=== PATIENT | female | born 1935 | race Caucasian/White ===

== ENCOUNTER → 2016-12-15 | Outpatient (CLI) | payer BC ==
[~2016-12-15] MED LIST: ACET-1256 PO; ASPI81TA28 PO; ATOR-24 PO; CHOL100010 PO; CIPR-255 PO; CLR10 PO; JUICE PLUS PO; LORA-741 PO; MELA1TAB5 PO; METO25TA56 PO; METR-163 PO; MISCCAP80 PO; NXM/40 PO; OMEG10007 PO; OXYC-57 PO; PRMVC PV; RANI150T3 PO; TRAM-10 PO; WARF2TAB PO
== END | disposition home or self-care (01) ==
LOC: C.RDSM 16:07
PROVIDERS: ATTEND Physical Medicine & Rehabilitation Sports Medicine
DX: M25.561 Pain in right knee (principal)

== ENCOUNTER 2017-02-04 05:18 | Inpatient (IN) | payer BC, OTHER ==
--- NOTE | 2017-01-09 15:09 | PAT Medication Instructions ---
Service Date Jan 09, 2017. Current Home Medication List Acetaminophen (Tylenol), 1,000 MG PO Aspirin (Aspirin Ec), 81 MG PO HS Atorvastatin (Lipitor), 20 MG PO HS Cholecalciferol (Vitamin D), 1,000 INTER.UNIT PO QAM Esomeprazole Magnesium (Nexium), 20 MG PO Q2D Estrogens, Conjugated (Premarin), 0.5 GM UNKNOWN WK Melatonin (Kp Melatonin), 1 TAB PO HS Metoprolol Tartrate (Lopressor) (Lopressor), 25 MG PO BID Probiotic Product (Probiotic), 1 CAP PO Q2D Ranitidine Hcl (Zantac), 150 MG PO Q2D [Juice Plus], 3 CAP PO QAM Medication Instructions For Your Scheduled Surgery - Hold the following medications 2 weeks prior to surgery: [Juice Plus], 3 CAP PO QAM Fish Oil (if taking) - Continue as directed: Estrogens, Conjugated (Premarin), 0.5 GM UNKNOWN WK - Hold the following medications the morning of surgery: Cholecalciferol (Vitamin D), 1,000 INTER.UNIT PO QAM Probiotic Product (Probiotic), 1 CAP PO Q2D - Take the following medications the morning of surgery with a sip of water OTHERWISE NOTHING TO EAT OR DRINK AFTER MIDNIGHT: Esomeprazole Magnesium (Nexium), 20 MG PO Q2D or Ranitidine Hcl (Zantac), 150 MG PO Q2D Metoprolol Tartrate (Lopressor) (Lopressor), 25 MG PO BID Acetaminophen (Tylenol), 1,000 MG PO (if needed up to 4 hours prior to surgery) - Take the following medications as scheduled the night before surgery: Aspirin (Aspirin Ec), 81 MG PO HS Atorvastatin (Lipitor), 20 MG PO HS Melatonin (Kp Melatonin), 1 TAB PO HS Metoprolol Tartrate (Lopressor) (Lopressor), 25 MG PO BID Acetaminophen (Tylenol), 1,000 MG PO If you have any questions please call us at [phone] or [phone] or [phone]
[2017-01-09 15:18] VITALS: BMI 31.0
[2017-01-09 15:55] LABS: BASO % 0.5 %; BASO ABS # 0.04 K/uL (0-0.2); COMPLETE YES; EOS % 2.2 %; HEMATOCRIT 37.7 % (37-47); IG% 0.4 %; LYMPH ABS # 2.17 K/uL (1.2-3.4); MEAN CELL VOLUME 85.9 fL (80-100); MEAN CORPUSCULAR HEMOGLOBIN 28.9 pg (25-34); MEAN CORPUSCULAR HGB CONC 33.7 g/dl (32-36); MONO % 8.9 %; PLATELET COUNT 319 K/uL (130-400); RED BLOOD COUNT 4.39 M/uL (4.2-5.4); WHITE BLOOD COUNT 8.05 K/uL (4.8-10.8)
[2017-01-09 15:58] LABS: URINE APPEARANCE CLEAR (CLEAR); URINE BILIRUBIN NEG (NEG); URINE COLOR YELLOW; URINE NITRITE NEG (NEG); URINE PH 7.5 (4.5-7.5); URINE SPECIFIC GRAVITY 1.007 (1.000-1.030); UROBILINOGEN NEG (NEG); ZZUR CULT IF INDIC CLEAN CATCH NO
[2017-01-09 16:05] LABS: PROTHROMBIN TIME (PATIENT) 10.6 SECONDS (9.0-12.0)
[2017-01-09 16:07] LABS: CALCIUM 9.3 mg/dl (8.5-10.1); CREATININE 0.7 mg/dl (0.60-1.20); POTASSIUM 4.5 mmol/L (3.5-5.1)
[2017-01-09 16:09] LABS: MANUAL MICROSCOPIC REQUIRED? NO; REVIEW REQ? NO
--- NOTE | 2017-01-14 10:42 | HISTORY & PHYSICAL EXAMINATION ---
DATE OF ADMISSION: 02/04/2017 CHIEF COMPLAINT: Right hip pain. HISTORY OF PRESENT ILLNESS: This 81-year-old white female presents with complaints of right hip pain that she has had for approximately 8 months. Symptoms began in April or May. Pain has progressed. She ambulates with a cane. Pain is limiting her activity level. It is worse with standing and weightbearing. It is affecting her ADLs. She notes loss of motion of the hip. She is now putting more pressure on the left side because of her right hip pain. She also notes radiating pain to her knee as well. No specific trauma or injury. X-rays have been obtained. She elects to proceed with right total hip arthroplasty in hopes of alleviating her pain. PAST MEDICAL HISTORY: Significant for COPD, elevated cholesterol, hypertension, osteoarthritis, rheumatoid arthritis, GERD, obesity, and hiatal hernia. PREVIOUS SURGERIES: Appendectomy, hysterectomy, and heart catheterization. ALLERGIES: KNOWN ALLERGY ANTIHISTAMINES WHICH CAUSE HYPERACTIVITY, EVISTA AND PENICILLIN CAUSED A RASH OVER 50 YEARS AGO. CURRENT MEDICATIONS: Aspirin 81 mg p.o. daily, atorvastatin 40 mg p.o. daily, Lopressor 25 mg p.o. b.i.d., melatonin 3 mg p.o. at bedtime, Nexium 40 mg p.o. every other day, probiotic 1 capsule daily, Zantac 150 mg p.o. every other day. SOCIAL HISTORY: The patient is . Still employed. She works for [employer]. No tobacco use, no ETOH use. FAMILY HISTORY: Significant for daughter with MS and her grandchildren having von Willebrand disease. REVIEW OF SYSTEMS: Significant for above stated conditions, otherwise unremarkable. PHYSICAL EXAMINATION: GENERAL: Well-developed, well-nourished elderly white female in no acute distress. Sitting on a chair. Alert and oriented. SKIN: Warm and dry with fair turgor. No rashes or lesions. No ecchymosis or erythema. No intraarticular effusion. HEAD, EYES, EARS, NOSE, AND THROAT: Normocephalic, atraumatic. Eyes PERRLA, EOMI. Nares patent bilaterally without turbinate enlargement. Oropharynx without erythema or exudate. No lesions noted. Uvula midline. Oral mucosa moist. Fair dentition. Dental caps are noted. HEART: RRR. No MGR. LUNGS: Clear to auscultation bilaterally. No crackles, rhonchi or wheezing. Good air movement. ABDOMEN: Bowel sounds present x4, soft, nontender. No organomegaly. No masses. MUSCULOSKELETAL: Right hip evaluation reveals no obvious asymmetry or deformity. She has focal discomfort with palpation over the anterior flexion crease. Hip flexion is only to around 90 degrees. External rotation of only about 5 degrees before onset of pain. Internal rotation also of only around 5 degrees before onset of pain. No discomfort with palpation over the greater trochanter or the IT band. She is ambulatory with a significantly antalgic gait. She does use a cane. NEUROLOGIC: Cranial nerves II through XII are intact. Gross sensation is intact across the right leg via soft touch. Peripheral pulses are 2+. DATA: Radiographic imaging previously obtained shows bilateral hip DJD, right greater than left. Periarticular osteophytes, subchondral sclerosis, and joint space narrowing are all present. IMPRESSION: Right hip end-stage degenerative joint disease. PLAN: Informed written consent was obtained to proceed with right total hip arthroplasty. Anticipate discharge to home with 2 weeks of home health services and then outpatient PT. Postoperative prescriptions for Percocet and Coumadin will be provided at discharge from the hospital. Preoperative lab work, EKG, and chest x-ray have been ordered. Medical clearance has been requested from Dr. Maloney as well as from Antwan Avila PA-C.
[~2017-02-04] VITALS: Ht 154.9 cm; Wt 75.7 kg
[2017-02-04] VITALS (8 sets, daily range): BP systolic 100–157; BP diastolic 64–82; PULSE 68–83; TEMP 36.3–37; O2SAT 92–98; Ht 154.9 cm; Wt 75.7 kg
[~2017-02-04 05:18] MED LIST changes: -CHOL100010 PO; -CIPR-255 PO; -CLR10 PO; -LORA-741 PO; -METR-163 PO; -OXYC-57 PO; -TRAM-10 PO; -WARF2TAB PO
[2017-02-04] MEDS ORDERED: CEFAZOLIN 2000 MG/60 ML D5W IV SCH (06:00)
[2017-02-04] MEDS ORDERED: LACTATED RINGER'S 1000ML 1,000 ML IV SCH ×2 (06:00→10:00)
[2017-02-04] MEDS ORDERED: ROPIVACAINE 5MG/ML 30 ML 150 MG, BUPIVACAINE/EPINEPHR 0.5% MPF 30 ML, KETOROLAC TROMETH... INFIL SCH ×7 (06:00)
[2017-02-04] MEDS ORDERED: TRANEXAMIC ACID INJ 1,000 MG in SODIUM CHLORIDE 0.9% 100ML 100 ML IV ONE (06:00)
--- NOTE | 2017-02-04 06:24 | History & Physical Bridge Note ---
H&P Re-Evaluation Bridge Note: I have examined the patient, reviewed the History & Physical and in the interval since the performance of the History & Physical I have noted the following changes of clinical significance: No changes noted
[2017-02-04] MEDS ORDERED: MIDAZOLAM HCL 1 MG/ML 2ML VIAL ONE ×2 (06:31→07:10)
[2017-02-04] MEDS ORDERED: FENTANYL CITRATE INJ 50 MCG/1 ML 2 ML VIAL ONE (06:31)
[2017-02-04] MEDS ORDERED: POVIDONE-IODINE OP SOLN 30 ML BTL ONE (06:31)
[2017-02-04] MEDS ORDERED: BUPIVACAINE 0.5 % 5 MG/1 ML PF 10ML VIAL ONE (06:41)
[2017-02-04] MEDS ORDERED: PROPOFOL IV EMULSION 10 MG/ML 20 ML VIAL IV ONE (07:18)
[2017-02-04] MEDS ORDERED: LIDOCAINE HCL 2% 2 ML VIAL (20MG/ML) ONE (07:18)
[2017-02-04] MEDS ORDERED: EpHEDrine SULFATE 50MG/5ML SYR ONE (07:51)
[2017-02-04] MEDS ORDERED: ONDANSETRON INJ 2 MG/ML 2 ML VIAL IV PRN ×2 (08:00→08:45)
[2017-02-04] MEDS ORDERED: FENTANYL CITRATE INJ 50 MCG/1 ML 2 ML VIAL IV PRN (08:00)
[2017-02-04] MEDS ORDERED: EpHEDrine SULFATE INJ 50 MG/ML AMP IV PRN (08:00)
[2017-02-04] MEDS ORDERED: ATROPINE SULFATE 0.1 MG/ML 5ML SYR IV PRN (08:00)
--- NOTE | 2017-02-04 08:26 | [facility] Post Operative Brief Note ---
Immediate Operative Summary Operative Date February 04, 2017. Pre-Operative Diagnosis Right Hip End-Stage Degenerative Joint Disease Post-Operative Diagnosis Right Hip End-Stage Degenerative Joint Disease Procedure(s) Performed Right Total Hip Arthroplasty--Uncemented Surgeon Dr. Camejo Cook Larder Surgeon(s) Dr. Joseph Lancaster (Fellow)/GERRY Baer Estimated Blood Loss 75 ml Findings severe djd/contractures Fluids (cc crystalloids) 1300cc Specimens A. Right Femoral Head Drains none Anesthesia spinal Complication(s) None Disposition Recovery Room / PACU
[2017-02-04] MEDS ORDERED: METOCLOPRAMIDE HCL INJ 5 MG/ML 2 ML VIAL IV PRN (08:45)
[2017-02-04] MEDS ORDERED: DiphenhydrAMINE HCL 50 MG/ML VIAL IV PRN (08:45)
[2017-02-04] MEDS ORDERED: ACETAMINOPHEN IV 1,000 MG in EMPTY BAG 0 ML IV SCH (08:45)
[2017-02-04] MEDS ORDERED: BISACODYL 10 MG SUPP PR PRN (08:45)
[2017-02-04] MEDS ORDERED: ALUMINUM/MAGNESIUM/SIMETH (MAALOX MAX) 30 ML UDC PO PRN (08:45)
[2017-02-04] MEDS ORDERED: ACETAMINOPHEN 325 MG TAB PO PRN (08:45)
[2017-02-04] MEDS ORDERED: MoRPHine SULFATE 2 MG/ML CARP IV PRN (08:45)
[2017-02-04] MEDS ORDERED: MAGNESIUM HYDROXIDE SUSP 30 ML UDC PO PRN (08:45)
--- NOTE | 2017-02-04 08:45 | OPERATIVE REPORT ---
DATE OF OPERATION: 02/04/2017 PREOPERATIVE DIAGNOSIS: Severe osteoarthritis, right hip. POSTOPERATIVE DIAGNOSIS: Same. OPERATION PERFORMED: Noncemented right total hip replacement. SURGEON: Dr. Camejo. SUPERINTENDENT COLLIERY: Dr. Joseph Lancaster. SECOND SUPERINTENDENT COLLIERY: Kishor Casillas PA-C. PERIOPERATIVE SITUATION: Medically cleared female with intractable hip pain with physical exam and x-ray reveals significant end-stage disease, has marked flexion contracture and external rotation contracture. She has minimal rotation of her hip. X-rays reveal end-stage disease with centralization of the head and marked osteophyte formation periarticularly and joint space narrowing, marked sclerosis. OPERATION AND FINDINGS: PROCEDURE: The patient was properly identified, site verified, consent verified, 2 grams of Ancef confirmed as being given. The right lower extremity was prepped and draped in usual routine fashion with the patient in left lateral decubitus position. The patient exposure was then posterior, sharp dissection carried down to the subcutaneous tissue with electrothermal dissection down to the fascia. This was then incised under direct vision. Retractors placed. Care taken to protect the sciatic nerve. The short external rotators were identified and the short external rotators released. The hip capsule was then teed. The hip was then dislocated, the femoral neck resected. There was marked disease to the femoral head. The labrum was then excised after retractors placed around the acetabulum. Care taken to protect the sciatic nerve. Serial reaming carried up to a 48 and a 48 cup impacted into position. Excellent fixation was obtained with a rim fit and an additional screw was placed 6.5 x 20 with excellent purchase. Trial liner was then seated. The wound was then irrigated, trial liner seated. The anterior capsule was markedly tight. It was released multiple times during the procedure in order to improve the extension of the hip. It was very, very tight. The psoas was left alone. The proximal femur was then prepared. It was a very narrow canal. Serial broaching was carried up to a size 0 and then multiple reductions carried out with the high offset and standard stem. The high offset improved stability without increasing leg lengths. Leg lengths were either slightly long or just about even when checked intraoperatively. The hip was then dislocated. All remaining trial implants were then removed. The wound was irrigated with Betadine. The hole eliminator seated, permanent liner seated. The head and necks seated and then the hip reduced. It was stable and beyond 95-100 degrees of flexion with internal rotation of 25 degrees. In extension the hip was still a bit tight, slight pop was felt likely representing soft tissue release. Going in extension, the hip was then reevaluated, reinspected after it was dislocated. Did not see anything wrong with the implants or with the bone of the femur. There was no split of the calcar or anything like that. The wound was then irrigated. The hip was then reduced and then closed with #2 Vicryl, 2-0 Vicryl and stainless steel clips. The wound was injected with Orthomix in the superficial layers. Estimated blood loss was 75 mL. Crystalloid was 1300 mL. SUMMARY OF IMPLANTS: Size 48 acetabular shell sector cup, 38 x 48 neutral liner, 0 high offset femoral stem, 32 head, +1 neck length. I attest to the content of the Intraoperative Record and any orders documented therein. Any exceptio ns are noted below.
--- NOTE | 2017-02-04 09:03 | DIAGNOSTIC IMAGING REPORT ---
SINGLE VIEW PELVIS CLINICAL HISTORY: Postoperative examination. FINDINGS: An AP, portable, supine view of the hips and lower pelvis is compared to study dated 05/20/2016. The skeletal structures are osteopenic. A bipolar right hip arthroplasty is in near anatomic alignment. No acute fracture is seen. There are expected postoperative findings overlying the right hip including skin clips, subcutaneous gas, and soft tissue swelling. Moderate arthritic change is seen in the left hip. There is sclerotic change noted in the sacroiliac joints and pubic symphysis. IMPRESSION: Expected postoperative findings status post right hip arthroplasty. No acute fracture is seen. Electronically signed by: Arian Bright M.D. 02/04/2017 9:02 AM Dictated Date/Time: 02/04/2017 9:01 AM
--- NOTE | 2017-02-04 09:45 | Anesthesiology Progress Note ---
Anesthesia Post Op Note Date & Time February 04, 2017 at 09:45 Vital Signs Pain Intensity: 0 Vital Signs Past 12 Hours Date Time Temp Pulse Resp B/P Pulse Ox O2 Delivery O2 Flow Rate FiO2 02/04/17 09:30 36.9 69 18 120/59 99 Nasal Cannula 3 02/04/17 09:15 64 18 116/59 99 Nasal Cannula 3 02/04/17 09:00 68 16 116/61 99 Nasal Cannula 3 02/04/17 08:50 65 16 115/64 99 Nasal Cannula 3 02/04/17 08:40 64 16 109/54 99 Nasal Cannula 3 02/04/17 08:30 36.4 67 16 96/44 96 Nasal Cannula 3 02/04/17 05:46 37 73 18 157/82 94 Room Air Notes Mental Status: alert / awake / arousable, participated in evaluation Pt Amnestic to Procedure: Yes Nausea / Vomiting: adequately controlled Pain: adequately controlled Airway Patency, RR, SpO2: stable & adequate BP & HR: stable & adequate Hydration State: stable & adequate Neuraxial Anesthesia: was administered, sensory block is resolving Anesthetic Complications: no major complications apparent
[2017-02-04] MEDS ORDERED: D5W AND 1/2NSS + 20MEQ KCL 1,000 ML IV SCH (10:45)
[2017-02-04] MEDS: ACETAMINOPHEN IV 1,000 MG in EMPTY BAG 0 ML IV SCH ×2 (11:04→18:47)
[2017-02-04] MEDS ORDERED: KETOROLAC TROMETHAMINE 15 MG/ML VIAL IV. SCH (12:00)
[2017-02-04] MEDS: FERROUS GLUCONATE 324 MG TAB PO SCH ×2 (12:05→17:27)
--- NOTE | 2017-02-04 13:03 | PROGRESS NOTE ---
DATE: 02/04/2017 Postop check, status post right total hip replacement. At this time, the patient is sitting up, eating lunch and has no chest pain, shortness of breath, fever, chills, nausea, vomiting, or headache. Vital signs are stable. She is afebrile. Neurovascular check of femoral sciatic nerve is excellent. Postop x-rays look excellent. ASSESSMENT: Doing well. Continue with care pathway. Hep-Lock IV if she tolerates lunch at 2:00 p.m. We will mobilize and weightbearing to tolerance, right lower extremity.
[2017-02-04] MEDS: OXYCODONE HCL IR 5 MG TAB (IMMEDIATE RELEASE) PO PRN ×2 (13:56→15:19)
--- NOTE | 2017-02-04 13:57 | OPERATIVE REPORT ---
DATE OF OPERATION: 02/04/2017 PREOPERATIVE DIAGNOSIS: Right hip endstage degenerative joint disease. POSTOPERATIVE DIAGNOSIS: Right hip same. PROCEDURE: Right hip total hip arthroplasty using DePuy implants. SURGEON: Dr. Camejo. CARBOY FILLER: Dr. Jordan. SECOND CARBOY FILLER: Kishor Casillas PA-C. HISTORY OF PRESENT ILLNESS: This 81-year-old white female presented to the office with complaints of right hip pain that has been ongoing for several months. Pain became worse with time. It was affecting her ADLs. She had tried conservative care measures without success. She elected to proceed with total hip arthroplasty in hopes of alleviating her pain. Preoperative x-rays were obtained. OPERATION: The patient was administered a spinal anesthetic and then taken to the operating room where she was given sedation. She was prepped and draped in the usual sterile fashion. Please see Dr. Camejo's operative report for specifics of the procedure. I was present for the entire case from initial patient positioning through final wound closure. Assistance was provided in patient positioning, tissue retraction, hemostasis, trial implant placement, final implant placement, and final wound closure. The patient was taken to the recovery room in satisfactory condition. I attest to the content of the Intraoperative Record and any orders documented therein. Any exceptio ns are noted below.
--- NOTE | 2017-02-04 14:01 | Medical Consult ---
Consultation Date of Consultation: February 04, 2017. Attending Physician: Hernando Camejo M.D. Reason for Consultation: postop medical management History of Present Illness Patient seen and examined after undergoing R LATONYA this morning by Dr. Camejo. Patient feels well. Sensory block is still wearing off. Not having any pain yet. Has chronic mild cough with rare yellow sputum, sneezing, postnasal drip attributed to allergies, unchanged from baseline. Denies fever, chills, rhinorrhea, sinus congestion, sore throat, dizziness, chest pain, SOB, nausea, vomiting. Has not eaten yet. Last BM was normal this morning before surgery. Has not voided yet after surgery. Past Medical/Surgical History Medical Problems: (1) CAD (coronary artery disease) Permanent Comment: mild to moderate on July 2009 cath. Sep 2016 stress test neg. Status: Chronic (2) Diverticulosis Status: Chronic (3) GERD (gastroesophageal reflux disease) Status: Chronic (4) Hiatal hernia Status: Chronic (5) History of Clostridium difficile colitis Status: Chronic (6) HTN (hypertension) Status: Chronic (7) Hx of basal cell carcinoma Status: Chronic (8) Hyperlipidemia Status: Chronic (9) Migraine with aura Status: Chronic (10) HIPOLITO on CPAP Status: Chronic (11) Preglaucoma Status: Chronic (12) Schatzki's ring Status: Chronic Surgical Problems: (1) H/O breast biopsy Permanent Comment: benign Status: Chronic (2) S/P appendectomy Status: Chronic (3) S/P SANTO-BSO Status: Chronic Family History FH: cancer FH: heart disease Hypertension Social History Smoking Status: Never Smoker Alcohol Use: none Housing Status: lives alone Occupation Status: employed Allergies Coded Allergies: Penicillins (Verified Allergy, Mild, RASH, 02/04/17) Doxepin (Verified Allergy, Unknown, unknown, 02/04/17) Meloxicam (Verified Allergy, Unknown, DIZZINESS, 02/04/17) Raloxifene (Verified Allergy, Unknown, RASH, 02/04/17) Lisinopril (Verified Adverse Reaction, Unknown, COUGH, 02/04/17) Home Medications Active Reported [place]-3 (Fish Oil) 1 Ea Cap 1 Cap PO DAILY Zantac (Ranitidine HCl) 150 Mg Tab 150 Mg PO Q2D altnerate with Nexium Tylenol (Acetaminophen) 500 Mg Tab 500 Mg PO Q6 PRN Premarin (Estrogens, Conjugated) 14 Appln/30 Gm Cr 0.5 Gm PV WK Probiotic (Probiotic Product) 1 Cap Cap 1 Cap PO Q2D [Juice Plus] 3 Cap PO QAM Kp Melatonin (Melatonin) 3 Mg Tab 1 Tab PO HS Nexium (Esomeprazole Magnesium) 40 Mg Capcr 40 Mg PO Q2D alternate with ranitidine Lipitor (Atorvastatin Calcium) 40 Mg Tab 20 Mg PO QAM Aspirin Ec (Aspirin) 81 Mg Tab 81 Mg PO HS Lopressor (Metoprolol Tartrate) 25 Mg Tab 25 Mg PO BID Current Inpatient Medications Current Inpatient Medications Medications (Trade) Dose Ordered Sig/Adrian Route Start Time Stop Time Status Last Admin Dose Admin Cefazolin Sodium (Ancef 2000mg/60 ml D5W) 60 ml @ 100 mls/hr PREOP IV 02/04/17 06:00 02/04/17 18:00 02/04/17 06:57 100 MLS/HR Fentanyl Citrate (Fentanyl Inj) 25 mcg Q5M PRN IV 02/04/17 08:00 02/04/17 13:00 Ondansetron HCl (Zofran Inj) 4 mg ONE PRN IV 02/04/17 08:00 02/04/17 13:00 Ephedrine Sulfate (EpHEDrine SULFATE INJ) 5 mg Q5M PRN IV 02/04/17 08:00 02/04/17 13:00 Atropine Sulfate 0.5 mg 0.5 mg Q1M PRN IV 02/04/17 08:00 02/04/17 13:00 Potassium Chloride/Dextrose/ Sod Cl (D5W And 1/2nss + 20meq KCl) 1,000 ml @ 100 mls/hr Q10H IV 02/04/17 10:45 02/05/17 10:44 Ketorolac Tromethamine (Toradol Inj) 15 mg Q6H IV. 02/04/17 08:45 02/05/17 08:44 UNV Oxycodone HCl (Roxicodone Immediate Rel Tab) 1 TABLET FOR PAIN RATING... Q4H PRN PO 02/04/17 08:45 02/18/17 08:44 Morphine Sulfate (MoRPHine SULFATE INJ) 2 mg Q1H PRN IV 02/04/17 08:45 02/18/17 08:44 Acetaminophen (Tylenol Tab) 650 mg Q6H PRN PO 02/04/17 08:45 03/06/17 08:44 Future hold Magnesium Hydroxide (Milk Of Magnesia Susp) 30 ml Q6H PRN PO 02/04/17 08:45 03/06/17 08:44 Bisacodyl (Dulcolax Supp) 10 mg DAILY PRN GA 02/04/17 08:45 03/06/17 08:44 Docusate Sodium (coLACE CAP) 100 mg BID PO 02/04/17 21:00 03/06/17 20:59 Diphenhydramine HCl (Benadryl Inj) 25 mg Q8H PRN IV 02/04/17 08:45 03/06/17 08:44 Al Hydrox/Mg Hydrox/Simethicone (Maalox Max Susp) 15 ml Q4H PRN PO 02/04/17 08:45 03/06/17 08:44 Multivitamins (Multivitamin Tab) 1 tab QAM PO 02/05/17 09:00 03/07/17 08:59 Ondansetron HCl (Zofran Inj) 4 mg Q6H PRN IV 02/04/17 08:45 03/06/17 08:44 Metoclopramide HCl (Reglan Inj) 10 mg Q6H PRN IV 02/04/17 08:45 03/06/17 08:44 Ferrous Gluconate (Ferrous Gluconate Tab) 324 mg TIDM PO 02/04/17 12:00 03/06/17 11:59 Pantoprazole Sodium 40 mg 40 mg QAM PO 02/05/17 09:00 03/07/17 08:59 Cefazolin Sodium 2000 mg/Dextrose 60 ml @ 100 mls/hr Q8H IV 02/04/17 16:00 02/05/17 00:35 Tranexamic Acid 1000 mg/Sodium Chloride 110 ml @ 660 mls/hr 1430 IV 02/04/17 14:30 02/04/17 14:39 Dexamethasone Sodium Phosphate/ Syringe (Decadron Inj/ Syringe) 2.5 ml @ 1 mls/min 0730 IV 02/05/17 07:30 02/05/17 07:33 Aspirin (Ecotrin Tab) 81 mg HS PO 02/04/17 21:00 03/06/17 20:59 Atorvastatin Calcium (Lipitor Tab) 20 mg HS PO 02/04/17 21:00 03/06/17 20:59 Estrogens Conjugated (Premarin Vag Crm) 0.2324 appln UD PV 02/04/17 08:45 03/06/17 08:44 UNV Metoprolol Tartrate (Lopressor Tab) 25 mg BID PO 02/04/17 21:00 03/06/17 20:59 Ranitidine HCl 150 mg 150 mg Q2D PO 02/04/17 08:45 03/06/17 08:44 UNV Acetaminophen/ Empty Bag (Ofirmev Iv/ Empty Iv Bag 100ml) 100 ml @ 400 mls/hr Q8H IV 02/04/17 11:00 02/05/17 03:14 Review of Systems Ten systems reviewed and negative except as noted in HPI. Physical Exam Date Time Temp Pulse Resp B/P Pulse Ox O2 Delivery O2 Flow Rate FiO2 02/04/17 10:35 36.4 68 18 104/64 97 Nasal Cannula 2.0 02/04/17 10:29 36.3 70 16 128/74 97 2.0 02/04/17 10:00 97 Nasal Cannula 2.0 02/04/17 10:00 97 Nasal Cannula 2.0 02/04/17 09:45 36.9 66 18 109/62 99 Nasal Cannula 3 02/04/17 09:30 36.9 69 18 120/59 99 Nasal Cannula 3 02/04/17 09:15 64 18 116/59 99 Nasal Cannula 3 02/04/17 09:00 68 16 116/61 99 Nasal Cannula 3 02/04/17 08:50 65 16 115/64 99 Nasal Cannula 3 02/04/17 08:40 64 16 109/54 99 Nasal Cannula 3 02/04/17 08:30 36.4 67 16 96/44 96 Nasal Cannula 3 02/04/17 05:46 37 73 18 157/82 94 Room Air General Appearance: WD/WN, no apparent distress, + pertinent finding (pleasant alert 81 year old female, appears comfortable, daughter at bedside) Head: normocephalic, atraumatic Eyes: normal inspection, sclerae normal ENT: hearing grossly normal, pharynx normal Neck: supple, trachea midline Respiratory/Chest: lungs clear, normal breath sounds, no respiratory distress, no accessory muscle use Cardiovascular: regular rate, rhythm, no murmur Abdomen/GI: normal bowel sounds, non tender, soft Extremities/Musculoskelatal: no calf tenderness, no pedal edema, + pertinent finding (s/p R LATONYA, dressing in place, SCD's in place bilat LE) Neurologic/Psych: alert, normal mood/affect, oriented x 3, + pertinent finding (sensation and strength diminished BLLE due to resolving anesthetic block) Skin: normal color, warm/dry Assessment & Plan S/P RIGHT LATONYA POD #[address] Camejo Doing well postoperatively Pain control per ortho- however I will d/c Toradol- advise avoiding NSAIDs due to hx CAD Monitor daily H/H for sign of acute blood loss anemia Incentive spirometry PT/ OT CAD Stable; no angina Mild to moderate CAD on July 2009 cath; Sep 2016 stress test neg Had preop clearance with Antwan Avila PA-C Continue metoprolol, aspirin, statin HYPERTENSION BP running 100s-120s Currently on IVF's at 100 mL/hour Continue metoprolol with holding parameter for SBP <100 HIPOLITO Continue CPAP GERD Continue PPI and H2 ryanne DVT PROPHYLAXIS Per ortho DISPOSITION Per ortho Patient seen in collaboration with Dr. Queen. Please see his addendum. Attending Addendum Pt was seen and examined. Agree with Kristie assessment and plan. S/P day [address] Camejo. denies any chest pain, palpitation and SOB. General- No acute distress Head- atraumatic Eyes- PERRL, EOMI ENT- oropharynx clear Neck- supple, no JVD Lungs- No wheezing no rales Heart- regular rhythm Extremities- no calf tenderness A/P S/P RIGHT LATONYA POD #[address] Camejo No post-op complication Continue pain control Incentive spirometry monitor h/h PT/ OT HYPERTENSION Stable DVT px as per ortho Thank you for the consultation We will follow the patient with you during the hospital stay Mirella Queen MD
[2017-02-04] MEDS ORDERED: TRANEXAMIC ACID INJ 1,000 MG in SODIUM CHLORIDE 0.9% 100ML 100 ML IV SCH (14:30)
[2017-02-04] MEDS: RANITIDINE HCL 150 MG TAB PO SCH (15:20)
[2017-02-04] MEDS ORDERED: WARFARIN SOD 5 MG TAB PO SCH (16:00)
[2017-02-04] MEDS: CEFAZOLIN IV 2,000 MG in DEXTROSE 5% 50ML 50 ML IV SCH (16:20)
[2017-02-04] MEDS ORDERED: NURSING VERBAL MED ORDER ONE (18:45)
[2017-02-04] MEDS: DOCUSATE SODIUM 100 MG CAP PO SCH (20:54)
[2017-02-04] MEDS: METOPROLOL TARTRATE 25 MG TAB PO SCH (20:54)
[2017-02-04] MEDS ORDERED: ATORVASTATIN 20 MG TAB PO SCH (21:00)
[2017-02-04] MEDS: ASPIRIN 81 MG ECTAB PO SCH (21:36)
[2017-02-05] VITALS (7 sets, daily range): BP systolic 96–113; BP diastolic 61–69; PULSE 58–76; TEMP 36.5–37; O2SAT 93–97
[2017-02-05] MEDS: CEFAZOLIN IV 2,000 MG in DEXTROSE 5% 50ML 50 ML IV SCH (00:07)
[2017-02-05] MEDS: OXYCODONE HCL IR 5 MG TAB (IMMEDIATE RELEASE) PO PRN ×2 (00:08→08:29)
[2017-02-05] MEDS: ACETAMINOPHEN IV 1,000 MG in EMPTY BAG 0 ML IV SCH (03:16)
--- NOTE | 2017-02-05 07:03 | PROGRESS NOTE ---
DATE: 02/05/2017 Postop day 1 status post right total hip replacement. The patient has been out of bed to go to the bathroom only; she has not walked in the [place] at all. She denies chest pain, shortness of breath, fever, chills, nausea, vomiting or headache. Vital signs are stable. She is afebrile. The a.m. labs are pending. Wound dressing clean, dry and intact. Femoral sciatic nerve is excellent. Hip range of motion is as expected, improved, has some minor pain. ASSESSMENT: Overall, doing well. Continue with care pathway. We will have clinical social work aide see today. PT and OT today. Likely discharge tomorrow. She feels a little bit unsure about going home today. I will how see she does with services provided. Follow up in the afternoon.
[2017-02-05 07:22] LABS: MEAN CELL VOLUME 85.1 fL (80-100); MEAN CORPUSCULAR HEMOGLOBIN 28.2 pg (25-34); MEAN CORPUSCULAR HGB CONC 33.1 g/dl (32-36); MEAN PLATELET VOLUME 9.9 fL (7.4-10.4); PLATELET COUNT 263 K/uL (130-400); RED BLOOD COUNT 3.76 M/uL (4.2-5.4); WHITE BLOOD COUNT 13.29 K/uL (4.8-10.8)
[2017-02-05] MEDS ORDERED: DEXAMETHASONE INJ 10 MG in SYRINGE 0 ML IV SCH (07:30)
[2017-02-05 07:57] LABS: CALCIUM 8.1 mg/dl (8.5-10.1); CREATININE 0.69 mg/dl (0.60-1.20); POTASSIUM 4.5 mmol/L (3.5-5.1)
--- NOTE | 2017-02-05 07:59 | DISCHARGE SUMMARY ---
DATE OF DISCHARGE: Tentative 02/05/2017 versus 02/06/2017; pending PT/OT and social service assessment. CHIEF COMPLAINT: Right hip pain. HISTORY OF PRESENT ILLNESS: An 81-year-old female, admitted for elective right total hip replacement. Hip was extremely stiff. Leg lengths are unequal baseline secondary to pelvic obliquity and arthritic change in the opposite extremity. She underwent elective right total hip replacement. At this point in time, her pain is well-managed with oral meds. She has been up to the bathroom, but is not on any significant PT or OT yet. PAST MEDICAL HISTORY: Remarkable for; COPD, elevated cholesterol, hypertension, osteoarthritis, rheumatoid arthritis, GERD, obesity and hiatal hernia. PREVIOUS SURGERIES: Include; appendectomy, hysterectomy and heart catheterization. ALLERGIES: TO ANTIHISTAMINES WHICH CAUSE HYPERACTIVITY. EVISTA AND PENICILLIN CAUSED RASH, OVER 50 YEARS AGO. PREADMISSION MEDICATIONS: Include; aspirin 81 mg daily, atorvastatin, Lopressor, melatonin, Nexium, probiotic and Zantac. At this point in time, she should discontinue the melatonin as this may interfere with her Coumadin unless she keeps it constant and the INR if followed carefully that would be fine. SOCIAL HISTORY: she is . Still employed, she works at [employer] No tobacco or alcohol use. FAMILY HISTORY: Remarkable for daughter with MS and grandchildren having Von Willebrand disease. REVIEW OF SYSTEMS: Reveals no chest pain, shortness of breath, fever, chills, nausea, vomiting or headache. HOSPITAL COURSE: Has been uneventful. At this point in time she is stable for PT/OT and social service evaluation. Potential discharge either later today or tomorrow on Thursday. We will discharge on 4 mg of Coumadin for INR less than 1.4. Check INR on Thursday; anything greater than 1.4 discharge on 2 mg a day. Check INR on Thursday as well. NILS
[2017-02-05] MEDS: ATORVASTATIN 20 MG TAB PO SCH (08:29)
[2017-02-05] MEDS: FERROUS GLUCONATE 324 MG TAB PO SCH ×3 (08:29→17:27)
[2017-02-05] MEDS: METOPROLOL TARTRATE 25 MG TAB PO SCH ×2 (08:29→22:00)
[2017-02-05] MEDS: DOCUSATE SODIUM 100 MG CAP PO SCH ×2 (08:29→22:00)
[2017-02-05] MEDS: MULTIVITAMIN TAB PO SCH (08:29)
[2017-02-05] MEDS: PANTOprazole SOD 40 MG TAB PO SCH (08:30)
--- NOTE | 2017-02-05 09:31 | Orthopedic Progress Note ---
Orthopedic Progress Note Date of Service February 05, 2017. Subjective Post OP Day: 1 Reports: complaints (having some pain, feels lightheaded when upright), light headedness, Denies: SOB, calf pain, chest pain, nausea / vomiting Objective calves soft nontender, N/V intact, hip located, capillary refill less than 2 sec., dressing C/D/I, incision C/D/I, A&O x3, toes mobile, CMS intact minimal drainage on dressings, no active bleeding Date Time Temp Pulse Resp B/P Pulse Ox O2 Delivery O2 Flow Rate FiO2 02/05/17 09:25 69 16 113/68 93 Room Air 02/05/17 07:15 Room Air 02/05/17 06:52 37.0 65 17 100/62 94 Room Air 02/05/17 03:22 36.5 73 18 102/65 97 Room Air 02/05/17 02:07 Room Air 02/04/17 23:25 36.9 75 16 116/74 94 Room Air 02/04/17 20:00 36.6 83 16 102/66 92 Room Air 02/04/17 15:15 Room Air 02/04/17 15:10 36.6 81 16 100/66 93 Room Air 02/04/17 10:56 71 16 127/71 98 2.0 02/04/17 10:35 36.4 68 18 104/64 97 Nasal Cannula 2.0 02/04/17 10:29 36.3 70 16 128/74 97 2.0 02/04/17 10:00 97 Nasal Cannula 2.0 02/04/17 10:00 97 Nasal Cannula 2.0 02/04/17 09:45 36.9 66 18 109/62 99 Nasal Cannula 3 02/04/17 09:30 36.9 69 18 120/59 99 Nasal Cannula 3 Laboratory Results 24 Hours: Test 02/05/17 05:59 Hematocrit 32.0 % Hemoglobin 10.6 g/dL Assessment & Plan Assessment: Right hip total hip arthroplasty, post op day 1 Plan: PT/OT today continue total hip precautions dressing changed by me-wound looks very good D/C likely tomorrow coumadin per nomogram-INR pending Discharge Planning Discharge Planning: uncertain Pain Management: Percocet DVT Prophylaxis: TEDs, SCDs, Coumadin Therapy: Physical Therapy
[2017-02-05 10:18] LABS: INR 1.1 (0.9-1.1)
[2017-02-05] MEDS ORDERED: WARFARIN SOD 5 MG TAB PO ONE (16:00)
--- NOTE | 2017-02-05 18:49 | Progress Note ---
Medicine Progress Note Date & Time of Visit: February 05, 2017 at 18:41. Subjective Pt was seen and examined Lying in bed with no distress pain is control denies any chest pain, palpitation and sob Objective Last 8 Hrs Date Time Temp Pulse Resp B/P Pulse Ox O2 Delivery O2 Flow Rate FiO2 02/05/17 15:03 36.7 64 18 106/68 93 Room Air 02/05/17 11:05 36.7 58 16 96/61 93 Room Air Physical Exam: General- No acute distress Head- atraumatic Eyes- PERRL, EOMI ENT- oropharynx clear Neck- supple, no JVD Lungs- No wheezing Heart- regular rhythm Abdomen- normal bowel sounds, soft Extremities- no calf tenderness Neuro- alert, oriented x 3; PERRL, EOMI Laboratory Results: Last 24 Hours Test 02/05/17 05:59 02/05/17 09:50 White Blood Count 13.29 K/uL Red Blood Count 3.76 M/uL Hemoglobin 10.6 g/dL Hematocrit 32.0 % Mean Corpuscular Volume 85.1 fL Mean Corpuscular Hemoglobin 28.2 pg Mean Corpuscular Hemoglobin Concent 33.1 g/dl RDW Standard Deviation 41.1 fL RDW Coefficient of Variation 13.2 % Platelet Count 263 K/uL Mean Platelet Volume 9.9 fL Sodium Level 133 mmol/L Potassium Level 4.5 mmol/L Chloride Level 101 mmol/L Carbon Dioxide Level 25 mmol/L Anion Gap 7.0 mmol/L Blood Urea Nitrogen 15 mg/dl Creatinine 0.69 mg/dl Est Creatinine Clear Calc Drug Dose 59.5 ml/min Estimated GFR () 94.6 Estimated GFR (Non- 81.6 BUN/Creatinine Ratio 22.0 Random Glucose 116 mg/dl Calcium Level 8.1 mg/dl Prothrombin Time 12.0 SECONDS Prothromb Time International Ratio 1.1 Assessment & Plan S/P RIGHT LATONYA POD #[address] Camejo No post-op complication Continue pain control Incentive spirometry hgb 10.6 continue monitor h/h PT/ OT HYPERTENSION Stable CAD Asymptomatic continue beta ryanne, aspirin and statin DVT px as per ortho CODE STATUS FULL CODE DISPOSITION Per ortho Current Inpatient Medications: Current Inpatient Medications Medications (Trade) Dose Ordered Sig/Adrian Route Start Time Stop Time Status Last Admin Dose Admin Oxycodone HCl (Roxicodone Immediate Rel Tab) 1 TABLET FOR PAIN RATING... Q4H PRN PO 02/04/17 08:45 02/18/17 08:44 02/05/17 08:29 10 MG Morphine Sulfate (MoRPHine SULFATE INJ) 2 mg Q1H PRN IV 02/04/17 08:45 02/18/17 08:44 Acetaminophen (Tylenol Tab) 650 mg Q6H PRN PO 02/04/17 08:45 03/06/17 08:44 Future hold Magnesium Hydroxide (Milk Of Magnesia Susp) 30 ml Q6H PRN PO 02/04/17 08:45 03/06/17 08:44 Bisacodyl (Dulcolax Supp) 10 mg DAILY PRN TX 02/04/17 08:45 03/06/17 08:44 Docusate Sodium (coLACE CAP) 100 mg BID PO 02/04/17 21:00 03/06/17 20:59 02/05/17 08:29 100 MG Diphenhydramine HCl (Benadryl Inj) 25 mg Q8H PRN IV 02/04/17 08:45 03/06/17 08:44 Al Hydrox/Mg Hydrox/Simethicone (Maalox Max Susp) 15 ml Q4H PRN PO 02/04/17 08:45 03/06/17 08:44 02/04/17 16:20 15 ML Multivitamins (Multivitamin Tab) 1 tab QAM PO 02/05/17 09:00 03/07/17 08:59 02/05/17 08:29 1 TAB Ondansetron HCl (Zofran Inj) 4 mg Q6H PRN IV 02/04/17 08:45 03/06/17 08:44 02/05/17 10:06 4 MG Metoclopramide HCl (Reglan Inj) 10 mg Q6H PRN IV 02/04/17 08:45 03/06/17 08:44 Ferrous Gluconate (Ferrous Gluconate Tab) 324 mg TIDM PO 02/04/17 12:00 03/06/17 11:59 02/05/17 17:27 324 MG Pantoprazole Sodium (Protonix Tab) 40 mg QAM PO 02/05/17 09:00 03/07/17 08:59 02/05/17 08:30 40 MG Aspirin (Ecotrin Tab) 81 mg HS PO 02/04/17 21:00 03/06/17 20:59 02/04/17 21:36 81 MG Estrogens Conjugated (Premarin Vag Crm) 0.234 appln Fr@2100 PV 02/06/17 21:00 03/08/17 20:59 Metoprolol Tartrate (Lopressor Tab) 25 mg BID PO 02/04/17 21:00 03/06/17 20:59 02/05/17 08:29 25 MG Ranitidine HCl (zANTac TAB) 150 mg Q2D@1600 PO 02/04/17 16:00 03/06/17 15:59 02/04/17 15:20 150 MG Atorvastatin Calcium (Lipitor Tab) 20 mg QAM PO 02/05/17 09:00 03/07/17 08:59 02/05/17 08:29 20 MG
[2017-02-05] MEDS: ASPIRIN 81 MG ECTAB PO SCH (22:00)
[2017-02-06 06:34] VITALS: BP 109/69; PULSE 62; TEMP 36.8; O2SAT 94
[2017-02-06] MEDS: ATORVASTATIN 20 MG TAB PO SCH (07:21)
[2017-02-06] MEDS: METOPROLOL TARTRATE 25 MG TAB PO SCH (07:21)
[2017-02-06] MEDS: FERROUS GLUCONATE 324 MG TAB PO SCH ×2 (07:21→12:26)
[2017-02-06] MEDS: MULTIVITAMIN TAB PO SCH (07:21)
[2017-02-06] MEDS: PANTOprazole SOD 40 MG TAB PO SCH (07:21)
[2017-02-06] MEDS: DOCUSATE SODIUM 100 MG CAP PO SCH (07:21)
--- NOTE | 2017-02-06 07:33 | PROGRESS NOTE ---
DATE: 02/06/2017 DATE: 02/06/2017. SUBJECTIVE: Postop day #2 status post right total hip replacement. At this point in time the patient is well managed in her pain. She is using minimal pain medication. She denies any chest pain, shortness of breath, fever, nausea, vomiting or chills. Vital signs are stable. She is afebrile. Wound dressing clean, dry and intact. The femoral sciatic nerve functions excellent DVT. No sign in both calves. Sitting up waiting for breakfast. LABORATORY WORK: This morning is pending. ASSESSMENT: Doing well status post right total hip replacement. Have psych social worker finalize home health agency. PLAN: Discharge around noon today. Discharge on 4 mg Coumadin if INR is less than 1.4, if greater than 1.4 discharge on 2 mg. Check INR on Thursday.
[2017-02-06 07:35] LABS: INR 1.4 (0.9-1.1); PROTHROMBIN TIME (PATIENT) 15.5 SECONDS (9.0-12.0)
--- NOTE | 2017-02-06 07:35 | DISCHARGE SUMMARY ---
At this point in time the patient has well managed pain with oral medications minimally. She is mobile. Will discharge to home. Questions concerning sleeping in a recliner. I have advised her not to do that. She needs this for her back pain. She has chronic back pain based on degenerative disease and pelvic obliquity. Discharge on 4 mg Coumadin if INR is less than 1.4 and 2 mg of greater than 1.4. Check INR on Thursday.
[2017-02-06 07:49] VITALS: PULSE 62; TEMP 36.8; O2SAT 94
[2017-02-06] MEDS ORDERED: OXYC-57 PO (08:10)
[2017-02-06] MEDS ORDERED: WARF2TAB PO (08:10)
--- NOTE | 2017-02-06 08:17 | Discharge Instructions ---
Discharge Instructions Date of Service February 06, 2017. Admission Reason for Admission: Right Hip Osteoarthritis Discharge Discharge Diagnosis / Problem: Right Total Hip Arthroplasty Discharge Goals Goal(s): Decrease discomfort, Improve function, Increase independence Activity Recommendations Activity Limitations: as noted below Lifting Limitations: gradually increase as tolerated Exercise/Sports Limitations: until after follow-up appointment May Resume Sexual Activity: after follow-up appointment Shower/Bathe: tomorrow, keep incision dry Driving or Machine Use: Will discuss after 2 wk follow up Weightbearing Status: Right weightbearing (as tolerated with use of walker) . Instructions / Follow-Up Instructions / Follow-Up New Medicine: * You will likely be taking one or more of these medicines: 1. Percocet - Take, as directed, when you need it, every four to six hours to control your pain. 2. Iron Sulfate - Take three times each day for the month after surgery to help you replace the blood lost during surgery. 3. Coumadin - Thins your blood to lessen the chance of forming a blood clot. The dose of this is different for each person and is based on your blood tests that are done twice a week. * The most common side effects of pain medicine and iron are nausea and constipation. If nausea or constipation is too much of a problem or if you have any questions about your new medicines or doses, call [facility] at . We will try to help you manage these issues. VERY IMPORTANT TO READ AND REVIEW" Blood Clots and Blood Thinning Medicine: * You are given Coumadin during the immediate post-operative period to lessen the risk of blood clots forming in your legs and/or lungs. Coumadin is usually given for six weeks after surgery. * The prescription is for 2 mg tablets. At discharge, you should understand your dose and take it all at the same time every day, preferably after dinner. * You need to get your blood checked 1 - 2 times per week for six weeks, or as directed. * If your dose needs to change, we will call you. Do not take your medication on the day of the blood test until we call you. * If you don't hear from us after your blood draws, keep taking the same dose. Pain: * The immediate post-operative period after hip replacement surgery is often quite painful. * You are given a prescription for pain medicine. You should take it, as directed, when you need it, especially before physical therapy and before going to bed. Pain that interferes with sleep is very common and can last several months. * You will likely need pain medicine for the first two to four weeks. It will not stop all of the pain. The pain will lessen and as you feel better, you may change to milder pain medicine such as Tylenol. * The most common side effects of pain medicine are nausea and constipation, so don't take more than you need. Physical Therapy: * Follow the "Hip Precautions Instructions." * In some cases, the social media director at the hospital will arrange to have a therapist come to your house for the first couple of weeks to help you learn these skills. * You need to practice on your own or with the help of a family member as needed. * When you learn these skills, most of the therapy can be done on your own. Home Exercise: * You were shown a series of exercises in the hospital. Do these exercises three to four times each day including the exercises you were shown in physical therapy. Walking: * Get up and walk several times each day. For the first four weeks, try not to stand or walk for more than one hour at a time. If you do stand or walk for more than one hour, you will not hurt anything, but your leg will likely swell. * As you feel comfortable, you may change from the walker or crutches to a cane and then to independent walking. SELF CARE INSTRUCTIONS AFTER TOTAL HIP REPLACEMENT Until the incision and soft tissues around your hip have healed, there is a possibility that the hip prosthesis could dislocate. A. Observe the following precautions to prevent dislocation: 1. Don't bend your hip greater than 90 degrees. 2. Avoid crossing your legs or ankles while standing or lying. 3. Sit with your feet placed 6 inches apart. 4. When sitting, keep your knees below your hips. Sit on a firm surface, avoid deep, soft chairs and couches. Use an elevated toilet seat in the bathroom. 5. Don't bend over at the waist. Use a long handled shoehorn and a sock aid to help you put on your shoes and socks. A compliance field technician can help you milk pickup truck driver objects that are too high or too low to reach. 6. Keep car riding to a minimum for at least one month after surgery. B. Your balance may be shaky for a while. Use crutches or a walker until directed by your doctor. C. Use hand rails when walking on stairs. D. Wear low heeled shoes with non-slip soles. E. Be sure that your floors are free of things that could trip you - throw rugs , electrical cords, small objects. Avoid wet and waxed floors, especially with crutches and canes. F. Try to walk several times a day with rest periods between. G. Continue with all the exercises taught to you in the hospital. Again, make walking a part of your daily routine. VERY IMPORTANT TO READ AND REVIEW A. Take Coumadin, or Lovenox (blood thinning medications) as directed by your doctor. If you are on Coumadin, have a pro-time (blood test) drawn according to your doctor's instructions. This will tell the doctor how well the Coumadin is thinning your blood. B. There are a few signs you need to watch for after you are home. If you notice any of the followin. Increased severe hip pain. Some pain is expected especially when you exercise. 2. Increased swelling in your leg or knee; pain or swelling of the calf muscle in either lower leg. 3. Any fluid drainage from the incision. 4. Shortness of breath or chest pain. TEDs/Elastic Stockings: * The white elastic stockings help limit swelling and prevent blood clots from forming in your legs. The more you wear them, the more they work. * Wear them for six weeks. Prevention of Infection: * Take antibiotics one hour before any dental cleaning, dental work, urological procedure, gastrointestinal procedure or any invasive surgery in order to prevent your new joint from getting infected. * You may get the antibiotics from the doctor performing the procedure or we will call in a prescription to the pharmacy of your choice. Call the office for a prescription at least 2 days prior to your appointment. Things to Watch For: * Drainage from the incision site that occurs more than one week after your surgery. * Severely increased leg pain or swelling. * Increased redness at the incision site. * Fever above 101 degrees Fahrenheit. * Unusual chest pain or shortness of breath. * Unusual pain or burning with urination. Current Hospital Diet Patient's current hospital diet: AHA Diet (Heart Healthy) Discharge Diet Recommended Diet: AHA Diet (Heart Healthy) Procedures Procedures Performed: Right Total Hip Arthroplasty--Uncemented Pending Studies Studies pending at discharge: no Medical Emergencies . Who to Call and When: Medical Emergencies: If at any time you feel your situation is an emergency, please call 911 immediately. . Non-Emergent Contact Non-Emergency issues call your: Primary Care Provider Call Non-Emergent contact if: temperature is above 101.5, your pain is not controlled, wound has increased drainage, you have any medication questions . "Provider Documentation" section prepared by Delano Nam. . VTE Core Measure Inpt VTE Proph given/why not?: Warfarin (Coumadin), Khris Ortega, SCD's [place] Drug Monitoring Program Search Results: no issues identified
--- NOTE | 2017-02-06 08:20 | Discharge Instructions ---
Discharge Instructions Date of Service February 06, 2017. Admission Reason for Admission: Right Hip Osteoarthritis Discharge Discharge Diagnosis / Problem: Right total hip arthroplasty Discharge Goals Goal(s): Decrease discomfort, Improve function, Increase independence Activity Recommendations Activity Limitations: as noted below Lifting Limitations: gradually increase as tolerated Exercise/Sports Limitations: until after follow-up appointment May Resume Sexual Activity: after follow-up appointment Shower/Bathe: tomorrow, keep incision dry Driving or Machine Use: Will discuss at 2 wk f/u appointment Weightbearing Status: Right weightbearing (as tolerated with aid of walker) . Instructions / Follow-Up Instructions / Follow-Up New Medicine: * You will likely be taking one or more of these medicines: 1. Percocet - Take, as directed, when you need it, every four to six hours to control your pain. 2. Iron Sulfate - Take three times each day for the month after surgery to help you replace the blood lost during surgery. 3. Coumadin - Thins your blood to lessen the chance of forming a blood clot. The dose of this is different for each person and is based on your blood tests that are done twice a week. * The most common side effects of pain medicine and iron are nausea and constipation. If nausea or constipation is too much of a problem or if you have any questions about your new medicines or doses, call [facility] at . We will try to help you manage these issues. VERY IMPORTANT TO READ AND REVIEW" Blood Clots and Blood Thinning Medicine: * You are given Coumadin during the immediate post-operative period to lessen the risk of blood clots forming in your legs and/or lungs. Coumadin is usually given for six weeks after surgery. * The prescription is for 2 mg tablets. At discharge, you should understand your dose and take it all at the same time every day, preferably after dinner. * You need to get your blood checked 1 - 2 times per week for six weeks, or as directed. * If your dose needs to change, we will call you. Do not take your medication on the day of the blood test until we call you. * If you don't hear from us after your blood draws, keep taking the same dose. Pain: * The immediate post-operative period after hip replacement surgery is often quite painful. * You are given a prescription for pain medicine. You should take it, as directed, when you need it, especially before physical therapy and before going to bed. Pain that interferes with sleep is very common and can last several months. * You will likely need pain medicine for the first two to four weeks. It will not stop all of the pain. The pain will lessen and as you feel better, you may change to milder pain medicine such as Tylenol. * The most common side effects of pain medicine are nausea and constipation, so don't take more than you need. Physical Therapy: * Follow the "Hip Precautions Instructions." * In some cases, the family welfare social work professor at the hospital will arrange to have a therapist come to your house for the first couple of weeks to help you learn these skills. * You need to practice on your own or with the help of a family member as needed. * When you learn these skills, most of the therapy can be done on your own. Home Exercise: * You were shown a series of exercises in the hospital. Do these exercises three to four times each day including the exercises you were shown in physical therapy. Walking: * Get up and walk several times each day. For the first four weeks, try not to stand or walk for more than one hour at a time. If you do stand or walk for more than one hour, you will not hurt anything, but your leg will likely swell. * As you feel comfortable, you may change from the walker or crutches to a cane and then to independent walking. SELF CARE INSTRUCTIONS AFTER TOTAL HIP REPLACEMENT Until the incision and soft tissues around your hip have healed, there is a possibility that the hip prosthesis could dislocate. A. Observe the following precautions to prevent dislocation: 1. Don't bend your hip greater than 90 degrees. 2. Avoid crossing your legs or ankles while standing or lying. 3. Sit with your feet placed 6 inches apart. 4. When sitting, keep your knees below your hips. Sit on a firm surface, avoid deep, soft chairs and couches. Use an elevated toilet seat in the bathroom. 5. Don't bend over at the waist. Use a long handled shoehorn and a sock aid to help you put on your shoes and socks. A security project manager can help you pickle pumper objects that are too high or too low to reach. 6. Keep car riding to a minimum for at least one month after surgery. B. Your balance may be shaky for a while. Use crutches or a walker until directed by your doctor. C. Use hand rails when walking on stairs. D. Wear low heeled shoes with non-slip soles. E. Be sure that your floors are free of things that could trip you - throw rugs , electrical cords, small objects. Avoid wet and waxed floors, especially with crutches and canes. F. Try to walk several times a day with rest periods between. G. Continue with all the exercises taught to you in the hospital. Again, make walking a part of your daily routine. VERY IMPORTANT TO READ AND REVIEW A. Take Coumadin, or Lovenox (blood thinning medications) as directed by your doctor. If you are on Coumadin, have a pro-time (blood test) drawn according to your doctor's instructions. This will tell the doctor how well the Coumadin is thinning your blood. B. There are a few signs you need to watch for after you are home. If you notice any of the followin. Increased severe hip pain. Some pain is expected especially when you exercise. 2. Increased swelling in your leg or knee; pain or swelling of the calf muscle in either lower leg. 3. Any fluid drainage from the incision. 4. Shortness of breath or chest pain. TEDs/Elastic Stockings: * The white elastic stockings help limit swelling and prevent blood clots from forming in your legs. The more you wear them, the more they work. * Wear them for six weeks. Prevention of Infection: * Take antibiotics one hour before any dental cleaning, dental work, urological procedure, gastrointestinal procedure or any invasive surgery in order to prevent your new joint from getting infected. * You may get the antibiotics from the doctor performing the procedure or we will call in a prescription to the pharmacy of your choice. Call the office for a prescription at least 2 days prior to your appointment. Things to Watch For: * Drainage from the incision site that occurs more than one week after your surgery. * Severely increased leg pain or swelling. * Increased redness at the incision site. * Fever above 101 degrees Fahrenheit. * Unusual chest pain or shortness of breath. * Unusual pain or burning with urination. Current Hospital Diet Patient's current hospital diet: AHA Diet (Heart Healthy) Discharge Diet Recommended Diet: AHA Diet (Heart Healthy) Procedures Procedures Performed: Right Total Hip Arthroplasty--Uncemented Pending Studies Studies pending at discharge: no Medical Emergencies . Who to Call and When: Medical Emergencies: If at any time you feel your situation is an emergency, please call 911 immediately. . Non-Emergent Contact Non-Emergency issues call your: Primary Care Provider Call Non-Emergent contact if: temperature is above 101.5, your pain is not controlled, wound has increased drainage, you have any medication questions . "Provider Documentation" section prepared by Delano Nam. . VTE Core Measure Inpt VTE Proph given/why not?: Warfarin (Coumadin), Khris Ortega [place] Drug Monitoring Program Search Results: no issues identified
--- NOTE | 2017-02-06 08:53 | Orthopedic Progress Note ---
Orthopedic Progress Note Date of Service February 06, 2017. Subjective Post OP Day: 2 Reports: feeling well, light headedness, nausea / vomiting, pain controlled w PO medications, Denies: SOB, calf pain, chest pain, complaints, using [place] MACHINE OPERATOR Objective calves soft nontender, N/V intact, hip located, capillary refill less than 2 sec., dressing C/D/I, incision C/D/I, A&O x3, toes mobile, CMS intact Patient became very anxious and diaphoretic with uncontrolled twitching of her upper extremities shortly after changing her dressing. Nursing staff made aware and they verbalized that a similar occurrence was appreciated yesterday. Will contact medicine services to have patient evaluated before discharge. Date Time Temp Pulse Resp B/P Pulse Ox O2 Delivery O2 Flow Rate FiO2 02/06/17 07:49 36.8 62 16 94 Room Air 02/06/17 06:34 36.8 62 16 109/69 94 Room Air 02/05/17 23:43 Room Air 02/05/17 23:05 36.8 75 16 111/69 93 Room Air 02/05/17 22:00 Room Air 02/05/17 21:58 76 103/64 02/05/17 19:20 Room Air 02/05/17 15:03 36.7 64 18 106/68 93 Room Air 02/05/17 11:05 36.7 58 16 96/61 93 Room Air 02/05/17 09:25 69 16 113/68 93 Room Air Laboratory Results 24 Hours: Test 02/05/17 09:50 02/06/17 06:49 Prothromb Time International Ratio 1.1 1.4 Prothrombin Time 12.0 SECONDS 15.5 SECONDS Assessment & Plan Assessment: Right hip total hip arthroplasty, post op day 2 Plan: PT/OT today continue total hip precautions dressing changed by me-wound looks very good D/C likely this afternoon coumadin per nomogram-INR pending Patient will be going home with home health services. Prescriptions written and placed in charge. Discharge Planning Discharge Planning: home with home health, uncertain Pain Management: Percocet DVT Prophylaxis: TEDs, SCDs, Coumadin Therapy: Physical Therapy, Occupational Therapy
[2017-02-06] MEDS ORDERED: ACETAMINOPHEN 325 MG TAB PO STA (11:49)
[2017-02-06] MEDS ORDERED: LORAZEPAM 0.5 MG TAB PO STA (11:49)
[2017-02-06] MEDS ORDERED: LORAZEPAM 0.5 MG TAB PO PRN (12:00)
[2017-02-06] MEDS ORDERED: TRAMADOL HCL 50 MG TAB PO PRN (12:00)
[2017-02-06] MEDS ORDERED: ACETAMINOPHEN 325 MG TAB PO PRN (12:00)
--- NOTE | 2017-02-06 13:24 | Progress Note ---
Internal Med Progress Note Date of Service: February 06, 2017. Provider Documentation: SUBJECTIVE: The patient was seen and examined Has had some seizure like activity during dressing change Remembers going through the episode No warning and no residual symptoms Feels fine during my exam OBJECTIVE: Vital Signs-as noted below Exam: General-no distress Eyes-normal ENT-normal Neck-Supple Lungs-Clear to ausucltate bilaterally Heart-Regular,no murmur appreciated Abdomen-Benign,no masses,bowel sound present Extremities-No edema Neuro-AAOx3 Lab data as noted below. ASSESSMENT & PLAN: Shaking episode during dressing change Shakes involving the legs and to some extent upper extremities No warning and no residual Doubt any seizure Prolactin normal Check orthostasis Observe overnight S/P RIGHT LATONYA POD #[address] Camejo No post-op complication Continue pain control Incentive spirometry hgb 10.6 continue monitor h/h PT/ OT HYPERTENSION Stable CAD Asymptomatic continue beta ryanne, aspirin and statin DVT px as per ortho CODE STATUS FULL CODE DISPOSITION Per ortho Likely discharge tomorrow Vital Signs: Date Time Temp Pulse Resp B/P Pulse Ox O2 Delivery O2 Flow Rate FiO2 02/06/17 07:49 36.8 62 16 94 Room Air 02/06/17 07:30 Room Air 02/06/17 06:34 36.8 62 16 109/69 94 Room Air 02/05/17 23:43 Room Air 02/05/17 23:05 36.8 75 16 111/69 93 Room Air 02/05/17 22:00 Room Air 02/05/17 21:58 76 103/64 02/05/17 19:20 Room Air 02/05/17 15:03 36.7 64 18 106/68 93 Room Air Lab Results: Results Past 24 Hours Test 02/06/17 06:49 02/06/17 11:43 Range/Units Prothrombin Time 15.5 9.0-12.0 SECONDS Prothromb Time International Ratio 1.4 0.9-1.1 Prolactin 6.22 ng/mL
[2017-02-06 14:13] VITALS: BP_SYST 100; BP_SYST 91; BP_SYST 94; BP_DIAS 55; BP_DIAS 59; BP_DIAS 67
[2017-02-06] MEDS: RANITIDINE HCL 150 MG TAB PO SCH (15:29)
[2017-02-06] MEDS ORDERED: LORA-741 PO (15:38)
[2017-02-06] MEDS ORDERED: TRAM-10 PO (15:44)
[2017-02-06] MEDS ORDERED: WARFARIN SOD 4 MG TAB PO SCH (16:00)
--- NOTE | 2017-02-06 16:30 | DISCHARGE SUMMARY ---
ADDENDUM At this point in time, the patient will be discharged on 4 mg of Coumadin p.o. daily, check INR on Thursday. We will add Ativan 0.5 mg p.o. q. 6 hours p.r.n. anxiety. Will decrease metoprolol from 25 mg b.i.d. to 12.5 mg b.i.d., will discontinue any narcotic, will add tramadol 50 mg p.o. q. 6 hours p.r.n. and Tylenol 500 mg p.o. q. 6 hours p.r.n. for pain management. This was discussed in detail with Dr. Rinaldi. Prolactin level was normal. This patient had no seizure activity. This was likely anxiety and vasovagal activity.
--- NOTE | 2017-02-06 16:58 | PROGRESS NOTE ---
DATE: 02/06/2017 SUBJECTIVE: The patient has done much better this afternoon, put her on a small dose of Ativan that helped her anxiety. She still gets a little bit orthostatic with standing without an increase in pulse, but a decrease in blood pressure. This is likely based on her beta-ryanne. Will decrease her dose from 25 mg b.i.d. to 12.5 mg b.i.d. I discussed this with Dr. Rinaldi, he is in agreement. Prolactin level was normal indicating no seizure activity. Likely this was just anxiety and some vasovagal type behavior. Plan at this point in time since she has walked the entire length of the floor and has no issues, is to continue with discharge this afternoon. Changes in medications as noted. Will go on metoprolol 12.5 mg b.i.d. instead of 25 mg b.i.d., will discontinue any narcotics, will use tramadol 50 mg p.o. q. 6 hours p.r.n., Tylenol 500 mg p.o. q. 6 hours p.r.n. and Ativan 0.5 mg p.o. q. 6 hours p.r.n. She will be discharged on 4 mg of Coumadin.
[2017-02-06] MEDS ORDERED: PREMARIN VAG CRM 14 APPLN/30 GM TUBE PV SCH (21:00)
[2017-02-06] MEDS ORDERED: METOPROLOL TARTRATE 25 MG TAB PO SCH (21:00)
== END 2017-02-06 16:58 | disposition home health service (06) | DRG 470 ==
LOC: ENRESERVTM → ENRESERVDT → C.ACU 05:18 → C.MSW 06:20 → UNDODISIN 12:49
PROVIDERS: ADMIT Physical Medicine & Rehabilitation Sports Medicine; ATTEND Physical Medicine & Rehabilitation Sports Medicine
PROC: 0SR90JA Replacement of Right Hip Joint with Synthetic Substitute, Uncemented, Open Approach (ICD-10-PCS; principal; 2017-02-04 07:00)
DX: M16.11 Unilateral primary osteoarthritis, right hip (principal); R55 Syncope and collapse; M24.551 Contracture, right hip; F41.9 Anxiety disorder, unspecified; R42 Dizziness and giddiness; R11.2 Nausea with vomiting, unspecified; I25.10 Atherosclerotic heart disease of native coronary artery without angina pectoris; J44.9 Chronic obstructive pulmonary disease, unspecified; I10 Essential (primary) hypertension; E78.00 Pure hypercholesterolemia, unspecified; K21.9 Gastro-esophageal reflux disease without esophagitis; G43.909 Migraine, unspecified, not intractable, without status migrainosus; M06.9 Rheumatoid arthritis, unspecified; G89.29 Other chronic pain; M54.9 Dorsalgia, unspecified; J30.9 Allergic rhinitis, unspecified; G47.33 Obstructive sleep apnea (adult) (pediatric); E66.9 Obesity, unspecified; Z68.31 Body mass index [BMI] 31.0-31.9, adult; Z99.89 Dependence on other enabling machines and devices; Z79.82 Long term (current) use of aspirin; Z79.890 Hormone replacement therapy; Z79.899 Other long term (current) drug therapy

== ENCOUNTER → 2017-03-10 | Outpatient (CLI) | payer BC ==
[~2017-03-10] MED LIST changes: -RANI150T3 PO; +TRAM-10 PO; +WARF2TAB PO
[2017-03-10 17:47] LABS: INR 1.6 (0.9-1.1); PROTHROMBIN TIME (PATIENT) 17.5 SECONDS (9.0-12.0)
== END | disposition home or self-care (01) ==
LOC: C.LAB1850 16:34
PROVIDERS: ATTEND Physician Assistant
DX: Z51.81 Encounter for therapeutic drug level monitoring (principal); Z79.01 Long term (current) use of anticoagulants

== ENCOUNTER → 2017-03-24 | Outpatient (CLI) | payer BC ==
--- NOTE | 2017-03-25 07:38 | MAMMOGRAPHY REPORT ---
BILATERAL DIGITAL SCREENING MAMMOGRAM WITH CAD: 03/24/2017 CLINICAL HISTORY: Routine screening. Patient has no complaints. TECHNIQUE: Bilateral CC and MLO views were obtained. Current study was also evaluated with a Compute r Aided Detection (CAD) system. COMPARISON: Comparison is made to exams dated: 03/18/2016 mammogram, 03/15/2015 mammogram, 03/13/2014 gin mogram, 03/10/2013 mammogram, 03/09/2012 mammogram, and 02/27/2011 mammogram - [facility]. BREAST COMPOSITION: The tissue of both breasts is almost entirely fatty. FINDINGS: The left MLO view is minimally degraded by grid artifact. There is a newly visualized smal l cluster of microcalcifications and associated nodularity in the 12:00 posterior right breast, for w hich additional spot magnification views and possible ultrasound is read made. There are a few scattered benign round and coarse calcifications in the breasts. No other suspicious mass, architectural distortion or cluster of microcalcifications is seen. IMPRESSION: ACR BI-RADS CATEGORY 0: INCOMPLETE EVALUATION: NEED ADDITIONAL IMAGING EVALUATION 1. The small cluster of microcalcifications and associated nodularity in the 12:00 posterior right b reast needs additional imaging evaluation. 2. At the time of diagnostic workup in the right breast, a repeat left MLO view should be performed for the grid artifact. The patient will be called to schedule an appointment. Approximately 10% of breast cancers are not detected with mammography. A negative mammographic report should not delay biopsy if a clinically suggestive mass is present. Sun Santana M.D. ay/:03/24/2017 15:41:47 Software Reverse Engineer: Pam SARABIA(R)(M), [facility] letter sent: Addl Imaging 0 BI-RADS Code: ACR BI-RADS Category 0: Incomplete Evaluation: Need Additional Imaging Evaluation
== END | disposition home or self-care (01) ==
LOC: C.MAMM 13:21
PROVIDERS: ATTEND Family Medicine
DX: Z12.31 Encounter for screening mammogram for malignant neoplasm of breast (principal); R92.0 Mammographic microcalcification found on diagnostic imaging of breast

== ENCOUNTER → 2017-03-31 | Outpatient (CLI) | payer BC | END | disposition home or self-care (01) | LOC: C.RDSM 11:42 | PROVIDERS: ATTEND Physical Medicine & Rehabilitation Sports Medicine | DX: M16.0 Bilateral primary osteoarthritis of hip (principal) ==

== ENCOUNTER → 2017-04-09 | Outpatient (CLI) | payer BC ==
--- NOTE | 2017-04-09 16:01 | MAMMOGRAPHY REPORT ---
BILATERAL DIGITAL DIAGNOSTIC MAMMOGRAM TOMOSYNTHESIS: 04/09/2017 CLINICAL HISTORY: Callback from screening mammogram for right breast asymmetry and calcifications. A lso with grid artifact on the left MLO view. TECHNIQUE: Breast tomosynthesis in addition to standard 2D mammography was performed. Repeat left M LO 2-D and tomosynthesis images and spot magnification right cc and ML views were obtained. COMPARISON: Comparison is made to exams dated: 03/24/2017 mammogram, 03/18/2016 mammogram, 03/15/2015 gin mogram, 03/13/2014 mammogram, 03/10/2013 mammogram, and 03/09/2012 mammogram - [facility]. BREAST COMPOSITION: The tissue of both breasts is almost entirely fatty. FINDINGS: A repeat left MLO view was performed due to grid artifact, which shows no suspicious liliana s, calcifications, or areas of architectural distortion. Spot magnification views of the right breas t demonstrate a new small cluster of coarse heterogeneous calcifications in association with a nodula r asymmetry in the right superior and slightly medial right breast, with total extent of the finding measuring 6 mm. Given that the calcifications are new, they are indeterminate and stereotactic biops y is recommended for further evaluation. IMPRESSION: ACR BI-RADS CATEGORY 4: SUSPICIOUS New 6 mm cluster of calcifications in association with a nodular asymmetry in the right upper inner q uadrant. Findings are indeterminate and stereotactic biopsy is recommended for further evaluation. A phone call was made to the physician's office to confirm faxed results were received. The patient has been verbally notified of the results. She tentatively scheduled the biopsy before leaving the [facility]. Approximately 10% of breast cancers are not detected with mammography. A negative mammographic report should not delay biopsy if a clinically suggestive mass is present. Tonie Leone M.D. ah/:04/09/2017 14:39:03 Missile Mechanic: Helen SARABIA(R)(Ingrid), [facility] letter sent: Abnormal 4/5 BI-RADS Code: ACR BI-RADS Category 4: Suspicious
== END | disposition home or self-care (01) ==
LOC: C.MAMM 13:53
PROVIDERS: ATTEND Family Medicine
DX: R92.2 Inconclusive mammogram (principal); R92.0 Mammographic microcalcification found on diagnostic imaging of breast

== ENCOUNTER → 2017-04-15 | Outpatient (CLI) | payer BC ==
--- NOTE | 2017-04-15 13:24 | Discharge Instructions ---
Discharge Instructions Procedure Procedure Date: Apr 15, 2017. Reason for visit: Right Calcifications. Discharge Discharge Date: Apr 15, 2017. Discharge Diagnosis: status post breast biopsy Instructions Activity Recommendations: Additional Limitations (see below) Return to School/Work: no limitations Recommended Home Diet: No Limitations Provider Instructions: ACTIVITY RECOMMENDATIONS: * No lifting, pushing, pulling or exercising the affected side for three days. RETURN TO SCHOOL/WORK: * You may return to work/school after the procedure, but do not perform any strenuous activities for 24 to 48 hours. MEDICATIONS: * Tylenol (two 325 mg) every four to six hours if needed for mild pain (if not allergic to Tylenol). DIET: * Resume previous diet. SPECIAL CARE INSTRUCTIONS: * Keep biopsy site dry for 24 hours. May shower after 24 hours, but do not soak (bathe) incision. * May remove Tegaderm (plastic patch) tomorrow AFTER showering. * Leave the steri-strips on for one week. Allow the steri-strips to fall off by themselves. If not off after one week, you may remove them. You may place a Bandaid crosswise over the strips, if desired. * Apply ice 10 minutes on and 10 minutes off as needed. * Wear a bra at bedtime to sleep more comfortably for 2-3 days. * Your referring physician should have the results after approximately 5 to 7 business days. * Call for unusual bleeding, fever, drainage, etc or if you have any questions call during normal business hours or after hours call Dr Leone, . FOLLOW UP VISIT: Follow-up with Referring Physician as scheduled. Allergies Coded Allergies: Penicillins (Verified Allergy, Mild, RASH, 02/04/17) Doxepin (Verified Allergy, Unknown, unknown, 02/04/17) Meloxicam (Verified Allergy, Unknown, DIZZINESS, 02/04/17) Raloxifene (Verified Allergy, Unknown, RASH, 02/04/17) Lisinopril (Verified Adverse Reaction, Unknown, COUGH, 02/04/17) Kevin Nguyen Recommendations: Call your doctor if: * Temperature above 101 degrees * Pain not relieved by pain medicine ordered * There is increased drainage or redness from any incision * You have any unanswered questions or concerns. Your Doctors Instructions noted above were prepared by provider Tonie Leone. Patient Signature Section: Patient Instructions Signature Page Yara Santana Patient (or Guardian) Signature/Date: I have read and understand the instructions given to me by my caregivers. Caregiver/RN/Doctor Signature/Date: The above-named patient and/or guardian has received patient instructions on this date. + Original Patient Signature Page (only) stays with chart. Please make copy for patient.
--- NOTE | 2017-04-15 13:41 | MAMMOGRAPHY REPORT ---
STEREOTACTIC GUIDED BIOPSY RIGHT BREAST: 04/15/2017 CLINICAL HISTORY: Indeterminate calcifications in the right upper inner quadrant. PATIENT CONSENT: The procedure, risks, benefits, and alternatives of stereotactic biopsy with clip pl acement were discussed with the patient, and verbal and written consent was obtained. A timeout was performed immediately prior to the procedure. PROCEDURE DESCRIPTION: With stereotactic guidance, aseptic technique, and lidocaine as a local anesth etic (1% lidocaine to anesthetize the skin and 1% lidocaine with epinephrine to anesthetize the deepe r tissues), the area of concern in the right upper inner quadrant was sampled multiple times with a 9 -gauge vacuum-assisted biopsy needle (Naow). The path of approach was medial. The specimen r adiograph demonstrates calcifications to be present in the samples. The samples containing calcifica tions (labeled "A") were from the samples without calcifications (labeled "B"). A metallic marker clip was placed at the biopsy site. This was confirmed on postprocedure mammograms. Direct pressure was applied at the biopsy site and hemostasis was readily achieved. The patient tolerated t he procedure without complication. She was given wound care instructions. COMPARISON: Comparison is made to exams dated: 04/09/2017 mammogram, 03/24/2017 mammogram, 03/18/2016 ma mmogram, 03/15/2015 mammogram, 03/13/2014 mammogram, and 03/10/2013 mammogram - [facility]. IMPRESSION: STEREOTACTIC GUIDED BIOPSY Stereotactic biopsy of indeterminate calcifications and associated asymmetry in the right upper inner quadrant, with clip placement. The patient will receive pathology results from her referring provid er. Tonie Leone M.D. ah/:04/15/2017 13:25:30 Enterprise Project Manager: Helen Hagen, [facility]
--- NOTE | 2017-04-16 12:48 | MAMMOGRAPHY REPORT ---
UNILATERAL RIGHT DIGITAL DIAGNOSTIC MAMMOGRAM: 04/15/2017 CLINICAL HISTORY: Status post right breast stereotactic biopsy. TECHNIQUE: Postprocedural right CC and ML views were obtained. COMPARISON: Comparison is made to exams dated: 04/09/2017 mammogram, 03/24/2017 mammogram, 03/18/2016 ma mmogram, 03/15/2015 mammogram, 03/13/2014 mammogram, and 03/10/2013 mammogram - [facility] ter. BREAST COMPOSITION: The tissue of the right breast is almost entirely fatty. FINDINGS: A new biopsy marker clip is seen at the site of the biopsied calcifications and asymmetry in the right superior breast at approximately 12:00. No significant postbiopsy hematoma is seen. IMPRESSION: POST PROCEDURE IMAGING FOR MARKER PLACEMENT New biopsy marker clip status post right breast stereotactic biopsy. Pathology results are pending. Approximately 10% of breast cancers are not detected with mammography. A negative mammographic report should not delay biopsy if a clinically suggestive mass is present. Tonie Leone M.D. ah/:04/15/2017 13:36:14 Risk Control Director: Helen Hagen [facility] BI-RADS Code: Post Procedure Imaging For Marker Placement
== END | disposition home or self-care (01) ==
LOC: C.MAMM 12:38
PROVIDERS: ATTEND Family Medicine
DX: D24.1 Benign neoplasm of right breast (principal); R92.0 Mammographic microcalcification found on diagnostic imaging of breast

== ENCOUNTER → 2018-04-26 | Outpatient (CLI) | payer BC ==
[~2018-04-26] MED LIST changes: -TRAM-10 PO; -WARF2TAB PO
--- NOTE | 2018-04-26 10:19 | DIAGNOSTIC IMAGING REPORT ---
R KNEE 3 VIEWS CLINICAL HISTORY: BILATERAL PRIMARY OSTEOARTHRITIS OF KNEE pain COMPARISON: None. DISCUSSION: Generalized degenerative change of all major joint compartments of the knees bilaterally. Chondrocalcinosis bilaterally. Mild reactive osteophytic changes throughout. Significant degenerative changes of patellofemoral joints bilaterally. There is no evidence for soft tissue swelling. IMPRESSION: Severe degenerative change all major joint compartments. Chondrocalcinosis. The above report was generated using voice recognition software. It may contain grammatical, syntax or spelling errors. Electronically signed by: Antwan Roman M.D. 04/26/2018 10:18 AM Dictated Date/Time: 04/26/2018 10:18 AM
== END | disposition home or self-care (01) ==
LOC: C.RDSM 09:24
PROVIDERS: ATTEND Physician Assistant
DX: M25.561 Pain in right knee (principal); M25.562 Pain in left knee

== ENCOUNTER 2021-04-27 06:30 | Inpatient (IN) ==
[2021-04-27] MEDS ORDERED: SODIUM CHLORIDE 0.9% 1000ML 1,000 ML IV SCH ×2 (06:45→16:04)
[2021-04-27 07:35] LABS: Basophils # (auto) 0.04 K/uL (0-0.2); Basophils % (auto) 0.3 %; Eosinophils # (auto) 0.13 K/uL (0-0.5); Eosinophils % (auto) 0.9 %; Hematocrit (blood only) 37.9 % (37-47); Hemoglobin 12.7 g/dL (12.0-16.0); Immature Granulocytes # (auto) 0.03 K/uL (0.00-0.02); Immature Granulocytes % (auto) 0.2 %; Lymphocytes # (auto) 0.87 K/uL (1.2-3.4); Lymphocytes % (auto) 6.3 %; Mean Corpuscular Hemoglobin 27.7 pg (25-34); Mean Corpuscular Hgb Conc 33.5 g/dL (32-36); Mean Corpuscular Volume 82.6 fL (80-100); Mean Platelet Volume 9.7 fL (7.4-10.4); Monocytes # (auto) 1.09 K/uL (0.11-0.59); Monocytes % (auto) 7.9 %; Neutrophils # (auto) 11.67 K/uL (1.4-6.5); Neutrophils % (auto) 84.4 %; Platelet Count 271 K/uL (130-400); RDW Coefficient of Variation 13.9 % (11.5-14.5); RDW Standard Deviation 41.8 fL (36.4-46.3); Red Blood Count 4.59 M/uL (4.2-5.4); White Blood Count 13.83 K/uL (4.8-10.8)
[2021-04-27 07:39] LABS: Appearance Urine Turbid (Clear); Bacteria Urine Automated Negative (Negative); Bilirubin Urine Negative (Negative); Blood Urine 3+ (Negative); Color Urine Orange; Glucose Urine UA Negative (Negative); Ketones Urine Negative (Negative); Leukocyte Esterase Urine 3+ (Negative); Nitrite Urine Negative (Negative); Protein Urine 1+ (Negative); Specific Gravity Urine 1.013 (1.000-1.030); Urobilinogen Urine Negative (Negative); WBC Urine Automated >30 /hpf (0-5)
[2021-04-27 07:58] LABS: Albumin Level 3.8 gm/dl (3.4-5.0); BUN Creatinine Ratio 15.7 (10-20); Calcium 8.9 mg/dl (8.5-10.1); Creatinine Clr Calc Pharmacy 56.5 ml/min; Est GFR (African American) 91.8 ml/min; Est GFR (Non-African American) 79.2 ml/min; Potassium 4.1 mmol/L (3.5-5.1)
[2021-04-27 08:09] LABS: Albumin Globulin Ratio 1.1 (0.9-2); Bilirubin,Total 1.3 mg/dl (0.2-1); Globulin 3.5 gm/dl (2.5-4.0); Thyroid Stimulating Hormone 1.27 uIu/ml (0.300-4.500); Total Protein 7.3 gm/dl (6.4-8.2)
[2021-04-27 08:29] LABS: Cast Urine Automated 0 /lpf (0-5); RBC Urine Automated >30 /hpf (0-4)
[2021-04-27] MEDS ORDERED: cefTRIAXone SODIUM 1,000 MG/50 ML BAG IV STA (08:37)
--- NOTE | 2021-04-27 09:29 | CT Scan Report ---
ABDOMEN AND PELVIS CT WITHOUT CONTRAST CT DOSE: 517.64 mGy.cm HISTORY: bloody urine, dysuria TECHNIQUE: Multiaxial CT images of the abdomen and pelvis were performed without contrast. A dose lo wering technique was utilized adhering to the principles of ALARA. COMPARISON STUDY: Abdomen and pelvis CT 03/28/2016. FINDINGS: The lung bases are clear. No pneumoperitoneum. No pneumatosis. There is a right total arthr oplasty. Moderate osteoarthritis within the left hip. No acute fractures within the visualized osseou s structures. There is a large hiatus hernia, unchanged. The unenhanced liver, gallbladder, spleen, a drenal glands, and pancreas unremarkable. There is a 6 cm hypodense lesion within the right kidney. T his likely represents a cyst. No renal stones. No hydronephrosis. Mild fullness within the right young l pelvis, unchanged. Punctate calcifications within the deep pelvis appear to represent phleboliths. No definite ureteral calculi. The bladder is not well visualized due to the metallic artifact from th e right hip prosthesis but appears grossly unremarkable. The uterus is surgically absent. No pelvic f ree fluid. Suboptimal evaluation for bowel pathology due to the lack of intravenous and oral contrast . However, there is no definite bowel wall thickening or obstruction. Colonic diverticulosis. There i s minimal perisigmoid stranding, unchanged. The appendix is surgically absent. Normal caliber abdomin al aorta. No retroperitoneal lymphadenopathy. IMPRESSION: 1. No renal or ureteral stones. No hydronephrosis. 2. Colonic diverticulosis. There is minimal perisigmoid stranding which is similar to the prior study . Therefore, this is likely chronic. A developing acute diverticulitis is considered less likely but not entirely excluded.. 3. No evidence for bowel obstruction. 4. Hiatus hernia. 5. Hysterectomy and appendectomy. ACT 112: Negative or not required by law. Electronically signed by: Arun Chang M.D. 04/27/2021 9:28 AM
[2021-04-27] MEDS ORDERED: PHENAZOPYRIDINE HCL 200 MG TAB PO STA (10:17)
--- NOTE | 2021-04-27 12:00 | Electrocardiogram Report ---
Test Reason : Blood Pressure : / mmHG Vent. Rate : 085 BPM Atrial Rate : 085 BPM P-R Int : 188 ms QRS Dur : 066 ms QT Int : 366 ms P-R-T Axes : 048 010 021 degrees QTc Int : 435 ms Poor data quality, interpretation may be adversely affected Normal sinus rhythm Normal ECG When compared with ECG of 09-JAN-2017 14:52, No significant change was found Confirmed by Benji Quinones ([id number]) on 04/27/2021 12:00:13 PM Referred By: NO PCP Confirmed By:Benji Quinones
--- NOTE | 2021-04-27 12:37 | History & Physical Report ---
Date of Service April 27, 2021 Assessment & Plan (1) Abdominal pain: (2) Diarrhea: (3) Pelvic pain in female: (4) Dysuria: (5) Hematuria: (6) Leukocytosis: (7) CAD (coronary artery disease): (8) HTN (hypertension): (9) Hyperlipidemia: (10) Pre-diabetes: Plan: This is an 86-year-old female who has significant past medical history of nonobstructive CAD, HTN, HLD, HIPOLITO intolerant to CPAP, GERD, Schatzki's ring, history of migraines, history of C. difficile who presents to ED secondary to dysuria and pelvic pressure x1 month. Diarrhea LLQ Abdominal pain Leukocytosis Admit to med telemetry Symptoms consistent with acute diverticulitis with left lower quadrant abdominal pain, new onset diarrhea -CT scan limiting secondary to no oral contrast check Stool culture, C. difficile IV Rocephin and IV Flagyl clear liquid diet IVF x 1 L hold miralax and metamucil follow labs Pelvic pain in female Dysuria Hematuria Pt w/ ongoing symptoms x1 month of pelvic pressure, urinary urgency, dysuria and off-and-on hematuria Dysuria did improve with Pyridium x1 in ED UA obtained, leukocytes and WBCs, but no bacteria Await urine culture, blood cultures ordered Continue IV Rocephin Consult urology for LUTS, may also need gynecology if sx possible 2/2 to prolapsed bladder pt does c/o incontinence with valsalva CAD Follows [facility] cardiology Continue ASA, metoprolol, losartan and atorvastatin No chest pain or shortness of breath HTN Blood pressure elevated in ED, likely secondary to situation and discomfort Continue metoprolol and losartan Will monitor HLD Continue statin HIPOLITO intolerant to CPAP Pre Diabetes A1c on 04/25 6.4 Monitor Accu-Chek twice daily Monitor need to add coverage DVT prophylaxis: SQ lovenox Dispo: med tele PCP: Rama Ward FULL CODE Pt was seen and examined in collaboration with Dr. Serrano, please see addendum History of Present Illness Chief Complaint: Dysuria and pelvic pressure x 1 month. Primary Care Provider: Samm Ward, DO This is an 86-year-old female who has significant past medical history of nonobstructive CAD, HTN, HLD, HIPOLITO intolerant to CPAP, GERD, Schatzki's ring, history of migraines, history of C. difficile who presents to ED secondary to dysuria and pelvic pressure x1 month. Of significance patient has been seen and evaluated by PCP on separate occasions on 04/04 and 04/17 secondary to similar symptoms. It was felt she may have a urinary tract infection. On 04/04 initial UA did reveal leukocytes and RBCs but culture was negative. On 04/17 UA was negative. She was treated with antibiotics on both occasions. She was seen and evaluated by PCP again on 04/25 and again urinalysis clear. She was treated with 2 separate antibiotics, 1 being Cipro and she cannot recall the name of the other antibiotic. She was in her normal state of health until approximately 10:30 PM last night when she woke up with diarrhea. Since last evening she has had multiple episodes of diarrhea, but denies melena or hematochezia. She also complains of left lower quadrant abdominal pain and suprapubic pressure. She had increased urinary urgency would only urinate a little bit, but would have significant dysuria. She also noted blood whenever she wiped and opted to come to ED for evaluation. She denies any fevers but is always chilled. She denies any sweats, lightheadedness, dizziness, syncope, URI symptoms, chest pain, shortness of breath, cough, nausea, vomiting. She states she does get off and on diarrhea which will typically last a day and then resolve on its own. She has not had it for quite some time. She does take Metamucil and MiraLAX on a daily basis. Up until today her appetite has been normal. She denies any sick contacts. She is fully vaccinated for COVID-19. Allergies Allergy/AdvReac Type Severity Reaction Status Date / Time Penicillins Allergy Mild RASH Verified 04/27/21 08:54 doxepin Allergy Unknown unknown Verified 04/27/21 08:54 meloxicam Allergy Unknown DIZZINESS Verified 04/27/21 08:54 raloxifene Allergy Unknown RASH Verified 04/27/21 08:54 lisinopril AdvReac Unknown COUGH Verified 04/27/21 08:54 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 ([employer]) aspirin 81 mg tablet,delayed 81 mg PO DAILY 04/27/21 04/27/21 History release atorvastatin 20 mg tablet 20 mg PO DAILY 04/27/21 04/27/21 History cranberry 500 mg capsule 500 mg PO Q2D 04/27/21 04/27/21 History furosemide 20 mg tablet 20 mg PO .2-3DWK PRN 04/27/21 04/27/21 History loratadine 10 mg tablet 10 mg PO DAILY PRN 04/27/21 04/27/21 History losartan 25 mg tablet 12.5 mg PO DAILY 04/27/21 04/27/21 History metoprolol tartrate 25 mg tablet 25 mg PO BID 04/27/21 04/27/21 History multivitamin 1 tab PO Q2D 04/27/21 04/27/21 History omeprazole 40 mg capsule,delayed 40 mg PO DAILY 04/27/21 04/27/21 History release polyethylene glycol 3350 17 17 g PO DAILY 04/27/21 04/27/21 History gram/dose oral powder (Miralax) potassium chloride 10 mEq 10 meq PO DAILY PRN 04/27/21 04/27/21 History tablet,extended release psyllium husk 3.4 gram/5.4 gram 1 tsp PO DAILY 04/27/21 04/27/21 History oral powder (Metamucil) Past Med/Surg History Medical History CAD (coronary artery disease) "mild to moderate on July 2009 cath. Sep 2016 stress test neg. " Diverticulosis DJD (degenerative joint disease) of hip GERD (gastroesophageal reflux disease) Hiatal hernia History of Clostridium difficile colitis HTN (hypertension) Hx of basal cell carcinoma Hyperlipidemia Migraine with aura HIPOLITO on CPAP intolerant to cpap Pre-diabetes Preglaucoma Schatzki's ring s/p dilation Surgical History H/O breast biopsy "benign" History of right hip replacement 2017 S/P appendectomy S/P SANTO-BSO Family History Mother , 95 Dementia Coronary heart disease Father , 70 Coronary heart disease Social History Smoking Status: Never smoker Hx Alcohol Use: No Hx Substance Use: No Preferred Language: Faroese Communication Ability: Effective Mixer And Scaler Required: No Beliefs That Will Affect Care: None marital status: Current Living Situation: Alone Other Information That Helps Us Care for You: No Feels Safe at Home: Yes Safety Concerns: Feels Safe At This Time Assistive Devices: Cane, Glasses, Hearing Aid - Bilateral and Walker Review of Systems Review of Systems: All systems reviewed & are unremarkable except as noted in HPI & below Physical Exam Physical Exam: Constitutional: WD/WN, vitals as above, NAD, sitting up in bed, pleasant, conversing easily Head: Normocephalic, Atraumatic Eyes: PERRL, conjunctivae normal, anicteric sclerae ENMT: external ear and nose normal, oropharynx normal Neck: trachea midline, no thyromegaly normal visual inspection Respiratory: normal respiratory effort, lungs clear to auscultation, no wheeze, rales, rhonchi. Normal insp/exp effort, no accessory muscle use Cardiovascular: RRR, no murmur, no edema Vessels: no JVD or carotid bruit Chest: normal inspection of chest Abdomen: normal bowel sounds, soft, nontender, no hepatosplenomegaly Musculoskeletal: no cyanosis or clubbing, extremities motor strength 5/5 Skin: no rashes, warm and dry normal turgor Neurologic: PERRL, EOMI, accommodation nl, no face palsy, no dysarthria CN's II-XI intact bilaterally and moves all extremities Psychiatric: A+Ox3, euthymic affect Lymphatic: no cervical or axillary lymphadenopathy : deferred Results & Data Results & Data ([facility]) Vital Signs (Past 12 Hours) Vital Signs Temp Pulse Pulse Resp BP BP Pulse Ox 04/27/21 12:00 92 H 18 150/95 H 98 04/27/21 10:00 88 22 164/76 H 99 04/27/21 08:29 84 18 136/70 98 04/27/21 07:27 84 24 155/77 H 96 04/27/21 06:37 36.7 C 90 90 18 166/102 H 166/102 H 98 Diagnostic Findings Abdomen/Pelvis CT 04/27/21 08:[address] WITHOUT CONTRAST CT DOSE: 517.64 mGy.cm HISTORY: bloody urine, dysuria TECHNIQUE: Multiaxial CT images of the abdomen and pelvis were performed without contrast. A dose lowering technique was utilized adhering to the principles of ALARA. COMPARISON STUDY: Abdomen and pelvis CT 03/28/2016. FINDINGS: The lung bases are clear. No pneumoperitoneum. No pneumatosis. There is a right total arthroplasty. Moderate osteoarthritis within the left hip. No acute fractures within the visualized osseous structures. There is a large hiatus hernia, unchanged. The unenhanced liver, gallbladder, spleen, adrenal glands, and pancreas unremarkable. There is a 6 cm hypodense lesion within the right kidney. This likely represents a cyst. No renal stones. No hydronephrosis. Mild fullness within the right renal pelvis, unchanged. Punctate calcifications within the deep pelvis appear to represent phleboliths. No definite ureteral calculi. The bladder is not well visualized due to the metallic artifact from the right hip prosthesis but appears grossly unremarkable. The uterus is surgically absent. No pelvic free fluid. Suboptimal evaluation for bowel pathology due to the lack of intravenous and oral contrast. However, there is no definite bowel wall thickening or obstruction. Colonic diverticulosis. There is minimal perisigmoid stranding, unchanged. The appendix is surgically absent. Normal caliber abdominal aorta. No retroperitoneal lymphadenopathy. IMPRESSION: 1. No renal or ureteral stones. No hydronephrosis. 2. Colonic diverticulosis. There is minimal perisigmoid stranding which is similar to the prior study. Therefore, this is likely chronic. A developing acute diverticulitis is considered less likely but not entirely excluded.. 3. No evidence for bowel obstruction. 4. Hiatus hernia. 5. Hysterectomy and appendectomy. ACT 112: Negative or not required by law. Electronically signed by: Arun Chang M.D. 04/27/2021 9:28 AM Medications Administered Medication List Sodium Chloride (Nss 1000ml) 1,000 mls @ 125 mls/hr IV .Q8H CITLALI Stop: 04/27/21 14:44 Last Admin: 04/27/21 07:31 Dose: 125 mls/hr Documented by: [id number] Discontinued Medications Ceftriaxone Sodium (Rocephin) 1,000 mg in 50 mls @ 100 mls/hr IV NOW STA Stop: 04/27/21 09:06 Last Infusion: 04/27/21 09:51 Dose: 0 mls/hr Documented by: [id number] Admin: 04/27/21 09:25 Dose: 100 mls/hr Documented by: [id number] Phenazopyridine HCl (Phenazopyridine Hcl 200 Mg Tab) 200 mg PO NOW STA Stop: 04/27/21 10:18 Last Admin: 04/27/21 10:23 Dose: 200 mg Documented by: [id number] ECG Rate (beats per minute): 85 Rhythm: normal sinus Change: no significant change (January 09, 2017) COVID-19 Results Results COVID-19 Adm Lab Results: RBC 4.59 M/uL (4.2-5.4) 04/27/21 WBC 13.83 K/uL (4.8-10.8) H 04/27/21 Hgb 12.7 g/dL (12.0-16.0) 04/27/21 Hct 37.9 % (37-47) 04/27/21 Plt Count 271 K/uL (130-400) 04/27/21 Neutrophils (%) (Auto) 84.4 % 04/27/21 Lymphocytes (%) (Auto) 6.3 % 04/27/21 Monocytes # (Auto) 1.09 K/uL (0.11-0.59) H 04/27/21 Eosinophils # (Auto) 0.13 K/uL (0-0.5) 04/27/21 Immature Granulocyte % (Auto) 0.2 % 04/27/21 Neutrophils # (Auto) 11.67 K/uL (1.4-6.5) H 04/27/21 Lymphocytes # (Auto) 0.87 K/uL (1.2-3.4) L 04/27/21 Monocytes # (Auto) 1.09 K/uL (0.11-0.59) H 04/27/21 Eosinophils # (Auto) 0.13 K/uL (0-0.5) 04/27/21 Basophils # (Auto) 0.04 K/uL (0-0.2) 04/27/21 Immature Granulocyte # (Auto) 0.03 K/uL (0.00-0.02) H 04/27/21 Na 133 mmol/L (136-145) L 04/27/21 K 4.1 mmol/L (3.5-5.1) 04/27/21 Cl 103 mmol/L (98-107) 04/27/21 CO2 24 mmol/L (21-32) 04/27/21 Anion Gap 6.0 (3-11) 04/27/21 BUN 11 mg/dl (7-18) 04/27/21 Creatinine 0.68 mg/dl (0.6-1.2) 04/27/21 BUN/Creatinine Ratio 15.7 (10-20) 04/27/21 Glucose Level 140 mg/dl (70-99) H 04/27/21 Ca 8.9 mg/dl (8.5-10.1) 04/27/21 Total Bilirubin 1.3 mg/dl (0.2-1) H 04/27/21 AST/SGOT 14 U/L (15-37) L 04/27/21 ALT/SGPT 23 U/L (12-78) 04/27/21 Alkaline Phosphatase 133 U/L (45-117) H 04/27/21 Total Protein 7.3 gm/dl (6.4-8.2) 04/27/21 Albumin 3.8 gm/dl (3.4-5.0) 04/27/21 Globulin 3.5 gm/dl (2.5-4.0) 04/27/21 Albumin/Globulin Ratio 1.1 (0.9-2) 04/27/21 COVID-19 PCR NEGATIVE (Negative) 04/27/21 Code Status & VTE Plan Code Status Full Code VTE Prophylaxis Plan VTE Prophylaxis will be ordered: Yes Supervising Physician Co-Signing Physician Notes Patient is an 86-year-old female with history of CAD, hypertension and other medical problems presents with history of dysuria, bladder pressure sensation, diarrhea and abdominal discomfort. States having UTI-like symptoms for about 1 month duration had 2 courses of oral antibiotics for possible urinary tract infection as outpatient. Patient started to have diarrhea which is worse since yesterday. She denies any nausea, vomiting but admits to having frontal headache. Denies any blood in stool. Reports having dysuria, noticing some plan after micturition while wiping. Please review HPI for complete details of presentation. Noted to be hypertensive while in ED. She missed her home medication this morning. CT abdomen showed findings suggestive of developing acute diverticulitis. On exam patient is elderly, obese, no apparent distress, normocephalic atraumatic, EOMI, normal breath sounds, clear to auscultation, S1- S2, 1+ bilateral lower extremity edema, abdomen soft, tenderness noted right and left lower quadrants, hypogastric region, no guarding or rigidity, bowel sounds heard, alert, awake, oriented, grossly no focal deficits. Patient is admitted for management of acute diverticulitis, possible UTI associated with hematuria. Also to rule out C. difficile. Agree with Ashley Mack. Follow-up cultures. Check stool for C. difficile. Consulted urology. Monitor CBC. Resume home medications for hypertension. SCDs for DVT prophylaxis Re: Hematuria. I personally reviewed the record. Patient is interviewed and examined at bedside. Patient's care is coordinated with Anuradha Rocha PA-C. Please refer to the documentation above for details of patient's presentation and for discussion of other issues.
--- NOTE | 2021-04-27 15:30 | Emergency Department Note ---
History of Present Illness General Chief complaint: Urinary Symptoms Stated complaint: PAINFUL BLOODY URINATION Source: patient and RN notes reviewed Mode of arrival: EMS Limitations: no limitations History of Present Illness Provider complaint: Painful urination, hematuria, diarrhea, weakness This patient is an 86-year-old female who presents emergency department with complaints of painful and bloody urination. Patient states she woke up suddenly with dysuria in the middle the night and had diarrhea as well. Patient states she is not currently taking antibiotics but recently finished a course of Cipro. She did have a urine culture performed through [facility] approximately 10 days ago. She has been on multiple courses of antibiotics lately for urinary symptoms. She denies any fevers, chills, chest pain or shortness of breath. She denies any vomiting. She states diarrhea is often an issue for her and occurs about every 10 days. She denies any blood in the stools but does admit to some lower abdominal cramping. 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 ([employer] aspirin 81 mg tablet,delayed 81 mg PO DAILY 04/27/21 04/27/21 History release atorvastatin 20 mg tablet 20 mg PO DAILY 04/27/21 04/27/21 History cranberry 500 mg capsule 500 mg PO Q2D 04/27/21 04/27/21 History furosemide 20 mg tablet 20 mg PO .2-3DWK PRN 04/27/21 04/27/21 History loratadine 10 mg tablet 10 mg PO DAILY PRN 04/27/21 04/27/21 History losartan 25 mg tablet 12.5 mg PO DAILY 04/27/21 04/27/21 History metoprolol tartrate 25 mg tablet 25 mg PO BID 04/27/21 04/27/21 History multivitamin 1 tab PO Q2D 04/27/21 04/27/21 History omeprazole 40 mg capsule,delayed 40 mg PO DAILY 04/27/21 04/27/21 History release polyethylene glycol 3350 17 17 g PO DAILY 04/27/21 04/27/21 History gram/dose oral powder (Miralax) potassium chloride 10 mEq 10 meq PO DAILY PRN 04/27/21 04/27/21 History tablet,extended release psyllium husk 3.4 gram/5.4 gram 1 tsp PO DAILY 04/27/21 04/27/21 History oral powder (Metamucil) Allergies Allergy/AdvReac Type Severity Reaction Status Date / Time Penicillins Allergy Mild RASH Verified 04/27/21 08:54 doxepin Allergy Unknown unknown Verified 04/27/21 08:54 meloxicam Allergy Unknown DIZZINESS Verified 04/27/21 08:54 raloxifene Allergy Unknown RASH Verified 04/27/21 08:54 lisinopril AdvReac Unknown COUGH Verified 04/27/21 08:54 Past Med/Surg History Medical History CAD (coronary artery disease) "mild to moderate on July 2009 cath. Sep 2016 stress test neg. " Diverticulosis DJD (degenerative joint disease) of hip GERD (gastroesophageal reflux disease) Hiatal hernia History of Clostridium difficile colitis HTN (hypertension) Hx of basal cell carcinoma Hyperlipidemia Migraine with aura HIPOLITO on CPAP intolerant to cpap Pre-diabetes Preglaucoma Schatzki's ring s/p dilation Surgical History H/O breast biopsy "benign" History of right hip replacement 2016 S/P appendectomy S/P SANTO-BSO Family History Mother , 95 Dementia Coronary heart disease Father , 70 Coronary heart disease Social History Smoking Status: Never smoker Hx Alcohol Use: No Hx Substance Use: No Preferred Language: Djiboutian Communication Ability: Effective Blueprint Processor Required: No Beliefs That Will Affect Care: None marital status: Current Living Situation: Alone Other Information That Helps Us Care for You: No Feels Safe at Home: Yes Safety Concerns: Feels Safe At This Time Assistive Devices: Cane, Hearing Aid - Bilateral and Walker Physical Exam Vital Signs Vital Signs - 24 hr 04/27/21 07:27 04/27/21 08:29 04/27/21 10:00 Pulse Rate [Right Brachial] 84 84 88 Pulse Rhythm [Right Brachial] Respiratory Rate 24 18 22 Respiratory Effort / Characteristics Respiratory Depth Respiratory Pattern Blood Pressure [Right Arm] 155/77 H 136/70 164/76 H Blood Pressure Mean [Right Arm] 103 92 105 Pulse Oximetry 96 98 99 Oxygen Delivery Method Room Air Room Air Room Air 04/27/21 12:00 Pulse Rate [Right Brachial] 92 H Pulse Rhythm [Right Brachial] Regular Respiratory Rate 18 Respiratory Effort / Characteristics Non-Labored Spontaneous Respiratory Depth Normal Respiratory Pattern Regular Blood Pressure [Right Arm] 150/95 H Blood Pressure Mean [Right Arm] 113 Pulse Oximetry 98 Oxygen Delivery Method Room Air Vital signs reviewed. General: Well-appearing 86-year-old female, in no significant distress. HEENT: No scleral icterus, PERRLA, neck supple. Atraumatic. Cardiovascular: Regular rate and rhythm, no extra sounds. Pulmonary: Clear to auscultation bilaterally, normal work of breathing. Abdomen: Soft, obese, nontender, nondistended, positive bowel sounds. Musculoskeletal: Atraumatic, no peripheral edema. Neurologic: Patient awake alert and oriented x 3 Skin: Warm, dry, no rash Course Administered Medications Acetaminophen (Acetaminophen 325 Mg Tab) 650 mg PO Q4H PRN PRN Reason: Pain or Fever Stop: 05/27/21 16:03 Last Admin: 04/27/21 23:55 Dose: 650 mg Documented by: [id number] Admin: 04/27/21 17:01 Dose: 650 mg Documented by: [id number] Metronidazole (Flagyl) 500 mg in 100 mls @ 100 mls/hr IV Q8H [facility] Stop: 05/07/21 16:03 Last Infusion: 04/28/21 02:23 Dose: 0 mls/hr Documented by: [id number] Admin: 04/27/21 23:55 Dose: 100 mls/hr Documented by: [id number] Infusion: 04/27/21 19:32 Dose: 0 mls/hr Documented by: [id number] Admin: 04/27/21 18:15 Dose: 100 mls/hr Documented by: [id number] Metoprolol Tartrate (Metoprolol Tartrate 25 Mg Tab) 25 mg PO BID [facility] Stop: 05/27/21 20:59 Last Admin: 04/27/21 21:34 Dose: 25 mg Documented by: [id number] Multivitamins (Multivitamin Tab) 1 tab PO Q2D [facility] Stop: 05/27/21 16:03 Last Admin: 04/27/21 18:16 Dose: 1 tab Documented by: [id number] Discontinued Medications Sodium Chloride (Nss 1000ml) 1,000 mls @ 125 mls/hr IV .Q8H [facility] Stop: 04/27/21 14:44 Last Infusion: 04/27/21 15:32 Dose: 0 mls/hr Documented by: [id number] Admin: 04/27/21 07:31 Dose: 125 mls/hr Documented by: [id number] Ceftriaxone Sodium (Rocephin) 1,000 mg in 50 mls @ 100 mls/hr IV NOW STA Stop: 04/27/21 09:06 Last Infusion: 04/27/21 09:51 Dose: 0 mls/hr Documented by: [id number] Admin: 04/27/21 09:25 Dose: 100 mls/hr Documented by: [id number] Sodium Chloride (Nss 1000ml) 1,000 mls @ 80 mls/hr IV .[id number] [facility] Stop: 04/28/21 04:33 Last Infusion: 04/28/21 06:20 Dose: 0 mls/hr Documented by: [id number] Admin: 04/27/21 17:01 Dose: 80 mls/hr Documented by: [id number] Phenazopyridine HCl (Phenazopyridine Hcl 200 Mg Tab) 200 mg PO NOW STA Stop: 04/27/21 10:18 Last Admin: 04/27/21 10:23 Dose: 200 mg Documented by: [id number] Medical Decision Making Differential Diagnosis Infection, dehydration, metabolic abnormality, hypo/hyperglycemia, electrolyte disturbance, anemia, hypoxia, cardiac sources, intracerebral event, toxicologic, neurologic, as well as other pathologies. Medical Records Attestation: I reviewed the patient's medical records. Home Medications Current Medication List: was personally reviewed by me Laboratory Data Attestation: I reviewed the patient's lab results. Result diagrams: 04/27/21 07:25 04/27/21 07:25 Lab Results 04/27/21 04/27/21 04/27/21 Range/Units 07:15 07:25 07:25 WBC 13.83 H (4.8-10.8) K/uL RBC 4.59 (4.2-5.4) M/uL Hgb 12.7 (12.0-16.0) g/dL Hct 37.9 (37-47) % MCV 82.6 (80-100) fL MCH 27.7 (25-34) pg MCHC 33.5 (32-36) g/dL RDW Std Deviation 41.8 (36.4-46.3) fL RDW Coeff of Marycarmen 13.9 (11.5-14.5) % Plt Count 271 (130-400) K/uL MPV 9.7 (7.4-10.4) fL Immature Gran % (Auto) 0.2 % Neut % (Auto) 84.4 % Lymph % (Auto) 6.3 % Winn % (Auto) 7.9 % Eos % (Auto) 0.9 % Baso % (Auto) 0.3 % Neut # (Auto) 11.67 H (1.4-6.5) K/uL Lymph # (Auto) 0.87 L (1.2-3.4) K/uL Winn # (Auto) 1.09 H (0.11-0.59) K/uL Eos # (Auto) 0.13 (0-0.5) K/uL Baso # (Auto) 0.04 (0-0.2) K/uL Immature Gran # (Auto) 0.03 H (0.00-0.02) K/uL Sodium 133 L (136-145) mmol/L Potassium 4.1 (3.5-5.1) mmol/L Chloride 103 (98-107) mmol/L Carbon Dioxide 24 (21-32) mmol/L Anion Gap 6.0 (3-11) BUN 11 (7-18) mg/dl Creatinine 0.68 (0.6-1.2) mg/dl Est Cr Clr Drug Dosing 56.5 ml/min Est GFR ( Amer) 91.8 ml/min Est GFR (Non-Af Amer) 79.2 ml/min BUN/Creatinine Ratio 15.7 (10-20) Glucose 140 H (70-99) mg/dl Calcium 8.9 (8.5-10.1) mg/dl Total Bilirubin 1.3 H (0.2-1) mg/dl AST 14 L (15-37) U/L ALT 23 (12-78) U/L Alkaline Phosphatase 133 H (45-117) U/L Total Protein 7.3 (6.4-8.2) gm/dl Albumin 3.8 (3.4-5.0) gm/dl Globulin 3.5 (2.5-4.0) gm/dl Albumin/Globulin Ratio 1.1 (0.9-2) TSH 1.270 (0.300-4.500) uIu/ml Urine Color Sutton Urine Appearance Turbid A (Clear) Urine pH 7.0 (4.5-7.5) Ur Specific [place]ushing 1.013 (1.000-1.030) Urine Protein 1+ H (Negative) Urine Glucose (UA) Negative (Negative) Urine Ketones Negative (Negative) Urine Blood 3+ H (Negative) Urine Nitrite Negative (Negative) Urine Bilirubin Negative (Negative) Urine Urobilinogen Negative (Negative) Ur Leukocyte Esterase 3+ H (Negative) Urine WBC (Auto) >30 H (0-5) /hpf Urine RBC (Auto) >30 H (0-4) /hpf U Hyaline Cast (Auto) 0 (0-5) /lpf U Epithel Cells (Auto) 10-20 H (0-5) /lpf Urine Bacteria (Auto) Negative (Negative) Urine Yeast Not Reportable COVID-19 Eval Order SARS-CoV-2 (PCR) (Negative) 04/27/21 04/27/21 Range/Units 12:06 12:06 WBC (4.8-10.8) K/uL RBC (4.2-5.4) M/uL Hgb (12.0-16.0) g/dL Hct (37-47) % MCV (80-100) fL MCH (25-34) pg MCHC (32-36) g/dL RDW Std Deviation (36.4-46.3) fL RDW Coeff of Marycarmen (11.5-14.5) % Plt Count (130-400) K/uL MPV (7.4-10.4) fL Immature Gran % (Auto) % Neut % (Auto) % Lymph % (Auto) % Winn % (Auto) % Eos % (Auto) % Baso % (Auto) % Neut # (Auto) (1.4-6.5) K/uL Lymph # (Auto) (1.2-3.4) K/uL Winn # (Auto) (0.11-0.59) K/uL Eos # (Auto) (0-0.5) K/uL Baso # (Auto) (0-0.2) K/uL Immature Gran # (Auto) (0.00-0.02) K/uL Sodium (136-145) mmol/L Potassium (3.5-5.1) mmol/L Chloride (98-107) mmol/L Carbon Dioxide (21-32) mmol/L Anion Gap (3-11) BUN (7-18) mg/dl Creatinine (0.6-1.2) mg/dl Est Cr Clr Drug Dosing ml/min Est GFR ( Amer) ml/min Est GFR (Non-Af Amer) ml/min BUN/Creatinine Ratio (10-20) Glucose (70-99) mg/dl Calcium (8.5-10.1) mg/dl Total Bilirubin (0.2-1) mg/dl AST (15-37) U/L ALT (12-78) U/L Alkaline Phosphatase (45-117) U/L Total Protein (6.4-8.2) gm/dl Albumin (3.4-5.0) gm/dl Globulin (2.5-4.0) gm/dl Albumin/Globulin Ratio (0.9-2) TSH (0.300-4.500) uIu/ml Urine Color Urine Appearance (Clear) Urine pH (4.5-7.5) Ur Specific Flushing (1.000-1.030) Urine Protein (Negative) Urine Glucose (UA) (Negative) Urine Ketones (Negative) Urine Blood (Negative) Urine Nitrite (Negative) Urine Bilirubin (Negative) Urine Urobilinogen (Negative) Ur Leukocyte Esterase (Negative) Urine WBC (Auto) (0-5) /hpf Urine RBC (Auto) (0-4) /hpf U Hyaline Cast (Auto) (0-5) /lpf U Epithel Cells (Auto) (0-5) /lpf Urine Bacteria (Auto) (Negative) Urine Yeast COVID-19 Eval Order Covid19 at [facility] SARS-CoV-2 (PCR) NEGATIVE (Negative) Imaging Data Radiologist's Impression: Abdomen/Pelvis CT 04/27/21 08:[address] WITHOUT CONTRAST CT DOSE: 517.64 mGy.cm HISTORY: bloody urine, dysuria TECHNIQUE: Multiaxial CT images of the abdomen and pelvis were performed without contrast. A dose lowering technique was utilized adhering to the principles of ALARA. COMPARISON STUDY: Abdomen and pelvis CT 03/28/2016. FINDINGS: The lung bases are clear. No pneumoperitoneum. No pneumatosis. There is a right total arthroplasty. Moderate osteoarthritis within the left hip. No acute fractures within the visualized osseous structures. There is a large hiatus hernia, unchanged. The unenhanced liver, gallbladder, spleen, adrenal glands, and pancreas unremarkable. There is a 6 cm hypodense lesion within the right kidney. This likely represents a cyst. No renal stones. No hydronephrosis. Mild fullness within the right renal pelvis, unchanged. Punctate calcifications within the deep pelvis appear to represent phleboliths. No definite ureteral calculi. The bladder is not well visualized due to the metallic artifact from the right hip prosthesis but appears grossly unremarkable. The uterus is surgically absent. No pelvic free fluid. Suboptimal evaluation for bowel pathology due to the lack of intravenous and oral contrast. However, there is no definite bowel wall thickening or obstruction. Colonic diverticulosis. There is minimal perisigmoid stranding, unchanged. The appendix is surgically absent. Normal caliber abdominal aorta. No retroperitoneal lymphadenopathy. IMPRESSION: 1. No renal or ureteral stones. No hydronephrosis. 2. Colonic diverticulosis. There is minimal perisigmoid stranding which is zachariah lar to the prior study. Therefore, this is likely chronic. A developing acute diverticulitis is considered less likely but not entirely excluded.. 3. No evidence for bowel obstruction. 4. Hiatus hernia. 5. Hysterectomy and appendectomy. ACT 112: Negative or not required by law. Electronically signed by: Arun Chang M.D. 04/27/2021 9:28 AM ECG Data Attestation: I personally reviewed and interpreted this ECG as follows: Indication: + weakness Rate (beats per minute): 85 Rhythm: + normal sinus ECG Intervals/blocks: + Normal QRS and + Normal QT-c ECG [place]: + Normal ECG ST segments: + Normal ST segments ECG Findings: no PACs or no PVCs Blood Pressure Blood Pressure Findings: Elevated blood pressure Blood Pressure Disposition: further management by hospitalist CEDRIC Robles This patient was evaluated and appeared to be in no significant distress. IV access was obtained and laboratory work was drawn. An order for cardiac monitoring was placed and the patient is noted to be in a normal sinus rhythm at 90 bpm. Patient was hydrated with normal saline solution. She was medicated with IV ceftriaxone. Patient's laboratory work reveals a WBC of 13.8. UA reveals is of of the and RBC. Records from [facility] were obtained and urine culture prior to beginning the Cipro was negative. CT scan of the abdomen pelvis was performed and reveals no evidence of obstructive uropathy. Evaluation of the perineum externally reveals no gross abnormalities. Patient states she does live at home alone and her daughter suffers from MS and has a demented . Given the lack of support, the patient's weakness and recurrent UTI symptoms, it is felt in the patient's best interest to be evaluated by the hospitalist service. Patient agrees with this plan. The [facility] hospitalists have been consulted for further management. Impression & Plan HTN (hypertension), Dysuria, Urinary tract infection Discharge Plan Visit Data Chief Complaint: Urinary Symptoms Stated Complaint: PAINFUL BLOODY URINATION ED Provider: Shreya Baker Discharge Problem: HTN (hypertension), Dysuria, Urinary tract infection Patient Disposition: Admitted As Inpatient Discharge Instructions Interventions: ED Discharge Assessment Last Done: 04/27/21 15:42 Discharge Problem: HTN (hypertension) Qualifiers: Hypertension type: primary hypertension Qualified Code(s): I10 - Essential (primary) hypertension Urinary tract infection Qualifiers: Urinary tract infection type: acute cystitis Hematuria presence: with hematuria Qualified Code(s): N30.01 - Acute cystitis with hematuria
[2021-04-27] MEDS ORDERED: PSYLLIUM HUSK PO SCH (16:04)
[2021-04-27] MEDS ORDERED: POLYETHYLENE (MIRALAX) 17 GM PACK PO PRN (16:04)
[2021-04-27] MEDS ORDERED: MAGNESIUM HYDROXIDE SUSP 30 ML UDC PO PRN (16:04)
[2021-04-27] MEDS ORDERED: PHENAZOPYRIDINE HCL 200 MG TAB PO PRN (16:04)
[2021-04-27] MEDS ORDERED: MULTIVITAMIN TAB PO SCH (16:04)
[2021-04-27] MEDS ORDERED: ONDANSETRON INJ 2 MG/ML 2 ML VIAL IV PRN (16:04)
[2021-04-27] MEDS ORDERED: ALUMINUM/MAGNESIUM SUSP 30 ML UDC PO PRN (16:04)
[2021-04-27] MEDS ORDERED: NON-FORMULARY MEDICATION (Cranberry 500 mg Capsule) PO SCH (16:04)
[2021-04-27] MEDS: ACETAMINOPHEN 325 MG TAB PO PRN ×2 (17:01→23:55)
[2021-04-27] MEDS: metroNIDAZOLE 500 MG/100 ML BAG IV SCH ×2 (18:15→23:55)
[2021-04-27] MEDS: METOPROLOL TARTRATE 25 MG TAB PO SCH (21:34)
[2021-04-27] MEDS ORDERED: ENOXAPARIN INJ 40 MG/0.4 ML SYR SQ SCH (22:00)
[2021-04-28 08:03] LABS: Basophils # (auto) 0.06 K/uL (0-0.2); Basophils % (auto) 0.9 %; Eosinophils # (auto) 0.24 K/uL (0-0.5); Eosinophils % (auto) 3.5 %; Hematocrit (blood only) 35.2 % (37-47); Hemoglobin 11.8 g/dL (12.0-16.0); Immature Granulocytes # (auto) 0.01 K/uL (0.00-0.02); Immature Granulocytes % (auto) 0.1 %; Lymphocytes # (auto) 1.43 K/uL (1.2-3.4); Lymphocytes % (auto) 20.9 %; Mean Corpuscular Hemoglobin 28.1 pg (25-34); Mean Corpuscular Hgb Conc 33.5 g/dL (32-36); Mean Corpuscular Volume 83.8 fL (80-100); Mean Platelet Volume 9.9 fL (7.4-10.4); Monocytes # (auto) 0.85 K/uL (0.11-0.59); Monocytes % (auto) 12.4 %; Neutrophils # (auto) 4.25 K/uL (1.4-6.5); Neutrophils % (auto) 62.2 %; Platelet Count 255 K/uL (130-400); RDW Coefficient of Variation 14.2 % (11.5-14.5); RDW Standard Deviation 43.8 fL (36.4-46.3); White Blood Count 6.84 K/uL (4.8-10.8)
[2021-04-28] MEDS: metroNIDAZOLE 500 MG/100 ML BAG IV SCH ×2 (08:38→16:05)
[2021-04-28] MEDS: METOPROLOL TARTRATE 25 MG TAB PO SCH ×2 (08:38→20:52)
[2021-04-28] MEDS: LOSARTAN POTASSIUM 25 MG TAB PO SCH (08:38)
[2021-04-28] MEDS: ATORVASTATIN 20 MG TAB PO SCH ×2 (08:38→09:57)
[2021-04-28] MEDS: PANTOprazole 40 MG TAB PO SCH ×2 (08:39→09:57)
[2021-04-28] MEDS: ASPIRIN 81 MG ECTAB PO SCH ×2 (08:39→09:57)
[2021-04-28] MEDS: PSYLLIUM 58.6% POWDER PACKET PO SCH (08:39)
[2021-04-28 08:41] LABS: Albumin Globulin Ratio 0.9 (0.9-2); Albumin Level 3.3 gm/dl (3.4-5.0); BUN Creatinine Ratio 10.4 (10-20); Bilirubin,Total 1.5 mg/dl (0.2-1); Calcium 8.8 mg/dl (8.5-10.1); Creatinine Clr Calc Pharmacy 72.2 ml/min; Est GFR (African American) 99.6 ml/min; Globulin 3.6 gm/dl (2.5-4.0); Potassium 3.9 mmol/L (3.5-5.1); Total Protein 6.9 gm/dl (6.4-8.2)
[2021-04-28] MEDS ORDERED: ADVANCED PROBIOTIC 1250 MG CAPSULE PO SCH (09:00)
[2021-04-28] MEDS ORDERED: Nursing to Pharmacy Communication SCH (09:45)
--- NOTE | 2021-04-28 10:30 | Urology Consultation ---
Date of Consultation April 28, 2021 Assessment & Plan (1) Urinary tract infection: (2) Hematuria: UTI-like symptoms with hematuria Cultures are not showing active infection right now, however it may be worth empirically treating her and maintaining on the low-dose nitrofurantoin or trimethoprim while we continue the work-up of her hematuria Given the correlation with bowel function I think UTI is the likely diagnosis but she does warrant cystoscopy as an outpatient Visualization of the bladder is somewhat limited because of her hip replacement No inpatient interventions indicated or planned Plan for outpatient follow-up to complete her hematuria work-up History of Present Illness Attending Physician: Jose Serrano MD History of Present Illness 86-year-old female who has had intermittent dysuria and hematuria She has been treated with antibiotics and reports that she has transient improvement during treatment but then has recurrence of symptoms shortly after completing her courses She attributes most of her urinary dysfunction to bowel dysfunction She has intermittent constipation and diarrhea alternating between the 2 During the diarrheal phases, she typically starts to experience dysuria, urgency, frequency and occasionally hematuria At the moment she feels quite well and denies any active voiding dysfunction She had a CT on arrival which shows no hydronephrosis or stones, she has a right hip replacement which makes complete visualization of the bladder somewhat difficult Cultures preliminarily negative Allergies Allergy/AdvReac Type Severity Reaction Status Date / Time Penicillins Allergy Mild RASH Verified 04/27/21 08:54 doxepin Allergy Unknown unknown Verified 04/27/21 08:54 meloxicam Allergy Unknown DIZZINESS Verified 04/27/21 08:54 raloxifene Allergy Unknown RASH Verified 04/27/21 08:54 lisinopril AdvReac Unknown COUGH Verified 04/27/21 08:54 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 ([facility]) aspirin 81 mg tablet,delayed 81 mg PO DAILY 04/27/21 04/27/21 History release atorvastatin 20 mg tablet 20 mg PO DAILY 04/27/21 04/27/21 History cranberry 500 mg capsule 500 mg PO Q2D 04/27/21 04/27/21 History furosemide 20 mg tablet 20 mg PO .2-3DWK PRN 04/27/21 04/27/21 History loratadine 10 mg tablet 10 mg PO DAILY PRN 04/27/21 04/27/21 History losartan 25 mg tablet 12.5 mg PO DAILY 04/27/21 04/27/21 History metoprolol tartrate 25 mg tablet 25 mg PO BID 04/27/21 04/27/21 History multivitamin 1 tab PO Q2D 04/27/21 04/27/21 History omeprazole 40 mg capsule,delayed 40 mg PO DAILY 04/27/21 04/27/21 History release polyethylene glycol 3350 17 17 g PO DAILY 04/27/21 04/27/21 History gram/dose oral powder (Miralax) potassium chloride 10 mEq 10 meq PO DAILY PRN 04/27/21 04/27/21 History tablet,extended release psyllium husk 3.4 gram/5.4 gram 1 tsp PO DAILY 04/27/21 04/27/21 History oral powder (Metamucil) Patient History Medical History CAD (coronary artery disease) "mild to moderate on July 2009 cath. Sep 2016 stress test neg. " Diverticulosis DJD (degenerative joint disease) of hip GERD (gastroesophageal reflux disease) Hiatal hernia History of Clostridium difficile colitis HTN (hypertension) Hx of basal cell carcinoma Hyperlipidemia Migraine with aura HIPOLITO on CPAP intolerant to cpap Pre-diabetes Preglaucoma Schatzki's ring s/p dilation Surgical History H/O breast biopsy "benign" History of right hip replacement 2016 S/P appendectomy S/P SANTO-BSO Family History Mother , 95 Dementia Coronary heart disease Father , 70 Coronary heart disease Social History Smoking Status: Never smoker Hx Alcohol Use: No Hx Substance Use: No Preferred Language: Sinhala Communication Ability: Effective Skin Care Technician Required: No Beliefs That Will Affect Care: None marital status: Current Living Situation: Alone Other Information That Helps Us Care for You: No Feels Safe at Home: Yes Safety Concerns: Feels Safe At This Time Assistive Devices: Cane, Hearing Aid - Bilateral and Walker Physical Exam Constitutional: well developed and well nourished Neck: neck nontender Respiratory: normal respiratory effort; no respiratory distress and does not use accessory muscles Cardiovascular: Rate/Rhythm: regular rate Vessels: radial pulses present Extremities: no edema Gastrointestinal (Abdomen): Inspection/Auscultation: abdomen normal to inspection Percussion/Palpation: abdomen soft; abdomen nontender and no guarding Musculoskeletal: Head/Neck/Chest: normocephalic and head atraumatic Extremities: extremities normal to inspection Skin: no rashes and no lesions Trauma: no evidence of skin trauma Neurologic: awake; not obtunded Speech / Cognition: normal speech Motor/Sensory: no tremor Psychiatric: Orientation: alert and oriented x 3 Lymphatic: no lymphadenopathy Results & Data ([facility]) Vital Signs (Past 12 Hours) Vital Signs Temp Pulse Pulse Resp BP Pulse Ox 04/28/21 08:37 36.8 C 81 20 160/80 H 94 04/28/21 04:39 37.2 C 72 20 130/77 94 04/28/21 03:00 75 04/27/21 23:48 37.2 C 72 18 127/68 94 04/27/21 23:17 75 PG Care Time/CCT Total # of Minutes Spent Total Time Spent with Patient: Total time spent is greater than 50% in coordination of care (as documented) at patient's floor/unit and/or counseling patient: Coding Level of Care Code 41874 Inpt Consult Level 3 Diagnoses Urinary tract infection N30.01 Hematuria presence: with hematuria Urinary tract infection type: acute cystitis Hematuria R31.9 (1) Urinary tract infection Hematuria presence: with hematuria Urinary tract infection type: acute cystitis Qualified Code(s): N30.01 - Acute cystitis with hematuria
[2021-04-28] MEDS: cefTRIAXone SODIUM 2,000 MG in DEXTROSE 5% 50 ML IV SCH (10:51)
--- NOTE | 2021-04-28 18:35 | Hospitalist Progress Note ---
Date of Service April 28, 2021 Assessment & Plan (1) Abdominal pain: (2) Diarrhea: (3) Pelvic pain in female: (4) Dysuria: (5) Hematuria: (6) Leukocytosis: (7) CAD (coronary artery disease): (8) HTN (hypertension): (9) Hyperlipidemia: (10) Pre-diabetes: Plan: Patient is an 86 yr female with H/O Nonobstructive CAD, HTN, HLD, HIPOLITO intolerant to CPAP, GERD, Schatzki's ring, history of migraines, history of C. difficile who presents to ED secondary to dysuria and pelvic pressure x1 month. Acute diverticulitis Diarrhea -CT ABD:No renal or ureteral stones. No hydronephrosis. Colonic diverticulosis. There is minimal perisigmoid stranding which is similar to the prior study. Therefore, this is likely chronic. A developing acute diverticulitis is considered less likely but not entirely excluded. No evidence for bowel obstruction. Hiatus hernia. Hysterectomy and appendectomy. -Check stool studies if recurrence of diarrhea -Blood cultures negative to date Continue Rocephin, Flagyl Day #2 Tolerated clear liquid diet Advance diet to low fiber Received gentle IV fluids Leukocytosis normalized Hematuria Possible LUTS Possible UTI Urine culture unreliable given history of recent antibiotic use Urine culture no growth for now Appreciate urology input Cystoscopy as outpatient Monitor CBC On empiric antibiotics as above CAD Follows [facility] Continue ASA, metoprolol, losartan and atorvastatin No anginal symptoms HTN Blood pressure elevated in ED, likely secondary to situation and discomfort Continue metoprolol and losartan Monitor BP HLD Continue statin HIPOLITO Intolerant to CPAP Pre Diabetes A1c on 04/25 6.4 Monitor Accu-Chek twice daily Monitor need to add coverage DVT Px: SCDs Re: Hematuria Code Status FULL CODE Admission and Anticipated Discharge Date Admission Date: April 27, 2021 Subjective Patient is seen and examined at bedside States feeling better today Dysuria resolved Denies any hematuria Abdominal pain improved as well Tolerating liquid diet Denies chest pain, shortness breath, dizziness, nausea Offers no other complaints Review of Systems Review of Systems: All systems reviewed & are unremarkable except as noted in Subjective Physical Exam Physical Exam: Physical Exam: Vitals signs as noted above General Appearance:Obese, no apparent distress Head: normocephalic, Atraumatic Eyes: normal inspection, EOMI Neck: supple, Trachea midline Respiratory/Chest: Normal breath sounds, CTA, No accessory muscle use Cardiovascular: S1, S2, No murmur Abdomen/GI:Soft, Non tender, Bowel sounds present Extremities/Musculoskeletal:normal inspection, +B/L LE edema Neurologic/Psych:AAOX3, grossly no focal neurological deficits Skin: normal color, warm Results & Data Results & Data ([facility]) Vital Signs (Past 12 Hours) Vital Signs Temp Pulse Pulse Resp BP BP Pulse Ox 04/28/21 15:11 36.8 C 78 18 138/79 95 04/28/21 15:00 79 04/28/21 11:15 36.4 C L 61 20 165/74 H 97 04/28/21 08:37 36.8 C 81 20 160/80 H 94 Laboratory Results Short CBC 04/28/21 Range/Units 07:53 WBC 6.84 (4.8-10.8) K/uL Hgb 11.8 L (12.0-16.0) g/dL Hct 35.2 L (37-47) % Plt Count 255 (130-400) K/uL BMP 04/28/21 07:53 Sodium 138 Potassium 3.9 Chloride 110 H Carbon Dioxide 22 BUN 6 L D Creatinine 0.53 L Glucose 115 H Calcium 8.8 Liver Function 04/28/21 Range/Units 07:53 Total Bilirubin 1.5 H (0.2-1) mg/dl AST 12 L (15-37) U/L ALT 20 (12-78) U/L Alkaline Phosphatase 118 H (45-117) U/L Albumin 3.3 L (3.4-5.0) gm/dl (1) HTN (hypertension) Hypertension type: primary hypertension Qualified Code(s): I10 - Essential (primary) hypertension
[2021-04-28] MEDS ORDERED: ATORVASTATIN 20 MG TAB PO SCH (21:00)
[2021-04-28] MEDS ORDERED: ASPIRIN 81 MG ECTAB PO SCH (21:00)
[2021-04-29] MEDS: metroNIDAZOLE 500 MG/100 ML BAG IV SCH ×2 (00:11→08:54)
[2021-04-29 06:57] LABS: Hematocrit (blood only) 33.3 % (37-47); Mean Corpuscular Hemoglobin 27.8 pg (25-34); Mean Corpuscular Volume 84.3 fL (80-100); Mean Platelet Volume 9.9 fL (7.4-10.4); Platelet Count 273 K/uL (130-400); RDW Coefficient of Variation 14.1 % (11.5-14.5); RDW Standard Deviation 43.9 fL (36.4-46.3); Red Blood Count 3.95 M/uL (4.2-5.4); White Blood Count 7.24 K/uL (4.8-10.8)
[2021-04-29] MEDS ORDERED: PANTOprazole 40 MG TAB PO SCH (07:30)
[2021-04-29 07:31] LABS: Calcium 8.3 mg/dl (8.5-10.1); Creatinine Clr Calc Pharmacy 57.2 ml/min; Est GFR (African American) 92.2 ml/min; Est GFR (Non-African American) 79.6 ml/min; Magnesium 2.2 mg/dl (1.8-2.4); Potassium 3.7 mmol/L (3.5-5.1)
[2021-04-29] MEDS: METOPROLOL TARTRATE 25 MG TAB PO SCH (08:54)
[2021-04-29] MEDS: LOSARTAN POTASSIUM 25 MG TAB PO SCH (08:55)
[2021-04-29] MEDS: PSYLLIUM 58.6% POWDER PACKET PO SCH (08:56)
[2021-04-29] MEDS: cefTRIAXone SODIUM 2,000 MG in DEXTROSE 5% 50 ML IV SCH (09:59)
--- NOTE | 2021-04-29 12:22 | Hospitalist Progress Note ---
Date of Service April 29, 2021 Assessment & Plan (1) Abdominal pain: (2) Diarrhea: (3) Pelvic pain in female: (4) Dysuria: (5) Hematuria: (6) Leukocytosis: (7) CAD (coronary artery disease): (8) HTN (hypertension): (9) Hyperlipidemia: (10) Pre-diabetes: Plan: Patient is an 86 yr female with H/O Nonobstructive CAD, HTN, HLD, HIPOLITO intolerant to CPAP, GERD, Schatzki's ring, history of migraines, history of C. difficile who presents to ED secondary to dysuria and pelvic pressure x1 month. Acute diverticulitis Diarrhea -CT ABD:No renal or ureteral stones. No hydronephrosis. Colonic diverticulosis. There is minimal perisigmoid stranding which is similar to the prior study. Therefore, this is likely chronic. A developing acute diverticulitis is considered less likely but not entirely excluded. No evidence for bowel obstruction. Hiatus hernia. Hysterectomy and appendectomy. -Check stool studies if recurrence of diarrhea -Blood cultures negative to date Continue Rocephin, Flagyl Day #3 Tolerated low fiber diet Received gentle IV fluids Plan to discharge on oral antibiotics Hematuria Possible LUTS Possible UTI Urine culture unreliable given history of recent antibiotic use Urine culture no growth Appreciate urology input Cystoscopy as outpatient Monitor CBC On empiric antibiotics as above CAD Follows [facility] Continue ASA, metoprolol, losartan and atorvastatin No anginal symptoms HTN Blood pressure elevated in ED, likely secondary to situation and discomfort Continue metoprolol and losartan Monitor BP HLD Continue statin HIPOLITO Intolerant to CPAP Pre Diabetes A1c on 04/25 6.4 Monitor Accu-Chek twice daily Monitor need to add coverage DVT Px: SCDs Re: Hematuria Code Status FULL CODE Admission and Anticipated Discharge Date Admission Date: April 27, 2021 Subjective Patient is seen and examined at bedside Doing well No new complaints Abdominal pain, dysuria, hematuria resolved Tolerates regular diet No new complaints Denies chest pain, shortness breath, dizziness, nausea Review of Systems Review of Systems: All systems reviewed & are unremarkable except as noted in Subjective Physical Exam Physical Exam: Physical Exam: Vitals signs as noted above General Appearance:Obese, no apparent distress Head: normocephalic, Atraumatic Eyes: normal inspection, EOMI Neck: supple, Trachea midline Respiratory/Chest: Normal breath sounds, CTA, No accessory muscle use Cardiovascular: S1, S2, No murmur Abdomen/GI:Soft, Non tender, Bowel sounds present Extremities/Musculoskeletal:normal inspection, +B/L LE edema Neurologic/Psych:AAOX3, grossly no focal neurological deficits Skin: normal color, warm Results & Data Results & Data ([place]) Vital Signs (Past 12 Hours) Vital Signs Temp Pulse Pulse Pulse Resp BP BP 04/29/21 11:42 36.6 C 67 20 150/72 H 04/29/21 08:53 68 139/80 04/29/21 07:01 37.0 C 72 20 148/76 H 04/29/21 07:00 77 04/29/21 03:34 37.0 C 72 18 111/66 Pulse Ox 04/29/21 11:42 96 04/29/21 08:53 04/29/21 07:01 95 04/29/21 07:00 04/29/21 03:34 94 Laboratory Results Short CBC 04/29/21 Range/Units 05:54 WBC 7.24 (4.8-10.8) K/uL Hgb 11.0 L (12.0-16.0) g/dL Hct 33.3 L (37-47) % Plt Count 273 (130-400) K/uL BMP 04/29/21 05:54 Sodium 137 Potassium 3.7 Chloride 109 H Carbon Dioxide 23 BUN 11 D Creatinine 0.67 Glucose 115 H Calcium 8.3 L (1) HTN (hypertension) Hypertension type: primary hypertension Qualified Code(s): I10 - Essential (primary) hypertension
--- NOTE | 2021-04-29 12:38 | Discharge Summary ---
Date of Service April 29, 2021 Admission HPI Per Admitting Provider This is an 86-year-old female who has significant past medical history of nonobstructive CAD, HTN, HLD, HIPOLITO intolerant to CPAP, GERD, Schatzki's ring, history of migraines, history of C. difficile who presents to ED secondary to dysuria and pelvic pressure x1 month. Of significance patient has been seen and evaluated by PCP on separate occasions on 04/04 and 04/17 secondary to similar symptoms. It was felt she may have a urinary tract infection. On 04/04 initial UA did reveal leukocytes and RBCs but culture was negative. On 04/17 UA was negative. She was treated with antibiotics on both occasions. She was seen and evaluated by PCP again on 04/25 and again urinalysis clear. She was treated with 2 separate antibiotics, 1 being Cipro and she cannot recall the name of the other antibiotic. She was in her normal state of health until approximately 10:30 PM last night when she woke up with diarrhea. Since last evening she has had multiple episodes of diarrhea, but denies melena or hematochezia. She also complains of left lower quadrant abdominal pain and suprapubic pressure. She had increased urinary urgency would only urinate a little bit, but would have significant dysuria. She also noted blood whenever she wiped and opted to come to ED for evaluation. She denies any fevers but is always chilled. She denies any sweats, lightheadedness, dizziness, syncope, URI symptoms, chest pain, shortness of breath, cough, nausea, vomiting. She states she does get off and on diarrhea which will typically last a day and then resolve on its own. She has not had it for quite some time. She does take Metamucil and MiraLAX on a daily basis. Up until today her appetite has been normal. She denies any sick contacts. She is fully vaccinated for COVID-19. Admission Exam Per Admitting Provider Physical Exam Physical Exam: Constitutional: WD/WN, vitals as above, NAD, sitting up in bed, pleasant, conversing easily Head: Normocephalic, Atraumatic Eyes: PERRL, conjunctivae normal, anicteric sclerae ENMT: external ear and nose normal, oropharynx normal Neck: trachea midline, no thyromegaly normal visual inspection Respiratory: normal respiratory effort, lungs clear to auscultation, no wheeze, rales, rhonchi. Normal insp/exp effort, no accessory muscle use Cardiovascular: RRR, no murmur, no edema Vessels: no JVD or carotid bruit Chest: normal inspection of chest Abdomen: +BS, tender to palpation LLQ and suprapubic region, no rebound, guarding or rigidity, ND, Soft Musculoskeletal: no cyanosis or clubbing, extremities motor strength 5/5 Skin: no rashes, warm and dry normal turgor Neurologic: PERRL, EOMI, accommodation nl, no face palsy, no dysarthria CN's II-XI intact bilaterally and moves all extremities Psychiatric: A+Ox3, euthymic affect Lymphatic: no cervical or axillary lymphadenopathy : deferred Principal Diagnosis Acute diverticulitis Hematuria Suspected UTI Discharge Data Allergies Allergy/AdvReac Type Severity Reaction Status Date / Time Penicillins Allergy Mild RASH Verified 04/27/21 08:54 doxepin Allergy Unknown unknown Verified 04/27/21 08:54 meloxicam Allergy Unknown DIZZINESS Verified 04/27/21 08:54 raloxifene Allergy Unknown RASH Verified 04/27/21 08:54 lisinopril AdvReac Unknown COUGH Verified 04/27/21 08:54 Consultations 04/27/21 12:17 ED Decision to Admit Stat 04/27/21 13:24 Consult Urology Routine Ordered Studies 04/27/21 08:35 CT abd pelvis wo con Stat Hospital Course (1) Abdominal pain: (2) Diarrhea: (3) Pelvic pain in female: (4) Dysuria: (5) Hematuria: (6) Leukocytosis: (7) CAD (coronary artery disease): (8) HTN (hypertension): (9) Hyperlipidemia: (10) Pre-diabetes: Patient is an 86 yr female with H/O Nonobstructive CAD, HTN, HLD, HIPOLITO intolerant to CPAP, GERD, Schatzki's ring, history of migraines, history of C. difficile who presents to ED secondary to dysuria and pelvic pressure x1 month. Acute diverticulitis Diarrhea -CT ABD:No renal or ureteral stones. No hydronephrosis. Colonic diverticulosis. There is minimal perisigmoid stranding which is similar to the prior study. Therefore, this is likely chronic. A developing acute diverticulitis is considered less likely but not entirely excluded. No evidence for bowel obstruction. Hiatus hernia. Hysterectomy and appendectomy. -Check stool studies if recurrence of diarrhea -Blood cultures negative to date Continue Rocephin, Flagyl Day #3 Tolerated low fiber diet Received gentle IV fluids Plan to discharge on oral antibiotics Hematuria Possible LUTS Possible UTI Urine culture unreliable given history of recent antibiotic use Urine culture no growth Appreciate urology input Cystoscopy as outpatient Monitor CBC On empiric antibiotics as above CAD Follows [facility] Continue ASA, metoprolol, losartan and atorvastatin No anginal symptoms HTN Blood pressure elevated in ED, likely secondary to situation and discomfort Continue metoprolol and losartan Monitor BP HLD Continue statin HIPOLITO Intolerant to CPAP Pre Diabetes A1c on 04/25 6.4 Monitor Accu-Chek twice daily Monitor need to add coverage DVT Px: SCDs Re: Hematuria Code Status FULL CODE Total Time Total Time Spent Total Time Spent (In Minutes): 38 minutes Discharge Plan Discharge Items Patient Disposition: Home - Self-Care Reason For Visit: DYSURIA, ABD PAIN Discharge Diagnosis: Acute diverticulitis Hematuria Suspected UTI Activity: Per Instructions section Exercise/Sports: Gradually increase as tolerated Non-emergency contact: Primary Care Provider, Deputy Of [employer] and Urologist Call non-emergency contact if: you have any medication questions, your symptoms worsen, your pain is concerning for you and you have a fever Follow-up/Referrals: Samm Ward, [Primary Care Provider] - Diet: Low Fiber Addtl Attending Provider Instructions: Follow-up with your primary care physician Sully Gould PA-C on May 02, 2021 at 12:00PM Follow-up with your urologist Dr. Santana for cystoscopy is recommended for further evaluation of hematuria Follow-up with your chief port director for possible colonoscopy for chronic diarrhea evaluation. --Complete the antibiotic course (cefuroxime, Flagyl) for 5 more days as prescribed. --Continue low fiber diet until follow-up with your family doctor. Further instructions as per your physician. --Blood cultures are pending at the time of discharge. Follow-up with your physician for results. Seek immediate medical attention if your symptoms reoccur or worsen Please take all medications as instructed on discharge list below. Please call if you have any questions or problems. You can reach a [facility] hospitalist on duty at [facility] 24 hours a day by calling [phone] Pending Studies at Discharge: Yes Studies:: Blood Cultures Stand-Alone Forms: My [facility], Smoking Cessation Medications and DC Order Prescriptions: New phenazopyridine [Pyridium] 200 mg Tablet 200 mg PO TID PRN (Reason: pain) Qty: 10 RF: 0 cefuroxime axetil 500 mg tablet 500 mg PO BID Qty: 10 RF: 0 metronidazole [Flagyl] 500 mg tablet 500 mg PO Q8H Qty: 15 RF: 0 Continued multivitamin Tablet 1 tab PO Q2D RF: 0 atorvastatin 20 mg tablet 20 mg PO DAILY RF: 0 potassium chloride 10 mEq Tablet Extended Release 10 meq PO DAILY PRN (Reason: lasix) RF: 0 omeprazole 40 mg capsule,delayed release(DR/EC) 40 mg PO DAILY RF: 0 aspirin 81 mg Tablet,Delayed Release (Dr/Ec) 81 mg PO DAILY RF: 0 losartan 25 mg tablet 12.5 mg PO DAILY RF: 0 furosemide 20 mg Tablet 20 mg PO .2-3DWK PRN (Reason: Weight Gain/Fluid Build up) RF: 0 loratadine 10 mg Tablet 10 mg PO DAILY PRN (Reason: Allergy Symptoms) RF: 0 cranberry 500 mg Capsule 500 mg PO Q2D RF: 0 metoprolol tartrate 25 mg tablet 25 mg PO BID RF: 0 Melophone 1.5 billion cell Capsule 1 cap PO Q2D RF: 0 Changed polyethylene glycol 3350 [Miralax] 17 gram/dose Powder 17 g PO DAILY PRN (Reason: Constipation) Qty: 0 RF: 0 Discontinued Metamucil 3.4 gram/5.4 gram Powder 1 tsp PO DAILY RF: 0 Discharge Orders: Discharge Order (Routine); Ordered 04/29/21 Ordered By: Jose Serrano Admission Data Admit Date/Time: 04/27/21 12:23 Attending Provider: Jose Serrano Admit Provider: Jose Serrano Primary Care Provider: Samm Ward Other Providers: Brody Santana ; Jose Serrano Other Interventions: Discharge Summary Assessment (RN) Last Done: 04/29/21 13:00
== END 2021-04-29 14:26 | disposition home or self-care (01) | DRG 690 ==
LOC: ED 06:30 → 2W 12:23

== ENCOUNTER 2022-10-14 22:50 | Inpatient (IN) ==
[2022-10-14 23:24] LABS: Basophils # (auto) 0.05 K/uL (0-0.2); Basophils % (auto) 0.5 %; Eosinophils # (auto) 0.03 K/uL (0-0.50); Eosinophils % (auto) 0.3 %; Hematocrit (blood only) 38.9 % (37.0-47.0); Hemoglobin 13.3 g/dl (12.0-16.0); Immature Granulocytes # (auto) 0.03 K/uL (0.01-0.20); Immature Granulocytes % (auto) 0.3 %; Lymphocytes # (auto) 0.95 K/uL (1.2-3.4); Lymphocytes % (auto) 10.2 %; Mean Corpuscular Hemoglobin 27.2 pg (25.0-34.0); Mean Corpuscular Hgb Conc 34.2 g/dL (32.0-36.0); Mean Corpuscular Volume 79.6 fL (80.0-100.0); Monocytes # (auto) 0.46 K/uL (0.11-0.59); Monocytes % (auto) 4.9 %; Neutrophils # (auto) 7.82 K/uL (1.40-6.50); Neutrophils % (auto) 83.8 %; Platelet Count 302 K/uL (130-400); RDW Coefficient of Variation 13.5 % (11.5-14.5); RDW Standard Deviation 38.9 fL (36.4-46.3); Red Blood Count 4.89 M/uL (4.20-5.40); White Blood Count 9.34 K/ul (4.8-10.8)
[2022-10-14 23:47] LABS: Alanine Aminotransferase 16 U/L (7-52); Albumin Globulin Ratio 1.5 (0.9-2); Albumin Level 4.6 gm/dl (3.4-5.0); Alkaline Phosphatase 124 U/L (34-104); Anion Gap 10 (3-11); Aspartate Aminotransferase 20 U/L (13-39); BUN Creatinine Ratio 19.6 (10-20); Bilirubin,Total 1.5 mg/dl (0.2-1.0); Blood Urea Nitrogen 10 mg/dl (6-23); Calcium 9.9 mg/dl (8.5-10.1); Carbon Dioxide 24 mmol/L (21-32); Chloride 93 mmol/L (98-107); Est GFR (African American) 100.2 ml/min; Est GFR (Non-African American) 86.5 ml/min; Glucose 160 mg/dl (70-99(Fasting)); Lipase 6 U/L (11-82); Potassium 3.6 mmol/L (3.5-5.1); Sodium 127 mmol/L (136-145); Total Protein 7.6 gm/dl (6.0-8.3)
--- NOTE | 2022-10-15 00:43 | Emergency Department Note ---
History of Present Illness General Chief complaint: Vomiting Stated complaint: VOMITTING 30MINS EVERY 4 HOURS,TOOTH EXTRACTION Time Seen by Provider: 10/14/22 22:54 History of Present Illness Maximum Pain Intensity: 8 87-year-old female presents emergency department states that she has had nausea vomiting every 30 minutes for the past 4 hours. Patient had a dental extraction of a left upper molar. Patient has been taking Tylenol for pain. Patient denies any antibiotics. Patient denies abdominal pain chest pain or shortness of breath. Patient states that she continues to vomit every 15 minutes or so. There are no other mitigating or alleviating factors Home Medications Medication Instructions Recorded Confirmed Type Lactobacills gasseri-Bifidobac 1 cap PO DAILY 04/27/21 10/15/22 History bifidum,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 (NeurogesX) aspirin 81 mg tablet,delayed 81 mg PO QPM 04/27/21 10/15/22 History release atorvastatin 20 mg tablet 20 mg PO QPM 04/27/21 10/15/22 History losartan 25 mg tablet 25 mg PO QAM 04/27/21 10/15/22 History metoprolol tartrate 25 mg tablet 25 mg PO BID 04/27/21 10/15/22 History multivitamin 1 tab PO Q2D 04/27/21 10/15/22 History omeprazole 40 mg capsule,delayed 40 mg PO QAM 04/27/21 10/15/22 History release acetaminophen 500 mg tablet 500 mg PO Q6H PRN Pain 10/15/22 10/15/22 History (Tylenol Extra Strength) albuterol sulfate 2.5 mg/3 mL 2.5 mg inhalation QID PRN 10/15/22 10/15/22 History (0.083 %) solution for nebulization Shortness Of Breath Or Wheezing ascorbic acid (vitamin C) 1,000 mg 1 g PO DAILY 10/15/22 10/15/22 History tablet (Vitamin C) cyanocobalamin (vitamin B-12) 1,000 mcg PO QAM 10/15/22 10/15/22 History 1,000 mcg tablet (Vitamin B-12) docusate sodium 100 mg capsule 100 mg PO BID PRN Constipation 10/15/22 10/15/22 History methenamine hippurate 1 gram tablet 1 g PO BID 10/15/22 10/15/22 History psyllium husk 3.4 gram/5.4 gram 1 tsp PO DAILY 10/15/22 10/15/22 History oral powder (Metamucil) tizanidine 2 mg capsule 2 mg PO TID PRN MUSCLE SPASMS 10/15/22 10/15/22 History Allergies Allergy/AdvReac Type Severity Reaction Status Date / Time Penicillins Allergy Intermediate RASH Verified 10/15/22 01:10 tramadol [From Ultram] Allergy Intermediate Hives Verified 10/15/22 01:10 doxepin Allergy Unknown pt unsure Verified 10/15/22 01:10 lisinopril AdvReac Intermediate COUGH Verified 10/15/22 01:10 meloxicam AdvReac Intermediate DIZZINESS Verified 10/15/22 01:10 raloxifene AdvReac Intermediate HOT Verified 10/15/22 01:10 FLASHES, INSOMNIA Past Med/Surg History Medical History Back problem CAD (coronary artery disease) "mild to moderate on July 2009 cath. Sep 2016 stress test neg. " Diverticulosis GERD (gastroesophageal reflux disease) Hiatal hernia History of Clostridium difficile colitis History of colon polyps ? History of recurrent UTI (urinary tract infection) OVER THE PAST YR/MOST RECENT OVER A MONTH NOW/CURRENT PREVENTATIVE ABX FOR P ER PT HTN (hypertension) Hx of basal cell carcinoma Hyperlipidemia Left lumbar radiculopathy Migraine with aura HX MIGRAINES HIPOLITO on CPAP CAN'T TOLERATE CPAP Osteoarthritis BOTH KNEES, RECENT INJECTIONS BOTH A FEW WEEKS AGO RECENT RIGHT KNEE PAIN FLARE UP LAST WEEEK - ICE PRN - HELPING Pre-diabetes Preglaucoma Schatzki's ring s/p dilation Surgical History H/O breast biopsy "benign" History of cardiac cath PT NOT SRUE WHY DONE...2008 - NO STENT(S) History of colonoscopy History of esophagogastroduodenoscopy (EGD) History of right hip replacement 2017 S/P appendectomy S/P SANTO-BSO Family History Mother , 95 Coronary heart disease Dementia Father , 70 Coronary heart disease Aunt Family history of diabetes mellitus Social History Smoking Status: Never smoker Hx Alcohol Use: No Hx Substance Use: No Preferred Language: Moldovan Communication Ability: Effective Leather Craftsman Required: No Beliefs That Will Affect Care: None marital status: Current Living Situation: Alone Feels Safe at Home: Yes Assistive Devices: Glasses, Walker and Other Review of Systems A total of 10 systems reviewed and were otherwise negative Gastrointestinal: + vomiting Physical Exam Vital Signs Vital Signs - 24 hr 10/14/22 22:54 10/15/22 00:25 10/15/22 00:25 Temperature 36.7 C Temperature Source Temporal Artery Scan Pulse Rate 84 80 Pulse Rate [Apical] 89 Respiratory Rate 18 22 22 Respiratory Effort / Characteristics Non-Labored Spontaneous Respiratory Depth Normal Blood Pressure 183/103 H Blood Pressure [Left Arm] 185/93 H Blood Pressure Mean 129 Blood Pressure Mean [Left Arm] 123 Pulse Oximetry 93 93 94 Oxygen Delivery Method Room Air Room Air Room Air Sepsis Recent Fever Within 48 Hours No Sepsis New/Unexplained Change in Mental Status No Sepsis Action Taken by Nursing No Action Required 10/14/22 23:07 10/15/22 02:00 Temperature 36.6 C Temperature Source Oral Pulse Rate Pulse Rate [Apical] 73 Respiratory Rate 18 Respiratory Effort / Characteristics Non-Labored Spontaneous Respiratory Depth Normal Blood Pressure Blood Pressure [Left Arm] 200/96 H Blood Pressure Mean Blood Pressure Mean [Left Arm] 130 Pulse Oximetry 97 Oxygen Delivery Method Room Air Sepsis Recent Fever Within 48 Hours Sepsis New/Unexplained Change in Mental Status Sepsis Action Taken by Nursing GENERAL: Patient is awake alert in no acute distress patient is resting comfortably and showing no signs of anxiety EYES: The conjunctivae are clear. The pupils are round and reactive. EARS, NOSE, MOUTH AND THROAT: The nose is without any evidence of any deformity. Mucous membranes are moist. Tongue is midline. NECK: The neck is nontender and supple. RESPIRATORY: Normal respiratory effort is noted there is no evidence of wheezing rhonchi or rales CARDIOVASCULAR: Regular rate and rhythm noted there no murmurs rubs or gallops normal S1 normal S2. GASTROINTESTINAL: The abdomen is soft. Abdomen is nontender. PELVIS: The Pelvis is stable. No tenderness to palpation is noted. BACK: No midline tenderness or or step-off noted range of motion in flexion extension as well as rotation no signs of muscle spasm noted MUSCULOSKELETAL/EXTREMITIES: There is no evidence of gross deformity full range of motion is noted in the hips and shoulders. SKIN: There is no obvious evidence of any rash. There are no petechiae, pallor or cyanosis noted. NEUROLOGIC: Patient is awake alert and oriented x3 strength is symmetric PSYCH Normal affect Course Reevaluation(s) Reevaluation #1: Patient was started on IV fluids, IV Zofran, IV Rocephin. Patient had intractable vomiting, the case was discussed with the [facility] hospitalist for admission Time: 03:11 Consultations [facility]: [facility]11 Administered Medications Discontinued Medications Ioversol (Optiray 350 100ml) 100 ml IV ONCE ONE Stop: 10/15/22 01:38 Last Admin: 10/15/22 01:37 Dose: 89 ml Documented By: MINI Ondansetron HCl (Ondansetron Inj 2 Mg/Ml 2 Ml Vial) 4 mg IV NOW STA Stop: 10/15/22 01:31 Last Admin: 10/15/22 01:43 Dose: 4 mg Documented By: DEEPAK Medical Decision Making Medical Records Attestation: I reviewed the patient's medical records. Home Medications Current Medication List: was personally reviewed by me Laboratory Data Attestation: I reviewed the patient's lab results. Patient has hyponatremia 10/14/22 23:09 10/14/22 23:09 Lab Results 10/14/22 10/14/22 10/15/22 Range/Units 23:09 23:09 01:13 WBC 9.34 (4.8-10.8) K/ul RBC 4.89 (4.20-5.40) M/uL Hgb 13.3 (12.0-16.0) g/dl Hct 38.9 (37.0-47.0) % MCV 79.6 L (80.0-100.0) fL MCH 27.2 (25.0-34.0) pg MCHC 34.2 (32.0-36.0) g/dL RDW Std Deviation 38.9 (36.4-46.3) fL RDW Coeff of Marycarmen 13.5 (11.5-14.5) % Plt Count 302 (130-400) K/uL MPV 10.0 (9.4-12.4) fL Immature Gran % (Auto) 0.3 % Neut % (Auto) 83.8 % Lymph % (Auto) 10.2 % [place] % (Auto) 4.9 % Eos % (Auto) 0.3 % Baso % (Auto) 0.5 % Neut # (Auto) 7.82 H (1.40-6.50) K/uL Lymph # (Auto) 0.95 L (1.2-3.4) K/uL [place] # (Auto) 0.46 (0.11-0.59) K/uL Eos # (Auto) 0.03 (0-0.50) K/uL Baso # (Auto) 0.05 (0-0.2) K/uL Immature Gran # (Auto) 0.03 (0.01-0.20) K/uL Sodium 127 L (136-145) mmol/L Potassium 3.6 (3.5-5.1) mmol/L Chloride 93 L (98-107) mmol/L Carbon Dioxide 24 (21-32) mmol/L Anion Gap 10 (3-11) BUN 10 (6-23) mg/dl Creatinine 0.51 L (0.6-1.2) mg/dl Est Cr Clr Drug Dosing Not Reportable Est GFR ( Amer) 100.2 ml/min Est GFR (Non-Af Amer) 86.5 ml/min BUN/Creatinine Ratio 19.6 (10-20) Glucose 160 H (70-99(Fasting)) mg/dl Calcium 9.9 (8.5-10.1) mg/dl Total Bilirubin 1.5 H (0.2-1.0) mg/dl AST 20 (13-39) U/L ALT 16 (7-52) U/L Alkaline Phosphatase 124 H (34-104) U/L Total Protein 7.6 (6.0-8.3) gm/dl Albumin 4.6 (3.4-5.0) gm/dl Globulin 3.0 (2.5-4.0) gm/dl Albumin/Globulin Ratio 1.5 (0.9-2) Lipase 6 L (11-82) U/L Urine Color Urine Appearance (Clear) Urine pH (4.5-7.5) Ur Specific Spencer (1.000-1.030) Urine Protein (Negative) Urine Glucose (UA) (Negative) Urine Ketones (Negative) Urine Blood (Negative) Urine Nitrite (Negative) Urine Bilirubin (Negative) Urine Urobilinogen (Negative) Ur Leukocyte Esterase (Negative) Urine WBC (Auto) (0-5) /hpf Urine RBC (Auto) (0-4) /hpf U Hyaline Cast (Auto) (0-5) /lpf U Epithel Cells (Auto) (0-5) /lpf Urine Bacteria (Auto) (Negative) SARS-CoV-2, RNA, NAAT NEGATIVE (NEGATIVE) 10/15/22 Range/Units 01:38 WBC (4.8-10.8) K/ul RBC (4.20-5.40) M/uL Hgb (12.0-16.0) g/dl Hct (37.0-47.0) % MCV (80.0-100.0) fL MCH (25.0-34.0) pg MCHC (32.0-36.0) g/dL RDW Std Deviation (36.4-46.3) fL RDW Coeff of Marycarmen (11.5-14.5) % Plt Count (130-400) K/uL MPV (9.4-12.4) fL Immature Gran % (Auto) % Neut % (Auto) % Lymph % (Auto) % [place] % (Auto) % Eos % (Auto) % Baso % (Auto) % Neut # (Auto) (1.40-6.50) K/uL Lymph # (Auto) (1.2-3.4) K/uL [place] # (Auto) (0.11-0.59) K/uL Eos # (Auto) (0-0.50) K/uL Baso # (Auto) (0-0.2) K/uL Immature Gran # (Auto) (0.01-0.20) K/uL Sodium (136-145) mmol/L Potassium (3.5-5.1) mmol/L Chloride (98-107) mmol/L Carbon Dioxide (21-32) mmol/L Anion Gap (3-11) BUN (6-23) mg/dl Creatinine (0.6-1.2) mg/dl Est Cr Clr Drug Dosing Est GFR ( Amer) ml/min Est GFR (Non-Af Amer) ml/min BUN/Creatinine Ratio (10-20) Glucose (70-99(Fasting)) mg/dl Calcium (8.5-10.1) mg/dl Total Bilirubin (0.2-1.0) mg/dl AST (13-39) U/L ALT (7-52) U/L Alkaline Phosphatase (34-104) U/L Total Protein (6.0-8.3) gm/dl Albumin (3.4-5.0) gm/dl Globulin (2.5-4.0) gm/dl Albumin/Globulin Ratio (0.9-2) Lipase (11-82) U/L Urine Color Yellow Urine Appearance Clear (Clear) Urine pH 8.0 H (4.5-7.5) Ur Specific Spencer 1.024 (1.000-1.030) Urine Protein 1+ H (Negative) Urine Glucose (UA) Negative (Negative) Urine Ketones 2+ H (Negative) Urine Blood Trace H (Negative) Urine Nitrite Negative (Negative) Urine Bilirubin Negative (Negative) Urine Urobilinogen Negative (Negative) Ur Leukocyte Esterase Negative (Negative) Urine WBC (Auto) 5-10 H (0-5) /hpf Urine RBC (Auto) 5-10 H (0-4) /hpf U Hyaline Cast (Auto) 0 (0-5) /lpf U Epithel Cells (Auto) 5-10 H (0-5) /lpf Urine Bacteria (Auto) Negative (Negative) SARS-CoV-2, RNA, NAAT (NEGATIVE) Imaging Data Attestation: I personally reviewed and interpreted this imaging study as follows: My Impression: CT reviewed by me and appreciate stat radiologist's interpretation Radiologist's Impression: Preliminary Findings Only See Final Report For Complete Findings CT ABDOMEN & PELVIS With Contrast: Hiatal hernia 5.4 x 5.1 cm right renal hypodensity likely representing cyst is unchanged from 04/27/2021 Postoperative changes right hip arthroplasty. No free air or intestinal obstruction. Remaining solid abdominal organs are unremarkable. Moderate amount of stool within the colon. Radiologist: Isidro Javier MD ECG Data Attestation: I personally reviewed and interpreted this ECG as follows: Additional Comments: EKG reviewed by me and interpreted by me rhythm rate of 80 left ventricular hypertrophy left axis deviation age-indeterminate inferior wall normal intervals MDM Narrative Medical decision making differential diagnosis includes colitis gastritis gastroenteritis metabolic derangement dehydration bowel obstruction Plan is to check labs, give IV fluids IV Zofran, check CT Nursing notes were reviewed by me This patient had intractable vomiting had hyponatremia a suspected urinary tract infection and on review CT abdomen pelvis The case was discussed with the [facility] hospitalist for intractable vomiting and hyponatremia admission I suspect the patient has a component of dehydration Impression & Plan Vomiting, Acute UTI (urinary tract infection), Acute hyponatremia Discharge Plan Visit Data Chief Complaint: Vomiting Stated Complaint: VOMITTING 30MINS EVERY 4 HOURS,TOOTH EXTRACTION ED Provider: Festus Suazo Discharge Problem: Vomiting, Acute UTI (urinary tract infection), Acute hyponatremia Patient Disposition: Admitted As Inpatient Forms Stand Alone Forms: My [facility] Prescriptions Prescriptions: No Action multivitamin Tablet 1 tab PO Q2D atorvastatin 20 mg tablet 20 mg PO QPM omeprazole 40 mg capsule,delayed release(DR/EC) 40 mg PO QAM aspirin 81 mg Tablet,Delayed Release (Dr/Ec) 81 mg PO QPM losartan 25 mg tablet 25 mg PO QAM metoprolol tartrate 25 mg tablet 25 mg PO BID NeurogesX 1.5 billion cell Capsule 1 cap PO DAILY methenamine hippurate 1 gram tablet 1 g PO BID ascorbic acid (vitamin C) [Vitamin C] 1,000 mg Tablet 1 g PO DAILY albuterol sulfate 2.5 mg /3 mL (0.083 %) Solution For Nebulization 2.5 mg INHALATION QID PRN (Reason: Shortness Of Breath Or Wheezing) cyanocobalamin (vitamin B-12) [Vitamin B-12] 1,000 mcg Tablet 1,000 mcg PO QAM acetaminophen [Tylenol Extra Strength] 500 mg Tablet 500 mg PO Q6H PRN (Reason: Pain) docusate sodium 100 mg Capsule 100 mg PO BID PRN (Reason: Constipation) tizanidine 2 mg capsule 2 mg PO TID PRN (Reason: MUSCLE SPASMS) Metamucil 3.4 gram/5.4 gram Powder 1 tsp PO DAILY Rx Instructions: mix into at least 4 oz water or juice before administering Referrals Referrals: Samm Ward DO [Primary Care Provider] -
[2022-10-15] MEDS ORDERED: ONDANSETRON INJ 2 MG/ML 2 ML VIAL IV STA (01:30)
[2022-10-15] MEDS ORDERED: OPTIRAY 350 100ml IV ONE (01:37)
[2022-10-15 02:10] LABS: Appearance Urine Clear (Clear); Bacteria Urine Automated Negative (Negative); Bilirubin Urine Negative (Negative); Blood Urine Trace (Negative); Cast Urine Automated 0 /lpf (0-5); Color Urine Yellow; Glucose Urine UA Negative (Negative); Ketones Urine 2+ (Negative); Leukocyte Esterase Urine Negative (Negative); Nitrite Urine Negative (Negative); Specific Gravity Urine 1.024 (1.000-1.030); Urobilinogen Urine Negative (Negative)
[2022-10-15 02:18] LABS: Protein Urine 1+ (Negative)
[2022-10-15] MEDS ORDERED: cefTRIAXone SODIUM 2,000 MG/70 ML BAG IV STA (02:22)
[2022-10-15] MEDS ORDERED: LABETALOL HCL IV 5 MG/ML 20ML IV STA (03:06)
[2022-10-15] MEDS ORDERED: ERTAPENEM SODIUM 10 ML IV STA ×2 (03:12→04:14)
--- NOTE | 2022-10-15 03:19 | History & Physical Report ---
Date of Service October 15, 2022 Assessment & Plan (1) Complicated UTI (urinary tract infection): Plan: History recurrent UTIs on chronic methenamine suppression Rx (past history hx ESBL E. coli) Post dental procedure constipation possibly contributory to UTI No sepsis for now Hyponatremia, hypertensive urgency secondary to discomfort hx CAD, mild mitral regurgitation hyperlipidemia on statin Rx prediabetes, hemoglobin A1c of 6.2 last August 2022 Medical telemetry given hyponatremia and elevated BP IV labetalol 1 dose now Careful correction of sodium, hyponatremia work-up Urine CS, Ertapenem given prior history of ESBL E. coli growth Bowel regimen DVT prophylaxis. Lovenox subcu DNR as per patient's prior wishes Patient's son requesting updates from providers. Mr. Antonio Santana, contact #[phone]. Text document was generated using ZAP voice recognition software. It may contain grammatical or spelling errors. Kindly contact undersigned for clarification of any documentation item in question. History of Present Illness Chief Complaint: Vomiting Primary Care Provider: Samm Ward DO History obtained from patient, family, and records. Medical history significant for CAD, mild mitral regurgitation, hypertension, hyperlipidemia, GERD, HIPOLITO, past history of C. difficile, recurrent UTIs on chronic methenamine suppression Rx (hx ESBL E. coli), GERD, prediabetes. Last confinement April 2021 for acute diverticulitis. Patient had tooth extraction a few days ago. Post procedural pain somewhat not relieved by Tylenol. Patient sneezing more than usual the last few days. Yesterday, patient had intractable nausea vomiting symptoms at home. No actual belly pain, but patient somewhat constipated. Patient cites history of alternating constipation/diarrhea symptoms. Patient denies chest pain, SOB. Admits to urinary symptoms without fever or chills Patient brought to the ER by son. 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 [employer] Allergies Allergy/AdvReac Type Severity Reaction Status Date / Time Penicillins Allergy Intermediate RASH Verified 10/15/22 01:10 tramadol [From Ultram] Allergy Intermediate Hives Verified 10/15/22 01:10 doxepin Allergy Unknown pt unsure Verified 10/15/22 01:10 lisinopril AdvReac Intermediate COUGH Verified 10/15/22 01:10 meloxicam AdvReac Intermediate DIZZINESS Verified 10/15/22 01:10 raloxifene AdvReac Intermediate HOT Verified 10/15/22 01:10 FLASHES, INSOMNIA Home Medications Medication Instructions Recorded Confirmed Type Lactobacills gasseri-Bifidobac 1 cap PO DAILY 04/27/21 10/15/22 History bifidum,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 ([place]) aspirin 81 mg tablet,delayed 81 mg PO QPM 04/27/21 10/15/22 History release atorvastatin 20 mg tablet 20 mg PO QPM 04/27/21 10/15/22 History losartan 25 mg tablet 25 mg PO QAM 04/27/21 10/15/22 History metoprolol tartrate 25 mg tablet 25 mg PO BID 04/27/21 10/15/22 History multivitamin 1 tab PO Q2D 04/27/21 10/15/22 History omeprazole 40 mg capsule,delayed 40 mg PO QAM 04/27/21 10/15/22 History release acetaminophen 500 mg tablet 500 mg PO Q6H PRN Pain 10/15/22 10/15/22 History (Tylenol Extra Strength) albuterol sulfate 2.5 mg/3 mL 2.5 mg inhalation QID PRN 10/15/22 10/15/22 History (0.083 %) solution for nebulization Shortness Of Breath Or Wheezing ascorbic acid (vitamin C) 1,000 mg 1 g PO DAILY 10/15/22 10/15/22 History tablet (Vitamin C) cyanocobalamin (vitamin B-12) 1,000 mcg PO QAM 10/15/22 10/15/22 History 1,000 mcg tablet (Vitamin B-12) docusate sodium 100 mg capsule 100 mg PO BID PRN Constipation 10/15/22 10/15/22 History methenamine hippurate 1 gram tablet 1 g PO BID 10/15/22 10/15/22 History psyllium husk 3.4 gram/5.4 gram 1 tsp PO DAILY 10/15/22 10/15/22 History oral powder (Metamucil) tizanidine 2 mg capsule 2 mg PO TID PRN MUSCLE SPASMS 10/15/22 10/15/22 History Past Med/Surg History Medical History Back problem CAD (coronary artery disease) "mild to moderate on July 2009 cath. Sep 2016 stress test neg. " Diverticulosis GERD (gastroesophageal reflux disease) Hiatal hernia History of Clostridium difficile colitis History of colon polyps ? History of recurrent UTI (urinary tract infection) OVER THE PAST YR/MOST RECENT OVER A MONTH NOW/CURRENT PREVENTATIVE ABX FOR PER PT HTN (hypertension) Hx of basal cell carcinoma Hyperlipidemia Left lumbar radiculopathy Migraine with aura HX MIGRAINES HIPOLITO on CPAP CAN'T TOLERATE CPAP Osteoarthritis BOTH KNEES, RECENT INJECTIONS BOTH A FEW WEEKS AGO RECENT RIGHT KNEE PAIN FLARE UP LAST WEEEK - ICE PRN - HELPING Pre-diabetes Preglaucoma Schatzki's ring s/p dilation Surgical History H/O breast biopsy "benign" History of cardiac cath PT NOT SRUE WHY DONE...2008 - NO STENT(S) History of colonoscopy History of esophagogastroduodenoscopy (EGD) History of right hip replacement 2017 S/P appendectomy S/P SANTO-BSO Family History Mother , 95 Coronary heart disease Dementia Father , 70 Coronary heart disease Aunt Family history of diabetes mellitus Social History Smoking Status: Never smoker Hx Alcohol Use: No Hx Substance Use: No Preferred Language: Maori Communication Ability: Effective Experimental Technician Required: No Beliefs That Will Affect Care: None marital status: Current Living Situation: Family Feels Safe at Home: Yes Safety Concerns: Feels Safe At This Time Assistive Devices: Cane, Glasses and Walker Review of Systems Review of Systems: As per HPI, all other systems reviewed and negative Physical Exam Physical Exam: GENERAL: Comfortable, obese, pleasant, slightly hard of hearing, no respiratory distress SKIN: Normal color, warm HEENT: Long Neck palpebral conjunctivae, no ptosis, dry buccal mucosa NECK : Supple, short neck, no tenderness CHEST : CTA, no tenderness HEART : RRR, systolic murmur ABDOMEN: Some distention, nontender EXTREMITIES : No LE swelling/tenderness, no other conspicuous deformities noted NEUROLOGIC : Coherent, no facial asymmetry, slightly hard of hearing, no other gross focality Results & Data Results & Data ([facility]) Vital Signs (Past 12 Hours) Vital Signs Temp Pulse Pulse Resp BP BP Pulse Ox 10/15/22 02:00 73 18 200/96 H 97 10/14/22 23:07 36.6 C 10/15/22 00:25 80 22 94 10/15/22 00:25 89 22 185/93 H 93 10/14/22 22:54 36.7 C 84 18 183/103 H 93 O2 Del Method 10/15/22 02:00 Room Air 10/14/22 23:07 10/15/22 00:25 Room Air 10/15/22 00:25 Room Air 10/14/22 22:54 Room Air Laboratory Results Laboratory Results WBC 9.34 K/ul (4.8-10.8) 10/14/22 23:09 RBC 4.89 M/uL (4.20-5.40) 10/14/22 23:09 Hgb 13.3 g/dl (12.0-16.0) 10/14/22 23:09 Hct 38.9 % (37.0-47.0) 10/14/22 23:09 MCV 79.6 fL (80.0-100.0) L 10/14/22 23:09 MCH 27.2 pg (25.0-34.0) 10/14/22 23:09 MCHC 34.2 g/dL (32.0-36.0) 10/14/22 23:09 RDW Std Deviation 38.9 fL (36.4-46.3) 10/14/22 23:09 RDW Coeff of Marycarmen 13.5 % (11.5-14.5) 10/14/22 23:09 Plt Count 302 K/uL (130-400) 10/14/22 23:09 MPV 10.0 fL (9.4-12.4) 10/14/22 23:09 Immature Gran % (Auto) 0.3 % 10/14/22 23:09 Neut % (Auto) 83.8 % 10/14/22 23:09 Lymph % (Auto) 10.2 % 10/14/22 23:09 Saline % (Auto) 4.9 % 10/14/22 23:09 Eos % (Auto) 0.3 % 10/14/22 23:09 Baso % (Auto) 0.5 % 10/14/22 23:09 Neut # (Auto) 7.82 K/uL (1.40-6.50) H 10/14/22 23:09 Lymph # (Auto) 0.95 K/uL (1.2-3.4) L 10/14/22 23:09 Saline # (Auto) 0.46 K/uL (0.11-0.59) 10/14/22 23:09 Eos # (Auto) 0.03 K/uL (0-0.50) 10/14/22 23:09 Baso # (Auto) 0.05 K/uL (0-0.2) 10/14/22 23:09 Immature Gran # (Auto) 0.03 K/uL (0.01-0.20) 10/14/22 23:09 Sodium 127 mmol/L (136-145) L 10/14/22 23:09 Potassium 3.6 mmol/L (3.5-5.1) 10/14/22 23:09 Chloride 93 mmol/L (98-107) L 10/14/22 23:09 Carbon Dioxide 24 mmol/L (21-32) 10/14/22 23:09 Anion Gap 10 (3-11) 10/14/22 23:09 BUN 10 mg/dl (6-23) 10/14/22 23:09 Creatinine 0.51 mg/dl (0.6-1.2) L 10/14/22 23:09 Est Cr Clr Drug Dosing Not Reportable 10/14/22 23:09 Est GFR ( Amer) 100.2 ml/min 10/14/22 23:09 Est GFR (Non-Af Amer) 86.5 ml/min 10/14/22 23:09 BUN/Creatinine Ratio 19.6 (10-20) 10/14/22 23:09 Glucose 160 mg/dl (70-99(Fasting)) H 10/14/22 23:09 Calcium 9.9 mg/dl (8.5-10.1) 10/14/22 23:09 Total Bilirubin 1.5 mg/dl (0.2-1.0) H 10/14/22 23:09 AST 20 U/L (13-39) 10/14/22 23:09 ALT 16 U/L (7-52) 10/14/22 23:09 Alkaline Phosphatase 124 U/L (34-104) H 10/14/22 23:09 Total Protein 7.6 gm/dl (6.0-8.3) 10/14/22 23:09 Albumin 4.6 gm/dl (3.4-5.0) 10/14/22 23:09 Globulin 3.0 gm/dl (2.5-4.0) 10/14/22 23:09 Albumin/Globulin Ratio 1.5 (0.9-2) 10/14/22 23:09 Lipase 6 U/L (11-82) L 10/14/22 23:09 Urine Color Yellow 10/15/22 01:38 Urine Appearance Clear (Clear) 10/15/22 01:38 Urine pH 8.0 (4.5-7.5) H 10/15/22 01:38 Ur Specific [place] 1.024 (1.000-1.030) 10/15/22 01:38 Urine Protein 1+ (Negative) H 10/15/22 01:38 Urine Glucose (UA) Negative (Negative) 10/15/22 01:38 Urine Ketones 2+ (Negative) H 10/15/22 01:38 Urine Blood Trace (Negative) H 10/15/22 01:38 Urine Nitrite Negative (Negative) 10/15/22 01:38 Urine Bilirubin Negative (Negative) 10/15/22 01:38 Urine Urobilinogen Negative (Negative) 10/15/22 01:38 Ur Leukocyte Esterase Negative (Negative) 10/15/22 01:38 Urine WBC (Auto) 5-10 /hpf (0-5) H 10/15/22 01:38 Urine RBC (Auto) 5-10 /hpf (0-4) H 10/15/22 01:38 U Hyaline Cast (Auto) 0 /lpf (0-5) 10/15/22 01:38 U Epithel Cells (Auto) 5-10 /lpf (0-5) H 10/15/22 01:38 Urine Bacteria (Auto) Negative (Negative) 10/15/22 01:38 SARS-CoV-2, RNA, NAAT NEGATIVE (NEGATIVE) 10/15/22 01:[address] abdomen pelvis initial read: Hiatal hernia 5.4 x 5.1 cm right renal hypodensity likely representing cyst is unchanged from 04/27/2021 Postoperative changes right hip arthroplasty. No free air or intestinal obstruction. Remaining solid abdominal organs are unremarkable. Moderate amount of stool within the colon. Chest x-ray as per my interpretation cardiomegaly EKG as per my interpretation : Rate 80, NSR, LAD, LAFB, T wave abnormalities inferior leads
[2022-10-15] MEDS ORDERED: SODIUM CHLORIDE 0.9% 500 ML IV ONE (03:20)
[2022-10-15] MEDS ORDERED: ACETAMINOPHEN W/CODEINE #3 1 TAB PO ONE (04:05)
[2022-10-15] MEDS ORDERED: DOCUSATE SODIUM/SENNA 50/8.6MG TAB PO STA (04:12)
[2022-10-15] MEDS ORDERED: PROMETHAZINE HCL 12.5 MG in SODIUM CHLORIDE 0.9% 50 ML IV PRN ×2 (04:12→14:25)
[2022-10-15] MEDS ORDERED: LACTULOSE SYRUP 30 GM/45 ML UDP PO STA (04:15)
[2022-10-15] MEDS ORDERED: MAGNESIUM SULFATE / D5W 1 GM/100 ML BAG IV ONE (04:19)
[2022-10-15] MEDS ORDERED: ACETAMINOPHEN 325 MG TAB PO PRN (05:17)
[2022-10-15] MEDS ORDERED: tiZANidine HCL 4 MG TABLET PO PRN (05:17)
[2022-10-15] MEDS ORDERED: POLYETHYLENE (MIRALAX) 17 GM PACK PO PRN (05:17)
[2022-10-15 06:22] LABS: Influenza A virus by PCR Negative (Negative); Influenza B virus by PCR Negative (Negative)
--- NOTE | 2022-10-15 06:51 | XRay Report ---
XR chest 1V portable HISTORY: 87 years-old Female cough acute cough COMPARISON: CT abdomen and pelvis of same day, chest radiograph 06/25/2010 TECHNIQUE: AP view of the chest FINDINGS: Cardiac silhouette is enlarged. Moderate sized hiatal hernia. Mild interstitial coarsening of the lelia gs is likely chronic. No pneumothorax, large pleural effusion or overt pulmonary edema. Medial lung a pices are partially obscured by the patient's chin. Degenerative changes of the shoulders and spine. IMPRESSION: 1. Cardiomegaly without acute process. 2. Hiatal hernia. ACT 112: Negative or not required by law. The above report was generated using voice recognition software. It may contain grammatical, syntax o r spelling errors. Electronically signed by: Tera Rodriguez M.D. 10/15/2022 6:50 AM
[2022-10-15 08:09] LABS: Basophils # (auto) 0.05 K/uL (0-0.2); Basophils % (auto) 0.4 %; Eosinophils # (auto) 0.01 K/uL (0-0.50); Eosinophils % (auto) 0.1 %; Hemoglobin 12.9 g/dl (12.0-16.0); Immature Granulocytes # (auto) 0.04 K/uL (0.01-0.20); Immature Granulocytes % (auto) 0.4 %; Lymphocytes # (auto) 1.09 K/uL (1.2-3.4); Lymphocytes % (auto) 9.7 %; Mean Corpuscular Hemoglobin 27.7 pg (25.0-34.0); Mean Corpuscular Hgb Conc 34.9 g/dL (32.0-36.0); Mean Corpuscular Volume 79.6 fL (80.0-100.0); Mean Platelet Volume 9.9 fL (9.4-12.4); Monocytes # (auto) 0.83 K/uL (0.11-0.59); Monocytes % (auto) 7.4 %; Neutrophils # (auto) 9.17 K/uL (1.40-6.50); Platelet Count 299 K/uL (130-400); RDW Coefficient of Variation 13.4 % (11.5-14.5); RDW Standard Deviation 38.3 fL (36.4-46.3); Red Blood Count 4.65 M/uL (4.20-5.40); White Blood Count 11.19 K/ul (4.8-10.8)
[2022-10-15] MEDS: LOSARTAN POTASSIUM 25 MG TAB PO SCH (08:25)
[2022-10-15] MEDS: ADVANCED PROBIOTIC 1250 MG CAPSULE PO SCH (08:25)
[2022-10-15] MEDS: METOPROLOL TARTRATE 25 MG TAB PO SCH ×2 (08:25→21:01)
[2022-10-15] MEDS: PSYLLIUM or GUAR GUM FIBER POWDER PACKET PO SCH (08:25)
[2022-10-15] MEDS: ENOXAPARIN INJ 40 MG/0.4 ML SYR SQ SCH (08:25)
[2022-10-15] MEDS: PANTOprazole 40 MG TAB PO SCH (08:25)
[2022-10-15 08:26] LABS: BUN Creatinine Ratio 16.7 (10-20); Calcium 9.5 mg/dl (8.5-10.1); Creatinine Clr Calc Pharmacy 67.9 ml/min; Est GFR (African American) 98.3 ml/min; Est GFR (Non-African American) 84.8 ml/min; Potassium 3.3 mmol/L (3.5-5.1)
--- NOTE | 2022-10-15 08:31 | CT Scan Report ---
ABDOMEN AND PELVIS CT WITH IV CONTRAST CT DOSE: 573.79 mGy.cm HISTORY: Acute nausea with vomiting vomiting TECHNIQUE: Multiaxial CT images of the abdomen and pelvis were performed following the IV administrat ion of 89 cc of Optiray, A dose lowering technique was utilized adhering to the principles of ALARA. COMPARISON STUDY: CT abdomen and pelvis 04/27/2021, 03/28/2016 FINDINGS: Coronary artery calcifications. Mild subsegmental bibasilar atelectasis. No pneumatosis or pneumoperitoneum. The spleen, adrenal glands, mildly distended gallbladder and liver appear unremarka ble. Patency of the hepatic and portal veins. Moderate atrophy of the pancreas with calcifications denny ggestive of chronic pancreatitis. Dilation of the pancreatic duct measures up to 8 mm with abrupt foc al narrowing within the pancreatic neck. There is mild fullness of the parenchyma just upstream to th e area dilation measuring up to 1.7 cm. Cysts of the kidneys measure up to 5.0 x 5.9 cm on the right. There is no hydronephrosis. Hysterectom y with mild pelvic floor relaxation. Unremarkable urinary bladder. Atherosclerosis of the aorta. No l ymphadenopathy. Moderate sized hiatal hernia with partially intrathoracic stomach. No bowel obstruction or bowel wall thickening. Colonic diverticulosis. Moderate colonic fecal retention. Appendectomy. No ascites or me senteric inflammation. Degenerative changes of the spine and left hip. Right hip arthroplasty. IMPRESSION: 1. Soft tissue fullness of the pancreatic neck is suspicious for an underlying lesion with upstream p ancreatic ductal dilation and atrophy. GI consultation with endoscopy recommended. This finding was c alled/faxed to the emergency department at time of dictation. 2. No bowel obstruction or bowel wall thickening. 3. Moderate hiatal hernia. 4. Colonic diverticulosis. 5. Additional findings as above. ACT 112: Negative or not required by law. The above report was generated using voice recognition software. It may contain grammatical, syntax o r spelling errors. Electronically signed by: Tera Rodriguez M.D. 10/15/2022 8:30 AM
[2022-10-15] MEDS ORDERED: POTASSIUM CHLORIDE CRTAB 20 MEQ TABCR PO STA (09:20)
--- NOTE | 2022-10-15 09:36 | Gastrointestinal Consultation ---
Date of Consultation October 15, 2022 Assessment & Plan (1) Abnormal CT scan, gastrointestinal tract: Suggestive of a pancreas mass. (2) Nausea & vomiting: Related to starting to eat/drink again after recent tooth extraction. Symptoms are relieved w IV fluids. Denies nausea and most recent emesis was last evening. Plan EGD/EUS for pancreatic abnormality on the CT scan. Procedure described in detail to the pt including risks and pt would like to go forward w the procedure. Will try to arrange for today. Most recent drink of clear liquids was 0930. Please keep NPO. Supervising Physician Co-Signing Physician Notes I performed a history and physical examination of the patient today, including specifically on physical exam - soft abdomen. I have discussed the patient's management with the advanced practitioner. Please refer to the nurse practitioner's note for the documented findings and plan of care. EUS Patient was explained in detail regarding risks, benefits, limitations and alternatives of the above endoscopic procedure. Risks of intravenous sedation used for procedure were also explained. Risks include, but not limited to perforation, bleeding, infection, respiratory distress, cardiac arrest and . Patient is also aware about the possibility of missed lesion. Patient's questions were answered. The patient verbalized understanding the information and agreed to undergo the procedure. History of Present Illness Reason for Consultation: N/V, abnormal CT Requesting Physician: Dr. Bryson Attending Physician: Jason Bryson MD History of Present Illness Ms. Yara Santana is an 87 yr old female pt of Dr. Samm Ward w a hx of CAD, Migraines, Sleep Apnea. She presented to the ED today for nausea, vomiting and was found to have hyponatremia which improved w IV fluids (127->133). Regarding the N/V, she had undergone a tooth extraction on Thursday and did well with a soft diet on Thursday night and hadn't tried to eat breakfast yesterday morning, but after trying to eat yogurt and drink V8 yesterday at noon, she began to have N/V which persisted which is why she presented to the ED. She is taking 650 of Tylenol every 4 hrs while awake. She is also on on ASA 81mg/day but no other anticoagulants or antiplatelet medications. In the ED, she is AAO and comfortable except some reflux symptoms which she describes as a mild burning/acidy feeling in the mid chest. She recognizes this as her symptoms of reflux, stating she hasn't had this recently until this morning. She denies any abdominal pain. No recent weight loss. No fevers/chills/sweats. She has had some mild intermittent nausea for a few months but no vomiting. She had an episode of diarrhea here in the ED but denies any diarrhea recently. She has a hx of constipation and is maintained on Miralax and fiber daily. She is awake, alert, oriented, able to make her own decisions. She lives alone, independently. She most recently drank clear liquids, finishing at 9:30AM. She is feeling some reflux now. CT on arrival w question of fullness of the head of the pancreas, main duct dilation, pancreatic atrophy and calcifications. LFTs and lipase are normal. No fevers or leukocytosis. She follows w CRISTIAN Honeycutt in GI clinic for GERD, chronic constipation and has undergone the following procedures: EGD January 2022:Normal esophagus. Dilated. Small hiatal hernia. In 2018, there was esophagitis on EGD. Colonoscopy 2013:Moderate sigmoid and ascending colon diverticulosis and internal hemorrhoids. Allergies Allergy/AdvReac Type Severity Reaction Status Date / Time Penicillins Allergy Intermediate RASH Verified 10/15/22 01:10 tramadol [From Ultram] Allergy Intermediate Hives Verified 10/15/22 01:10 doxepin Allergy Unknown pt unsure Verified 10/15/22 01:10 lisinopril AdvReac Intermediate COUGH Verified 10/15/22 01:10 meloxicam AdvReac Intermediate DIZZINESS Verified 10/15/22 01:10 raloxifene AdvReac Intermediate HOT Verified 10/15/22 01:10 FLASHES, INSOMNIA Home Medications Medication Instructions Recorded Confirmed Type Lactobacills gasseri-Bifidobac 1 cap PO DAILY 04/27/21 10/15/22 History bifidum,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 ([place]) aspirin 81 mg tablet,delayed 81 mg PO QPM 04/27/21 10/15/22 History release atorvastatin 20 mg tablet 20 mg PO QPM 04/27/21 10/15/22 History losartan 25 mg tablet 25 mg PO QAM 04/27/21 10/15/22 History metoprolol tartrate 25 mg tablet 25 mg PO BID 04/27/21 10/15/22 History multivitamin 1 tab PO Q2D 04/27/21 10/15/22 History omeprazole 40 mg capsule,delayed 40 mg PO QAM 04/27/21 10/15/22 History release acetaminophen 500 mg tablet 500 mg PO Q6H PRN Pain 10/15/22 10/15/22 History (Tylenol Extra Strength) albuterol sulfate 2.5 mg/3 mL 2.5 mg inhalation QID PRN 10/15/22 10/15/22 History (0.083 %) solution for nebulization Shortness Of Breath Or Wheezing ascorbic acid (vitamin C) 1,000 mg 1 g PO DAILY 10/15/22 10/15/22 History tablet (Vitamin C) cyanocobalamin (vitamin B-12) 1,000 mcg PO QAM 10/15/22 10/15/22 History 1,000 mcg tablet (Vitamin B-12) docusate sodium 100 mg capsule 100 mg PO BID PRN Constipation 10/15/22 10/15/22 History methenamine hippurate 1 gram tablet 1 g PO BID 10/15/22 10/15/22 History psyllium husk 3.4 gram/5.4 gram 1 tsp PO DAILY 10/15/22 10/15/22 History oral powder (Metamucil) tizanidine 2 mg capsule 2 mg PO TID PRN MUSCLE SPASMS 10/15/22 10/15/22 History Patient History Medical History Back problem CAD (coronary artery disease) "mild to moderate on July 2009 cath. Sep 2016 stress test neg. " Diverticulosis GERD (gastroesophageal reflux disease) Hiatal hernia History of Clostridium difficile colitis History of colon polyps ? History of recurrent UTI (urinary tract infection) OVER THE PAST YR/MOST RECENT OVER A MONTH NOW/CURRENT PREVENTATIVE ABX FOR PER PT HTN (hypertension) Hx of basal cell carcinoma Hyperlipidemia Left lumbar radiculopathy Migraine with aura HX MIGRAINES HIPOLITO on CPAP CAN'T TOLERATE CPAP Osteoarthritis BOTH KNEES, RECENT INJECTIONS BOTH A FEW WEEKS AGO RECENT RIGHT KNEE PAIN FLARE UP LAST WEEEK - ICE PRN - HELPING Pre-diabetes Preglaucoma Schatzki's ring s/p dilation Surgical History H/O breast biopsy "benign" History of cardiac cath PT NOT SRUE WHY DONE...2009 - NO STENT(S) History of colonoscopy History of esophagogastroduodenoscopy (EGD) History of right hip replacement 2017 S/P appendectomy S/P SANTO-BSO Family History Mother , 95 Coronary heart disease Dementia Father , 70 Coronary heart disease Aunt Family history of diabetes mellitus Social History Smoking Status: Never smoker Hx Alcohol Use: No Hx Substance Use: No Preferred Language: Croatian Communication Ability: Effective 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 Beliefs That Will Affect Care: None marital status: Current Living Situation: Family Feels Safe at Home: Yes Safety Concerns: Feels Safe At This Time Assistive Devices: Cane, Glasses and Walker Review of Systems Review of Systems: ROS: Gen: + nausea; Denies weakness, fevers, weight loss Eyes: No eye redness, or pain, no recent vision changes Resp: + mild chronic cough, no recent worsening, No SOB Cardio: No palpitations/irregular beats, no chest pain GI: As per HPI, otherwise (-) : Denies pain on urination Skin: No jaundice, itching or new rashes Physical Exam Constitutional: WD/WN, vitals as above Eyes: PERRL, conjunctivae normal, anicteric sclerae ENMT: external ear and nose normal, oropharynx normal Neck: trachea midline, no thyromegaly Respiratory: normal respiratory effort, lungs clear to auscultation Cardiovascular: RRR, no murmur, no edema Gastrointestinal (Abdomen): mild epigastric discomfort w deep palpation of there, but otherwise normal abd exam. Skin: pale complexion but no marked pallor, several small ecchymotic areas on arms that are red. No rashes Neurologic: PERRL, EOMI, accommodation nl, no face palsy, no dysarthria Psychiatric: A+Ox3, euthymic affect Lymphatic: no cervical or axillary lymphadenopathy Results & Data ([facility]) Vital Signs (Past 12 Hours) Vital Signs Temp Pulse Pulse Resp BP BP Pulse Ox 10/15/22 06:26 72 16 139/74 91 10/15/22 05:43 72 18 131/71 91 10/15/22 05:29 10/15/22 05:29 67 16 118/68 94 10/15/22 03:16 197/79 H 10/15/22 02:00 73 18 200/96 H 97 10/14/22 23:07 36.6 C 10/15/22 00:25 80 22 94 10/15/22 00:25 89 22 185/93 H 93 10/14/22 22:54 36.7 C 84 18 183/103 H 93 Pulse Ox O2 Del Method O2 Del Method 10/15/22 06:26 Room Air 10/15/22 05:43 Room Air 10/15/22 05:29 94 Room Air 10/15/22 05:29 Room Air 10/15/22 03:16 10/15/22 02:00 Room Air 10/14/22 23:07 10/15/22 00:25 Room Air 10/15/22 00:25 Room Air 10/14/22 22:54 Room Air Laboratory Results WBC 11.19Hb 12.9, Hct 37, Plts 2999, Na 133, K 98, Cl 25, BUN 9, Cr 0.5, glucose 122. Diagnostic Findings CTAP 10/15/22: 1. Soft tissue fullness of the pancreatic neck is suspicious for an underlying lesion with upstream pancreatic ductal dilation and atrophy. GI consultation with endoscopy recommended. This finding was called/faxed to the emergency department at time of dictation. 2. No bowel obstruction or bowel wall thickening. 3. Moderate hiatal hernia. 4. Colonic diverticulosis. 5. Additional findings as above.
--- NOTE | 2022-10-15 11:19 | Anesthesiology Consultation ---
Date of Service October 15, 2022 Assessment & Plan Chart Review Chart Review: Acceptable Risk for Surgery and Patient NOT seen in Pre Admission Testing Consults Requested none ASA [id number] Proposed Anesthesia Anesthesia Type: General History Surgery Operation Date: 10/15/22 15:40 Proposed Procedures p Endoscopic Ultrasonography Upper - Emigdio Tellez MD Height/Weight Height: 5 ft Weight: 78.2 kg Allergies Allergy/AdvReac Type Severity Reaction Status Date / Time Penicillins Allergy Intermediate RASH Verified 10/15/22 01:10 tramadol [From Ultram] Allergy Intermediate Hives Verified 10/15/22 01:10 doxepin Allergy Unknown pt unsure Verified 10/15/22 01:10 lisinopril AdvReac Intermediate COUGH Verified 10/15/22 01:10 meloxicam AdvReac Intermediate DIZZINESS Verified 10/15/22 01:10 raloxifene AdvReac Intermediate HOT Verified 10/15/22 01:10 FLASHES, INSOMNIA Medications Home Medications Medication Instructions Recorded Confirmed Last Taken Lactobacills gasseri-Bifidobac 1 cap PO DAILY 04/27/21 10/15/22 10/14/22 bifidum,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 (Synaffix) aspirin 81 mg tablet,delayed 81 mg PO QPM 04/27/21 10/15/22 10/13/22 release atorvastatin 20 mg tablet 20 mg PO QPM 04/27/21 10/15/22 10/13/22 losartan 25 mg tablet 25 mg PO QAM 04/27/21 10/15/22 10/14/22 metoprolol tartrate 25 mg tablet 25 mg PO BID 04/27/21 10/15/22 10/14/22 08:00 multivitamin 1 tab PO Q2D 04/27/21 10/15/22 10/14/22 omeprazole 40 mg capsule,delayed 40 mg PO QAM 04/27/21 10/15/22 10/14/22 release acetaminophen 500 mg tablet 500 mg PO Q6H PRN Pain 10/15/22 10/15/22 Unknown (Tylenol Extra Strength) albuterol sulfate 2.5 mg/3 mL 2.5 mg inhalation QID PRN 10/15/22 10/15/22 Unknown (0.083 %) solution for nebulization Shortness Of Breath Or Wheezing ascorbic acid (vitamin C) 1,000 mg 1 g PO DAILY 10/15/22 10/15/22 10/14/22 tablet (Vitamin C) cyanocobalamin (vitamin B-12) 1,000 mcg PO QAM 10/15/22 10/15/22 10/14/22 1,000 mcg tablet (Vitamin B-12) docusate sodium 100 mg capsule 100 mg PO BID PRN Constipation 10/15/22 10/15/22 Unknown methenamine hippurate 1 gram tablet 1 g PO BID 10/15/22 10/15/22 10/14/22 08:00 psyllium husk 3.4 gram/5.4 gram 1 tsp PO DAILY 10/15/22 10/15/22 10/14/22 oral powder (Metamucil) tizanidine 2 mg capsule 2 mg PO TID PRN MUSCLE SPASMS 10/15/22 10/15/22 Unknown Active Medications Generic Name Dose Route Start Last Admin Trade Name Freq PRN Reason Stop Dose Admin Enoxaparin Sodium 40 mg 10/15/22 09:00 10/15/22 08:25 Enoxaparin Inj 40 Mg/0.4 Ml Syr SQ 11/14/22 08:59 40 mg QAM CITLALI Administration Lactobacillus Acidophilus 2 cap 10/15/22 09:00 10/15/22 08:25 Advanced Probiotic 1250 Mg Capsule PO 11/14/22 08:59 2 cap DAILY CITLALI Administration Losartan Potassium 25 mg 10/15/22 09:00 10/15/22 08:25 Losartan Potassium 25 Mg Tab PO 11/14/22 08:59 25 mg QAM CITLALI Administration Metoprolol Tartrate 25 mg 10/15/22 09:00 10/15/22 08:25 Metoprolol Tartrate 25 Mg Tab PO 11/14/22 08:59 25 mg BID CITLALI Administration Pantoprazole Sodium 40 mg 10/15/22 09:00 10/15/22 08:25 Pantoprazole 40 Mg Tab PO 11/14/22 08:59 40 mg QAM CITLALI Administration Psyllium Hydrophilic Mucilloid 1 pkt 10/15/22 09:00 10/15/22 08:25 Psyllium Or Guar Gum Fiber Powder Packet PO 11/14/22 08:59 1 pkt DAILY CITLALI Administration Past Medical History Medical History Back problem CAD (coronary artery disease) "mild to moderate on July 2009 cath. Sep 2016 stress test neg. " Diverticulosis GERD (gastroesophageal reflux disease) Hiatal hernia History of Clostridium difficile colitis History of colon polyps ? History of recurrent UTI (urinary tract infection) OVER THE PAST YR/MOST RECENT OVER A MONTH NOW/CURRENT PREVENTATIVE ABX FOR PER PT HTN (hypertension) Hx of basal cell carcinoma Hyperlipidemia Left lumbar radiculopathy Migraine with aura HX MIGRAINES HIPOLITO on CPAP CAN'T TOLERATE CPAP Osteoarthritis BOTH KNEES, RECENT INJECTIONS BOTH A FEW WEEKS AGO RECENT RIGHT KNEE PAIN FLARE UP LAST WEEEK - ICE PRN - HELPING Pre-diabetes Preglaucoma Schatzki's ring s/p dilation Exercise / Class Metabolic Activity III < 4 Walking/Shop/Light housework Past Family History Family History Mother , 95 Coronary heart disease Dementia Father , 70 Coronary heart disease Aunt Family history of diabetes mellitus Past Surgical History Surgical History H/O breast biopsy "benign" History of cardiac cath PT NOT SRUE WHY DONE...2008 - NO STENT(S) History of colonoscopy History of esophagogastroduodenoscopy (EGD) History of right hip replacement 2016 S/P appendectomy S/P SANTO-BSO Past Anesthesia History No Hx of Anesthesia Complications and No Family Hx of Anesthesia Complications History of PONV No Hx of PONV and No Hx of Motion Sickness Social History Smoking Status: Never smoker Hx Alcohol Use: No Hx Substance Use: No substance use type: does not use Physical Exam Vital Signs Last Vital Signs Temp 36.6 C 10/14/22 23:07 Pulse 71 10/15/22 10:20 Resp 24 10/15/22 10:20 BP 129/72 10/15/22 10:15 Pulse Ox 92 10/15/22 08:20 O2 Del Method 10/15/22 10:20 Testing Laboratory Results 10/15/22 07:47 10/15/22 07:47 Urine Color Yellow 10/15/22 01:38 Urine Appearance Clear (Clear) 10/15/22 01:38 Urine pH 8.0 (4.5-7.5) H 10/15/22 01:38 Ur Specific [place] 1.024 (1.000-1.030) 10/15/22 01:38 Urine Protein 1+ (Negative) H 10/15/22 01:38 Urine Glucose (UA) Negative (Negative) 10/15/22 01:38 Urine Ketones 2+ (Negative) H 10/15/22 01:38 Urine Nitrite Negative (Negative) 10/15/22 01:38 Ur Leukocyte Esterase Negative (Negative) 10/15/22 01:38 Urine WBC (Auto) 5-10 /hpf (0-5) H 10/15/22 01:38 Urine RBC (Auto) 5-10 /hpf (0-4) H 10/15/22 01:38 U Hyaline Cast (Auto) 0 /lpf (0-5) 10/15/22 01:38 U Epithel Cells (Auto) 5-10 /lpf (0-5) H 10/15/22 01:38 Urine Bacteria (Auto) Negative (Negative) 10/15/22 01:38 Electrocardiogram Date: 10/15/22 Findings: + NSR @ (@ 80;infer. and anter. infarcts ? ages ?) and + LVH Chest X-Ray Date: 10/15/22 Findings: + NAD, + cardiomegaly and + other (moderate sized H/H)
--- NOTE | 2022-10-15 11:30 | Nephrology Consultation ---
Date of Consultation October 15, 2022 Assessment & Plan (1) Hyponatremia: presenting sNa 127, up to 133 w/in 8 hrs, which is the maximal correction desired in a day. suspect prerenal based on hx though could be low solute diet as well. no classic offending meds. urine studies challenging to interpret on NS. ? if emesis more from pancreatic lesion, hiatal hernia than low Na. -repeat bmp now -goal sNa is 133 -hold IVF until bmp posts (NPO status noted) >> then will adjust fluid accordingly --likely to need further K (2) Recurrent UTI: no urine cx from admission >> no bacteria on UA ?if this is UTI currently; f/u pending blood cxs History of Present Illness Reason for Consultation: hyponatremia Requesting Physician: Dr Coffey Attending Physician: Jason Bryson MD History of Present Illness 87 y/o F whom I'm asked to see for hyponatremia was admitted overnight for complicated UTI despite chronic methenamine suppression. 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 On 10/13 she had a dental procedure w/ poor po intake and constipation. She tried to eat her first real/regular meal yesterday and immediately vomited prompting ER visit later in day. Her presenting sodium was 127 last eveinng 2300. was 133 this am w/ K 3.3. I/O are difficult to follow currently in ER setting but she has been getting NS. Allergies Allergy/AdvReac Type Severity Reaction Status Date / Time Penicillins Allergy Intermediate RASH Verified 10/15/22 01:10 tramadol [From Ultram] Allergy Intermediate Hives Verified 10/15/22 01:10 doxepin Allergy Unknown pt unsure Verified 10/15/22 01:10 lisinopril AdvReac Intermediate COUGH Verified 10/15/22 01:10 meloxicam AdvReac Intermediate DIZZINESS Verified 10/15/22 01:10 raloxifene AdvReac Intermediate HOT Verified 10/15/22 01:10 FLASHES, INSOMNIA Home Medications Medication Instructions Recorded Confirmed Type Lactobacills gasseri-Bifidobac 1 cap PO DAILY 04/27/21 10/15/22 History bifidum,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 (Eventials) aspirin 81 mg tablet,delayed 81 mg PO QPM 04/27/21 10/15/22 History release atorvastatin 20 mg tablet 20 mg PO QPM 04/27/21 10/15/22 History losartan 25 mg tablet 25 mg PO QAM 04/27/21 10/15/22 History metoprolol tartrate 25 mg tablet 25 mg PO BID 04/27/21 10/15/22 History multivitamin 1 tab PO Q2D 04/27/21 10/15/22 History omeprazole 40 mg capsule,delayed 40 mg PO QAM 04/27/21 10/15/22 History release acetaminophen 500 mg tablet 500 mg PO Q6H PRN Pain 10/15/22 10/15/22 History (Tylenol Extra Strength) albuterol sulfate 2.5 mg/3 mL 2.5 mg inhalation QID PRN 10/15/22 10/15/22 History (0.083 %) solution for nebulization Shortness Of Breath Or Wheezing ascorbic acid (vitamin C) 1,000 mg 1 g PO DAILY 10/15/22 10/15/22 History tablet (Vitamin C) cyanocobalamin (vitamin B-12) 1,000 mcg PO QAM 10/15/22 10/15/22 History 1,000 mcg tablet (Vitamin B-12) docusate sodium 100 mg capsule 100 mg PO BID PRN Constipation 10/15/22 10/15/22 History methenamine hippurate 1 gram tablet 1 g PO BID 10/15/22 10/15/22 History psyllium husk 3.4 gram/5.4 gram 1 tsp PO DAILY 10/15/22 10/15/22 History oral powder (Metamucil) tizanidine 2 mg capsule 2 mg PO TID PRN MUSCLE SPASMS 10/15/22 10/15/22 History Patient History Medical History Back problem CAD (coronary artery disease) "mild to moderate on July 2009 cath. Sep 2016 stress test neg. " Diverticulosis GERD (gastroesophageal reflux disease) Hiatal hernia History of Clostridium difficile colitis History of colon polyps ? History of recurrent UTI (urinary tract infection) OVER THE PAST YR/MOST RECENT OVER A MONTH NOW/CURRENT PREVENTATIVE ABX FOR PER PT HTN (hypertension) Hx of basal cell carcinoma Hyperlipidemia Left lumbar radiculopathy Migraine with aura HX MIGRAINES HIPOLITO on CPAP CAN'T TOLERATE CPAP Osteoarthritis BOTH KNEES, RECENT INJECTIONS BOTH A FEW WEEKS AGO RECENT RIGHT KNEE PAIN FLARE UP LAST WEEEK - ICE PRN - HELPING Pre-diabetes Preglaucoma Schatzki's ring s/p dilation Surgical History H/O breast biopsy "benign" History of cardiac cath PT NOT SRUE WHY DONE...2009 - NO STENT(S) History of colonoscopy History of esophagogastroduodenoscopy (EGD) History of right hip replacement 2016 S/P appendectomy S/P SANTO-BSO Family History Mother , 95 Coronary heart disease Dementia Father , 70 Coronary heart disease Aunt Family history of diabetes mellitus Social History Smoking Status: Never smoker Hx Alcohol Use: No Hx Substance Use: No Preferred Language: Citizen Of [place] Communication Ability: Effective Manager [employer] Required: No Beliefs That Will Affect Care: None marital status: Current Living Situation: Family Feels Safe at Home: Yes Safety Concerns: Feels Safe At This Time Assistive Devices: Cane, Glasses and Walker Review of Systems Review of Systems: All systems reviewed & are unremarkable except as noted in Subjective Physical Exam Constitutional: well developed, well nourished, + obese and cooperative Eyes: EOM intact bilaterally ENMT: Ears: no external ear abnormality Nose: no external nose abnormality Mouth: + dry oral mucous membranes Neck: no nuchal rigidity Respiratory: normal respiratory effort Auscultation: + diminished lung so unds Cardiovascular: Rate/Rhythm: regular rate and regular rhythm Extremities: no edema Gastrointestinal (Abdomen): Inspection/Auscultation: normal bowel sounds Percussion/Palpation: abdomen soft; abdomen nontender Musculoskeletal: Extremities: strength 5/5 throughout Skin: no rashes, warm and dry Neurologic: gomez, fluent speech, no tremor Psychiatric: Orientation: oriented x 3 Results & Data ([facility]) Vital Signs (Past 12 Hours) Vital Signs Pulse Pulse Resp BP BP Pulse Ox Pulse Ox 10/15/22 10:20 71 24 10/15/22 10:15 129/72 10/15/22 10:10 68 21 10/15/22 10:01 71 134/56 L 10/15/22 10:00 74 20 10/15/22 09:30 70 19 143/80 H 10/15/22 09:15 79 22 160/72 H 10/15/22 09:00 23 158/83 H 10/15/22 08:45 146/81 H 10/15/22 08:20 66 19 92 10/15/22 08:15 71 20 92 10/15/22 08:15 138/78 10/15/22 08:10 72 21 90 10/15/22 08:00 70 20 92 10/15/22 08:00 84 16 143/83 H 92 10/15/22 07:30 21 137/72 92 10/15/22 07:15 23 160/71 H 92 10/15/22 06:26 72 16 139/74 91 10/15/22 05:43 72 18 131/71 91 10/15/22 05:29 94 10/15/22 05:29 67 16 118/68 94 10/15/22 03:16 197/79 H 10/15/22 02:00 73 18 200/96 H 97 10/15/22 00:25 80 22 94 10/15/22 00:25 89 22 185/93 H 93 O2 Del Method O2 Del Method 10/15/22 10:20 Room Air 10/15/22 10:15 Room Air 10/15/22 10:10 Room Air 10/15/22 10:01 Room Air 10/15/22 10:00 Room Air 10/15/22 09:30 Room Air 10/15/22 09:15 Room Air 10/15/22 09:00 Room Air 10/15/22 08:45 Room Air 10/15/22 08:20 Room Air 10/15/22 08:15 Room Air 10/15/22 08:15 Room Air 10/15/22 08:10 Room Air 10/15/22 08:00 Room Air 10/15/22 08:00 Room Air 10/15/22 07:30 Room Air 10/15/22 07:15 Room Air 10/15/22 06:26 Room Air 10/15/22 05:43 Room Air 10/15/22 05:29 Room Air 10/15/22 05:29 Room Air 10/15/22 03:16 10/15/22 02:00 Room Air 10/15/22 00:25 Room Air 10/15/22 00:25 Room Air Laboratory Results 10/15/22 07:47 10/15/22 07:47 UA reviewed > note no bacteria sOsm 270 uOsm 540 [place] 178 Diagnostic Findings cxr moderate hiatal hernia, no pl effusion or plm edema; mild insterstitial lung coarsening CT a/p w/ IV con ST fullness pancreatic nec, ? underlying lesion; n o bowel obstruction. renal cysts w/o hydronephrosis; mild pelvic floor relaxation s/p hyster, moderate colonic fecal retention; hiatal hernia
[2022-10-15] MEDS ORDERED: LIDOCAINE 2% MPF LOCAL 5 ML VIAL INFIL ONE (11:39)
[2022-10-15] MEDS ORDERED: PROPOFOL IV EMULSION 10 MG/ML 20 ML VIAL IV ONE (11:39)
[2022-10-15] MEDS ORDERED: fentaNYL citrate 100 MCG/2 ML VIAL ONE (11:53)
[2022-10-15] MEDS ORDERED: PHENYLEPHRINE 100MCG/ML 5ML SYR ONE (12:00)
--- NOTE | 2022-10-15 12:00 | Communication Note ---
Date of Service: October 15, 2022 Patient had taken metamucil at 0830am today + black coffee. Pt cannot go until 1430 pm or later.
[2022-10-15] MEDS ORDERED: DEXAMETHASONE SOD INJ 4 MG/ML VIAL ONE (13:13)
[2022-10-15] MEDS ORDERED: ePHEDrine sulfate 50 MG/ML AMP ONE (13:13)
[2022-10-15] MEDS ORDERED: ROCURONIUM BROMIDE 10 MG/ML 5 ML VIAL IV ONE (13:13)
[2022-10-15] MEDS ORDERED: ONDANSETRON INJ 2 MG/ML 2 ML VIAL ONE (13:13)
[2022-10-15] MEDS ORDERED: NALOXONE HCL 0.4 MG/1 ML VIAL/CARP IV PRN (14:25)
[2022-10-15] MEDS ORDERED: fentaNYL citrate 100 MCG/2 ML VIAL IV PRN (14:25)
[2022-10-15] MEDS ORDERED: LABETALOL HCL IV 5 MG/ML 20ML IV PRN (14:25)
[2022-10-15] MEDS ORDERED: ONDANSETRON INJ 2 MG/ML 2 ML VIAL IV PRN (14:25)
[2022-10-15] MEDS ORDERED: FLUMAZENIL 0.1 MG/1 ML 10 ML VIAL IV PRN (14:25)
[2022-10-15] MEDS ORDERED: ePHEDrine sulfate 50 MG/ML AMP IV PRN (14:25)
[2022-10-15] MEDS ORDERED: ATROPINE SULFATE 0.1 MG/ML 10ML SYR IV PRN (14:25)
--- NOTE | 2022-10-15 15:31 | Electrocardiogram Report ---
Test Reason : Blood Pressure : / mmHG Vent. Rate : 080 BPM Atrial Rate : 080 BPM P-R Int : 188 ms QRS Dur : 066 ms QT Int : 396 ms P-R-T Axes : 029 -15 -06 degrees QTc Int : 456 ms Poor data quality, interpretation may be adversely affected Normal sinus rhythm Minimal voltage criteria for LVH, may be normal variant Poor R wave progression, consider anterior MS vs. lead placement vs. LVH Abnormal ECG When compared with ECG of 27-APR-2021 07:02, ST now depressed in Inferior leads Confirmed by Naveed Castro ([id number]) on 10/15/2022 3:30:55 PM Referred By: REFERRED SELF Confirmed By:Naveed Castro
--- NOTE | 2022-10-15 15:38 | Operative Report ---
Post Operative Report Pre & Post Diagnosis Operation Date: 10/15/22 15:40 Pre-Op Diagnosis: HYPONATREMIA, COMP UTI I identified the patient and participated in the time-out.: Yes Procedure Operation Date: 10/15/22 15:40 Actual Procedures p Esophagogastroduodenoscopy - Emigdio Tellez MD p Endoscopic Ultrasonography Upper with FNA pancreaus - Emigdio Tellez MD Surgeon Emigdio Tellez MD Contamination Consultant None Estimated Blood Loss 0 Findings See Below (?? subtle pancreas mass, FNA done) Specimens FNA Description of Procedure EUS I attest to the content of the Intraoperative Record and any orders documented therein. Any exceptions are noted below.
--- NOTE | 2022-10-15 15:46 | GI REPORT ---
Patient Name: Yara Santana Procedure Date: 10/15/2022 11:41 AM Date of : 1935 Admit Type: Inpatient Age: 87 Gender: Female Attending MD: Emigdio Tellez MD, Procedure: Upper GI endoscopy Providers: Emigdio Tellez MD Referring MD: Jason Bryson Md Indications: Nausea with vomiting Medicines: Propofol per Anesthesia Complications: No immediate complications. Estimated Blood Loss: Estimated blood loss: none. Procedure: Pre-Anesthesia Assessment: - Prior to the procedure, a History and Physical was performed, and patient medications, allergies and sensitivities were reviewed. The patient's tolerance of previous anesthesia was reviewed. - The risks and benefits of the procedure and the sedation options and risks were discussed with the patient. All questions were answered and informed consent was obtained. - Patient identification and proposed procedure were verified prior to the procedure by the physician and the nurse. The procedure was verified in the procedure room. - Pre-procedure physical examination revealed no contraindications to sedation. After obtaining informed consent, the endoscope was passed under direct vision. Throughout the procedure, the patient's blood pressure, pulse, and oxygen saturations were monitored continuously. The Endoscope was introduced through the mouth, and advanced to the second part of duodenum. The upper GI endoscopy was accomplished without difficulty. The patient tolerated the procedure well. Findings: The examined esophagus was normal. The entire examined stomach was normal. The duodenal bulb and second portion of the duodenum were normal. Impression: - Normal esophagus. - Normal stomach. - Normal duodenal bulb and second portion of the duodenum. Recommendation: - Perform an upper endoscopic ultrasound (UEUS) today. Emigdio Tellez MD 10/15/2022 3:45:59 PM This report has been signed electronically. Note Initiated On: 10/15/2022 11:41 AM Number of Addenda: 0 I attest to the content of the Intraoperative Record and orders documented therein, exceptions below {[id number]}
--- NOTE | 2022-10-15 15:56 | GI REPORT ---
Patient Name: Yara Santana Procedure Date: 10/15/2022 11:42 AM Date of : 1935 Admit Type: Inpatient Age: 87 Gender: Female Attending MD: Emigdio Tellez MD, Procedure: Upper EUS Providers: Emigdio Tellez MD Referring MD: Jason Bryson Md Indications: Suspected mass in pancreas on CT scan Medicines: General Anesthesia Complications: No immediate complications. Estimated Blood Loss: Estimated blood loss: none. Procedure: Pre-Anesthesia Assessment: - Prior to the procedure, a History and Physical was performed, and patient medications, allergies and sensitivities were reviewed. The patient's tolerance of previous anesthesia was reviewed. - The risks and benefits of the procedure and the sedation options and risks were discussed with the patient. All questions were answered and informed consent was obtained. - Patient identification and proposed procedure were verified prior to the procedure by the physician and the nurse. The procedure was verified in the procedure room. - Pre-procedure physical examination revealed no contraindications to sedation. After obtaining informed consent, the endoscope was passed under direct vision. Throughout the procedure, the patient's blood pressure, pulse, and oxygen saturations were monitored continuously. The Endosonoscope was introduced through the mouth, and advanced to the second part of duodenum. The upper EUS was accomplished without difficulty. The patient tolerated the procedure well. Findings: ENDOSONOGRAPHIC FINDING: : There was no sign of significant endosonographic abnormality in the ampulla. No masses were identified. There was no sign of significant endosonographic abnormality in the common bile duct. The maximum diameter of the duct was 5 mm. No stones and no biliary sludge were identified. There was no sign of significant endosonographic abnormality in the gallbladder. There was no sign of significant endosonographic abnormality in the visualized portion of the liver. Homogeneous parenchyma was identified. Pancreatic parenchymal abnormalities were noted in the entire pancreas. These consisted of atrophy, diffuse echogenicity and few small cysts measuring 5-6 mm in diameter. The pancreatic duct had a dilated endosonographic appearance in the entire pancreas. It measured 4 mm in the head and 5 mm in the neck. However there is an area with abrupt cutoff and subtle area inferiorly that may represent a subtle mass. Fine needle aspiration for cytology was performed. Color Doppler imaging was utilized prior to needle puncture to confirm a lack of significant vascular structures within the needle path. Six passes were made with the 25 gauge needle using a transgastric approach. A stylet was used. A director pharmacology was present and performed a preliminary cytologic examination. The cellularity of the specimen was adequate. Final cytology results are pending. Verification of patient identification for the specimen was done by the physician and nurse using the patient's name and date. There was no sign of significant endosonographic abnormality in the left adrenal gland. There was no sign of significant endosonographic abnormality involving the celiac trunk. Impression: - There was no sign of significant pathology in the ampulla. - There was no sign of significant pathology in the common bile duct. - There was no sign of significant pathology in the gallbladder. - There was no evidence of significant pathology in the visualized portion of the liver. - Pancreatic parenchymal abnormalities consisting of atrophy, diffuse echogenicity and cysts were noted in the entire pancreas. - No clearly defined pancreatic mass seen. The pancreatic duct had a dilated endosonographic appearance however the duct had a cutoff area in the neck of the pancreas. Fine needle aspiration performed from that area. - Endosonographic images of the left adrenal gland were unremarkable. - The celiac trunk was endosonographically normal. Recommendation: - [facility]. - Await cytology results. - Patient is at high risk for pancreatitis from the FNA, please monitor clinically and give adequate hydration. COMMENT: If cytology is negative then the above findings could just be related to chronic pancreatitis. Would then repeat CT scan imaging in 3 months for follow up. Emigdio Tellez MD 10/15/2022 3:55:38 PM This report has been signed electronically. Note Initiated On: 10/15/2022 11:42 AM Number of Addenda: 0 I attest to the content of the Intraoperative Record and orders documented therein, exceptions below {[id number]}
--- NOTE | 2022-10-15 17:26 | Anesthesiology Progress Note ---
Date of Service October 15, 2022 Anesthesia Post Procedure Vital Signs Vital Signs: Temp Pulse Pulse Pulse Resp BP BP 10/15/22 16:50 36.9 C 78 18 10/15/22 16:40 36.9 C 76 17 10/15/22 17:00 36.9 C 77 22 10/15/22 16:30 36.9 C 77 19 10/15/22 16:20 82 19 10/15/22 16:10 80 20 10/15/22 16:00 82 21 10/15/22 15:53 36.4 C L 87 20 10/15/22 13:55 36.9 C 70 20 10/15/22 11:50 68 22 10/15/22 11:40 71 20 10/15/22 11:30 65 19 10/15/22 11:20 68 22 10/15/22 11:20 138/69 10/15/22 11:00 66 20 10/15/22 11:00 129/72 10/15/22 10:50 82 15 10/15/22 10:45 70 21 10/15/22 10:45 127/74 10/15/22 10:40 74 20 10/15/22 10:30 73 20 10/15/22 10:30 130/71 10/15/22 10:20 71 24 10/15/22 10:15 129/72 10/15/22 10:10 68 21 10/15/22 10:01 71 134/56 L 10/15/22 10:00 74 20 10/15/22 09:30 70 19 143/80 H 10/15/22 09:15 79 22 160/72 H 10/15/22 09:00 23 158/83 H 10/15/22 08:45 146/81 H 10/15/22 08:20 66 19 10/15/22 08:15 71 20 10/15/22 08:15 138/78 10/15/22 08:10 72 21 10/15/22 08:00 70 20 10/15/22 08:00 84 16 143/83 H 10/15/22 07:30 21 137/72 10/15/22 07:15 23 160/71 H 10/15/22 06:26 72 16 139/74 10/15/22 05:43 72 18 131/71 10/15/22 05:29 10/15/22 05:29 67 16 118/68 10/15/22 03:16 197/79 H 10/15/22 02:00 73 18 200/96 H 10/14/22 23:07 36.6 C 10/15/22 00:25 80 22 10/15/22 00:25 89 22 185/93 H 10/14/22 22:54 36.7 C 84 18 183/103 H BP Pulse Ox Pulse Ox O2 Del Method O2 Del Method O2 Flow Rate 10/15/22 16:50 149/74 H 92 Room Air 10/15/22 16:40 136/72 92 Room Air 10/15/22 17:00 135/68 92 Room Air 10/15/22 16:30 146/65 H 93 Room Air 10/15/22 16:20 149/59 H 93 Room Air 10/15/22 16:10 155/72 H 96 Oxymask 2 10/15/22 16:00 146/67 H 97 Oxymask 3 10/15/22 15:53 150/67 H 99 Oxymask 5 10/15/22 13:55 153/68 H 96 Room Air 10/15/22 11:50 10/15/22 11:40 10/15/22 11:30 10/15/22 11:20 10/15/22 11:20 10/15/22 11:00 10/15/22 11:00 10/15/22 10:50 10/15/22 10:45 10/15/22 10:45 10/15/22 10:40 10/15/22 10:30 10/15/22 10:30 10/15/22 10:20 Room Air 10/15/22 10:15 Room Air 10/15/22 10:10 Room Air 10/15/22 10:01 Room Air 10/15/22 10:00 Room Air 10/15/22 09:30 Room Air 10/15/22 09:15 Room Air 10/15/22 09:00 Room Air 10/15/22 08:45 Room Air 10/15/22 08:20 92 Room Air 10/15/22 08:15 92 Room Air 10/15/22 08:15 Room Air 10/15/22 08:10 90 Room Air 10/15/22 08:00 92 Room Air 10/15/22 08:00 92 Room Air 10/15/22 07:30 92 Room Air 10/15/22 07:15 92 Room Air 10/15/22 06:26 91 Room Air 10/15/22 05:43 91 Room Air 10/15/22 05:29 94 Room Air 10/15/22 05:29 94 Room Air 10/15/22 03:16 10/15/22 02:00 97 Room Air 10/14/22 23:07 10/15/22 00:25 94 Room Air 10/15/22 00:25 93 Room Air 10/14/22 22:54 93 Room Air Pain Intensity Head: Pain Intensity: 0 Transfer of Care Handoff Completed per policy Notes Mental Status: alert / awake / arousable and participated in evaluation Patient Amnestic to Procedure: Yes Nausea / Vomiting: adequately controlled Pain: adequately controlled Airway Patency, RR, SpO2: stable & adequate BP & HR: stable & adequate Hydration State: stable & adequate Anesthetic Complications: no major complications apparent and Pt Satisfied with anesthetic care
[2022-10-15 19:49] LABS: BUN Creatinine Ratio 13.6 (10-20); Calcium 9.6 mg/dl (8.5-10.1); Creatinine Clr Calc Pharmacy 55.5 ml/min; Est GFR (African American) 92.1 ml/min; Est GFR (Non-African American) 79.4 ml/min; Potassium 3.9 mmol/L (3.5-5.1)
[2022-10-15] MEDS ORDERED: ASPIRIN 81 MG ECTAB PO SCH (21:00)
[2022-10-15] MEDS ORDERED: ATORVASTATIN 20 MG TAB PO SCH (21:00)
[2022-10-15] MEDS: DOCUSATE SODIUM/SENNA 50/8.6MG TAB PO SCH (21:01)
[2022-10-16] MEDS: ACETAMINOPHEN W/CODEINE #3 1 TAB PO PRN ×2 (03:10→12:46)
[2022-10-16] MEDS ORDERED: ERTAPENEM SODIUM 500 MG in SYRINGE 0 ML IV SCH (04:00)
[2022-10-16] MEDS ORDERED: ERTAPENEM SODIUM 1,000 MG in SYRINGE 0 ML IV SCH (04:00)
[2022-10-16 06:11] LABS: Hematocrit (blood only) 33.5 % (37.0-47.0); Hemoglobin 11.4 g/dl (12.0-16.0); Mean Corpuscular Hemoglobin 27.7 pg (25.0-34.0); Mean Corpuscular Volume 81.3 fL (80.0-100.0); Mean Platelet Volume 10.2 fL (9.4-12.4); Platelet Count 292 K/uL (130-400); RDW Coefficient of Variation 14.3 % (11.5-14.5); RDW Standard Deviation 41.7 fL (36.4-46.3); Red Blood Count 4.12 M/uL (4.20-5.40); White Blood Count 14.12 K/ul (4.8-10.8)
[2022-10-16 06:25] LABS: BUN Creatinine Ratio 15.3 (10-20); Calcium 8.8 mg/dl (8.5-10.1); Creatinine Clr Calc Pharmacy 50.9 ml/min; Est GFR (African American) 87.3 ml/min; Est GFR (Non-African American) 75.3 ml/min; Magnesium 2.1 mg/dl (1.7-2.4); Potassium 3.9 mmol/L (3.5-5.1)
--- NOTE | 2022-10-16 07:18 | Hospitalist Progress Note ---
Date of Service October 16, 2022 Assessment & Plan (1) Complicated UTI (urinary tract infection): Plan: History recurrent UTIs on chronic methenamine suppression Rx (past history hx ESBL E. coli) Post dental procedure constipation possibly contributory to UTI Bowel regimen ordered No sepsis on admission Nausea, vomiting on admission - resolved in ED Pt started on ertapenem on admission for poss. UTI UA not c/w UTI Blood cultx - negat. in 24 hrs Hyponatremia Hypertensive urgency secondary to discomfort Medical telemetry given hyponatremia and elevated BP IV labetalol 1 dose given in ED Careful correction of sodium, hyponatremia work-up Na 127 on admission, then Na 133 next morning Today Na 137 Pt received gentle fluids in ED and then again today Nephrology consulted- likely pre-renal etiology Follow up with BMP at PCP office CT abdomen obtained in the ED d/t n/v abnormal imaging of pancreas and pancreatic duct GI consulted and pt underwent EGD/EUS, FNA needle pancreatic biopsy-results pending Currently pt is comfortable and tolerating diet Has no nausea or vomiting Follow up w/ pcp arranged Chronic conditions: hx CAD, mild mitral regurgitation hyperlipidemia on statin Rx prediabetes, hemoglobin A1c of 6.2 last August 2022 DVT prophylaxis. Lovenox subcu DNR as per patient's prior wishes Pt's son Mr. Antonio Santana,( contact #[phone]), updated at the bedside. Admission and Anticipated Discharge Date Admission Date: October 15, 2022 Subjective Pt seen in follow up of nausea vomiting, abnormal CT findings of pancreas and pancreatic duct, hyponatremia Patient underwent EGD/EUS yesterday, biopsy of pancreatic mass Lying in bed in no acute distress No fevers chills chest pain shortness of breath Minimal abdominal discomfort at epigastric area Tolerated full liquid diet this morning without any difficulty Seen by GI, received some IV fluids Had lunch which she again tolerated well Discussed in detail with GI and patient's son at the bedside. Plan to discharge patient home with PCP follow-up. Review of Systems Review of Systems: All systems reviewed & are unremarkable except as noted in Subjective Physical Exam Physical Exam: GENERAL: elderly F laying in bed, in NAD SKIN: Normal color, warm HEENT: NC/AT. EOMI. [place] palpebral conjunctivae NECK : Supple, short neck, no tenderness CHEST : CTA, no tenderness HEART : RRR, systolic murmur ABDOMEN: Some distention, minimally tender to palpation in epigastric area, + bowel sounds EXTREMITIES : No LE swelling/tenderness, no other conspicuous deformities noted NEUROLOGIC : Coherent, no facial asymmetry, slightly hard of hearing, no other gross focality Results & Data Results & Data ([facility]) Vital Signs (Past 12 Hours) Vital Signs Temp Pulse Pulse Resp BP Pulse Ox O2 Del Method 10/16/22 03:47 36.7 C 68 18 123/77 95 Room Air 10/16/22 00:05 37 C 80 18 127/74 96 Room Air 10/15/22 19:40 36.9 C 100 H 16 126/76 93 Room Air 10/15/22 21:59 88 10/15/22 20:14 93 H Laboratory Results 10/16/22 10/16/22 10/15/22 Range/Units 05:46 05:46 19:22 WBC 14.12 H (4.8-10.8) K/ul RBC 4.12 L (4.20-5.40) M/uL Hgb 11.4 L (12.0-16.0) g/dl Hct 33.5 L (37.0-47.0) % MCV 81.3 (80.0-100.0) fL MCH 27.7 (25.0-34.0) pg MCHC 34.0 (32.0-36.0) g/dL RDW Std Deviation 41.7 (36.4-46.3) fL RDW Coeff of Marycarmen 14.3 (11.5-14.5) % Plt Count 292 (130-400) K/uL MPV 10.2 (9.4-12.4) fL Immature Gran % (Auto) % Neut % (Auto) % Lymph % (Auto) % [place] % (Auto) % Eos % (Auto) % Baso % (Auto) % Neut # (Auto) (1.40-6.50) K/uL Lymph # (Auto) (1.2-3.4) K/uL [place] # (Auto) (0.11-0.59) K/uL Eos # (Auto) (0-0.50) K/uL Baso # (Auto) (0-0.2) K/uL Immature Gran # (Auto) (0.01-0.20) K/uL Sodium 137 133 L (136-145) mmol/L Potassium 3.9 3.9 (3.5-5.1) mmol/L Chloride 105 100 (98-107) mmol/L Carbon Dioxide 25 24 (21-32) mmol/L Anion Gap 7 9 (3-11) BUN 11 9 (6-23) mg/dl Creatinine 0.72 0.66 (0.6-1.2) mg/dl Est Cr Clr Drug Dosing 50.9 55.5 ml/min Est GFR ( Amer) 87.3 92.1 ml/min Est GFR (Non-Af Amer) 75.3 79.4 ml/min BUN/Creatinine Ratio 15.3 13.6 (10-20) Glucose 116 H 204 H (70-99(Fasting)) mg/dl Calcium 8.8 9.6 (8.5-10.1) mg/dl Phosphorus 3.0 (2.5-4.9) mg/dl Magnesium 2.1 (1.7-2.4) mg/dl Urine Osmolality (500-800) mOsm/kg Ur Random Sodium mmol/L 10/15/22 10/15/22 10/15/22 Range/Units 07:47 07:47 01:38 WBC 11.19 H (4.8-10.8) K/ul RBC 4.65 (4.20-5.40) M/uL Hgb 12.9 (12.0-16.0) g/dl Hct 37.0 (37.0-47.0) % MCV 79.6 L (80.0-100.0) fL MCH 27.7 (25.0-34.0) pg MCHC 34.9 (32.0-36.0) g/dL RDW Std Deviation 38.3 (36.4-46.3) fL RDW Coeff of Marycarmen 13.4 (11.5-14.5) % Plt Count 299 (130-400) K/uL MPV 9.9 (9.4-12.4) fL Immature Gran % (Auto) 0.4 % Neut % (Auto) 82.0 % Lymph % (Auto) 9.7 % [place] % (Auto) 7.4 % Eos % (Auto) 0.1 % Baso % (Auto) 0.4 % Neut # (Auto) 9.17 H (1.40-6.50) K/uL Lymph # (Auto) 1.09 L (1.2-3.4) K/uL [place] # (Auto) 0.83 H (0.11-0.59) K/uL Eos # (Auto) 0.01 (0-0.50) K/uL Baso # (Auto) 0.05 (0-0.2) K/uL Immature Gran # (Auto) 0.04 (0.01-0.20) K/uL Sodium 133 L (136-145) mmol/L Potassium 3.3 L (3.5-5.1) mmol/L Chloride 98 (98-107) mmol/L Carbon Dioxide 25 (21-32) mmol/L Anion Gap 10 (3-11) BUN 9 (6-23) mg/dl Creatinine 0.54 L (0.6-1.2) mg/dl Est Cr Clr Drug Dosing 67.9 ml/min Est GFR ( Amer) 98.3 ml/min Est GFR (Non-Af Amer) 84.8 ml/min BUN/Creatinine Ratio 16.7 (10-20) Glucose 122 H (70-99(Fasting)) mg/dl Calcium 9.5 (8.5-10.1) mg/dl Phosphorus (2.5-4.9) mg/dl Magnesium (1.7-2.4) mg/dl Urine Osmolality (500-800) mOsm/kg Ur Random Sodium 178 mmol/L 10/15/22 Range/Units 01:38 WBC (4.8-10.8) K/ul RBC (4.20-5.40) M/uL Hgb (12.0-16.0) g/dl Hct (37.0-47.0) % MCV (80.0-100.0) fL MCH (25.0-34.0) pg MCHC (32.0-36.0) g/dL RDW Std Deviation (36.4-46.3) fL RDW Coeff of Marycarmen (11.5-14.5) % Plt Count (130-400) K/uL MPV (9.4-12.4) fL Immature Gran % (Auto) % Neut % (Auto) % Lymph % (Auto) % [place] % (Auto) % Eos % (Auto) % Baso % (Auto) % Neut # (Auto) (1.40-6.50) K/uL Lymph # (Auto) (1.2-3.4) K/uL [place] # (Auto) (0.11-0.59) K/uL Eos # (Auto) (0-0.50) K/uL Baso # (Auto) (0-0.2) K/uL Immature Gran # (Auto) (0.01-0.20) K/uL Sodium (136-145) mmol/L Potassium (3.5-5.1) mmol/L Chloride (98-107) mmol/L Carbon Dioxide (21-32) mmol/L Anion Gap (3-11) BUN (6-23) mg/dl Creatinine (0.6-1.2) mg/dl Est Cr Clr Drug Dosing ml/min Est GFR ( Amer) ml/min Est GFR (Non-Af Amer) ml/min BUN/Creatinine Ratio (10-20) Glucose (70-99(Fasting)) mg/dl Calcium (8.5-10.1) mg/dl Phosphorus (2.5-4.9) mg/dl Magnesium (1.7-2.4) mg/dl Urine Osmolality 504 (500-800) mOsm/kg Ur Random Sodium mmol/L Medications Administered Current Inpatient Medications Acetaminophen (Acetaminophen 325 Mg Tab) 650 mg PO Q4H PRN PRN Reason: Pain or Fever Stop: 11/14/22 05:16 Acetaminophen/Codeine Phosphate (Acetaminophen W/Codeine #3 1 Tab) 1 tab PO QID PRN PRN Reason: pain not relieved by tylenol Stop: 11/14/22 05:16 Last Admin: 10/16/22 03:10 Dose: 1 tab Aspirin (Aspirin 81 Mg Ectab) 81 mg PO QPM [facility] Stop: 11/14/22 20:59 Last Admin: 10/15/22 21:03 Dose: 81 mg Atorvastatin Calcium (Atorvastatin 20 Mg Tab) 20 mg PO QPM [facility] Stop: 11/14/22 20:59 Last Admin: 10/15/22 21:03 Dose: 20 mg Enoxaparin Sodium (Enoxaparin Inj 40 Mg/0.4 Ml Syr) 40 mg SQ QAM [facility] Stop: 11/14/22 08:59 Last Admin: 10/15/22 08:25 Dose: 40 mg Promethazine HCl 12.5 mg/ (Sodium Chloride) 50.5 mls @ 202 mls/hr IV Q6H PRN PRN Reason: Nausea And Vomiting Stop: 11/14/22 04:11 Ertapenem 1,000 mg/ Syringe 10 mls @ 2 mls/min IV Q24H [facility] Stop: 10/26/22 03:59 Last Admin: 10/16/22 03:11 Dose: 2 mls/min Lactobacillus Acidophilus (Advanced Probiotic 1250 Mg Capsule) 2 cap PO DAILY [facility] Stop: 11/14/22 08:59 Last Admin: 10/15/22 08:25 Dose: 2 cap Losartan Potassium (Losartan Potassium 25 Mg Tab) 25 mg PO QAM [facility] Stop: 11/14/22 08:59 Last Admin: 10/15/22 08:25 Dose: 25 mg Metoprolol Tartrate (Metoprolol Tartrate 25 Mg Tab) 25 mg PO BID [facility] Stop: 11/14/22 08:59 Last Admin: 10/15/22 21:01 Dose: 25 mg Multivitamins (Multivitamin Tab) 1 tab PO Q2D@0900 [facility] Stop: 11/15/22 08:59 Pantoprazole Sodium (Pantoprazole 40 Mg Tab) 40 mg PO QAM [facility] Stop: 11/14/22 08:59 Last Admin: 10/15/22 08:25 Dose: 40 mg Polyethylene Glycol (Polyethylene (Miralax) 17 Gm Pack) 17 gm PO DAILY PRN PRN Reason: Constipation Stop: 11/14/22 05:16 Psyllium Hydrophilic Mucilloid (Psyllium Or Guar Gum Fiber Powder Packet) 1 pkt PO DAILY [facility] Stop: 11/14/22 08:59 Last Admin: 10/15/22 08:25 Dose: 1 pkt Senna/Docusate Sodium (Docusate Sodium/Senna 50/8.6mg Tab) 1 tab PO BID [facility] Stop: 11/14/22 20:59 Last Admin: 10/15/22 21:01 Dose: 1 tab Tizanidine HCl (Tizanidine Hcl 4 Mg Tablet) 2 mg PO TID PRN PRN Reason: MUSCLE SPASMS Stop: 11/14/22 05:16
--- NOTE | 2022-10-16 07:26 | Nephrology Progress Note ---
Date of Service October 16, 2022 Assessment & Plan (1) Hyponatremia: Plan: presenting sNa 127, up to 133 w/in 8 hrs, which is the maximal correction desired in a day. held her steady at 133 through evening of day after presentation. 36 hours aftre presentation (this AM) sNa is 137. suspect prerenal hyponatremia based on hx though could be low solute diet as well. no classic offending meds. urine studies challenging to interpret on NS. likely / possible that emesis more from pancreatic lesion, hiatal hernia than low Na. -daily bmp while in house -keep K about 4 Will sign off. Recommend at d/c that PCP check bmp at f/u visit > if persistent/further h yponatremia we are happy to see her as OP or before d/c if issues. Admission and Anticipated Discharge Date Admission Date: October 15, 2022 Review of Systems Review of Systems: All systems reviewed & are unremarkable except as noted in Subjective Physical Exam Constitutional: well developed, well nourished, + obese and cooperative Eyes: EOM intact bilaterally ENMT: Ears: no external ear abnormality Nose: no external nose abnormality Mouth: + dry oral mucous membranes Neck: no nuchal rigidity Respiratory: normal respiratory effort Auscultation: + diminished lung sounds Cardiovascular: Rate/Rhythm: regular rate and regular rhythm Extremities: no edema Gastrointestinal (Abdomen): Inspection/Auscultation: normal bowel sounds Percussion/Palpation: abdomen soft; abdomen nontender Musculoskeletal: Extremities: strength 5/5 throughout Skin: no rashes, warm and dry Psychiatric: Orientation: oriented x 3 Results & Data ([facility]) Vital Signs (Past 12 Hours) Vital Signs Temp Pulse Pulse Resp BP Pulse Ox O2 Del Method 10/16/22 03:47 36.7 C 68 18 123/77 95 Room Air 10/16/22 00:05 37 C 80 18 127/74 96 Room Air 10/15/22 19:40 36.9 C 100 H 16 126/76 93 Room Air 10/15/22 21:59 88 10/15/22 20:14 93 H Laboratory Results 10/16/22 05:46 10/16/22 05:46
[2022-10-16] MEDS: ADVANCED PROBIOTIC 1250 MG CAPSULE PO SCH (07:36)
[2022-10-16] MEDS: PANTOprazole 40 MG TAB PO SCH (07:36)
[2022-10-16] MEDS: ENOXAPARIN INJ 40 MG/0.4 ML SYR SQ SCH (08:48)
[2022-10-16] MEDS: DOCUSATE SODIUM/SENNA 50/8.6MG TAB PO SCH (08:48)
[2022-10-16] MEDS: METOPROLOL TARTRATE 25 MG TAB PO SCH (08:48)
[2022-10-16] MEDS: LOSARTAN POTASSIUM 25 MG TAB PO SCH (08:49)
[2022-10-16] MEDS: PSYLLIUM or GUAR GUM FIBER POWDER PACKET PO SCH (08:49)
[2022-10-16] MEDS ORDERED: MULTIVITAMIN TAB PO SCH (09:00)
[2022-10-16] MEDS ORDERED: LACTATED RINGER'S 500 ML IV STA (09:20)
[2022-10-16] MEDS ORDERED: LACTATED RINGER'S 1,000 ML IV SCH (09:30)
--- NOTE | 2022-10-16 09:42 | Gastroenterology Progress Note ---
Date of Service October 16, 2022 Assessment & Plan (1) Abnormal CT scan, gastrointestinal tract: Plan: Post procedure day #1 from ERCP w FNA for pancreas abnormality (prominent pancreatic head and dilated duct on CT). Today w deep/diffuse epigastric/upper abd pain. Plan NPO except sips and chips. LR bolus 500cc then 150/hr. Analgesics. Will continue to follow closely Addendum: Per nursing the pt had taken a full liquid tray for breakfast, consuming all and denied abd pain. When seen w Dr. Tellez at 12:30, pt reported only mild abd discomfort, not tender on exam. Will DC IV fluids, give med for mild pain, allow a low fat diet. If able to eat/drink w/o worsening pain or nausea then may be discharged today. Dr. Tellez discussed the procedure and plan of care w her son by phone. Admission and Anticipated Discharge Date Admission Date: October 15, 2022 Supervising Physician Co-Signing Physician Notes I performed a history and physical examination of the patient today, including specifically on physical exam - soft abdomen. I have discussed the patient's management with the advanced practitioner. Please refer to the nurse practitioner's note for the documented findings and plan of care. No abdominal pain but some cramps. Tolerated breakfast. Can advance diet and go home with pain meds. I spoke to her son about the EUS findings. Will talk again as OP once path is reported. Recall if needed. Subjective 87, female admitted on 10/15 for nausea/vomiting, possibly related to tooth extraction a few days prior. Hyponatremia corrected. CT w prominent panc head and dilated duct. EGD/EUS yesterday, biopsy of prominent area of the pancreatic head near change in caliber of the duct. Did well overnight, but this morning has level 7 of 10 diffuse/deep epigastric discomfort. I AAO and carries on a pleasant conversation. Is hemodynamically stable w/o any tachycardia or hypo/hypertension. No N/V. Has leukocytosis at 14 (11 yesterday); is afebrile. Review of Systems Review of Systems: ROS: Gen: Denies weakness, fevers, weight loss Eyes: No eye redness, or pain, no recent vision changes Resp: + mild chronic cough, no recent worsening, No SOB Cardio: No palpitations/irregular beats, no chest pain GI: As per HPI, otherwise (-) : Denies pain on urination Skin: No jaundice, itching or new rashes Physical Exam Constitutional: WD/WN, vitals as above Eyes: PERRL, conjunctivae normal, anicteric sclerae ENMT: external ear and nose normal, oropharynx normal Neck: trachea midline, no thyromegaly Respiratory: normal respiratory effort, lungs clear to auscultation Cardiovascular: RRR, no murmur, no edema Gastrointestinal (Abdomen): Inspection/Auscultation: abdomen normal to inspection and normal bowel sounds; abdomen not distended Percussion/Palpation: + abdomen tender (w deep palpation of the epigastric area) and abdomen soft Skin: no rashes, warm and dry Neurologic: PERRL, EOMI, accommodation nl, no face palsy, no dysarthria Psychiatric: A+Ox3, euthymic affect Lymphatic: no cervical or axillary lymphadenopathy Results & Data ([facility]) Vital Signs (Past 12 Hours) Vital Signs Temp Pulse Pulse Resp BP BP Pulse Ox 10/16/22 08:00 10/16/22 07:54 37.0 C 75 18 137/76 95 10/16/22 07:29 66 10/16/22 03:47 36.7 C 68 18 123/77 95 10/16/22 00:05 37 C 80 18 127/74 96 10/15/22 21:59 88 O2 Del Method 10/16/22 08:00 Room Air 10/16/22 07:54 Room Air 10/16/22 07:29 10/16/22 03:47 Room Air 10/16/22 00:05 Room Air 10/15/22 21:59 Laboratory Results WBC 14, Hb 11.4, Hct 33.5, plts 292, Na 137, K 3.9, Cl 105, CO2 25, BUN 11, Cr 0.72, glucose 116. Cytology pending. Diagnostic Findings EUS 10/15/22: - Pancreatic parenchymal abnormalities consisting of atrophy, diffuse echogenicity and cysts were noted in the entire pancreas. - No clearly defined pancreatic mass seen. The pancreatic duct had a dilated endosonographic appearance however the duct had a cutoff area in the neck of the pancreas. Fine needle aspiration performed from that area.
--- NOTE | 2022-10-16 15:32 | Discharge Summary ---
Date of Service October 16, 2022 Admission HPI Per Admitting Provider History obtained from patient, family, and records. Medical history significant for CAD, mild mitral regurgitation, hypertension, hyperlipidemia, GERD, HIPOLITO, past history of C. difficile, recurrent UTIs on chronic methenamine suppression Rx (hx ESBL E. coli), GERD, prediabetes. Last confinement April 2021 for acute diverticulitis. Patient had tooth extraction a few days ago. Post procedural pain somewhat not relieved by Tylenol. Patient sneezing more than usual the last few days. Yesterday, patient had intractable nausea vomiting symptoms at home. No actual belly pain, but patient somewhat constipated. Patient cites history of alternating constipation/diarrhea symptoms. Patient denies chest pain, SOB. Admits to urinary symptoms without fever or chills Patient brought to the ER by son. 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[employer] Admission Exam Per Admitting Provider GENERAL: Comfortable, obese, pleasant, slightly hard of hearing, no respiratory distress SKIN: Normal color, warm HEENT: [employer] palpebral conjunctivae, no ptosis, dry buccal mucosa NECK : Supple, short neck, no tenderness CHEST : CTA, no tenderness HEART : RRR, systolic murmur ABDOMEN: Some distention, nontender EXTREMITIES : No LE swelling/tenderness, no other conspicuous deformities noted NEUROLOGIC : Coherent, no facial asymmetry, slightly hard of hearing, no other gross focality Principal Diagnosis Nausea, vomiting Hyponatremia Abnormal imaging of pancreas, status post FNA pancreatic biopsy Discharge Exam GENERAL: elderly F laying in bed, in NAD SKIN: Normal color, warm HEENT: NC/AT. EOMI. [employer] palpebral conjunctivae NECK : Supple, short neck, no tenderness CHEST : CTA, no tenderness HEART : RRR, systolic murmur ABDOMEN: Some distention, minimally tender to palpation in epigastric area, + bowel sounds EXTREMITIES : No LE swelling/tenderness, no other conspicuous deformities noted NEUROLOGIC : Coherent, no facial asymmetry, slightly hard of hearing, no other gross focality Discharge Data Allergies Allergy/AdvReac Type Severity Reaction Status Date / Time Penicillins Allergy Intermediate RASH Verified 10/15/22 01:10 tramadol [From Ultram] Allergy Intermediate Hives Verified 10/15/22 01:10 doxepin Allergy Unknown pt unsure Verified 10/15/22 01:10 lisinopril AdvReac Intermediate COUGH Verified 10/15/22 01:10 meloxicam AdvReac Intermediate DIZZINESS Verified 10/15/22 01:10 raloxifene AdvReac Intermediate HOT Verified 10/15/22 01:10 FLASHES, INSOMNIA Consultations 10/15/22 03:09 ED Decision to Admit Stat 10/15/22 07:12 Consult Nephrology Routine 10/15/22 09:24 Consult Gastroenterology Routine Procedures Performed Operation Date: 10/15/22 15:40 Actual Procedures p Esophagogastroduodenoscopy - Emigdio Tellez MD p Endoscopic Ultrasonography Upper with FNA pancreaus - Emigdio Tellez MD Ordered Studies 10/15/22 00:39 CT Abd and Pelvis [CT abd pelvis IV con only] Stat FINDINGS: Coronary artery calcifications. Mild subsegmental bibasilar atelectasis. No pneumatosis or pneumoperitoneum. The spleen, adrenal glands, mildly distended gallbladder and liver appear unremarkable. Patency of the hepatic and portal veins. Moderate atrophy of the pancreas with calcifications suggestive of chronic pancreatitis. Dilation of the pancreatic duct measures up to 8 mm with abrupt focal narrowing within the pancreatic neck. There is mild fullness of the parenchyma just upstream to the area dilation measuring up to 1.7 cm. Cysts of the kidneys measure up to 5.0 x 5.9 cm on the right. There is no hydronephrosis. Hysterectomy with mild pelvic floor relaxation. Unremarkable urinary bladder. Atherosclerosis of the aorta. No lymphadenopathy. Moderate sized hiatal hernia with partially intrathoracic stomach. No bowel obstruction or bowel wall thickening. Colonic diverticulosis. Moderate colonic fecal retention. Appendectomy. No ascites or mesenteric inflammation. Degenerative changes of the spine and left hip. Right hip arthroplasty. IMPRESSION: 1. Soft tissue fullness of the pancreatic neck is suspicious for an underlying lesion with upstream pancreatic ductal dilation and atrophy. GI consultation with endoscopy recommended. This finding was called/faxed to the emergency department at time of dictation. 2. No bowel obstruction or bowel wall thickening. 3. Moderate hiatal hernia. 4. Colonic diverticulosis. 5. Additional findings as above. 10/15/22 11:39 US upper EUS PACS images Routine Findings: ENDOSONOGRAPHIC FINDING: : There was no sign of significant endosonographic abnormality in the ampulla. No masses were identified. There was no sign of significant endosonographic abnormality in the common bile duct. The maximum diameter of the duct was 5 mm. No stones and no biliary sludge were identified. There was no sign of significant endosonographic abnormality in the gallbladder. There was no sign of significant endosonographic abnormality in the visualized portion of the liver. Homogeneous parenchyma was identified. Pancreatic parenchymal abnormalities were noted in the entire pancreas. These consisted of atrophy, diffuse echogenicity and few small cysts measuring 5-6 mm in diameter. The pancreatic duct had a dilated endosonographic appearance in the entire pancreas. It measured 4 mm in the head and 5 mm in the neck. However there is an area with abrupt cutoff and subtle area inferiorly that may represent a subtle mass. Fine needle aspiration for cytology was performed. Color Doppler imaging was utilized prior to needle puncture to confirm a lack of significant vascular structures within the needle path. Six passes were made with the 25 gauge needle using a transgastric approach. A stylet was used. A invasive manager was present and performed a preliminary cytologic examination. The cellularity of the specimen was adequate. Final cytology results are pending. Verification of patient identification for the specimen was done by the physician and nurse using the patient's name and date. There was no sign of significant endosonographic abnormality in the left adrenal gland. There was no sign of significant endosonographic abnormality involving the celiac trunk. Impression: - There was no sign of significant pathology in the ampulla. - There was no sign of significant pathology in the common bile duct. - There was no sign of significant pathology in the gallbladder. - There was no evidence of significant pathology in the visualized portion of the liver. - Pancreatic parenchymal abnormalities consisting of atrophy, diffuse echogenicity and cysts were noted in the entire pancreas. - No clearly defined pancreatic mass seen. The pancreatic duct had a dilated endosonographic appearance however the duct had a cutoff area in the neck of the pancreas. Fine needle aspiration performed from that area. - Endosonographic images of the left adrenal gland were unremarkable. - The celiac trunk was endosonographically normal. Recommendation: - [facility]. - Await cytology results. - Patient is at high risk for pancreatitis from the FNA, please monitor clinically and give adequate hydration. COMMENT: If cytology is negative then the above findings could just be related to chronic pancreatitis. Would then repeat CT scan imaging in 3 months for follow up. EGD Findings: The examined esophagus was normal. The entire examined stomach was normal. The duodenal bulb and second portion of the duodenum were normal. Impression: - Normal esophagus. - Normal stomach. - Normal duodenal bulb and second portion of the duodenum. Recommendation: - Perform an upper endoscopic ultrasound (UEUS) today. Hospital Course (1) Complicated UTI (urinary tract infection): History recurrent UTIs on chronic methenamine suppression Rx (past history hx ESBL E. coli) Post dental procedure constipation possibly contributory to UTI Bowel regimen ordered No sepsis on admission Nausea, vomiting on admission - resolved in ED Pt started on ertapenem on admission for poss. UTI UA not c/w UTI Blood cultx - negat. in 24 hrs Hyponatremia Hypertensive urgency secondary to discomfort Medical telemetry given hyponatremia and elevated BP IV labetalol 1 dose given in ED Careful correction of sodium, hyponatremia work-up Na 127 on admission, then Na 133 next morning Today Na 137 Pt received gentle fluids in ED and then again today Nephrology consulted- likely pre-renal etiology Follow up with BMP at PCP office CT abdomen obtained in the ED d/t n/v abnormal imaging of pancreas and pancreatic duct GI consulted and pt underwent EGD/EUS, FNA needle pancreatic biopsy-results pending Currently pt is comfortable and tolerating diet Has no nausea or vomiting Follow up w/ pcp arranged Chronic conditions: hx CAD, mild mitral regurgitation hyperlipidemia on statin Rx prediabetes, hemoglobin A1c of 6.2 last August 2022 Total Time Total Time Spent Total Time Spent (In Minutes): 40 Discharge Plan Discharge Items Patient Disposition: Home - Self-Care Reason For Visit: HYPONATREMIA, COMP UTI Discharge Diagnosis: Nausea, vomiting Hyponatremia Abnormal imaging of pancreas, status post FNA pancreatic biopsy Activity: Per Instructions section Non-emergency contact: Primary Care Provider Call non-emergency contact if: you have any medication questions and your symptoms worsen Follow-up/Referrals: Samm Ward DO [Primary Care Provider] - (Date & Time 10/23/2022 11:00 AM Provider Rosario Maloney DO Department [facility] ) Diet: Low Fiber and Low Fat Addtl Attending Provider Instructions: Follow-up with primary care doctor, the appointment was scheduled for you for October 23. Recommend that you have a blood work done, BMP, to check on your sodium level. Recommend low-fat, low fiber diet for next few days, until you feel better. Make sure to stay well-hydrated. FNA biopsy of your pancreas was done, and results are pending. Pending Studies at Discharge: Yes Studies:: Biopsy of pancreas Stand-Alone Forms: My [facility], Smoking Cessation Medications and DC Order Prescriptions: Continued multivitamin Tablet 1 tab PO Q2D atorvastatin 20 mg tablet 20 mg PO QPM omeprazole 40 mg capsule,delayed release(DR/EC) 40 mg PO QAM aspirin 81 mg Tablet,Delayed Release (Dr/Ec) 81 mg PO QPM losartan 25 mg tablet 25 mg PO QAM metoprolol tartrate 25 mg tablet 25 mg PO BID [employer] 1.5 billion cell Capsule 1 cap PO DAILY methenamine hippurate 1 gram tablet 1 g PO BID ascorbic acid (vitamin C) [Vitamin C] 1,000 mg Tablet 1 g PO DAILY albuterol sulfate 2.5 mg /3 mL (0.083 %) Solution For Nebulization 2.5 mg INHALATION QID PRN (Reason: Shortness Of Breath Or Wheezing) cyanocobalamin (vitamin B-12) [Vitamin B-12] 1,000 mcg Tablet 1,000 mcg PO QAM acetaminophen [Tylenol Extra Strength] 500 mg Tablet 500 mg PO Q6H PRN (Reason: Pain) docusate sodium 100 mg Capsule 100 mg PO BID PRN (Reason: Constipation) tizanidine 2 mg capsule 2 mg PO TID PRN (Reason: MUSCLE SPASMS) Metamucil 3.4 gram/5.4 gram Powder 1 tsp PO DAILY Rx Instructions: mix into at least 4 oz water or juice before administering Discharge Orders: Discharge Order (Routine); Ordered 10/16/22 Ordered By: Jason Sadler/Other Patient Handouts: Urinary Tract Infections in Women, Self-Care for Vomiting and Diarrhea, ED Hyponatremia Admission Data Admit Date/Time: 10/15/22 04:08 Attending Provider: Jason Bryson Admit Provider: Bran Coffey Primary Care Provider: Samm Ward Other Providers: Bran Coffey ; Helen Arreola ; Emigdio Tellez Other Interventions: Discharge Summary Assessment (RN) Last Done: 10/16/22 14:53
== END 2022-10-16 15:43 | disposition home or self-care (01) | DRG 690 ==
LOC: ED 22:50 → EDINP 10-15 04:08 → 2W 10-15 19:39

== ENCOUNTER 2023-11-17 05:14 | Observation (INO) ==
--- NOTE | 2023-10-21 11:44 | PAT Medication Instructions ---
Medication Instructions Date of Service October 21, 2023 Home Medications Lactobacills gasseri-Bifidobac bifidum,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 ([employer]) 1 cap PO Q OTHER DAY aspirin 81 mg tablet,delayed release 81 mg PO QPM atorvastatin 20 mg tablet 20 mg PO QPM losartan 25 mg tablet 25 mg PO QAM metoprolol tartrate 25 mg tablet 25 mg PO BID multivitamin 1 tab PO Q2D omeprazole 40 mg capsule,delayed release 40 mg PO QAM acetaminophen 500 mg tablet (Tylenol Extra Strength) 500 mg PO Q6H PRN Pain ascorbic acid (vitamin C) 1,000 mg tablet (Vitamin C) 1 g PO QAM cyanocobalamin (vitamin B-12) 1,000 mcg tablet (Vitamin B-12) 1,000 mcg PO QPM psyllium husk 3.4 gram/5.4 gram oral powder (Metamucil) 1 tsp PO Q OTHER DAY lotilaner 0.25 % eye drops (Xdemvy) 1 drp ophthalmic (eye) Q12H eye infection methenamine hippurate 1 gram tablet 1 g PO HS Continue as directed lotilaner 0.25 % eye drops (Xdemvy) 1 drp ophthalmic (eye) Q12H eye infection DO NOT take the morning of surgery Lactobacills gasseri-Bifidobac bifidum,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 ([employer]) 1 cap PO Q OTHER DAY losartan 25 mg tablet 25 mg PO QAM multivitamin 1 tab PO Q2D ascorbic acid (vitamin C) 1,000 mg tablet (Vitamin C) 1 g PO QAM psyllium husk 3.4 gram/5.4 gram oral powder (Metamucil) 1 tsp PO Q OTHER DAY Take morning of surgery With a small sip of water, OTHERWISE NOTHING TO EAT OR DRINK AFTER MIDNIGHT: metoprolol tartrate 25 mg tablet 25 mg PO BID omeprazole 40 mg capsule,delayed release 40 mg PO QAM acetaminophen 500 mg tablet (Tylenol Extra Strength) 500 mg PO Q6H PRN Pain (if needed) Take evening before surgery aspirin 81 mg tablet,delayed release 81 mg PO QPM (unless surgeon directed otherwise) atorvastatin 20 mg tablet 20 mg PO QPM metoprolol tartrate 25 mg tablet 25 mg PO BID acetaminophen 500 mg tablet (Tylenol Extra Strength) 500 mg PO Q6H PRN Pain (if needed) cyanocobalamin (vitamin B-12) 1,000 mcg tablet (Vitamin B-12) 1,000 mcg PO QPM methenamine hippurate 1 gram tablet 1 g PO HS Other Notes If you have any questions please call us at [phone] or [phone] or [phone] or [phone]
--- NOTE | 2023-10-26 12:18 | Anesthesiology Consultation ---
Date of Service October 26, 2023 Assessment & Plan (1) Encounter for pre-operative examination: - Check BSG AM DOS - Infectious disease screening: Per assessment on 10/26/23: No known infectious disease contacts. Patient reports morning rhinorrhea/PND resulting in cough for approximately the past month. Symptoms improved but persistent. Preop Covid test done 10/26/23 at [facility] came back negative. - Outpatient joint assessment: Pt currently scheduled for inpatient pathway. If surgeon requests review for outpatient joint pathway, patient is not recommended candidate for outpatient joint program from anesthesia standpoint. - S/P Right open CTR (09/29/23): [place] [facility]CP visit (10/28/23): "Presents at the request of Dr Camejo for medical clearance for right knee replacement.. Patient is medically cleared pending hemoglobin A1c. Perioperative recommendations regarding medications and treatment include medications as directed." > Hgba1c done 10/28/23 came back elevated at 8.7%." - Pending: * Awaiting surgeon-ordered cardiology preop evaluation ([facility] cardio Julian rocha/Denise FOSTER, appt 11/12). * Elevated A1C: A1C updated by PCP 10/28/23- Still elevated at 8.7%. At that time, was being diet managed. Updated A1C reviewed by PCP and determined that patient will need further evaluation/diabetic management prior to surgery per [facility] communication notes. Patient started on insulin and advised to have preop evaluation appt (scheduled 11/13/23). Awaiting PCP preop evaluation ([facility] Amanda Hamlin, appt 11/12). Chart Review Chart Review: Patient seen in Pre Admission Testing Teaching & Discussion Pre-Anesthesia Teaching/Discussion Notes: Instructed NPO after midnight before surgery,except medications with 15 cc of water. Medication instructions provided according to the PAT guidelines. History Surgery Operation Date: 11/17/23 07:15 Proposed Procedures p Right Total Knee Arthroplasty - Hernando Camejo MD Height/Weight Height: 5 ft 1 in Weight: 73.7 kg Allergies Allergy/AdvReac Type Severity Reaction Status Date / Time Penicillins Allergy Intermediate Rash Verified 10/22/23 11:23 tramadol [From Ultram] Allergy Intermediate Hives Verified 10/21/23 10:27 doxepin Allergy Unknown Unknown Verified 10/22/23 11:20 lisinopril AdvReac Intermediate Cough Verified 10/22/23 11:20 meloxicam AdvReac Intermediate Dizziness Verified 10/22/23 11:20 raloxifene AdvReac Intermediate Hot Verified 10/22/23 11:23 flashes, insomnia Medications Home Medications Medication Instructions Recorded Confirmed Last Taken Lactobacills gasseri-Bifidobac 1 cap PO Q OTHER DAY 04/27/21 10/21/23 10/14/22 bifidum,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 ([employer]) aspirin 81 mg tablet,delayed 81 mg PO QPM 04/27/21 10/21/23 10/13/22 release atorvastatin 20 mg tablet 20 mg PO QPM 04/27/21 10/21/23 10/13/22 losartan 25 mg tablet 25 mg PO QAM 04/27/21 10/21/23 10/14/22 metoprolol tartrate 25 mg tablet 25 mg PO BID 04/27/21 10/21/23 09/29/23 08:30 multivitamin 1 tab PO Q2D 04/27/21 10/21/23 10/14/22 omeprazole 40 mg capsule,delayed 40 mg PO QAM 04/27/21 10/21/23 09/29/23 08:30 release acetaminophen 500 mg tablet 500 mg PO Q6H PRN Pain 10/15/22 10/21/23 Unknown (Tylenol Extra Strength) ascorbic acid (vitamin C) 1,000 mg 1 g PO QAM 10/15/22 10/21/23 10/14/22 tablet (Vitamin C) cyanocobalamin (vitamin B-12) 1,000 mcg PO QPM 10/15/22 10/21/23 10/14/22 1,000 mcg tablet (Vitamin B-12) psyllium husk 3.4 gram/5.4 gram 1 tsp PO Q OTHER DAY 10/15/22 10/21/23 10/14/22 oral powder (Metamucil) lotilaner 0.25 % eye drops (Xdemvy) 1 drp ophthalmic (eye) Q12H eye 10/21/23 10/21/23 Unknown infection methenamine hippurate 1 gram tablet 1 g PO HS 10/21/23 10/21/23 Unknown insulin glargine 100 unit/mL (3 10 unit subcut DAILY 11/10/23 11/10/23 Unknown mL) subcutaneous pen (Lantus Solostar U-100 Insulin) Past Medical History Medical History Back problem CAD (coronary artery disease) 2008 cath- "mild to moderate" Diabetes Diverticulosis GERD (gastroesophageal reflux disease) Hiatal hernia History of Clostridium difficile colitis Remote hx, no recent problems History of colon polyps History of recurrent UTI (urinary tract infection) No current issues HTN (hypertension) Hx of basal cell carcinoma Hyperlipidemia Migraine with aura hx - no recent issues HIPOLITO on CPAP Unable to tolerate CPAP Osteoarthritis Preglaucoma Schatzki's ring s/p dilation Exercise / Class Metabolic Activity III < 4 Walking/Shop/Light housework Past Family History Family History Mother , 95 Coronary heart disease Dementia Father , 70 Coronary heart disease Aunt Family history of diabetes mellitus Past Surgical History Surgical History H/O breast biopsy "benign" History of cardiac cath 2008- no stents History of carpal tunnel release Right open CTR (09/29/23): [place] [facility] [place] of colonoscopy History of ERCP History of esophagogastroduodenoscopy (EGD) History of hand surgery Right hand History of right hip replacement 2017 S/P appendectomy S/P carpal tunnel release S/P SANTO-BSO Past Anesthesia History No Hx of Anesthesia Complications and No Family Hx of Anesthesia Complications History of PONV No Hx of PONV and No Hx of Motion Sickness Social History Smoking Status: Never smoker Do You Dip or Chew Tobacco: No Hx Alcohol Use: No Hx Substance Use: No substance use type: does not use Review of Systems Rhinorrhea/PND resulting in cough for approximately past month- improved but persistent. Patient denies chest pain, shortness of breath, fever, chills, wheezing, palpitations. Physical Exam Vital Signs VITALS BP 140/78 P 65 TEMP 97.7 SP02 97%RA RESP 18 PHYSICAL Decreased cervical extension range of motion. Full TMJ range of motion. TMD 2.5 finger breaths Mallampati Score 2 Dentition: intact, + caps/implants (sides/molars) Lungs: clear throughout to auscultation Cardiac: regular rate and rhythm, no murmurs noted Spine: normal Carotid arteries: negative bruit Extremities: no LE edema Lab Results Anesthesia Preop Results Results Anesthesia Widget: WBC 10.20 K/ul (4.8-10.8) 10/26/23 Hgb 12.5 g/dl (12.0-16.0) 10/26/23 Hct 39.0 % (37.0-47.0) 10/26/23 Plt 342 K/uL (130-400) 10/26/23 Na 134 mmol/L (136-145) L 10/26/23 K 4.1 mmol/L (3.5-5.1) 10/26/23 Cl 99 mmol/L (98-107) 10/26/23 CO2 29 mmol/L (21-32) 10/26/23 BUN 11 mg/dl (6-23) 10/26/23 Creat 0.57 mg/dl (0.6-1.2) L 10/26/23 Glucose Level 219 mg/dl (70-99(Fasting)) H 10/26/23 POC Glucose 166 mg/dl (70-99) H 09/29/23 PT 10.7 Seconds (9.0-12.0) 10/26/23 PTT 27 Seconds (21-31) 10/26/23 INR 1.0 (0.9-1.1) 10/26/23 Urine Color Yellow 10/26/23 Urine Appearance Clear (Clear) 10/26/23 Urine pH 7.0 (4.5-7.5) 10/26/23 Urine Specific [place] 1.009 (1.000-1.030) 10/26/23 Urine Protein Negative (Negative) 10/26/23 Urine Glucose (UA) 3+ (Negative) H 10/26/23 Urine Ketones Negative (Negative) 10/26/23 Urine Blood Negative (Negative) 10/26/23 Urine Nitrite Negative (Negative) 10/26/23 Urine Bilirubin Negative (Negative) 10/26/23 Urine Urobilinogen Negative (Negative) 10/26/23 Urine Leukocyte Esterase Negative (Negative) 10/26/23 COVID-19 PCR NEGATIVE (Negative) 10/26/23 Blood Type O Positive 10/26/23 Antibody Screen NEGATIVE 10/26/23 Testing Laboratory Results Hgba1c (10/14/23): 8.5% (surgeon's office made aware) > updated 10/28/23, remains elevated at 8.7% Electrocardiogram Date: 10/26/23 NSR at 72bpm. "Normal ECG" Chest X-Ray Date: 10/26/23 FINDINGS: PA and lateral chest radiographs are compared to study dated 10/15/2022. A hiatal hernia is noted. The cardiomediastinal silhouette is top normal for projection noting atherosclerotic calcification of the thoracic aorta. Chronic interstitial thickening similar to previous. There is mild dependent atelectasis. The lungs and pleural spaces are clear. There is no pneumothorax. The skeletal structures are osteopenic. The bony thorax appears intact. Degenerative change, DISH, and hyperkyphosis is noted in the thoracic spine. Arthritic change is seen in the shoulders. IMPRESSION: No active disease in the chest. Hiatal hernia. Echocardiogram Date: 10/22/23 LVEF 60-64%. LV wall motion is normal. Grade 1 diastolic dysfunction. Mild MR. No significant change compared to 03/12/2021 per report.
[2023-11-17] MEDS: LR 60ML/HR IV SCH (06:19)
[2023-11-17] MEDS: LR 500ML BOLUS, THEN 15ML/HR IV SCH (06:19)
[2023-11-17] MEDS ORDERED: ROPIVACAINE 0.5% 5 MG/ML 30 ML VIAL ONE (06:23)
[2023-11-17] MEDS ORDERED: BUPIVACAINE 0.5 % 5 MG/1 ML PF 10ML VIAL ONE (06:23)
[2023-11-17] MEDS ORDERED: DEXAMETHASONE SOD INJ 4 MG/ML VIAL ONE (06:23)
--- NOTE | 2023-11-17 06:28 | History & Physical Bridge Note ---
Date of Service November 17, 2023 History & Physical Bridge Note I have examined the patient, reviewed the History & Physical and in the interval since the performance of the History & Physical I have noted the following changes of clinical significance:consent and site verified. no changes noted
[2023-11-17] MEDS ORDERED: MIDAZOLAM HCL 1 MG/ML 2ML VIAL ONE (06:36)
[2023-11-17] MEDS ORDERED: fentaNYL citrate PF 100 MCG/2 ML VIAL ONE (06:36)
[2023-11-17] MEDS ORDERED: PROPOFOL IV EMULSION 10 MG/ML 20 ML VIAL IV ONE ×2 (06:36→06:41)
--- NOTE | 2023-11-17 07:03 | Anesthesiology Consultation ---
Date of Service November 17, 2023 History Surgery Operation Date: 11/17/23 07:15 Proposed Procedures p Right Total Knee Arthroplasty - Hernando Camejo MD Height/Weight Height: 5 ft Weight: 71.7 kg Allergies Allergy/AdvReac Type Severity Reaction Status Date / Time Penicillins Allergy Intermediate Rash Verified 10/22/23 11:23 tramadol [From Ultram] Allergy Intermediate Hives Verified 10/21/23 10:27 doxepin Allergy Unknown Unknown Verified 10/22/23 11:20 lisinopril AdvReac Intermediate Cough Verified 10/22/23 11:20 meloxicam AdvReac Intermediate Dizziness Verified 10/22/23 11:20 raloxifene AdvReac Intermediate Hot Verified 10/22/23 11:23 flashes, insomnia Medications Home Medications Medication Instructions Recorded Confirmed Last Taken Lactobacills gasseri-Bifidobac 1 cap PO Q OTHER DAY 04/27/21 11/17/23 11/15/23 09:00 bifidum,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 ([employer]) aspirin 81 mg tablet,delayed 81 mg PO QPM 04/27/21 11/17/23 11/16/23 21:00 release atorvastatin 20 mg tablet 20 mg PO QPM 04/27/21 11/17/23 11/16/23 21:00 losartan 25 mg tablet 25 mg PO QAM 04/27/21 11/17/23 11/16/23 09:00 metoprolol tartrate 25 mg tablet 25 mg PO BID 04/27/21 11/17/23 11/17/23 04:30 multivitamin 1 tab PO Q2D 04/27/21 11/17/23 11/16/23 09:00 omeprazole 40 mg capsule,delayed 40 mg PO QAM 04/27/21 11/17/23 11/17/23 04:30 release acetaminophen 500 mg tablet 500 mg PO Q6H PRN Pain 10/15/22 11/17/23 Unknown (Tylenol Extra Strength) ascorbic acid (vitamin C) 1,000 mg 1 g PO QAM 10/15/22 11/17/23 11/16/23 09:00 tablet (Vitamin C) cyanocobalamin (vitamin B-12) 1,000 mcg PO QPM 10/15/22 11/17/23 11/16/23 21:00 1,000 mcg tablet (Vitamin B-12) psyllium husk 3.4 gram/5.4 gram 1 tsp PO Q OTHER DAY 10/15/22 11/17/23 11/16/23 09:00 oral powder (Metamucil) methenamine hippurate 1 gram tablet 1 g PO HS 10/21/23 11/17/23 11/16/23 21:00 insulin glargine 100 unit/mL (3 10 unit subcut DAILY 11/10/23 11/17/23 11/16/23 20:30 mL) subcutaneous pen (Lantus Solostar U-100 Insulin) Active Medications Generic Name Dose Route Start Last Admin Trade Name Freq PRN Reason Stop Dose Admin Lactated Ringer's 1,000 mls @ 15 mls/hr 11/17/23 06:00 11/17/23 06:19 Lr IV 11/17/23 18:00 15 mls/hr .Q24H CITLALI Administration Lactated Ringer's 1,000 mls @ 60 mls/hr 11/17/23 06:00 11/17/23 06:19 Lr IV 11/17/23 22:39 Not Given .[id number] CITLALI NPO Date Last Intake of Fluids: 11/16/23 Time Last Intake of Fluids: 23:00 Last Intake of Fluids Comment: sip at 0430 with pills Date Last Intake of Solids: 11/16/23 Time Last Intake of Solids: 18:30 Past Medical History Medical History Back problem CAD (coronary artery disease) 2008 cath- "mild to moderate" Diabetes Diverticulosis GERD (gastroesophageal reflux disease) Hiatal hernia History of Clostridium difficile colitis Remote hx, no recent problems History of colon polyps History of recurrent UTI (urinary tract infection) No current issues HTN (hypertension) Hx of basal cell carcinoma Hyperlipidemia Migraine with aura hx - no recent issues HIPOLITO on CPAP Unable to tolerate CPAP Osteoarthritis Preglaucoma Schatzki's ring s/p dilation Past Family History Family History Mother , 95 Coronary heart disease Dementia Father , 70 Coronary heart disease Aunt Family history of diabetes mellitus Past Surgical History Surgical History H/O breast biopsy "benign" History of cardiac cath 2009- no stents History of carpal tunnel release Right [place]09/29/23[place] [facility] [place] of colonoscopy History of ERCP History of esophagogastroduodenoscopy (EGD) History of hand surgery Right hand History of right hip replacement 2017 S/P appendectomy S/P carpal tunnel release S/P SANTO-BSO Social History Smoking Status: Never smoker Do You Dip or Chew Tobacco: No Hx Alcohol Use: No Hx Substance Use: No substance use type: does not use Physical Exam Vital Signs Last Vital Signs Temp 36.6 C 11/17/23 05:45 Pulse 67 11/17/23 05:45 Resp 18 11/17/23 05:45 BP 168/89 H 11/17/23 05:45 Pulse Ox 96 11/17/23 05:45 O2 Del Method Room Air 11/17/23 05:45 Testing Laboratory Results 11/17/23 05:38 POC Glucose 134 H
[2023-11-17] MEDS: TRANEXAMIC ACID 1,000 MG **IV Pre-op IV SCH (07:18)
[2023-11-17] MEDS: ceFAZolin 2000MG 2,000 MG/15 ML SYR IV SCH ×2 (07:30→16:00)
[2023-11-17] MEDS ORDERED: GLYCOPYRROLATE 0.2 MG/ML VIAL ONE (07:50)
[2023-11-17] MEDS ORDERED: HYDROmorphone INJ 1 MG/ML SYRINGE IV PRN (08:01)
[2023-11-17] MEDS ORDERED: ATROPINE SULFATE 0.1 MG/ML 10ML SYR IV PRN (08:01)
[2023-11-17] MEDS ORDERED: PROMETHAZINE HCL 6.25 MG in SODIUM CHLORIDE 0.9% 50 ML IV PRN (08:01)
[2023-11-17] MEDS ORDERED: ePHEDrine sulfate 50 MG/ML AMP IV PRN (08:01)
[2023-11-17] MEDS: TRANEXAMIC ACID 1,000 MG **IV Intra-op IV SCH (08:28)
[2023-11-17] MEDS: ROPIVACAINE 0.5% HCL/PF 246 MG, Ketorolac (*for OR use only*) 30 MG, EPINEPHrine 30MG/3... INFIL SCH (08:32)
--- NOTE | 2023-11-17 08:56 | Post Operative Brief Note ---
Immediate Post Op Note v1 Date of Surgery November 17, 2023 Pre & Post Diagnosis Operation Date: 11/17/23 07:15 Pre-Op Diagnosis: Right Knee Degenerative Joint Disease Post-Op Diagnosis: Right Knee Degenerative Joint Disease I identified the patient and participated in the time-out.: Yes Procedure Operation Date: 11/17/23 07:15 Actual Procedures p Right Total Knee Arthroplasty(Right) - Hernando Camejo MD Surgeon Hernando Camejo MD Curriculum And Instruction Specialist RACHEL/Cyril Estimated Blood Loss 25 Findings Consistent with Post-Op Diagnosis Severe DJD with valgus alignment Complications None
--- NOTE | 2023-11-17 09:00 | Operative Report ---
Post Operative Report Procedure Date: November 17, 2023 Pre & Post Diagnosis: [] Osteoarthritis right knee with valgus deformity severe pre and postop diagnosis same Time Out: I identified the patient and participated in the time-out. Procedure: [] Cemented right total knee replacement Surgeon: [] Bashir Sleeve Presser Operator: [] RACHEL/Henry Estimated Blood Loss: [] 25 cc Findings: [] Severe disease with flexion deformity valgus alignment Specimens: [] Bone pathology Description of Procedure: [] After the patient was appropriate notified site verified consent verified antibiotics confirmed as being given the right lower extremity was prepped and draped use routine fashion. Tourniquet was applied and inflated and after the leg was exsanguinated with a rubber band for total of 51 minutes. Midline exposure utilized. Parapatellar throbbing performed synovectomy completed osteophytes were resected. She was quite osteopenic. Distal femur entered. Cruciates resected tibia subluxated menisci resected. Appropriate soft tissue releases performed. Distal femur resected 11 mm axial tibia 4 mm. Extension gap was excellent. This required a little bit of soft tissue release but then it was excellent. Femur was sized to a 4 to tibia 3. Appropriate cutting block applied to the distal femur resection made anterior posterior, chamfer cuts made the flexion gap checked and was excellent. Box cut made and the size 4 narrow femur fit well. A size 3 tibia was then applied to the tibia appropriate broaching and reaming carried out and the trial reduction carried out with this with a 5 mm spacer was excellent. The patella tracked well. The patella was quite small was resected using the augmentation device not over resected and a 32 button was seated and tracked well. Ortho mix was then injected all about the knee the knee was then irrigated with Betadine Pulsavac compartments were then cemented into position tibia femur and patella in that order. After 12 minutes the tourniquet was deflated minor bleeding points controlled electrocautery. EBL was minimal 25 cc or less. After 14 minutes knee was flexed the trial spacer removed no major cement removal was required wound was then irrigated with Pulsavac Betadine the permanent liner seated in the knee reduced at 40 degrees of flexion closed with #5 Vicryl 2-0 Vicryl and standstill clips appropriate dressing applied the patient transferred recovery in satisfactory addition having tolerated the procedure well. Bone pathology pending EBL 25cc or less crystalloid per anesthesia. DVT prophylaxis start tomorrow with Eliquis. Summary of implants J&J rotating platform total knee replacement ATT UNE size 4 femur posterior cruciate substituting size 3 tibia size 4 spacer posterior cruciate substituting 5 mm thick to match the femur. 32 patella. 2 bags of Palacos G cement. Attestation: I attest to the content of the Intraoperative Record and any orders documented therein. Any exceptions are noted below.
--- NOTE | 2023-11-17 09:02 | Discharge Summary ---
Date of Service November 18, 2023 Admission HPI Per Admitting Provider Severe right knee pain Principal Diagnosis Severe osteoarthritis right knee with valgus flexion deformity Discharge Data Allergies Allergy/AdvReac Type Severity Reaction Status Date / Time Penicillins Allergy Intermediate Rash Verified 10/22/23 11:23 tramadol [From Ultram] Allergy Intermediate Hives Verified 10/21/23 10:27 doxepin Allergy Unknown Unknown Verified 10/22/23 11:20 lisinopril AdvReac Intermediate Cough Verified 10/22/23 11:20 meloxicam AdvReac Intermediate Dizziness Verified 10/22/23 11:20 raloxifene AdvReac Intermediate Hot Verified 10/22/23 11:23 flashes, insomnia Vaccinations None Consultations None Procedures Performed Operation Date: 11/17/23 07:15 Actual Procedures p Right Total Knee Arthroplasty(Right) - Hernando Camejo MD Ordered Studies 11/17/23 05:00 US - OR guided needle placemen Routine Hospital Course (1) Status post right knee replacement: Plan Postop care pathway Total Time Total Time Spent Total Time Spent (In Minutes): 5 minutes Discharge Plan Discharge Items Reason For Visit: Right Knee Degenerative Joint Disease Discharge Diagnosis: Same Condition on Discharge: Good Activity: Per Instructions section Bathing: Keep incision dry Exercise/Sports: Wait until after follow-up appointment Call non-emergency contact if: your temperature is above 101.5, your wound has increased redness and your wound has increased drainage Follow-up/Referrals: Samm Ward DO [Primary Care Provider] - Addtl Attending Provider Instructions: DIET: * Resume previous diet. MEDICATIONS: * Please take your prescriptions as instructed at your pre-op appointment and/or see medication discharge instructions listed above. * If concerns develop, call your physician's office at . SPECIAL CARE INSTRUCTIONS: * Ice/Elevate as instructed. * Keep dressing clean, dry, intact. * Your surgical extremity may be discolored due to prepping agents used on the skin. A bluish-green tint is a normal variant and should not cause alarm. Call your doctor at [phone] if: * Temperature above 101 degrees * Pain not relieved by pain medicine ordered * There is increased drainage or redness from any incision * You have any unanswered questions, problems or concerns. FOLLOW UP VISIT: * If not already scheduled, please call the office at to schedule a follow-up appointment. Pending Studies at Discharge: Yes (Bone pathology) Stand-Alone Forms: My [facility] Medications and DC Order Prescriptions: No Action multivitamin Tablet 1 tab PO Q2D atorvastatin 20 mg tablet 20 mg PO QPM omeprazole 40 mg capsule,delayed release(DR/EC) 40 mg PO QAM aspirin 81 mg Tablet,Delayed Release (Dr/Ec) 81 mg PO QPM losartan 25 mg tablet 25 mg PO QAM metoprolol tartrate 25 mg tablet 25 mg PO BID [employer] 1.5 billion cell Capsule 1 cap PO Q OTHER DAY ascorbic acid (vitamin C) [Vitamin C] 1,000 mg Tablet 1 g PO QAM cyanocobalamin (vitamin B-12) [Vitamin B-12] 1,000 mcg Tablet 1,000 mcg PO QPM acetaminophen [Tylenol Extra Strength] 500 mg Tablet 500 mg PO Q6H PRN (Reason: Pain) Metamucil 3.4 gram/5.4 gram Powder 1 tsp PO Q OTHER DAY Rx Instructions: mix into at least 4 oz water or juice before administering methenamine hippurate 1 gram tablet 1 g PO HS insulin glargine [Lantus Solostar U-100 Insulin] 100 unit/mL (3 mL) Insulin Pen 10 unit SUBCUT DAILY Admission Data Admit Date/Time: 11/17/23 09:13 Attending Provider: Hernando Camejo Admit Provider: Hernando Camejo Primary Care Provider: Samm Ward Other Providers: [facility],Home Healthcare; [facility],Referral Center; [facility]
--- NOTE | 2023-11-17 09:02 | Orthopedic Progress Note ---
Date of Service November 17, 2023 Orthopedic Progress Note Underwent right total knee replacement cemented. Tolerated well denies chest pain shortness of air fever chills nausea vomiting or headache. Vital signs are stable she is afebrile. Neurovascular check limited by spinal. X-rays pending. Family notified. Continue care pathway.
[2023-11-17] MEDS ORDERED: MAGNESIUM HYDROXIDE SUSP 30 ML UDC PO PRN (09:12)
[2023-11-17] MEDS ORDERED: bisacodyL 10 MG SUPP PR PRN (09:12)
[2023-11-17] MEDS ORDERED: PHARMACY GLYCEMIC MGMT CONSULT PRN (09:12)
[2023-11-17] MEDS ORDERED: HYDROmorphone INJ 0.5 MG/0.5 ML SYR IV PRN (09:12)
[2023-11-17] MEDS ORDERED: NALOXONE HCL 0.4 MG/1 ML VIAL/CARP IV PRN (09:12)
[2023-11-17] MEDS ORDERED: METOCLOPRAMIDE HCL INJ 5 MG/ML 2 ML VIAL IV PRN (09:12)
[2023-11-17] MEDS ORDERED: diphenhydrAMINE 50 MG/ML VIAL IV PRN (09:12)
--- NOTE | 2023-11-17 09:12 | Operative Report ---
Post Operative Report Pre & Post Diagnosis Operation Date: 11/17/23 07:15 Pre-Op Diagnosis: Right Knee Degenerative Joint Disease Post-Op Diagnosis: Right Knee Degenerative Joint Disease I identified the patient and participated in the time-out.: Yes Procedure Operation Date: 11/17/23 07:15 Actual Procedures p Right Total Knee Arthroplasty(Right) - Hernando Camejo MD Surgeon Hernando Camejo MD Property Technician RACHEL/Cyril Estimated Blood Loss 25 Findings Consistent with Post-Op Diagnosis Specimens Right knee bone and soft tissue Description of Procedure I was present during the entire case assisting with positioning, prepping, draping, wound retraction, wound closure and dressing application. Fellow also present. I served as an extra set of hands during the case. Please see Dr. Camejo procedure note for specifics of the case. I attest to the content of the Intraoperative Record and any orders documented therein. Any exceptions are noted below.
--- NOTE | 2023-11-17 09:13 | Operative Report ---
Post Operative Report Pre & Post Diagnosis Operation Date: 11/17/23 07:15 Pre-Op Diagnosis: Right Knee Degenerative Joint Disease Post-Op Diagnosis: Right Knee Degenerative Joint Disease I identified the patient and participated in the time-out.: Yes Procedure Operation Date: 11/17/23 07:15 Actual Procedures p Right Total Knee Arthroplasty(Right) - Hernando Camejo MD Surgeon Hernando Camejo MD Lubricating Specialist RACHEL/Cyril Estimated Blood Loss 25 Findings Consistent with Post-Op Diagnosis Same as postoperative diagnosis Specimens The resected portions of the femur and the tibia. Description of Procedure Please see detailed oeprative note. I attest to the content of the Intraoperative Record and any orders documented therein. Any exceptions are noted below.
[2023-11-17] MEDS ORDERED: ACETAMINOPHEN 500 MG TAB PO PRN (09:16)
[2023-11-17] MEDS ORDERED: NON-FORMULARY MEDICATION (Multivitamin Tablet) PO SCH (09:30)
--- OUTSIDE RECORDS SUMMARY | 2023-11-17 09:36 | External Medical Summary ---
Author Name Unknown Address Unknown Organization [id number]:[facility] [place] [place] [id number] Laboratory Report Ordering Provider Test Date Status ARGENIS STARKSNEW 11/12/2023 14:17:42 Final Observation Date Value Abnormality Reference (Units ) Status Creatinine 11/12/2023 14:17:42 0.6 0.5-1.0 (mg/dL) Final Glomerular filtration rate/1.73 sq M.predicted [Volume Rate/Area] in Serum, Plasma or Blood by Creatinine-based formula (CKD-EPI) 11/12/2023 14:17:42 85 >=60 (mL/min) Final eGFR is calculated based on the CKD-EPI 2020 equation Performing Location [facility] [place] [place] [id number]
--- OUTSIDE RECORDS SUMMARY | 2023-11-17 09:36 | External Medical Summary | Summary of Care ---
Author Name Unknown Organization [facility] Address [address] [place] [address] Phone [phone] Care Team Providers Care Cyber Reverse Engineer Name Role Phone Samm Ward DO Primary Care Provider [phone] Reason for Visit * Reason Comments Pre-op Clearance Pt here for pre-op e xam for surgery on 11/16 for Rt replacement by Dr Andres Encounter Details Date Type Department Care Team (Latest Contact Info) Description 11/13/2023 3:20 PM EST Office Visit Family Practice [facility] [address] [facility] [place] [address] Faviola Sena MD [address] [facility] [place] [address] Pre-op evaluation*; Primary osteoarthritis of right knee; Type 2 diabetes mellitus with hyperglycemia, unspecified whether prison insulin use (HCC); 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 0 Active Probiotic Product ([employer]) CAPS Capsule Take by mouth 1 Capsule daily . 0 Active Acetaminophen 500 MG Oral Tablet Take 1 Tablet by mouth every 6 hours as needed for Pain. 0 Active Cyanocobalamin 1000 MCG Oral Tablet (Cyanocobalamin)Indicatio ns:B12 deficiency Take by mouth 1 Tablet in the morning. 90 Tablet 1 2 Active Additional Information Patient taking differently: 500 mcgOral Daily(AM), Informant: Wallet Card/List, Reported on 10/05/2023 Metamucil 28.3 % Oral Powder (Psyllium) Take by mouth daily . 0 Active Methenamine Hippurate 1 GM Oral Tablet Take by mouth 2 times a day . 0 Active Multivitamins Oral Capsule Take 1 Capsule by mouth every other day. 0 Active Azithromycin 500 MG Oral Tablet (Zithromax) Take 1 Tablet by mouth once. 1 hr prior to dentist appointment 0 3 Active Metoprolol Tartrate 25 MG Oral Tablet (Lopressor)Indications:HT N, goal below 140/90 Take 1 Tablet by mouth in the morning and 1 Tablet before bedtime. 180 Tablet 1 3 Active Atorvastatin Calcium 20 MG Oral Tablet (Lipitor)Indications:Pure hypercholesterolemia Take 1 Tablet by mouth in the morning. 90 Tablet 1 3 Active Losartan Potassium 25 MG Oral Tablet (Cozaar)Indications:HTN, goal below 140/90 Take 1 Tablet by mouth in the morning. 90 Tablet 1 3 Active Omeprazole 20 MG Oral Capsule Delayed Release (PriLOSEC) Take 1 Capsule by mouth in the morning. 1 hour before the first meal of the day. 0 4 Active Insulin Glargine Solostar 100 UNIT/ML Subcutaneous Solution Pen-injector (Lantus SoloStar) Inject 10 Units under the skin in the morning. 15 mL 3 4 Active PenPathio w/Device Kit Check blood sugar twice daily E11.9 1 Kit 0 4 Active [employer] (EBTH) Verio In Vitro Strip (Glucose Blood) Check blood sugar twice daily E11.9 100 Strip 11 4 Active OneTouch UltraSoft Lancets Check blood sugar twice daily E11.9 100 Each 5 4 Active Insulin Pen Needle 32G X 4 MM Use daily to inject Lantus. 100 Each 3 4 Active Hospital, Clinic, or Other Facility Administered Medication Ordered Dose Route Frequency Start Date End Date Status albuterol sulfate (PROVENTIL) (2.5 MG/3ML) 0.083% inhalation solution 2.5 mgIndications:HUTCHINSON (dyspnea on exertion),Nodule of left lung 2.5 mg NEBULIZER Q4H PRN 08/19/2017 Active sodium chloride 0.9 % flush/inj 10 mL 10 mL IV PUSH ONCE 11/13/2023 11/13/2023 Ended documented as of this encounter (statuses as of 11/16/2023) Active Problems Problem Noted Date Diagnosed Date Diabetes mellitus without complication 4 Other chronic pancreatitis 03/09/2023 B12 deficiency 01/02/2022 Hx of actinic keratosis 07/20/2020 Dyslipidemia, goal LDL below 100 10/20/2019 Schatzki's ring 11/26/2017 Nodule of left lung 11/03/2017 Hip joint replacement status 04/06/2017 HIPOLITO (obstructive sleep apnea) 12/06/2015 Overview: CPAP 8-15 cwp HST 11/15/15: THOMAS 9.1 T&B Family history of malignant melanoma 07/05/2015 Overview: son Generalized osteoarthritis 05/31/2013 CAD (coronary artery disease), ione coronary a rtery 04/20/2012 HTN, goal below 140/90 08/20/2009 HX-SKIN MALIGNANCY NEC - BCC L upper back 2007 1 09/15/2008 Overview: SCCIS R dorsal foot 06/2016, BCC L upper back 2007 Esophageal reflux CLASSICAL MIGRAINE WITHOU MENTION OF INTRACTABLE MIGRAINE Preglaucoma documented as of this encounter (statuses as of 11/16/2023) Resolved Problems Problem Noted Date Diagnosed Date Resolved Date Other atherosclerosis of lidia farzad arteries of extremities, bilateral legs 01/04/2019 10/05/2023 Prediabetes 07/08/2018 11/11/2023 Prediabetes 02/02/2018 07/06/2018 Overview: Per Prediabetes protocol #1 FAM HX-BLOOD DISORD JESS Adams 11/05/2010 01/26/2017 Dyslipidemia, goal to be determined 08/30/2009 06/21/2015 Overview: Per Lipid Taxonomy. Family history of melanoma 07/16/2009 1 Overview: son ADVANCE DIRECTIVE INFORMATION 12/10/2008 01/26/2017 Overview: Yes, Patient instructed to provide copy of advance directive for provider to review and to be scanned into Electronic Medical Record Special screening for malign ant neoplasms, colon 01/10/2003 11/22/2008 Overview: Resolved per Screening Diagnosis Protocol #6 PURE HYPERCHOLESTEROLEM 08/14 Overview: Per Lipid Taxonomy. documented as of this encounter (statuses as of 11/16/2023) Immunizations Name Administration Dates Next Due COVID-19 mRNA, LNP-s, No Pre serve, 2-Dose Series (StockRadar) 08/12/2021,11/07/2020,10/17/2020 Pneumococcal Conjugate Vacc, 13 Valent (Prevnar) 06/21/2015 Season Influenza, Quad, PF, Adjuvanted, 65+ Yrs, IM (FLUAD) 06/17/2021,06/20/2020 Seasonal Influenza Virus Vac cine, Unspecified Formulation 07/11/2020 Seasonal Influenza, PF, 6 M & above, IM , (FluLaval or Fluzone) 07/08/2018 Seasonal Influenza, Quadriva lent Hd (Fluzone Hd) 06/25/2022 Seasonal Influenza, Quadriva lent, No Preserve, IM 07/24/2016,06/21/2015 Seasonal Influenza, Split, I IV3, With Preserve, Inj 06/20/2014,05/31/2013,07/07/2012,06/26,07/02/2010,06/21/2009,07/07/2007 ,08/04/2006 06/21/2010 Seasonal Influenza, Trivalen t, Adjuvanted, 65+ yrs 06/20/2020,06/28/2019 Seasonal Influenza, Trivalen t, High Dose, No Preserve, IM 07/15/2017 TD, Preservative Free 03/23/2008 TDAP (age 10 and older)(Boostrix) 01/04/2019 Varicella Zoster Vaccine (Adult) 07/07/2007 Zoster Vaccine Recombinant (Shingrix) 12/21/2018,06/22/2018 documented as of this encounter Social History Tobacco Use Types Packs/Day Years Used Date Smoking Tobacco: Never Smokeless Tobacco: Never Tobacco Cessation:Counseling Given: Not Answered Alcohol Use Standard Drinks/Week Comments No 0 (1 standard drink = 0.6 oz pur e alcohol) PHQ-2 Answer Date Recorded PHQ Adult Total Score 4 12/23/2022 Hunger Vital Sign Answer Date Recorded Within the past 12 months, y ou worried that your food would run out before you got the money to buy more. Never true 12/24/19 23 Within the past 12 months, t he food you bought just didn't last and you didn't have money to get more. Never true 12/23/2022 Sex and Gender Information Value Date Recorded Sex Assigned at Female 06/28/2019 3:31 PM EDT Gender Identity Female 06/28/2019 3:31 PM EDT Sexual Orientation Not on file Job Start Date Occupation Industry Not on file Not on file Not on file documented as of this encounter Last Filed Vital Signs Vital Sign Reading Time Taken Comments Blood Pressure 120/72 11/13/2023 3:18 PM EST Pulse 76 11/13/2023 3:18 PM EST Temperature 37.2 C (99 F) 11/13/2023 3:18 PM EST Respiratory Rate 16 11/13/2023 3:18 PM EST Oxygen Saturation - - Inhaled Oxygen Concentration - - Weight 71.2 kg (157 lb) 11/13/2023 3:18 PM EST Height - - Body Mass Index 29.66 10/28/2023 2:26 PM EST documented in this encounter Progress Notes * Faviola Sena MD - 11/13/2023 3:25 PM EST Images from the original note were not included. Pre-Operative Medical Evaluation Procedure Information Type of Surgery: Right total knee arthroscopy Referring Physician / Surgeon: Dr. Camejo Date of procedure: 11/17/23 Brief History of Present Illness: Patient presents today for pre-operative evaluation. She was recently started on insulin glargine 10 units at bedtime for Hgb A1c 8.7. She has been checking her sugars 4 times a day with the assistance of her son and they are consistently running under 150, typically in the 110s-120s fasting. Repeat Hgb A1c two weeks from initial lab down to 8.3. She has no other complaints or concerns today other that right knee pain. Review of Systems Constitutional: Negative for appetite change and fever. Respiratory: Negative for shortness of breath and wheezing. Cardiovascular: Negative for chest pain, palpitations and leg swelling. Gastrointestinal: Negative for abdominal pain, constipation, diarrhea, nausea and vomiting. Genitourinary: Negative for dysuria. Musculoskeletal: Right knee pain Skin: Negative for rash. Neurological: Negative for dizziness, syncope, weakness and headaches. Medical History Problem List: Diabetes mellitus without complication (HCC) (11/03/2023) Other chronic pancreatitis (HCC) (03/09/2023) B12 deficiency (01/02/2022) Hx of actinic keratosis (07/20/2020) Dyslipidemia, goal LDL below 100 (10/20/2019) Other atherosclerosis of ione arteries of extremities, bilateral legs (HCC) (01/04/2019) Prediabetes (07/08/2018) Prediabetes (02/02/2018) Schatzki's ring (11/26/2017) Nodule of left lung (11/03/2017) Hip joint replacement status (04/06/2017) HIPOLITO (obstructive sleep apnea) (12/06/2015) Family history of malignant melanoma (07/05/2015) Generalized osteoarthritis (05/31/2013) CAD (coronary artery disease), ione coronary artery (04/20/2012) FAM HX-BLOOD DISORD NEC von [place] (11/05/2010) Dyslipidemia, goal to be determined (08/30/2009) HTN, goal below 140/90 (08/20/2009) Family history of melanoma (07/16/2009) HX-SKIN MALIGNANCY NEC - BCC L upper back 2007 (07/16/2009) ADVANCE DIRECTIVE INFORMATION (12/10/2008) Special screening for malignant neoplasms, colon (01/10/2003) Esophageal reflux PURE HYPERCHOLESTEROLEM CLASSICAL MIGRAINE WITHOU MENTION OF INTRACTABLE MIGRAINE Preglaucoma Current Medications Insulin Pen Needle 32G X 4 MM, Use daily to inject Lantus. OneTouch UltraSoft Lancets, Check blood sugar twice daily E11.9 OneTouch Verio In Vitro Strip (Glucose Blood), Check blood sugar twice daily E11.9 OneTouch Verio w/Device Kit, Check blood sugar twice daily E11.9 Insulin Glargine Solostar 100 UNIT/ML Subcutaneous Solution Pen-injector (Lantus SoloStar), 10 Units, Subcutaneous, Daily(AM) Omeprazole 20 MG Oral Capsule Delayed Release (PriLOSEC), 20 mg, Oral, Daily(AM) Atorvastatin Calcium 20 MG Oral Tablet (Lipitor), 20 mg, Oral, Daily(AM) Losartan Potassium 25 MG Oral Tablet (Cozaar), 25 mg, Oral, Daily(AM) Metoprolol Tartrate 25 MG Oral Tablet (Lopressor), 25 mg, Oral, BID(AM/PM) Multivitamins Oral Capsule, 1 Capsule, Oral, Every other day Metamucil 28.3 % Oral Powder (Psyllium), Take by mouth daily . Methenamine Hippurate 1 GM Oral Tablet, Take by mouth 2 times a day . Acetaminophen 500 MG Oral Tablet, 500 mg, Oral, Q6H PRN Probiotic Product ([employer]) CAPS Capsule, 1 Capsule, Oral, Daily(AM) ASPIRIN 81 MG PO TABS, Take by mouth at bedtime . Azithromycin 500 MG Oral Tablet (Zithromax), 500 mg, Oral, Once Cyanocobalamin 1000 MCG Oral Tablet (Cyanocobalamin), 1,000 mcg, Oral, Daily(AM) (Patient taking differently: 500 mcg, Oral, Daily(AM)) albuterol sulfate (PROVENTIL) (2.5 MG/3ML) 0.083% inhalation solution 2.5 mg, 2.5 mg Allergies: Doxepin, Evista [raloxifene hydrochloride], Lisinopril, Meloxicam, Penicillins, and Ultram [tramadol hcl] Past Medical History: has a past medical history of Atherosclerosis, C. difficile colitis (04/2014), Constipation, Coronary artery disease, Dyslipidemia, goal LDL below 160, Esophageal reflux, Family history of melanoma (07/16/2009), Hypertension, Migraine with aura, HIPOLITO (obstructive sleep apnea) (12/06/2015), Osteoarthritis, and Preglaucoma. Past Surgical History: has a past surgical history that includes biopsy of breast, open; removal of appendix; total hysterectomy; removal of ovary/oviduct(s); colorectal cancer screen;w/fle (1999); Colonoscopy, GI ReferralOP (07/2004); Colonoscopy, Diagnostic (Rectum) (07/03/2014); EGD, Flexible, Diagnostic (04/16/2016); Bronchoscopy, Diagnostic (N/A, 09/09/2017); EGD, Flexible, Diagnostic (03/05/2018); EGD, Flexible,Diagnostic (03/29/2019); EGD, Flexible, Diagnostic (06/23/2019); EGD, Flexible, Diagnostic (01/20/2022); EGD, Flexible,w/Endoscopic US (10/15/2022); EGD, w/Endoscopic US (05/14/2023); ERCP, Diagnostic, Specimen collection (05/14/2023); and carpal tunnel surgery (Right). Social History: reports that she has never smoked. She has never used smokeless tobacco. She reports that she does not drink alcohol and does not use drugs. Family History: family history includes Arthritis in her brother; Cancer (age of onset: 50) in her son; Cancer (ageof onset: 56) in her daughter; Heart Disorder in her father and mother; Neurological Disorder in her daughter; No Past Hx in her son. Anesthesia History Type of Anesthesia: General Endotracheal and Caudal block Anesthesia reaction: No History of surgical complications: No Personal history of venous thromboembolic disease: No Physical Exam Vitals: 11/13/23 1518 Temp: 37.2 C (99 F) Pulse: 76 Resp: 16 BP: 120/72 Physical Exam Constitutional: Appearance: Normal appearance. HENT: Head: Normocephalic and atraumatic. Right Ear: Tympanic membrane, ear canal and external ear normal. Left Ear: Tympanic membrane, ear canal and external ear normal. Nose: Nose normal. Mouth/Throat: Mouth: Mucous membranes are moist. Pharynx: Oropharynx is clear. Eyes: Extraocular Movements: Extraocular movements intact. Conjunctiva/sclera: Conjunctivae normal. Pupils: Pupils are equal, round, and reactive to light. Cardiovascular: Rate and Rhythm: Normal rate and regular rhythm. Pulses: Normal pulses. Heart sounds: Normal heart sounds. Pulmonary: Effort: Pulmonary effort is normal. Breath sounds: Normal breath sounds. Abdominal: General: Abdomen is flat. Bowel sounds are normal. Palpations: Abdomen is soft. Skin: General: Skin is warm and dry. Neurological: General: No focal deficit present. Mental Status: She is alert and oriented to person, place, and time. Psychiatric: Mood and Affect: Mood normal. Behavior: Behavior normal. Surgical Risk Scoring Revised Cardiac Risk Index (RCRI) High-risk type of surgery (examples include vascular and any open intraperitoneal or intrathoracic procedures): 0=No History of ischemic heart disease (history of myocardial infarction or positive exercise test, current compliant of chest pain considered to be secondary to myocardia ischemia, use of nitrate therapy, or ECG with pathological Q waves; do not count prior coronary revascularization procedure unless one of the other criteria for ischemic heart disease is present): 0=No History of heart failure: 0=No History of cerebrovascular disease: 0=No Diabetes mellitus requiring treatment with insulin: 1=Yes Preoperative serum creatinine >2.0 mg/dL (177 micromol/L): 0=No Pt has revised cardiac index score of: One Risk Factor- 1.0% (95% CI: 0.5-1.4) Screening for Obstructive Sleep Apnea (STOP-BANG) Do you Snore loudly? 0=No Do you often feel Tired, Fatigued, or Sleep? 0=No Has anyone Observed you Stop Breathing or Choking/Gasping during sleep? 0=No Do you have or are you being treated for High Blood Pressure? 1=Yes BMI over 35? 0=No Age older than 50? 1=Yes Neck size large? (For males - 17 inches or larger, For females - 16 inches or larger) 0=No Male? 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 Blood glucose much better controlled on glargine 10 units at bedtime. Continue insulin. BG readingsare acceptable for perioperative period. Functional Assessment They are able to walk up a flight of stairs and grocery shop. The patient's functional status is adequate (equal to 4 METS). 1 MET: 4 METs: 4-10 METs: Can take care of self, such as eat, dress or use the toilet. Can walk to block or go up a flight of steps. Can do heavy house work. Surgical Risk Assessment Patient is acceptable medical risk for the listed procedure. I spent a total of 30-39 minutes (exact time 35 mins) on the date of service in preparation, delivery, and documentation of the care provided to Yara Santana excluding any time spent in the performance of separately billed services. documented in this encounter Plan of Treatment Upcoming Encounters Date Type Department Care Team (Late st Contact Info) Description 2024 12:40 PM EDT Office Visit [facility] [address] [facility] [place] [address] [facility] Sena [facility] [address] [facility] [address] 03/07/2024 1:30 PM EDT Office Visit Cardiology, [facility] [address] [place] [address] Antwan Avila PA-C [address] [place] [id number] Health Maintenance Due Date Last Done Comments Diabetic Eye Exam 1953 Diabetic Foot Exam 1953 Albumin/Creatinine Ratio 01/01/2023 01/01/2022 COVID-19 Vaccine ( season) 2023 08/12/2021, 11/07/2020, 10/17/2020 Influenza Vaccine (FLU shot) (#1) 2023 06/25/2022, 06/17/2021, 07/11/2020, Additional history exists Depression Screening 12/24/2023 12/23/2022 HbA1c 05/12/2024 11/12/2023, 10/15, 10/14/2023, Additional history exists DTaP,Tdap,and Td Vaccines (2 - Td or Tdap) 01/04/2029 01/04/2019, 03/23/2008, 05/30/1997 DXA Scan 01/29/2029 01/29/2022, 05/16, 06/06/2014, Additional history exists Zoster Vaccines Completed 12/21/2018, 05/2018, 07/07/2007 GARDASIL-HPV IMMUNIZATION SERIES Aged Out No longer eligible based on patient's age to complete this topic Hepatitis B Aged Out No longer eligi ble based on patient's age to complete this topic MENINGOCOCCAL (MENACTRA/MENVEO) Aged Out No longer eligible based on patient's age to complete this topic documented as of this encounter Medical Devices Not on filedocumented as of this encounter Visit Diagnoses Diagnosis Pre-op evaluation- Primary Preoperative examination, unspecified Primary osteoarthritis of right knee Primary localized osteoarthrosis, lower leg Type 2 diabetes mellitus with hyperglycemia, unspecified whether prison insulin use (HCC) Coronary artery disease involving ione coronary artery of ione heart without angina pectoris documented in this encounter Advance Directives Documents on File Type Date Recorded Patient Nozzleman Expl anation Advance Directives and Living Will 09/11/2017 ADVANCE DIRECTIVE / LIVING WILL Advance Directives and Living Will 01/10/2008 ADVANCE DIRECTIVE / LIVING WILL LIVING WILL Power of Trauma Therapist 01/10/2008 POWER OF A TTORNEY Care Teams Cyber Reverse Engineer Relationship Specialty Start Date End Date Samm Ward DO [address] [place] [address] PCP - General Family Medicine 04/23/20 documented as of this encounter
--- OUTSIDE RECORDS SUMMARY | 2023-11-17 09:36 | External Medical Summary ---
Author Name Unknown Address Unknown Organization [id number]:[facility] [place], [place] - [address] [facility] [id number] Laboratory Report Ordering Provider Test Date Status MILTONLANA MARTINCARDENAS 11/12/2023 14:17:42 Final Observation Date Value Abnormality Reference (Units ) Status HbA1C 11/12/2023 14:17:42 8.3 Above high normal 4. 0-5.6 (%) Final The use of HbA1c to monitor glycemic status is based on normal hemoglobin and HbA composition. This test should not be used in patients with abnormal hemoglobin that affects the half life of the red blood cell or the in vivo glycation rates. Glucose, estimated average 11/12/2023 14:17:42 192 Above high normal <126 (mg/dL) Gume multani Performing Location [facility] [place], [place] - [address] [facility] [id number]
--- OUTSIDE RECORDS SUMMARY | 2023-11-17 09:36 | External Medical Summary | Summary of Care ---
Author Name Unknown Organization [facility] Address [address] [place] [address] Phone [phone] Care Team Providers Care Clutch Specialist Name Role Phone Samm Ward DO Primary Care Provider Reason for Visit * Reason Onset Date Comments Pre-op Clearance 11/16/2023 Encounter Details Date Type Department Care Team (Late st Contact Info) Description 11/16/2023 Telephone Family Practice [facility] [address] [facility] [place] [address] Samm Ward DO 200 [place] [address] Pre-op Clearance Allergies Active Allergy Reactions Criticality Noted Date [...] at bedtime . 0 Active Probiotic Product (Zhilian Zhaopin) CAPS Capsule Take by mouth 1 Capsule [...] the morning. 15 mL 3 4 Active [employer] Verio w/Device Kit Check blood sugar twice daily E11.9 1 Kit 0 4 Active OneTouch Verio In Vitro Strip (Glucose Blood) Check [...] 2.5 mg NEBULIZER Q4H PRN 08/19/2017 Active documented as of this encounter (statuses as [...] Generalized osteoarthritis 05/31/2013 CAD (coronary artery disease), [place] coronary a rtery 04/20/2012 HTN, goal below 140/90 08/20/2009 HX-SKIN MALIGNANCY NEC - BCC L upper back 2008 1 09/15/2008 Overview: SCCIS R dorsal foot [...] Per Prediabetes protocol #1 FAM HX-BLOOD DISORD NEC von Willbrand 11/05/2010 01/26/2017 Dyslipidemia, goal to be determined [...] mRNA, LNP-s, No Pre serve, 2-Dose Series (PT PAL) 08/12/2021,11/07/2020,10/17/2020 Pneumococcal Conjugate Vacc, 13 Valent (Prevnar) [...] Date Smoking Tobacco: Never Smokeless Tobacco: Never Alcohol Use Standard Drinks/Week Comments No 0 [...] on file documented as of this encounter Miscellaneous Notes * Telephone Encounter - Angelina Dowell LPN - 11/16/2023 9:21 AM EST Pre-op note signed by Dr. Sena. Printed and faxed to Isauro at # provided. Confirmation received. * Telephone Encounter - Kathy Vargas LPN - 11/16/2023 8:33 AM EST Isauro from [facility] called to check on patients clearance for surgery that she is scheduled to have with them tomorrow Pre Op clearance office visit note 11/13/23 is not completed They need to know REGAN Please call Isauro at [phone] to update her on the status of patients clearance Fax pre op clearance note to [phone] - Attention Isauro * Telephone Encounter - Yara Loera OSA - 11/16/2023 8:31 AM EST Reason for patient's call: Asked to speak to nurse about surgery clearance. Caller was transferred to [facility] at the nurse line. documented in this encounter Plan of Treatment Upcoming Encounters Date Type Department Care Team (Late st Contact Info) Description 2024 12:40 PM EDT Office Visit Family Practice [facility] [place] [address] Faviola Sena MD 200 [facility] [place] [address] 03/07/2024 1:30 PM EDT Office Visit Cardiology, [facility] [address] [place] [address] Antwan Avila PA-C [address] [place] [phone] Health Maintenance Due Date Last Done Comments [...] Additional history exists Zoster Vaccines Completed 12/21/2018, 1005/2018, 07/07/2007 GARDASIL-HPV IMMUNIZATION SERIES Aged Out No longer eligible based on patient's age to complete this topic Hepatitis B Aged Out No longer eligi ble based on patient's age to complete this topic MENINGOCOCCAL (MENACTRA/MENVEO) Aged Out No longer eligible based on patient's age to complete this topic documented as of this encounter Medical Devices Not on filedocumented as of this encounter Advance Directives Documents on File Type Date Recorded 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
--- OUTSIDE RECORDS SUMMARY | 2023-11-17 09:36 | External Medical Summary | Summary of Care ---
Author Name Unknown Organization [facility] Address [address] [place] [address] Phone [phone] Care Team Providers Care Air Defense Control Officer Name Role Phone Samm Ward DO Primary Care Provider Reason for Visit * Reason Comments Outpatient Testing Encounter Details Date Type Department Care Team (Late st Contact Info) Description 11/12/2023 2:20 PM EST Laboratory Laboratory [facility] [address] [place] [address] [place], [facility] [address] [place] [address] Other chronic pancreatitis (HCC); Type 2 diabetes mellitus with hyperglycemia, unspecified whether tank terminal gauger insulin use (HCC) Allergies Active Allergy Reactions Criticality Noted Date Comments Doxepin 05/13/2021 Other reaction(s): unknown Raloxifene Hydrochloride 06/19/2008 Hot flashes, insomnia Lisinopril Cough 02/22/2015 Meloxicam Nausea/vomiting 10/02/2014 dizziness Penicillins 09/09/1999 Rash Tramadol Hcl Hives 12/16/2016 documented as of this encounter (statuses as of 11/12/2023) Medications Medication Sig Dispensed Refills Start Date End Date Status ASPIRIN 81 MG PO TABS Take by mouth at bedtime . 0 Active Probiotic Product (Purchext) CAPS Capsule Take by mouth 1 Capsule [...] meal of the day. 0 4 Active Xdemvy 0.25 % Ophthalmic Solution 0 3 Active Insulin Glargine Solostar 100 UNIT/ML Subcutaneous Solution Pen-injector (Lantus SoloStar) Inject 10 Units under the skin in the morning. 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 Preglaucoma documented as of this encounter (statuses as of 11/12/2023) Resolved Problems Problem Noted Date Diagnosed Date [...] as of this encounter (statuses as of 11/12/2023) Immunizations Name Administration Dates Next Due COVID-19 mRNA, LNP-s, No Pre serve, 2-Dose Series (TopLog) 08/12/2021,11/07/2020,10/17/2020 Pneumococcal Conjugate Vacc, 13 Valent (Prevnar) [...] on file documented as of this encounter Plan of Treatment Upcoming Encounters Date Type Department Care Team (Late st Contact Info) Description 11/13/2023 10:00 AM EST Imaging Radiology [facility] [place] [address] [facility] [place] [address] 11/13/2023 1:30 PM EST Office Visit Cardiology, [facility] [address] [place] [address] Denise Ponce CRNP [address] [place] [address] [place] [phone] 11/13/2023 3:20 PM EST Office Visit Family Practice [facility] [place] [address] [place] [address] Faviola Sena MD [address] [place] [address] 03/07/2024 1:30 PM EDT Office Visit Cardiology, [facility] 132 [facility] [address] [place] [address] Antwan Avila PA-C [address] [place] [phone] Pending Results Name Type Priority Associated Diagnoses Date /Time CREATININE Lab Routine Other chronic pancreatitis (HCC) 11/12/2023 2:17 PM EST HEMOGLOBIN A1C Lab Routine Type 2 diabetes mellitus with hyperglycemia, unspecified whether mcc insulin use (HCC) 11/12/2023 2:17 PM EST Health Maintenance Due Date Last Done Comments Diabetic Eye Exam 1953 Diabetic Foot Exam 1953 Albumin/Creatinine Ratio 01/01/2023 01/01/2022 COVID-19 Vaccine ( season) 2023 08/12/2021, 11/07/2020, 10/17/2020 Influenza Vaccine (FLU shot) (#1) 2023 06/25/2022, 06/17/2021, 07/11/2020, Additional history exists Depression Screening 12/24/2023 12/23/2022 HbA1c 04/27/2024 10/28/2023, 09/16, 08/26/2022, Additional history exists DTaP,Tdap,and Td Vaccines (2 [...] as of this encounter Visit Diagnoses Diagnosis Other chronic pancreatitis (HCC) Type 2 diabetes mellitus with hyperglycemia, unspecified whether tank terminal gauger insulin use (HCC) documented in this encounter Advance Directives Documents on File Type Date Recorded Patient Surgical Lead Expl anation Advance Directives and Living Will 09/11/2017 ADVANCE DIRECTIVE / LIVING WILL Advance Directives and Living Will 01/10/2008 ADVANCE DIRECTIVE / LIVING WILL LIVING WILL Power of Mixing Machine Tender 01/10/2008 POWER OF A TTORNEY Care Teams Air Defense Control Officer Relationship Specialty Start Date End Date Samm Ward DO [address] [place] [address] PCP - General Family Medicine 04/23/20 documented as of this encounter
--- OUTSIDE RECORDS SUMMARY | 2023-11-17 09:36 | External Medical Summary | Summary of Care ---
Author Name Unknown Organization [facility] Address [address] [place] [address] Phone [phone] Care Team Providers Care Business Technology Architect Name Role Phone Samm Ward DO Primary Care Provider Reason for Visit * Reason Comments Pre-op Clearance Encounter Details Date Type Department Care Team (Late st Contact Info) Description 11/13/2023 1:30 PM EST Office Visit Cardiology, [facility] [address] [facility] [place] [address] Denise Ponce CRNP [address] [place] [address] Coronary artery disease involving [place] coronary artery of [place] heart without angina pectoris*; HTN, goal below 140/90; Nonrheumatic mitral valve regurgitation; Dyslipidemia, goal LDL below 70; Preoperative cardiovascular examination Allergies Active Allergy Reactions Criticality Noted Date Comments Doxepin 05/13/2021 Other reaction(s): unknown Raloxifene Hydrochloride 06/19/2008 Hot flashes, insomnia Lisinopril Cough 02/22/2015 Meloxicam Nausea/vomiting 10/02/2014 dizziness Penicillins 09/09/1999 Rash Tramadol Hcl Hives 12/16/2016 documented as of this encounter (statuses as of 11/13/2023) Medications Medication Sig Dispensed Refills Start Date End Date Status ASPIRIN 81 MG PO TABS Take by mouth at bedtime . 0 Active Probiotic Product ([employer]) CAPS Capsule Take by mouth 1 Capsule daily . 0 Active Acetaminophen 500 MG Oral Tablet Take 1 Tablet by mouth every 6 hours as needed for Pain. 0 Active Cyanocobalamin 1000 MCG Oral Tablet (Cyanocobalamin)Indicati ons:B12 deficiency Take by mouth 1 Tablet in [...] Active Metoprolol Tartrate 25 MG Oral Tablet (Lopressor)Indications:H TN, goal below 140/90 Take 1 Tablet by mouth in the morning and 1 Tablet before bedtime. 180 Tablet 1 3 Active Atorvastatin Calcium 20 MG Oral Tablet (Lipitor)Indications:Pur e hypercholesterolemia Take 1 Tablet by mouth in [...] the morning. 15 mL 3 4 Active RUSBASE Verio w/Device Kit Check blood sugar twice daily E11.9 1 Kit 0 4 Active [employer] Verio In Vitro Strip (Glucose Blood) Check blood sugar twice daily E11.9 100 Strip 11 4 Active OneTouch UltraSoft Lancets Check blood sugar twice daily E11.9 100 Each 5 4 Active Insulin Pen Needle 32G X 4 MM Use daily to inject Lantus. 100 Each 3 4 Active Xdemvy 0.25 % Ophthalmic Solution 0 3 024 Discontin ued(Medic ation List Clean Up) Hospital, Clinic, or Other Facility Administered Medication Ordered Dose Route Frequency Start Date End Date Status albuterol sulfate (PROVENTIL) (2.5 MG/3ML) 0.083% inhalation solution 2.5 mgIndications:HUTCHINSON (dyspnea on exertion),Nodule of left lung 2.5 mg NEBULIZER Q4H PRN 08/19/2017 Active sodium chloride 0.9 % flush/inj 10 mL 10 mL IV PUSH ONCE 11/13/2023 11/13/2023 Active documented as of this encounter (statuses as of 11/13/2023) Active Problems Problem Noted Date Diagnosed Date [...] Generalized osteoarthritis 05/31/2013 CAD (coronary artery disease), [place] coronary a rtery 04/20/2012 HTN, goal below 140/90 08/20/2009 HX-SKIN MALIGNANCY NEC - BCC L upper back 2007 1 09/15/2008 Overview: SCCIS R dorsal foot 06/2016, BCC L upper back 2007 Esophageal reflux CLASSICAL MIGRAINE WITHOU MENTION OF INTRACTABLE MIGRAINE Preglaucoma documented as of this encounter (statuses as of 11/13/2023) Resolved Problems Problem Noted Date Diagnosed Date Resolved Date Other atherosclerosis of lidia farzad arteries of extremities, bilateral legs 01/04/2019 10/05/2023 Prediabetes 07/08/2018 11/11/2023 Prediabetes 02/02/2018 07/06/2018 Overview: Per Prediabetes protocol #1 FAM HX-BLOOD DISORD NEC aleks Willbrand 11/05/2010 01/26/2017 Dyslipidemia, goal to be [...] as of this encounter (statuses as of 11/13/2023) Immunizations Name Administration Dates Next Due COVID-19 mRNA, LNP-s, No Pre serve, 2-Dose Series (IdealSeat) 08/12/2021,11/07/2020,10/17/2020 Pneumococcal Conjugate Vacc, 13 Valent (Prevnar) [...] Never Smokeless Tobacco: Never Tobacco Cessation:Counseling Given: No Alcohol Use Standard Drinks/Week Comments No 0 [...] Sign Reading Time Taken Comments Blood Pressure 104/62 11/13/2023 1:30 PM EST Pulse 80 11/13/2023 1:30 PM EST Temperature - - Respiratory Rate 16 11/13/2023 1:30 PM EST Oxygen Saturation - - Inhaled Oxygen Concentration - - Weight 70.8 kg (156 lb 1.6 oz) 11/13/2023 1:30 P M EST Height - - Body Mass Index 29.49 10/28/2023 2:26 PM EST documented in this encounter Progress Notes * Denise Ponce CRNP - 11/13/2023 1:30 PM EST Subjective Yara Santana is a 88 year old female. Chief Complaint Patient presents with Pre-op Clearance Cardiac Problems: Nonobstructive CAD per cardiac catheterization 2008 HTN HLD HIPOLITO, unable to tolerate CPAP DM II Chronic Pancreatitis HPI: 88 year old female presents for pre op cardiac clearance accompanied by her son. Last seen in the clinic 6 months ago. Feeling well since their last visit with no acute concerns today. She has been having significant knee discomfort which has negatively impacted her mobility. She is scheduled to undergo right total knee with Dr. Camejo on 11/17/2023 at [facility]. Denies chest pain, SOB, palpitations, dizziness, syncope, edema, orthopnea and PND. No change in activity tolerance. Reports compliance with medications without any untoward side effects, or difficulty with affordability. 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 HX-SKIN MALIGNANCY NEC - BCC L upper back 2007 Z85.828 HTN, goal below 140/90 I10 CAD (coronary artery disease), [place] coronary artery I25.10 Generalized osteoarthritis M15.9 Family history of malignant melanoma Z80.8 HIPOLITO (obstructive sleep apnea) G47.33 Hip joint replacement status Z96.649 Nodule of left lung R91.1 Schatzki's ring K22.2 Dyslipidemia, goal LDL below 100 E78.5 Hx of actinic keratosis Z87.2 B12 deficiency E53.8 Other chronic pancreatitis (HCC) K86.1 Diabetes mellitus without complication (HCC) E11.9 Current Outpatient Medications Medication Sig Dispense Refill ASPIRIN 81 MG PO TABS Take by mouth at bedtime . Probiotic Product ([employer]) CAPS Capsule Take by mouth 1 Capsule daily . Acetaminophen 500 MG Oral Tablet Take 1 Tablet by mouth every 6 hours as needed for Pain. Cyanocobalamin 1000 MCG Oral Tablet (Cyanocobalamin) Take by mouth 1 Tablet in the morning. (Patient taking differently: Take 0.5 Tablets by mouth in the morning.) 90 Tablet 1 Metamucil 28.3 % Oral Powder (Psyllium) Take by mouth daily . Methenamine Hippurate 1 GM Oral Tablet Take by mouth 2 times a day . Multivitamins Oral Capsule Take 1 Capsule by mouth every other day. Azithromycin 500 MG Oral Tablet (Zithromax) Take 1 Tablet by mouth once. 1 hr prior to dentist appointment Metoprolol Tartrate 25 MG Oral Tablet (Lopressor) Take 1 Tablet by mouth in the morning and 1 Tablet before bedtime. 180 Tablet 1 Atorvastatin Calcium 20 MG Oral Tablet (Lipitor) Take 1 Tablet by mouth in the morning. 90 Tablet 1 Losartan Potassium 25 MG Oral Tablet (Cozaar) Take 1 Tablet by mouth in the morning. 90 Tablet 1 Omeprazole 20 MG Oral Capsule Delayed Release (PriLOSEC) Take 1 Capsule by mouth in the morning. 1 hour before the first meal of the day. Xdemvy 0.25 % Ophthalmic Solution Insulin Glargine Solostar 100 UNIT/ML Subcutaneous Solution Pen-injector (Lantus SoloStar) Inject 10 Units under the skin in the morning. 15 mL 3 IntelomedTouch Verio w/Device Kit Check blood sugar twice daily E11.9 1 Kit 0 OneTouch Verio In Vitro Strip (Glucose Blood) Check blood sugar twice daily E11.9 100 Strip 11 [employer] UltraSoft Lancets Check blood sugar twice daily E11.9 100 Each 5 Insulin Pen Needle 32G X 4 MM Use daily to inject Lantus. 100 Each 3 Current Facility-Administered Medications Medication Dose Route Frequency Provider Last Rate Last Admin albuterol sulfate (PROVENTIL) (2.5 MG/3ML) 0.083% inhalation solution 2.5 mg 2.5 mg Nebulizer Q4H PRN Keyonna Cannon CRNP 2.5 mg at 08/19/17 1048 sodium chloride 0.9 % flush/inj 10 mL 10 mL IV Push Once Emigdio Tellez MD Past Medical History: Diagnosis Date Atherosclerosis C. difficile colitis 04/2014 Constipation Coronary artery disease Dyslipidemia, goal LDL below 160 Hypercholesterolemia Esophageal reflux GERD Family history of melanoma 07/16/2009 Hypertension Migraine with aura HIPOLITO (obstructive sleep apnea) 12/06/2015 Osteoarthritis Preglaucoma Past Surgical History: Procedure Laterality Date BIOPSY OF BREAST, OPEN Breast Biopsy, Benign Disease BRONCHOSCOPY, DIAGNOSTIC N/A 09/09/2017 BRONCHOSCOPY DIAGNOSTIC WITH OR WITHOUT WASHING performed by Franklin Agarwal [place] [facility] [place]PAL TUNNEL SURGERY Right COLONOSCOPY, DIAGNOSTIC (RECTUM) 07/03/2014 diverticulosis/done @ [facility] COLONOSCOPY, GI REFERRAL OP 07/2004 tics, repeat 10 years COLORECTAL CANCER SCREEN;W/FLE 1999 EGD, FLEXIBLE, DIAGNOSTIC 04/16/2016 Schatzki ring, HH/[facility] EGD, FLEXIBLE, DIAGNOSTIC 03/05/2018 Schatzki ring/ESOPHAGOGASTRODUODENOSCOPY (EGD), FLEXIBLE, TRANSORAL, DIAGNOSTIC performed by Mary Ma DO at [facility]OSCOPY [facility] EGD, FLEXIBLE, DIAGNOSTIC 03/29/2019 reflux esophagitis, hiatal hernia, repeat 6 wks/ESOPHAGOGASTRODUODENOSCOPY (EGD), FLEXIBLE, TRANSORAL, DIAGNOSTIC performed by Mary Ma DO at ENDOSCOPY [facility] EGD, FLEXIBLE, DIAGNOSTIC 06/23/2019 Schatzki ring, hiatal hernia/ESOPHAGOGASTRODUODENOSCOPY (EGD), FLEXIBLE, TRANSORAL, DIAGNOSTIC performed by Mary Ma DO at ENDOSCOPY [facility] EGD, FLEXIBLE, DIAGNOSTIC 01/20/2022 hiatal hernia / ESOPHAGOGASTRODUODENOSCOPY (EGD), FLEXIBLE, TRANSORAL, DIAGNOSTIC performed by Mary Ma DO at ENDOSCOPY [facility] EGD, FLEXIBLE,W/ENDOSCOPIC US 10/15/2022 pancreatic abnormalities - normal / [facility] EGD, W/ENDOSCOPIC US 05/14/2023 ESOPHAGOGASTRODUODENOSCOPY (EGD), FLEXIBLE, TRANSORAL, ENDOSCOPIC ULTRASOUND performed by Emigdio Tellez MD at ENDOSCOPY [facility] ERCP, DIAGNOSTIC, SPECIMEN COLLECTION 05/14/2023 ENDOSCOPIC RETROGRADE CHOLANGIOPANCREATOGRAPHY (ERCP) DIAGNOSTIC performed by Gonzalez Fuchs END[facility]COPY [facility] REMOVAL OF APPENDIX Appendectomy REMOVAL OF OVARY/OVIDUCT(S) Ovary/Tube(S) Removal (bilateral) TOTAL HYSTERECTOMY SANTO (Total Abdominal Hysterectomy) Review of patient's allergies indicates: Allergen Reactions Doxepin Other reaction(s): unknown Evista [Raloxifene Hydrochloride] Hot flashes, insomnia Lisinopril Cough Meloxicam Nausea/vomiting dizziness Penicillins Rash Ultram [Tramadol Hcl] Hives Family History Problem Relation Age of Onset Heart Disorder Mother CAD, dementia Heart Disorder Father age 70 Arthritis Brother Neurological Disorder Daughter MS Cancer Daughter 56 breast Cancer Son 50 melanoma No Past Hx Son Family Status Relation Status Mo at age 95 Fa at age 70 Bro Alive Parish Alive Parish Alive Son Alive Son Alive Social History Socioeconomic History Marital status: Spouse name: Not on file Number of children: 4 Years of education: 14 Highest education level: Not on file Occupational History Occupation: retired Tobacco Use Smoking status: Never Smokeless tobacco: Never Vaping Use Vaping Use: Never used Substance and Sexual Activity Alcohol use: No Drug use: No Sexual activity: Never Other Topics Concern Service No Blood Transfusions No Caffeine Concern No Occupational Exposure No Hobby Hazards No Sleep Concern No Stress Concern No Weight Concern Yes Special Diet Yes Back Care Yes Comment: sees chiropracter Exercise No Bike Helmet No Seat Belt Yes Self-Exams Yes Social History Narrative 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 Lives with son. 4 children 3 live nearby. Social Determinants of Health Financial Resource Strain: Not on file Food Insecurity: No Food Insecurity (12/23/2022) Hunger Vital Sign Worried About Running Out of Food in the Last Year: Never true Ran Out of Food in the Last Year: Never true Transportation Needs: Not on file Physical Activity: Not on file Stress: Not on file Social Connections: Not on file Intimate Partner Violence: Not on file Housing Stability: Not on file Review of Systems Constitutional: Negative for activity change, fatigue and unexpected weight change. Eyes: Negative for visual disturbance. Respiratory: Negative for shortness of breath and wheezing. Cardiovascular: Negative for chest pain, palpitations and leg swelling. Gastrointestinal: Negative for blood in stool, constipation, diarrhea, nausea and vomiting. Genitourinary: Negative for hematuria. Musculoskeletal: Positive for arthralgias and gait problem. Skin: Negative for wound. Neurological: Negative for dizziness and syncope. Objective BP 104/62 (BP Site: Left Arm, BP Position: Sitting, BP Cuff Size: Regular) | Pulse 80 | Resp 16 | Wt 70.8 kg (156 lb 1.6 oz) | BMI 29.49 kg/m | BSA 1.75 m Physical Exam Vitals and nursing note reviewed. Constitutional: General: She is awake. She is not in acute distress. Appearance: Normal appearance. She is well-developed. She is not ill-appearing. HENT: Head: Normocephalic and atraumatic. Eyes: General: No scleral icterus. Extraocular Movements: Extraocular movements intact. Conjunctiva/sclera: Conjunctivae normal. Pupils: Pupils are equal, round, and reactive to light. Neck: Thyroid: No thyromegaly. Vascular: No carotid bruit or JVD. Cardiovascular: Rate and Rhythm: Normal rate. Pulses: Normal pulses. Carotid pulses are 2+ on the right side and 2+ on the left side. Radial pulses are 2+ on the right side and 2+ on the left side. Posterior tibial pulses are 2+ on the right side and 2+ on the left side. Heart sounds: Normal heart sounds, S1 normal and S2 normal. No murmur heard. Pulmonary: Effort: Pulmonary effort is normal. No respiratory distress. Breath sounds: Normal breath sounds. No wheezing, rhonchi or rales. Abdominal: General: Bowel sounds are normal. There is no distension. Palpations: Abdomen is soft. There is no mass. Tenderness: There is no abdominal tenderness. Musculoskeletal: General: No swelling. Cervical back: Neck supple. Right lower leg: No edema. Left lower leg: No edema. Skin: General: Skin is warm and dry. Capillary Refill: Capillary refill takes less than 2 seconds. Findings: No rash or wound. Neurological: General: No focal deficit present. Mental Status: She is alert and oriented to person, place, and time. Psychiatric: Attention and Perception: Attention and perception normal. Behavior: Behavior is cooperative. Judgment: Judgment normal. Results Labs & Imaging Reviewed Below: ECG 10/26/23 at [facility] NSR 72 bpm QTc 431 ms 08/14/22 NSR 83 bpm QTc 441 ms 02/13/21 NSR 78 bpm QTc 426 ms Echocardiograms 10/22/23 The examination is adequate to evaluate the referral indication. The LV wall thickness is normal. The left ventricular wall motion is normal. The qualitative LV ejection fraction is 60-64% (normal). The left ventricular diastolic function is mildly abnormal (grade I). Mild mitral regurgitation is present. Compared to the report of the prior study dated 03/12/21, there has been no significant change. 03/12/21 The examination is adequate to evaluate the referral indication. The LV wall thickness is normal. The left ventricular wall motion is normal. The qualitative LV ejection fraction is 60-64% (normal). The left ventricular diastolic function is mildly abnormal (grade I). Mild mitral regurgitation is present. Significant tricuspid regurgitation is absent. The spectral Doppler signal is inadequate to calculate right ventricular and pulmnary artery systolic pressure.. Normal pulmonary pressures are suggested by 2-D echo findings. Compared to the prior study dated 09/17/2016 there has been no significant interval change. Nuclear Stress Test 03/12/21 Lexiscan nuclear cardiac stress test negative for ischemia. Gated SPECT imaging reveals normal myocardial thickening and wall motion. The left ventricular ejection fraction was calculated to be > 70% Labs Latest Reference Range & Units 10/14/23 12:09 10/26/23 00:00 11/12/23 14:17 Sodium 135 - 146 mmol/L 138 Potassium 3.5 - 5.1 mmol/L 4.4 POTASSIUM-OUTSIDE LAB 3.5 - 5.1 MMOL 4.1 (E) Chloride 98 - 107 mmol/L 102 CO2 22 - 32 mmol/L 25 BUN 6 - 20 mg/dL 9 Creatinine 0.5 - 1.0 mg/dL 0.6 0.6 CREATININE-OUTSIDE LAB 0.6 - 1.2 MG/DL 0.57 ! (E) Estimated Glomerular Filtration Rate >=60 mL/min 85 85 EGFR-OUTSIDE LAB ML/MIN 82.8 (E) Anion Gap 7 - 15 mmol/L 11 Glucose 70 - 120 mg/dL 156 (H) GLUCOSE-OUTSIDE LAB 70 - 99 MG/DL 219 ! (E) Calcium 8.4 - 10.2 mg/dL 9.7 Protein 6.0 - 8.3 g/dL 6.9 Estimated Average Glucose <126 mg/dL 197 (H) 192 (H) 25-Hydroxy Vitamin D >19 ng/mL 21 25-HYDROXY VITAMIN D Rpt Hemoglobin A1C 4.0 - 5.6 % 8.5 (H) 8.3 (H) CBC Rpt WBC 4.00 - 10.80 K/uL 9.01 HGB 12.0 - 15.3 g/dL 12.4 HCT 36.0 - 45.2 % 38.4 MCV 81.5 - 97.5 fL 84.8 PLT 140 - 400 K/uL 294 Albumin 3.8 - 5.0 g/dL 4.3 AST 10 - 35 U/L 20 ALT 10 - 35 U/L 15 Alkaline Phosphatase 35 - 130 U/L 154 (H) Bilirubin, Total <=1.2 mg/dL 0.7 Revised cardiac index for preoperative risk: Elevated risk surgery: no History of ischemic heart disease: no History of CHF: no History of cerebrovascular disease: no Preoperative treatment with insulin: yes Preoperative creatinine greater than 2 mg/dL: no Total: 1 Class II Risk, 6% chance of cardiovascular event within 30 days Impression Nonobstructive CAD per cardiac catheterization 2008 HTN HLD Mild MR HIPOLITO, unable to tolerate CPAP DM II, A1c improving with Lantus Chronic Pancreatitis Right Knee DJD, 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 Plan: -HR and BP well controlled -blood pressure trending on the low side today however historically has been averaging in the 110-120 range systolically -she is asymptomatic in regard this however I did discuss with her she develops dizziness or lightheadedness we need to further consider reducing her antihypertensive regimen -reviewed her echocardiogram with her today which indicated normal ejection fraction with no evidence of significant valvular disease -she is optimized from a cardiac standpoint and cleared to undergo procedure as planned -it is reasonable to hold aspirin if necessary however would defer official recommendations to the surgical team -continue atorvastatin, metoprolol, losartan and aspirin -Educated patient on caution with change in positions to minimize symptomatic orthostatic hypotension -Discussed importance of diet & exercise with the patient. -Discussed with patient subtle changes in how they are feeling or completing daily activities to contact us sooner; don't wait days or weeks. DISPOSITION: Follow up as scheduled or if symptoms worsen/fail to improve. All questions were answered to the patients satisfaction. Patient advised to report to ED with any and all emergencies. The patient agrees to the above plan and will call with additional questions or concerns. I spent a total of 43 minutes on the date of service in preparation, delivery, and documentation ofthe care provided to Yara Santana excluding any time spent in the performance of separately billed services. [facility], [address] [address] This chart was completed in part utilizing [employer] Speech Voice Recognition Software. Grammatical errors, random word insertions, pronoun errors, and incomplete sentences are an occasional consequence of this system due to software limitations, ambient noise, and hardware issues. Any formal questions or concerns about the content, text, or information contained within the body of this dictation should be directly addressed to the provider for clarification. documented in this encounter Nursing Notes * Angelina Bal RN - 11/13/2023 1:33 PM EST Examination Room: 16 Name: Yara Santana Date of : (1935). Reason for Visit: Pre-op evaluation Interim Hospitalization(s): No Problems/Concerns: Scheduled for right total knee replacement with Dr. Camejo on 11/17/23 at [facility]. Pre-op EKG completed. Echo recently updated. Chest Pain/SOB: Denies [facility] Discussed: Not applicable [facility] is a way you can talk to your provider online through e-mail. Would you like to sign up? I can activate it for you? ALREADY ACTIVE Patient was instructed to not get up on the exam table until directed and assisted by their provider; patient is to remain seated in the chair/ wheelchair/ exam table for fall prevention and safety reasons. Patient is aware to have assistance to step down off exam table with personnel. Patient voiced full comprehension of instructions. documented in this encounter Plan of Treatment Upcoming Encounters Date Type Department Care Team (Late st Contact Info) Description 11/13/2023 3:20 PM EST Office Visit Family Practice [facility] [address] [place] [address] Faviola Sena MD [address] [facility] [address] [place] [address] 03/07/2024 1:30 PM EDT Office Visit Cardiology, [facility] [address] [place] [address] Antwan Avila PA-C [address] [place] [address] Health Maintenance Due Date Last Done Comments [...] as of this encounter Visit Diagnoses Diagnosis Coronary artery disease involving [place] coronary artery of [place] heart without angina pectoris- Primary HTN, goal below 140/90 Unspecified essential hypertension Nonrheumatic mitral valve regurgitation Dyslipidemia, goal LDL below 70 Other and unspecified hyperlipidemia Preoperative cardiovascular examination Pre-operative cardiovascular examination documented in this encounter Advance Directives Documents on File Type Date Recorded Patient Instructor Correspondence School Expl anation Advance Directives and Living Will 09/11/2017 ADVANCE DIRECTIVE / LIVING WILL Advance Directives and Living Will 01/10/2008 ADVANCE DIRECTIVE / LIVING WILL LIVING WILL Power of Black Top Machine Operator 01/10/2008 POWER OF A TTORNEY Care Teams Business Technology Architect Relationship Specialty Start Date End Date Samm Ward DO [address] [place] [address] PCP - General Family Medicine 04/23/20 documented as of this encounter"
--- NOTE | 2023-11-17 10:00 | XRay Report ---
XR knee RT 1 or 2V routine HISTORY: 88 years-old Female S/P R TKA right knee arthroplasty COMPARISON: 06/03/2021 TECHNIQUE: 2 views of the right knee FINDINGS: Total joint arthroplasty with midline skin adan. Expected operative soft tissue swelling with deep tissue air. No acute fracture, dislocation or opaque foreign body. IMPRESSION: Right knee arthroplasty with expected postoperative findings. ACT 112: Negative or not required by law. The above report was generated using voice recognition software. It may contain grammatical, syntax o r spelling errors. Electronically signed by: Tera Rodriguez M.D. 11/17/2023 9:59 AM
[2023-11-17] MEDS ORDERED: GLUCOSE 10 TAB/TUBE PO PRN (12:15)
[2023-11-17] MEDS ORDERED: GLUCAGON FOR INJ 1 MG VIAL IM PRN (12:15)
[2023-11-17] MEDS ORDERED: GLUCOSE 40% GEL 15 GM TUBE PO PRN (12:15)
[2023-11-17] MEDS ORDERED: CARBOHYDRATES FOR HYPOGLYCEMIA PO PRN (12:15)
[2023-11-17] MEDS ORDERED: DEXTROSE 50% 50 ML SYRINGE IV PRN (12:15)
--- NOTE | 2023-11-17 12:22 | Pharmacy Report ---
Pharmacy Glycemic Short Note 2 - Date of Service November 17, 2023 - Glycemic Short BSG Results (Last 24 hours): 11/17/23 11/17/23 05:38 09:22 POC Glucose 134 H 144 H OUTPATIENT ANTIDIABETIC REGIMEN: * Lantus 10 units SC daily HbA1c ordered for tomorrow 11/18/23 ASSESSMENT: * BY is an 88 year old female POD #0 s/p right total knee arthroplasty * Received 4 mg IV dexamethasone in OR * Preop BSG of 134 mg/dL, postop BSG of 144 mg/dL PLAN FOR INPATIENT GLYCEMIC CONTROL: * Basal insulin * Lantus 15 units SC x 1 * Bolus insulin * NovoLog per scale ACHS or Q6hrs while NPO * Goal Range: Low 110 mg/dL - High 140 mg/dL * Correction Factor: 25 mg/dL/unit * Nutritional / Prandial insulin per carb ratio of 1 unit per 9 grams CHO consumed
[2023-11-17] MEDS: INSULIN ASPART PER UNIT CHARGE SC SCH (12:26)
[2023-11-17] MEDS: KETOROLAC TROMETHAMINE 15 MG/ML VIAL IV SCH (12:27)
[2023-11-17] MEDS: SODIUM CHLORIDE 0.9% 1,000 ML IV SCH (12:28)
[2023-11-17] MEDS: SACCHAROMYCES BOULARDII 250 MG CAP PO SCH (12:30)
--- NOTE | 2023-11-17 12:37 | Anesthesiology Progress Note ---
Date of Service November 17, 2023 Anesthesia Post Procedure Vital Signs Vital Signs: Temp Pulse Pulse Resp BP BP Pulse Ox 11/17/23 11:47 36.7 C 75 18 142/84 H 96 11/17/23 11:05 59 L 16 132/85 95 11/17/23 10:35 69 15 134/69 98 11/17/23 10:20 69 14 134/66 98 11/17/23 10:05 68 15 138/61 98 11/17/23 09:55 37.1 C 68 18 142/90 H 98 11/17/23 09:45 84 22 147/72 H 99 11/17/23 09:35 74 22 138/60 95 11/17/23 09:25 76 21 129/60 95 11/17/23 09:15 70 19 126/63 95 11/17/23 09:08 36.6 C 81 24 110/57 L 97 11/17/23 05:45 36.6 C 67 18 168/89 H 96 O2 Del Method 11/17/23 11:47 Room Air 11/17/23 11:05 Room Air 11/17/23 10:35 Room Air 11/17/23 10:20 Room Air 11/17/23 10:05 Room Air 11/17/23 09:55 Room Air 11/17/23 09:45 Room Air 11/17/23 09:35 Room Air 11/17/23 09:25 Room Air 11/17/23 09:15 Room Air 11/17/23 09:08 Room Air 11/17/23 05:45 Room Air Transfer of Care Handoff Completed per policy Notes Mental Status: alert / awake / arousable and participated in evaluation Nausea / Vomiting: adequately controlled Pain: adequately controlled Airway Patency, RR, SpO2: stable & adequate BP & HR: stable & adequate Hydration State: stable & adequate Neuraxial Anesthesia: was administered and sensory block is resolving Anesthetic Complications: no major complications apparent and Pt Satisfied with anesthetic care
--- NOTE | 2023-11-17 14:08 | Orthopedic Progress Note ---
Date of Service November 17, 2023 Assessment & Plan Admission and Anticipated Discharge Date Admission Date: November 17, 2023 Orthopedic Progress Note Postop check she is doing well has no major issues denies chest pain shortness of breath fever chills nausea vomiting or headache. Vital signs are stable she is afebrile. Neurovascular check femoral sciatic nerve is normal. Can do ankle pumps can do toe flexion extension is good quad tone. Wound dressing clean dry and intact. Postop x-rays look excellent. Assessment doing well status post total knee replacement at this point she is eating and drinking well we will saline lock her IV fluid and try getting up out of bed to chair and up moving around with her knee immobilizer on. She only needs a knee immobilizer on when she is up and walking. Instructed to start all of her range of motion exercises in bed.
[2023-11-17] MEDS: PSYLLIUM or GUAR GUM FIBER POWDER PACKET PO SCH (15:59)
[2023-11-17] MEDS: ACETAMINOPHEN 500 MG TAB PO SCH (16:00)
[2023-11-17] MEDS: LANTUS PER UNIT CHARGE SC ONE (16:01)
[2023-11-17] MEDS: ATORVASTATIN 20 MG TAB PO SCH (21:00)
[2023-11-17] MEDS: SENNA 8.6 MG TAB PO SCH (21:01)
[2023-11-17] MEDS: CYANOCOBALAMIN (B-12) 500 MCG TABLET PO SCH (21:01)
[2023-11-17] MEDS: ASPIRIN 81 MG ECTAB PO SCH (21:02)
[2023-11-17] MEDS: DOCUSATE SODIUM 100 MG CAP PO SCH (21:02)
[2023-11-17] MEDS: METOPROLOL TARTRATE 25 MG TAB PO SCH (21:03)
[2023-11-17] MEDS: METHENAMINE HIPPURATE 1 GM TAB PO SCH (22:32)
--- OUTSIDE RECORDS SUMMARY | 2023-11-17 22:50 | External Medical Summary | Summary of Care ---
Author Name Unknown Organization [facility] Address [address] [place] [address] Phone [phone] Care Team Providers Care Marine Machinist Name Role Phone Samm Ward DO Primary Care Provider Reason for Visit * Reason Onset Date Comments Information 11/09/2023 Encounter Details Date Type Department Care Team (Late st Contact Info) Description 11/09/2023 Telephone Family Practice [facility] [place] [address] [place] [address] Samm Ward DO [address] [place] [address] Information (/) Allergies Active Allergy Reactions Criticality Noted Date Comments Doxepin 05/13/2021 Other reaction(s): unknown Raloxifene Hydrochloride 06/19/2008 Hot flashes, insomnia Lisinopril Cough 02/22/2015 Meloxicam Nausea/vomiting 10/02/2014 dizziness Penicillins 09/09/1999 Rash Tramadol Hcl Hives 12/16/2016 documented as of this encounter (statuses as of 11/17/2023) Medications Medication Sig Dispensed Refills Start Date End Date Status ASPIRIN 81 MG PO TABS Take by mouth at bedtime . 0 Active Probiotic Product ([employer]) CAPS Capsule Take by mouth 1 Capsule [...] the morning. 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 Preglaucoma documented as of this encounter (statuses as of 11/17/2023) Resolved Problems Problem Noted Date Diagnosed Date [...] as of this encounter (statuses as of 11/17/2023) Immunizations Name Administration Dates Next Due COVID-19 mRNA, LNP-s, No Pre serve, 2-Dose Series ([employer]) 08/12/2021,11/07/2020,10/17/2020 Pneumococcal Conjugate Vacc, 13 Valent (Prevnar) 06/21/2015 Pneumococcal Polysaccharide PPV23 (Pneumovax) 07/13/2001 Season Influenza, Quad, PF, Adjuvanted, 65+ Yrs, IM (FLUAD) 06/17/2021,06/20/2020 Seasonal Influenza Virus Vac cine, Unspecified Formulation 07/11/2020 Seasonal Influenza, PF, 6 M & above, IM , (FluLaval or Fluzone) 07/08/2018 Seasonal Influenza, Quadriva lent Hd (Fluzone Hd) 06/25/2022 Seasonal Influenza, Quadriva lent, No Preserve, IM 07/24/2016,06/21/2015 Seasonal Influenza, Split, I IV3, With Preserve, Inj 06/20/2014,05/31/2013,07/07/2012,06/14,07/02/2010,06/21/2009,07/07/20 07,08/04/2006,08/19/2000 06/21/2010 Seasonal Influenza, Trivalen t, Adjuvanted, 65+ yrs 06/20/2020,06/28/2019 Seasonal Influenza, Trivalen t, High Dose, No Preserve, IM 07/15/2017 TD - Tetanus/Diptheria (ADULT) 05/30/1997 TD, Preservative Free 03/23/2008 TDAP (age 10 and older)(Boostrix) 01/04/2019 Varicella Zoster Vaccine (Adult) 07/07/2007 Zoster Vaccine Recombinant (Shingrix) 12/21/2018 ,06/22/2018 documented as of this encounter Social History [...] encounter Miscellaneous Notes * Telephone Encounter - Aleyda Dominguez LPN - 11/17/2023 8:51 AM EST Pt had appt * Telephone Encounter - Letitia Lopez RN - 11/11/2023 11:29 AM EST Call cannot be completed at this time. * Telephone Encounter - Faviola eSna MD - 11/10/2023 4:15 PM EST Does she have a log she can send? Should be taking once fasting in the morning and 1-2 hours after breakfast, lunch, and dinner. We should repeat an A1c even though she just had one. I wouldn't recommend she undergo surgery withan A1c above 8 due to increased risk of complications. I'll put in an order for her, she can get itdone tomorrow. * Telephone Encounter - Trinity Rousseau LPN - 11/10/2023 2:08 PM EST Would you like patient to just continue monitoring blood sugars until her appt with you on 11/12? Sheis concerned about not being able to have surgery * Telephone Encounter - Amada De La Torre OSA - 11/10/2023 11:15 AM EST Pt calling regarding her request for a return call to discuss what she is to be doing regarding herDiabetics. She would like return call today from a R/N * Telephone Encounter - Alex Ryan III, MD - 11/09/2023 1:33 PM EST Has an appointment on November 12 should be able to deal with it then * Telephone Encounter - Danika Smith OSA - 11/09/2023 12:18 PM EST Yara was to see Dr Ward 11.10.23. I called her to reschedule and she is seeing Dr Sena on 11.13.23 for preop for rt knee surgery from Dr Camejo on 11.16. She is concerned with her diabetes that she won't be able to have her surgery. Could someone please call her to discuss this? Please advise. documented in this encounter Plan of Treatment Upcoming Encounters Date Type Department Care Team (Late st Contact Info) Description 2024 12:40 PM EDT [facility] [place] [address] [place] [address] Faviola Sena MD [address] [place] [address] 03/07/2024 1:30 PM EDT Office Visit Cardiology, [facility] [address] [place] [address] Antwan Avila PA-C [address] [place] [address] Health Maintenance Due Date Last Done Comments [...] Not on filedocumented as of this encounter Results * (ABNORMAL) HEMOGLOBIN A1C (11/12/2023 2:17 PM EST) Hemoglobin A1C 8.3(H) 4.0 - 5.6 % 11/13/2023 1:33 AM EST [facility] Comment:The use of HbA1c to monitor glycemic status is based on normal hemoglobin and HbA composition. This test should not be used in patients with abnormal hemoglobin that affects the half life of the red blood cell or the in vivo glycation rates. Estimated Average Glucose 192(H) <126 mg/dL 11/13/2023 1:33 AM EST [facility] Blood Venous blood specimen / Unknown Venipuncture / Unknown 11/12/2023 2:17 PM EST 11/12/2023 2:17 PM EST Faviola Sena MD LAB BLOOD ORDERABLES LAB[facility] [address] [place] [address] documented in this encounter Visit Diagnoses Diagnosis Type 2 diabetes mellitus with hyperglycemia, unspecified whether termite exterminator helper insulin use (HCC)- Primary documented in this encounter Advance Directives Documents on File Type Date Recorded Patient Finger Cobbler Expl anation Advance Directives and Living Will 09/11/2017 ADVANCE DIRECTIVE / LIVING WILL Advance Directives and Living Will 01/10/2008 ADVANCE DIRECTIVE / LIVING WILL LIVING WILL Power of Chemical Laboratory Tester 01/10/2008 POWER OF A TTORNEY Care Teams Marine Machinist Relationship Specialty Start Date End Date Samm [place] [address] [address] [place] [address] PCP - General Family Medicine 04/23/20 documented as of this encounter
[2023-11-18] MEDS: oxyCODONE HCL IR 5 MG TAB (IMMEDIATE RELEASE) PO PRN (02:25)
--- NOTE | 2023-11-18 06:56 | Orthopedic Progress Note ---
Date of Service November 18, 2023 Assessment & Plan Admission and Anticipated Discharge Date Admission Date: November 17, 2023 Orthopedic Progress Note Postop day #1. Try to get up to go the bathroom get up little quick and I will bit lightheaded with some intermittent nausea did not have any emesis. She denies chest pain shortness of breath fever chills. Denies headache. Vital signs are stable she is afebrile. Neurovascular check is intact. Can still do a straight leg raise. Is very timid about moving her knee as have encouraged her that she needs to do this otherwise will get very stiff. Wound dressing clean dry and intact. A.m. labs pending. Assessment some postural vasovagal reaction needs to be very careful about timing of medications. Of instructed her not to take until after PT. Will see how she does with PT this morning. Obviously if she continues to have issues like this will need to reassess placement.
[2023-11-18 07:00] LABS: Hematocrit (blood only) 28.8 % (37.0-47.0); Hemoglobin 9.9 g/dl (12.0-16.0); Mean Corpuscular Hemoglobin 27.3 pg (25.0-34.0); Mean Corpuscular Hgb Conc 34.4 g/dL (32.0-36.0); Mean Corpuscular Volume 79.6 fL (80.0-100.0); Mean Platelet Volume 10.3 fL (9.4-12.4); Platelet Count 238 K/uL (130-400); RDW Coefficient of Variation 13.4 % (11.5-14.5); RDW Standard Deviation 38.2 fL (36.4-46.3); Red Blood Count 3.62 M/uL (4.20-5.40); White Blood Count 11.78 K/ul (4.8-10.8)
[2023-11-18 07:23] LABS: Estimated Average Glucose 186 mg/dl; Hemoglobin A1C 8.1 % (4.5-5.6)
[2023-11-18 07:24] LABS: BUN Creatinine Ratio 21.8 (10-20); Calcium 8.3 mg/dl (8.6-10.3); Creatinine Clr Calc Pharmacy 62.5 ml/min; Est GFR (African American) 97.1 ml/min; Est GFR (Non-African American) 83.7 ml/min; Potassium 3.6 mmol/L (3.5-5.1)
[2023-11-18] MEDS: APIXABAN 2.5 MG TAB PO SCH (07:57)
[2023-11-18] MEDS: ASCORBIC ACID 500 MG TAB PO SCH (07:58)
[2023-11-18] MEDS: LOSARTAN POTASSIUM 25 MG TAB PO SCH (07:59)
[2023-11-18] MEDS: MULTIVITAMIN TAB PO SCH (07:59)
[2023-11-18] MEDS: PANTOprazole 40 MG TAB PO SCH (07:59)
[2023-11-18] MEDS: LANTUS PER UNIT CHARGE SC SCH (08:07)
--- NOTE | 2023-11-18 08:20 | Pharmacy Report ---
Pharmacy Glycemic Short Note 2 - Date of Service November 18, 2023 - Glycemic Short BSG Results (Last 24 hours): 11/17/23 11/17/23 11/17/23 09:22 17:19 20:40 Glucose POC Glucose 144 H 184 H 118 H 11/18/23 11/18/23 06:11 07:45 Glucose 104 H POC Glucose 143 H OUTPATIENT ANTIDIABETIC REGIMEN: * Lantus 10 units SC daily HbA1c: 8.1% (11/18/23) ASSESSMENT: 11/18/23: * Patient received 5 units of bolus insulin yesterday, BSGs ranging 118-184 mg/dL w/ fasting BSG of 143 mg/dL this morning * Basal dose ordered postoperatively, but not given. This would explain elevated fasting BSG this morning. * No ongoing steroids ordered, will loosen Novolog parameters today now that steroids are discontinued. 11/17/23: * BY is an 88 year old female POD #0 s/p right total knee arthroplasty * Received 4 mg IV dexamethasone in OR * Preop BSG of 134 mg/dL, postop BSG of 144 mg/dL PLAN FOR INPATIENT GLYCEMIC CONTROL: * Basal insulin * Lantus 7 units SC daily (~0.1 unit/kg) * Bolus insulin * NovoLog per scale ACHS or Q6hrs while NPO * Goal Range: Low 110 mg/dL - High 140 mg/dL * Correction Factor: 35 mg/dL/unit * Nutritional / Prandial insulin per carb ratio of 1 unit per 11 grams CHO consumed
[2023-11-18] MEDS ORDERED: NON-FORMULARY MEDICATION (Insulin Glargine [Lantus Solostar U-100 Insulin] 100 unit/mL (3 SQ SCH (09:00)
--- NOTE | 2023-11-18 17:40 | Orthopedic Progress Note ---
Date of Service November 18, 2023 Assessment & Plan Admission and Anticipated Discharge Date Admission Date: November 17, 2023 Orthopedic Progress Note Had a much better afternoon. She was able to get up and move around. She still gets fatigued. She denies chest pain shortness of breath fever chills nausea vomiting or headache. She will get out of the bathroom now. Exam reveals dorsi and plantar flexion of her toes and ankle can do a straight leg raise. Get her knee to bend to about 80 degrees. Wound dressing clean dry and intact. Assessment overall improving I will need placement apparently waiting for a bed at [facility]. Hopefully this will be arranged tomorrow. Transportation being arranged by her son.
--- NOTE | 2023-11-18 18:47 | Orthopedic Progress Note ---
Date of Service November 18, 2023 Assessment & Plan Admission and Anticipated Discharge Date Admission Date: November 17, 2023 Orthopedic Progress Note eliminate this note see the noted that was dictated at 1731.....the system kicked off and generated this request !
[2023-11-18] MEDS: ALUMINUM/MAGNESIUM SUSP 30 ML UDC PO PRN (21:15)
[2023-11-18] MEDS: CELECOXIB 100 MG CAP PO SCH (21:28)
--- OUTSIDE RECORDS SUMMARY | 2023-11-18 21:32 | External Medical Summary | Summary of Care ---
Author Name Unknown Organization [facility] Address [address] [place] [address] Phone [phone] Care Team Providers Care Aerial Installer Name Role Phone Samm Ward DO Primary Care Provider [phone] Reason for Visit * Reason Onset Date Comments Advice 11/10/2023 Encounter Details Date Type Department Care Team (Late st Contact Info) Description 11/10/2023 Telephone Family Practice [facility] [place] [address] [facility] [place] [address] Samm Ward DO [address] [place] [address] Advice Allergies Active Allergy Reactions Criticality Noted Date [...] at bedtime . 0 Active Probiotic Product ([employer]) CAPS Capsule Take by mouth 1 Capsule [...] the morning. 15 mL 3 4 Active [employer] Verio w/Device Kit Check blood sugar twice [...] Generalized osteoarthritis 05/31/2013 CAD (coronary artery disease), [place] coronary a rtery 04/20/2012 HTN, goal below [...] protocol #1 FAM HX-BLOOD DISORD NEC aleks [place] 11/05/2010 01/26/2017 Dyslipidemia, goal to be determined [...] mRNA, LNP-s, No Pre serve, 2-Dose Series ([employer]) 08/12/2021,11/07/2020,10/17/2020 Pneumococcal Conjugate Vacc, 13 Valent (Prevnar) [...] Telephone Encounter - Angelina Dowell LPN - 11/17/2023 4:19 PM EST This was addressed in a separate message. * Telephone Encounter - Lissette Poe OSA - 11/12/2023 10:51 AM EST Patient calling in to check on the status of previous message. Patient Called within 48 hour timeframe. Reminded patient of 48 hour turn-around time. * Telephone Encounter - Dana Boggs OSA - 11/10/2023 1:59 PM EST Radha with [facility] looking to speak with nurse in Dr. Ward's office regardingpatient's pre op clearance Please reach Radha at [phone] documented in this encounter Plan of Treatment Upcoming Encounters Date Type Department Care Team (Late st Contact Info) Description 2024 12:40 PM EDT Office Visit Family Practice [facility] [address] [facility] [place] [address] Faviola Sena MD [address] [facility] [place] [address] 03/07/2024 1:30 PM EDT Office Visit Cardiology, [facility] [address] [place] [address] Antwan Avila PA-C [address] [place] [address] Health Maintenance Due Date Last Done Comments [...] Documents on File Type Date Recorded Patient Telecommunication Engineer Expl anation Advance Directives and Living Will 09/11/2017 ADVANCE DIRECTIVE / LIVING WILL Advance Directives and Living Will 01/10/2008 ADVANCE DIRECTIVE / LIVING WILL LIVING WILL Power of Semiconductor Assembler 01/10/2008 POWER OF A TTORNEY Care Teams Aerial Installer Relationship Specialty Start Date End Date Samm Ward DO [address] [place] [address] PCP - General Family Medicine 04/23/20 documented as of this encounter
[2023-11-19] MEDS: HYDROmorphone HCL 2 MG TAB PO PRN (00:37)
[2023-11-19] MEDS: ONDANSETRON INJ 2 MG/ML 2 ML VIAL IV PRN (00:37)
--- NOTE | 2023-11-19 06:36 | Orthopedic Progress Note ---
Date of Service November 19, 2023 Assessment & Plan Admission and Anticipated Discharge Date Admission Date: November 17, 2023 Orthopedic Progress Note Postop day #2 status post right total knee replacement. Patient doing much better. She denies any chest pain shortness of breath fever chills nausea vomiting or headache. Vital signs are stable. Tmax is 37.4 . Encouraged use spirometer. She has increased pain as would be expected based on the fact that the blocks of all worn out but she can still do a straight leg raise. Neurovascular check femoral sciatic nerve is normal. Wound dressing clean dry and intact. Assessment overall doing well with her vital signs are stable her blood pressure is better. She still would benefit from facility based rehab as Occupational Therapy has noted. At this point I am waiting for finalization of transfer plan via case management. She is stable for discharge. Follow-up in 2 weeks.
== END 2023-11-19 12:40 ==
LOC: 3E 05:14 → ASU 05:14

== ENCOUNTER 2024-07-07 05:39 | Observation (INO) ==
--- NOTE | 2024-05-23 12:27 | Communication Note ---
Date of Service: May 23, 2024 - I received a call that patient did not feel well and will need a COVID test. I spoke with patient who states that for the past several days she has had a cough often bringing up sputum-green or clear, chills, nausea, nasal congestion and runny nose. She denies shortness of breath, chest discomfort, fever, rash or change in chronic myalgias. I advised that she will need a COVID test and if negative and symptoms are significantly improved by tomorrow from anesthesia standpoint there is consideration surgery could proceed. She stated that she would like to postpone surgery at this time as feels it is not a good time to undergo the procedure. I advised I will notify the surgeon's office and she can call their office when she feels ready to re-schedule. I recommended she contact her PCP office. She verbalized understanding and plans to do so, denies questions or concerns. If re-scheduled within 11 days of last experiencing symptoms will need COVID test in the future. Isauro Hernandez and Deedee with surgeon's office made aware.
--- NOTE | 2024-06-06 10:37 | Anesthesiology Consultation ---
Date of Service June 06, 2024 Assessment & Plan Chart Review Chart Review: Acceptable Risk for Surgery and Patient NOT seen in Pre Admission Testing History Surgery Operation Date: 07/06/24 09:50 Proposed Procedures p Left Total Knee Arthroplasty - Hernando Camejo MD Height/Weight Height: 5 ft 1 in Weight: 66.678 kg Allergies Allergy/AdvReac Type Severity Reaction Status Date / Time Penicillins Allergy Intermediate Rash Verified 05/12/24 11:39 tramadol [From Ultram] Allergy Intermediate Hives Verified 05/12/24 11:39 doxepin Allergy Unknown Unknown Verified 05/12/24 11:39 lisinopril AdvReac Intermediate Cough Verified 05/12/24 11:39 meloxicam AdvReac Intermediate Dizziness Verified 05/12/24 11:39 raloxifene AdvReac Intermediate Hot Verified 05/12/24 11:39 flashes, insomnia Medications Home Medications Medication Instructions Recorded Confirmed Last Taken Lactobacills gasseri-Bifidobac 1 cap PO Q OTHER DAY 04/27/21 05/12/24 11/15/23 09:00 bifidum,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 ([employer]) aspirin 81 mg tablet,delayed 81 mg PO QPM 04/27/21 05/12/24 11/16/23 21:00 release atorvastatin 20 mg tablet 20 mg PO QPM 04/27/21 05/12/24 11/16/23 21:00 losartan 25 mg tablet 25 mg PO QAM 04/27/21 05/12/24 11/16/23 09:00 metoprolol tartrate 25 mg tablet 25 mg PO BID 04/27/21 05/12/24 11/17/23 04:30 multivitamin 1 tab PO Q2D 04/27/21 05/12/24 11/16/23 09:00 omeprazole 40 mg capsule,delayed 40 mg PO QAM 04/27/21 05/12/24 11/17/23 04:30 release acetaminophen 500 mg tablet 500 mg PO Q6H PRN Pain 10/15/22 05/12/24 Unknown (Tylenol Extra Strength) ascorbic acid (vitamin C) 1,000 mg 1 g PO QAM 10/15/22 05/12/24 11/16/23 09:00 tablet (Vitamin C) cyanocobalamin (vitamin B-12) 1,000 mcg PO QPM 10/15/22 05/12/24 11/16/23 21:00 1,000 mcg tablet (Vitamin B-12) psyllium husk 3.4 gram/5.4 gram 1 tsp PO Q OTHER DAY 10/15/22 05/12/24 11/16/23 09:00 oral powder (Metamucil) methenamine hippurate 1 gram tablet 1 g PO HS 10/21/23 05/12/24 11/16/23 21:00 semaglutide 0.25 mg or 0.5 mg (2 0.25 mg subcut WK pre-diabetes 03/30/24 05/12/24 05/09/24 mg/3 mL) subcutaneous pen injector ([employer]) vbo-jwl-[id number] acid 1,000 1 ea PO DAILY PRN Cold Symptoms 05/12/24 05/12/24 Unknown mg-herbal 350 mg oral efferves powder pack zinc acetate 50 mg (zinc) capsule 50 mg PO DAILY PRN cold symptoms 05/12/24 05/12/24 Unknown Past Medical History Medical History Diabetes Back problem History of recurrent UTI (urinary tract infection) No current issues History of colon polyps Osteoarthritis Diverticulosis Hiatal hernia Schatzki's ring s/p dilation Hx of basal cell carcinoma Migraine with aura hx - no recent issues Preglaucoma HIPOLITO on CPAP Unable to tolerate CPAP HTN (hypertension) GERD (gastroesophageal reflux disease) CAD (coronary artery disease) 2008 cath- "mild to moderate" History of Clostridium difficile colitis Remote hx, no recent problems Hyperlipidemia Past Family History Family History Mother , 95 Coronary heart disease Dementia Father , 70 Coronary heart disease Aunt Family history of diabetes mellitus Past Surgical History Surgical History History of total knee arthroplasty Right History of hand surgery Right hand History of carpal tunnel release Right open CTR (09/29/23): MAC at [facility] History of ERCP History of colonoscopy History of esophagogastroduodenoscopy (EGD) History of cardiac cath 2008- no stents History of right hip replacement 2017 S/P SANTO-BSO S/P appendectomy H/O breast biopsy "benign" Social History Smoking Status: Never smoker Do You Dip or Chew Tobacco: No Hx Alcohol Use: No Hx Substance Use: No substance use type: does not use
[2024-07-07] MEDS: LR 60ML/HR IV SCH ×2 (06:24→11:13)
[2024-07-07] MEDS ORDERED: ROPIVACAINE 0.5% 5 MG/ML 30 ML VIAL ONE (06:25)
[2024-07-07] MEDS: LR 500ML BOLUS, THEN 15ML/HR IV SCH ×2 (06:33→11:13)
--- NOTE | 2024-07-07 06:33 | History & Physical Bridge Note ---
Date of Service July 07, 2024 History & Physical Bridge Note I have examined the patient, reviewed the History & Physical and in the interval since the performance of the History & Physical I have noted the following changes of clinical significance: consent and site verified.no changes noted
[2024-07-07] MEDS ORDERED: ATROPINE SULFATE 0.1 MG/ML 10ML SYR IV PRN (07:00)
[2024-07-07] MEDS ORDERED: ePHEDrine sulfate 50 MG/ML AMP IV PRN (07:00)
[2024-07-07] MEDS ORDERED: HYDROmorphone INJ 1 MG/ML SYRINGE IV PRN (07:00)
[2024-07-07] MEDS ORDERED: ONDANSETRON INJ 2 MG/ML 2 ML VIAL IV PRN (07:00)
[2024-07-07] MEDS ORDERED: fentaNYL citrate PF 100 MCG/2 ML VIAL IV PRN (07:00)
[2024-07-07] MEDS: TRANEXAMIC ACID 1,000 MG **IV Pre-op IV SCH ×2 (07:47→11:14)
[2024-07-07] MEDS: ceFAZolin 2000MG 2,000 MG/15 ML SYR IV SCH ×3 (08:04→16:01)
[2024-07-07] MEDS ORDERED: LIDOCAINE 2% 2 ML VIAL/AMP(20MG/ML) INFIL ONE (08:12)
[2024-07-07] MEDS ORDERED: PROPOFOL IV EMULSION 10 MG/ML 20 ML VIAL IV ONE (08:12)
[2024-07-07] MEDS: ORTHO JOINT ANESTHETIC ONE (08:40)
[2024-07-07] MEDS: TRANEXAMIC ACID 1,000 MG **IV Intra-op IV SCH ×2 (09:07→11:14)
[2024-07-07] MEDS: ROPIV 0.5% 246mg, Ketorolac 30mg, EPINEPHrine 0.5mg in NSS INFIL SCH ×2 (09:11→11:14)
--- NOTE | 2024-07-07 09:36 | Post Operative Brief Note ---
Immediate Post Op Note Date of Surgery July 07, 2024 Pre & Post Diagnosis Operation Date: 07/07/24 08:00 <No data on this case meets the specified criteria> Osteoarthritis left knee with a valgus flexion deformity pre and postop diagnosis I identified the patient and participated in the time-out.: Yes Procedure Operation Date: 07/07/24 08:00 <No data on this case meets the specified criteria> Cemented left total knee replacement Surgeon Hernando Camejo MD [facility] or fellow available Estimated Blood Loss 25 Findings Consistent with Post-Op Diagnosis Severe tricompartmental osteoarthritis particularly patellofemoral joint and lateral compartment significant flexion contracture Fluids See anesthesia report Complications None
--- NOTE | 2024-07-07 09:39 | Operative Report ---
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 pre and postop diagnosis same I identified the patient and participated in the time-out.: Yes Procedure Operation Date: 07/07/24 08:00 <No data on this case meets the specified criteria> Cemented left total knee replacement Surgeon Hernando Camejo MD [employer] Sonja no resident or fellow available Estimated Blood Loss 25 Findings Consistent with Post-Op Diagnosis Significant tricompartmental disease particular patellofemoral joint lateral compartment significant flexion contracture Fluids See anesthesia report Specimens Bone pathology Drains None Complications None Indications Severe pain marked immobility failed conservative management over years Description of Procedure After the patient was appropriate notified site verified consent verified antibiotics confirmed to be given the left lower extremity was prepped and draped use routine fashion. The tourniquet was inflated to 275 mmHg after exsanguination of the limb with a rubber Esmarch bandage for total of 50 minutes. Midline exposure was utilized parapatellar arthrotomy performed. There was marked osteophytes these were resected. Distal femur was then entered. Cruciates resected tibia subluxated menisci resected. Distal femur was cut 12 mm proximal tibia 4 mm the extension gap was excellent. The tibia was sized to a size 3 and a femur to a 4. Cutting block was then applied to the femur distally and the anterior posterior condylar and chamfer cuts made after ensuring that there was no notching with the ramiro wing. Extension and flexion gaps were then excellent. Box cut was then made a size 4 fit well and lug holes were made. Tibia was then broached and reamed for size 3 and 5 spacer fit well extension was excellent flexion was excellent tracking of the patella was excellent. The patella was then resected leaving about 14 mm and a 32 button was seated after drill holes were made. Everything tracked well. Ortho mix was then injected all about the knee the trial elements were removed posterior capsule injected knee was irrigated and soaked in Betadine for 3 minutes then Pulsavac then the permanent cemented in position tibia femur patella in order at 12 minutes the tourniquet was deflated minor bleeding controlled electrocautery the wound was then closed using #2 Vicryl 2-0 Vicryl and standstill clips. Appropriate dressing was then applied and the patient transferred recovery in satisfactory descending tolerated the procedure well. Family was contacted notified under her surgery went well and that she is so far doing well. Summary of implants size 4 left femur narrow size 4 insert 5 mm thick posterior cruciate substituting rotating platform size 3 tibia size 32 patella ATT UNE DePuy [employer]ynthes total knee replacement 2 bags of Palacos G cement. EBL was 25 cc or less crystalloid per anesthesia bone pathology pending DVT prophylaxis per protocol. Family contacted. I attest to the content of the Intraoperative Record and any orders documented therein. Any exceptions are noted below.
--- NOTE | 2024-07-07 09:40 | Orthopedic Progress Note ---
Date of Service July 07, 2024 Orthopedic Progress Note Underwent left total knee replacement. Patient tolerated well. Denies chest pain shortness of breath fever chills nausea vomiting or headache. Vital signs are stable she is afebrile. Neurovascular check limited by spinal wound dressing clean dry and intact EBL was 25 cc or less. Crystalloid per anesthesia. Family contacted. X-rays pending. Continue care pathway for total knee replacement. Start DVT PE prophylaxis tomorrow.
--- NOTE | 2024-07-07 09:42 | Discharge Summary ---
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 Discharge Data Allergies Allergy/AdvReac Type Severity Reaction Status Date / Time Penicillins Allergy Intermediate Rash Verified 07/07/24 06:03 tramadol [From Ultram] Allergy Intermediate Hives Verified 07/07/24 06:03 doxepin Allergy Unknown Unknown Verified 07/07/24 06:03 lisinopril AdvReac Intermediate Cough Verified 07/07/24 06:03 meloxicam AdvReac Intermediate Dizziness Verified 07/07/24 06:03 raloxifene AdvReac Intermediate Hot Verified 07/07/24 06:03 flashes, insomnia Vaccinations None Consultations None Procedures Performed Operation Date: 07/07/24 08:00 <No data on this case meets the specified criteria> Cemented left total knee replacement Ordered Studies 07/07/24 05:00 US - OR guided needle placemen Routine Hospital Course (1) Status post left knee replacement: Plan Continue care management plan discharge tomorrow if does well overnight.Wants to be discharged to a rehab type or SNF facility. Total Time Total Time Spent Total Time Spent (In Minutes): 5 minutes Discharge Plan Discharge Items Patient Disposition: Transfer Alf Fac Reason For Visit: Left Knee Degenerative Joint Disease Discharge Diagnosis: Status post left total knee replacement Condition on Discharge: Good Activity: Per Instructions section Lifting: Wait until after follow-up appointment Bathing: Keep incision dry Exercise/Sports: Wait until after follow-up appointment Driving/Machine Use: No driving until cleared by Dr. Camejo Weightbearing: Full weightbearing Non-emergency contact: Surgeon Call non-emergency contact if: you have any medication questions, your pain is not controlled, your temperature is above 101, your wound has increased redness, your wound has increased drainage and your wound pain has increased Follow-up/Referrals: Samm Ward, [Primary Care Provider] - Diet: Heart Healthy Addtl Attending Provider Instructions: New Medicine: * You will likely be taking one or more of these medications: 1. Percocet - Take, as directed, when you need it, every four to six hours to control your pain. 2. Iron Sulfate - Take 1x each day for the month after surgery to help you replace the blood lost during surgery. 3. Eliquis - Thins your blood to lessen the chance of forming a blood clot. * The most common side effects of pain medicine and iron are nausea and constipation. If nausea or constipation is too much of a problem or if you have any questions about your new medicines or doses, call [facility] at . We will try to help you manage these issues. "VERY IMPORTANT TO READ AND REVIEW" Blood Clots and Blood Thinning Medicine: * You are given Eliquis during the immediate post-operative period to lessen the risk of blood clots forming in your legs and/or lungs. It is usually given for 4 weeks after surgery. Pain: * The immediate post-operative period after knee replacement surgery is often quite painful. * You are given a prescription for pain medicine. You should take it, as directed, when you need it, especially before physical therapy and before going to bed. Pain that interferes with sleep is very common and can last several months. * You will likely need pain medicine for the first four to six weeks. It will not stop all of the pain. The pain will lessen and as you feel better, you may change to milder pain medicine such as Tylenol. * The most common side effects of pain medicine are nausea and constipation, so don't take more than you need. Physical Therapy: * You will have physical therapy two or three times each week for four to six weeks after your surgery in order to regain your knee range of motion and to retrain your knee to work properly. * It is just as important to make sure you are getting your knee perfectly straight as it is to regain your knee bend. * Taking a pain pill an hour before therapy can help you have a more productive and comfortable therapy session if needed. Home Exercise: * You were shown a series of exercises (heel props, heel slides, etc.) in the hospital. Do these exercises three to four times each day including the exercises you were shown in physical therapy. Walking: * Get up and walk several times each day. For the first four weeks, try not to stand or walk for more than one hour at a time. If you do stand or walk for more than one hour, you will not hurt anything, but your knee and leg will likely swell. * As you feel comfortable, you may change from the walker or crutches to a cane and then to independent walking. SELF CARE INSTRUCTIONS AFTER TOTAL KNEE REPLACEMENT A. You may need to continue a physical therapy program after discharge from the hospital. There are several options available to you. Your doctor will assist you in selecting the best one for you. 1. An out-patient facility 2 to 3 times a week for therapy or home therapy. 2. Continue working on all exercises taught to you in the hospital. Your goals should be to increase bending of your knee to 90 degrees and beyond and to fully straighten your knee. B. You may progress at your own pace from walking with a walker or crutches to a cane; then to no assistive devices. C. Make walking a part of your daily routine. Be up as much as comfortable with rest periods throughout the day. Rest with leg elevation is very important. Use the ice wrap frequently for the first 3-4 weeks. D. There are no restrictions on activities. You may ride in a car, shop, participate in clerical aide and all social activities. E. Wear the long elastic stockings (OLYA hose) 20 hours a day for six weeks afte r surgery. They can be removed several times a day for laundering and for a shower. F. Do not place a pillow behind your knee when resting. A pillow at your ankle is okay. G. You may return to previous diet. VERY IMPORTANT TO READ AND REVIEW A. Take Eliquis (blood thinning medication) as directed by your doctor. B. There are a few signs you need to watch for after you are home. Call [facility] if you notice any of the followin. Increased severe knee pain. Some pain is expected especially when you exercise. 2. Increased swelling in your leg or knee; pain or swelling of the calf muscle in either lower leg. 3. Any fluid drainage from the incision. 4. Shortness of breath or chest pain. C. Please call [facility] at if you have any conc erns or questions about your operation or recovery. The doctor or his nurse will return your call promptly. D. You must take antibiotics before dental work, bladder, bowel or other surgery. Call the office to obtain a prescription at least 2 days prior to your appointment. * CALL IF INCREASED PAIN, REDNESS, DRAINAGE OR FEVER GREATER THAT 101. * Sutures should be removed 12-14 days after surgery unless you are on chronic steroids, then it will be 14-18 days after surgery. Call your doctor if: * Temperature above 101 degrees F. * Pain not relieved by pain medicine ordered. * Increased drainage or redness from incision. * Notify your doctor with any questions or concerns. MEDICATIONS: * Please take your prescriptions as instructed at your pre-op appointment and/or see medication discharge instructions listed above. * If concerns develop, call your physician's office at . SPECIAL CARE INSTRUCTIONS: * Ice/Elevate as instructed. * Keep dressing clean, dry, intact. * Your surgical extremity may be discolored due to prepping agents used on the skin. A bluish-green tint is a normal variant and should not cause alarm. Call your doctor at [phone] if: * Temperature above 101 degrees * Pain not relieved by pain medicine ordered * There is increased drainage or redness from any incision * You have any unanswered questions, problems or concerns. FOLLOW UP VISIT: * If not already scheduled, please call the office at to schedule a follow-up appointment. MEDICATIONS: * Please take your prescriptions as instructed at your pre-op appointment and/or see medication discharge instructions listed above. * If concerns develop, call your physician's office at . SPECIAL CARE INSTRUCTIONS: * Ice/Elevate as instructed. * Keep dressing clean, dry, intact. * Your surgical extremity may be discolored due to prepping agents used on the skin. A bluish-green tint is a normal variant and should not cause alarm. Call your doctor at [phone] if: * Temperature above 101 degrees * Pain not relieved by pain medicine ordered * There is increased drainage or redness from any incision * You have any unanswered questions, problems or concerns. FOLLOW UP VISIT: * If not already scheduled, please call the office at to schedule a follow-up appointment. Use the knee immobilizer when out of bed on Thursday and Thursday. It can be discontinued entirely on Thursday morning. Ice and elevate the knee frequently to reduce pain and swelling Use your walker for ambulation Follow-up in the office in 2 weeks as scheduled for staple removal Pending Studies at Discharge: Yes Studies:: bone pathology Stand-Alone Forms: My [facility] Skilled Items Patient informed of condition?: Yes DNR: No Discharge Level of Care: Skilled Communicable Disease: No Discharge Prognosis: Stable Lines: None Urinary Catheter: No Medications and DC Order Prescriptions: No Action nitrofurantoin monohyd/m-cryst [Macrobid] 100 mg capsule 100 mg PO Q12H 7 Days Qty: 14 0RF Rx Instructions: must administer with a meal/food multivitamin Tablet 1 tab PO Q2D atorvastatin 20 mg tablet 20 mg PO QPM omeprazole 40 mg capsule,delayed release(DR/EC) 40 mg PO QAM aspirin 81 mg Tablet,Delayed Release (Dr/Ec) 81 mg PO QPM losartan 25 mg tablet 25 mg PO QAM metoprolol tartrate 25 mg tablet 25 mg PO BID [employer] 1.5 billion cell Capsule 1 cap PO Q OTHER DAY ascorbic acid (vitamin C) [Vitamin C] 1,000 mg Tablet 1 g PO QAM cyanocobalamin (vitamin B-12) [Vitamin B-12] 1,000 mcg Tablet 1,000 mcg PO QPM acetaminophen [Tylenol Extra Strength] 500 mg Tablet 500 mg PO Q6H PRN (Reason: Pain) Metamucil 3.4 gram/5.4 gram Powder 1 tsp PO Q OTHER DAY Rx Instructions: mix into at least 4 oz water or juice before administering methenamine hippurate [Hiprex] 1 gram tablet 1 g PO HS zinc acetate 50 mg (zinc) Capsule 50 mg PO DAILY PRN (Reason: cold symptoms) Airborne (ascorbic acid) 1,000-350 mg Powder Effervescent In Packet 1 ea PO DAILY PRN (Reason: Cold Symptoms) Discharge Orders: Discharge Order (Routine); Ordered 07/08/24 Ordered By: Hernando Camejo Admission Data Admit Date/Time: 07/07/24 09:53 Attending Provider: Hernando Camejo Admit Provider: Hernando Camejo Primary Care Provider: Samm Ward Other Providers: [facility]; Benny Mendes [facility]
--- NOTE | 2024-07-07 09:45 | Operative Report ---
Post Operative Report Pre & Post Diagnosis Operation Date: 07/07/24 08:00 Pre-Op Diagnosis: Left Knee Degenerative Joint Disease Post-Op Diagnosis: Left Knee Degenerative Joint Disease I identified the patient and participated in the time-out.: Yes Procedure Operation Date: 07/07/24 08:00 Actual Procedures p Left Total Knee Arthroplasty(Left) - Hernando Camejo MD Surgeon LAURIE Camejo MD [employer] Consultant Sonja PETERS no resident or fellow available Estimated Blood Loss 25 Findings Consistent with Post-Op Diagnosis see operative report Specimens see operative report Drains none Complications none Disposition Accompanied Patient To Recovery: Yes Indications This 89 year old female presented to the office with complaints of persisting left knee pain. She had tried conservative care measures without improvement. She elected to proceed with surgical intervention after being educated about potential risks and outcomes. Preoperative imaging was obtained. She has a history of previous right total knee arthroplasty and has done well with it. She elects to proceed with the same on the left. Description of Procedure The patient was administered a spinal anesthetic and then taken to the operating room where she was given sedation. She was prepped and draped in the usual sterile fashion. Please see Dr. Camejo's operative report for specifics of the procedure. I was present for the entire case from initial patient positioning through final wound closure. Assistance was provided in tissue retraction, hemostasis, trial implant placement, final implant placement, and final wound closure. The patient was taken to the recovery room in satisfactory condition. I attest to the content of the Intraoperative Record and any orders documented therein. Any exceptions are noted below.
--- NOTE | 2024-07-07 10:35 | Anesthesiology Progress Note ---
Date of Service July 07, 2024 Anesthesia Post Procedure Vital Signs Vital Signs: Temp Pulse Resp BP Pulse Ox O2 Del Method O2 Flow Rate 07/07/24 10:30 59 L 18 120/69 96 Room Air 07/07/24 10:20 60 16 141/68 H 95 Room Air 07/07/24 10:10 36.4 C L 61 14 131/66 95 Room Air 07/07/24 10:00 65 17 132/108 H 96 Room Air 0 07/07/24 09:50 60 17 120/70 100 Oxymask 6 07/07/24 09:41 36.5 C 61 21 108/58 L 97 Oxymask 6 07/07/24 06:09 36.6 C 71 20 176/101 H 96 Room Air Transfer of Care Handoff Completed per policy Notes Mental Status: alert / awake / arousable and participated in evaluation Patient Amnestic to Procedure: Yes Nausea / Vomiting: adequately controlled Pain: adequately controlled Airway Patency, RR, SpO2: stable & adequate BP & HR: stable & adequate Hydration State: stable & adequate Anesthetic Complications: no major complications apparent and Pt Satisfied with anesthetic care
[2024-07-07] MEDS ORDERED: VANCOMYCIN CONSULT ACTIVE PRN (11:11)
[2024-07-07] MEDS ORDERED: bisacodyL 10 MG SUPP PR PRN (11:11)
[2024-07-07] MEDS ORDERED: NALOXONE HCL 0.4 MG/1 ML VIAL/CARP IV PRN (11:11)
[2024-07-07] MEDS ORDERED: HYDROmorphone INJ 0.5 MG/0.5 ML SYR IV PRN (11:11)
[2024-07-07] MEDS ORDERED: METOCLOPRAMIDE HCL INJ 5 MG/ML 2 ML VIAL IV PRN (11:11)
[2024-07-07] MEDS ORDERED: diphenhydrAMINE 50 MG/ML VIAL IV PRN (11:11)
[2024-07-07] MEDS ORDERED: MAGNESIUM HYDROXIDE SUSP 30 ML UDC PO PRN (11:11)
[2024-07-07 11:31] VITALS: RESP 16
--- OUTSIDE RECORDS SUMMARY | 2024-07-07 11:51 | External Medical Summary ---
Author Name Unknown Address Unknown Organization [id number]:[facility] [place] [address] [facility] [id number] Laboratory Report Ordering Provider Test Date Status TORRIE CADE 06/30/2024 16:30:34 Final Observation Date Value Abnormality Reference (Units) Status Bacteria identified in Specimen by Culture 06/30/2024 16:30:34 No significant growth Final Test: Culture, Urine, Quanti tative
Specimen Source: Urine, Clean Catch
Specimen Type: Urine
Specimen Date: 06/30/2024 1630
Result Date: 07/01/2024 1759
Result Status: Final result
Resulting Lab: [facility] [place]
[address]
[place] [id number]

CULTURE

No significant growth

null Performing Location [facility] [place] [address] [facility] [address]
--- OUTSIDE RECORDS SUMMARY | 2024-07-07 11:51 | External Medical Summary | Summary of Care ---
Author Name Unknown Organization [facility] Address [address] [place] [address] Phone [phone] Care Team Providers Care Decorating Machine Operator Name Role Phone Samm Ward DO Primary Care Provider Reason for Visit * Reason Onset Date Comments Advice 06/21/2024 Encounter Details Date Type Department Care Team (Late st Contact Info) Description 06/21/2024 Telephone Family Practice [facility] [place] [address] [place] [address] Samm Ward DO [address] [facility] [address] Advice Allergies Active Allergy Reactions Criticality Noted Date Comments Doxepin 05/13/2021 Other reaction(s): unknown Raloxifene Hydrochloride 06/19/2008 Hot flashes, insomnia Lisinopril Cough 02/22/2015 Meloxicam Nausea/vomiting 10/02/2014 dizziness Penicillins 09/09/1999 Rash Tramadol Hcl Hives 12/16/2016 documented as of this encounter (statuses as of 06/21/2024) Medications Medication Sig Dispensed Refills Start Date End Date Status ASPIRIN 81 MG PO TABS Take by mouth at bedtime . Active Probiotic Product ([facility]) CAPS Capsule Take by mouth 1 Capsule daily . Active Acetaminophen 500 MG Oral Tablet Take 1 Tablet by mouth every 6 hours as needed for Pain. Active Cyanocobalamin 1000 MCG Oral Tablet (Cyanocobalamin)Indicatio ns:B12 deficiency Take by mouth 1 Tablet in the morning. 90 Tablet 1 2 Active Additional Information Patient taking differently: 500 mcgOral Daily(AM), Informant: Wallet Card/List, Reported on 10/05/2023 Metamucil 28.3 % Oral Powder (Psyllium) Take by mouth daily . Active Methenamine Hippurate 1 GM Oral Tablet Take by mouth 2 times a day . Active Multivitamins Oral Capsule Take 1 Capsule by mouth every other day. Active Azithromycin 500 MG Oral Tablet (Zithromax) Take 1 Tablet by mouth once. 1 hr prior to dentist appointment 3 Active Classic DriveToSiVerion Verio w/Device Kit Check blood sugar twice daily E11.9 1 Kit 4 Active Classic DriveTouch Verio In Vitro Strip (Glucose Blood) Check blood sugar twice daily E11.9 100 Strip 11 4 Active Ondansetron HCl 4 MG Oral Tablet Take 1 Tablet by mouth every 6 hours as needed for Nausea. 30 Tablet 1 4 Active Classic DriveTouch Delica Lancets 30G Check blood sugar twice daily Dx E11.9 100 Each 5 4 Active Ozempic (0.25 or 0.5 MG/DOSE) 2 MG/3ML Solution Pen-injector (Semaglutide(0.25 or 0.5MG/DOS))Indications:Ty pe 2 diabetes mellitus with hemoglobin A1c goal of less than 8.0% ([facility]) Inject 0.25 mg under the skin once a week. 6 mL 2 4 Active Losartan Potassium 25 MG Oral Tablet (Cozaar)Indications:HTN, goal below 140/90 TAKE 1 TABLET IN THE MORNING 90 Tablet 3 4 Active Omeprazole 20 MG Oral Capsule Delayed Release (PriLOSEC)Indications:Adrian atzki's ring Take 1 Capsule by mouth in the morning. 1 hour before the first meal of the day.. 90 Capsule 3 4 Active Azithromycin 250 MG Oral Tablet (Zithromax Z-Buddy)Indications:Bronchi tis, complicated Take two tablets by mouth one hour before dental visit 10 Tablet 08/15/202 4 Active Metoprolol Tartrate 25 MG Oral Tablet (Lopressor)Indications:HT N, goal below 140/90 TAKE 1 TABLET IN THE MORNING AND 1 TABLET BEFORE BEDTIME 180 Tablet 2 4 Active Atorvastatin Calcium 20 MG Oral Tablet (Lipitor)Indications:Pure hypercholesterolemia TAKE 1 TABLET IN THE MORNING 90 Tablet 3 4 Active Hospital, Clinic, or Other Facility Administered Medication Ordered Dose Route Frequency Start Date End Date Status albuterol sulfate (PROVENTIL) (2.5 MG/3ML) 0.083% inhalation solution 2.5 mgIndications:HUTCHINSON (dyspnea on exertion),Nodule of left lung 2.5 mg NEBULIZER Q4H PRN 08/19/2017 Active documented as of this encounter (statuses as of 06/21/2024) Active Problems Problem Noted Date Diagnosed Date Overweight (BMI 25.0-29.9) 03/11/2024 Type 2 diabetes mellitus wit h hemoglobin A1c goal of less than 8.0% 11/03/2023 B12 deficiency 01/02/2022 Schatzki's ring 11/26/2017 Nodule of left lung 11/03/2017 HIPOLITO (obstructive sleep apnea) 12/06/2015 Overview: CPAP 8-15 cwp HST 11/15/15: THOMAS 9.1 T&B Generalized osteoarthritis 05/31/2013 CAD (coronary artery disease), [place] coronary a rtery 04/20/2012 Dyslipidemia 08/30/2009 Overview: Per Lipid Taxonomy. HTN, goal below 140/90 08/20/2009 Gastroesophageal reflux disease without esophagi tis documented as of this encounter (statuses as of 06/21/2024) Resolved Problems Problem Noted Date Diagnosed Date Resolved Date Other chronic pancreatitis 03/09/2023 0 03/11/2024 Hx of actinic keratosis 07/20/202002/13 Dyslipidemia, goal LDL below 100 10/20/2019 03/11/2024 Other atherosclerosis of lidia farzad arteries of extremities, bilateral legs 01/04/2019 10/05/2023 Prediabetes 07/08/2018 11/11/2023 Prediabetes 02/02/2018 07/06/2018 Overview: Per Prediabetes protocol #1 Hip joint replacement status 04/06/2017 03/11/2024 Family history of malignant melanoma 07/05/2015 03/11/2024 Overview: son FAM HX-BLOOD DISORD NEC aleks [place]nes 11/05/2010 01/26/2017 Family history of melanoma 07/16/2009 1 Overview: son HX-SKIN MALIGNANCY NEC - BCC L upper back 200707/16/2009 03/11/2024 Overview: SCCIS R dorsal foot 06/2016, BCC L upper back 2007 ADVANCE DIRECTIVE INFORMATION 12/10/2008 01/26/2017 Overview: Yes, Patient instructed to provide copy of advance directive for provider to review and to be scanned into Electronic Medical Record Special screening for malign ant neoplasms, colon 01/10/2003 11/22/2008 Overview: Resolved per Screening Diagnosis Protocol #6 PURE HYPERCHOLESTEROLEM 08/14 Overview: Per Lipid Taxonomy. CLASSICAL MIGRAINE WITHOU ME NTION OF INTRACTABLE MIGRAINE 03/11/2024 Preglaucoma 03/11/2024 documented as of this encounter (statuses as of 06/21/2024) Immunizations Name Administration Dates Next Due COVID-19 mRNA, LNP-s, No Pre serve, 2-Dose Series (Able Device) 08/12/2021,11/07/2020,10/17/2020 PPD 11/29/2023,11/19/2023 Pneumococcal Conjugate Vacc, 13 Valent (Prevnar) 06/21/2015 Season Influenza, Quad, PF, Adjuvanted, 65+ Yrs, IM (FLUAD) 08/24/2023,06/17/2021,06/20/2020 Seasonal Influenza Vac., MDV , IM, 0.5 mL (Fluzone) 06/20/2014,05/31/2013,07/07/2012,06/26,07/02/2010,06/21/2009,07/07/2007 ,08/04/2006 06/21/2010 Seasonal Influenza Virus Vac cine, Unspecified Formulation 07/11/2020 Seasonal Influenza, High Dos e, Trivalent, PF, IM (Fluzone HD) 07/15/2017 Seasonal Influenza, PF, 6 M & above, IM , (FluLaval or Fluzone) 07/08/2018 Seasonal Influenza, Quadriva lent Hd (Fluzone Hd) 06/25/2022 Seasonal Influenza, Quadriva lent, No Preserve, IM 07/24/2016,06/21/2015 Seasonal Influenza, Trivalen t, Adjuvanted, 65+ YRS, PF, (Fluad) 06/20/2020,06/28/2019 TD, Preservative Free 03/23/2008 TDAP (age 10 [...] Miscellaneous Notes * Telephone Encounter - Angelina DowellSTEPHANIE - 06/21/2024 10:34 AM EDT Spoke with Dr. Ward regarding below, he recommends patient receive the recommended HD flu vaccine ahead of her surgery. I called patient, got her answering machine. Left a detailed message making her aware of his recommendation and provided the dedicated nurse line in case she has questions. * Telephone Encounter - Bessy Kauffman OSA - 06/21/2024 9:17 AM EDT Patient is having a knee operation 07/06/24. Wanting to know if it would be okay to get the flu shot before the surgery? Also if there is a certain type of flu shot that she should be getting? A booster? Best number to call back patient: [phone], if patient not available to answer, she's given permission to leave a message on machine. documented in this encounter Plan of Treatment Upcoming Encounters Date Type Department Care Team (Late st Contact Info) Description 06/28/2024 8:00 AM EDT Office Visit Family [facility] [place] [address] [facility] [place] [address] Kenisha Jordan PA-C [address] [facility] [address] Health Maintenance Due Date Last Done Comments Diabetic Eye Exam 1953 Diabetic Foot Exam 1953 Adult Wellness Visit 12/24/2023 12/23/2022, 12/19/2021, 12/17/2020 Depression Screening 12/24/2023 12/23/2022 COVID-19 Vaccine ( season) 2024 08/12/2021, 11/07/2020, 10/17/2020 Influenza Vaccine (FLU shot) (#1) 2024 08/24/2023, 06/25/2022, 06/17/2021, Additional history exists HbA1c 08/20/2024 2024, 10/16, 10/28/2023, Additional history exists Albumin/Creatinine Ratio 12/15/2024 12/16/2023, 12/14 DTap/Tdap Vaccines (2 - Td or Tdap) 01/04/2029 01/04/2019, 03/23/2008, 05/30/1997 DXA Scan 01/29/2029 01/29/2022, 05/16, 06/06/2014, Additional history exists Zoster Vaccines Completed 12/21/2018, 05/2018, 07/07/2007 HPV (Gardasil) Vaccine Aged Out No lo nger eligible based on patient's age to complete this topic Hepatitis B Vaccine Aged Out No longe r eligible based on patient's age to complete this topic MENINGOCOCCAL (MENACTRA/MENVEO) Aged Out No longer eligible based on patient's age to complete this topic documented as of this encounter Medical Devices Not on filedocumented as of this encounter Advance Directives Documents on File Type Date Recorded Patient Rail Switchman Expl anation Advance Directives and Living Will 09/11/2017 ADVANCE DIRECTIVE / LIVING WILL Advance Directives and Living Will 01/10/2008 ADVANCE DIRECTIVE / LIVING WILL LIVING WILL Power of Display Maker 01/10/2008 POWER OF A TTORNEY Care Teams Decorating Machine Operator Relationship Specialty Start Date End Date Samm Ward DO [address] [place] [address] PCP - General Family Medicine 04/23/20 documented as of this encounter
--- OUTSIDE RECORDS SUMMARY | 2024-07-07 11:51 | External Medical Summary | Summary of Care ---
Author Name Unknown Organization [facility] Address [address] [place] [address] Phone [phone] Care Team Providers Care Ocularist Name Role Phone Samm Ward DO Primary Care Provider Reason for Visit * Reason Comments Outpatient Testing Encounter Details Date Type Department Care Team (Late st Contact Info) Description 06/30/2024 4:30 PM EDT Laboratory Laboratory [facility] [address] [place] [address] [place], [facility] [address] [place] [address] Genitourinary symptoms Allergies Active Allergy Reactions Criticality Noted Date Comments Doxepin 05/13/2021 Other reaction(s): unknown Raloxifene Hydrochloride 06/19/2008 Hot flashes, insomnia Lisinopril Cough 02/22/2015 Meloxicam Nausea/vomiting 10/02/2014 dizziness Penicillins 09/09/1999 Rash Tramadol Hcl Hives 12/16/2016 documented as of this encounter (statuses as of 06/30/2024) Medications Medication Sig Dispensed Refills Start Date End Date Status ASPIRIN 81 MG PO TABS Take by mouth at bedtime . Active Probiotic Product ([employer]) CAPS Capsule Take by mouth 1 Capsule [...] hr prior to dentist appointment 3 Active [email or web address] Golf Verio w/Device Kit Check blood sugar twice daily E11.9 1 Kit 4 Active scPharmaceuticalsTouch Verio In Vitro Strip (Glucose Blood) Check blood sugar twice daily E11.9 100 Strip 11 4 Active Ondansetron HCl 4 MG Oral Tablet Take 1 Tablet by mouth every 6 hours as needed for Nausea. 30 Tablet 1 4 Active scPharmaceuticalsTouch Delica Lancets 30G Check blood sugar twice daily Dx E11.9 100 Each 5 4 Active Ozempic (0.25 or 0.5 MG/DOSE) 2 MG/3ML Solution Pen-injector (Semaglutide(0.25 or 0.5MG/DOS))Indications:Ty pe 2 diabetes mellitus with hemoglobin A1c goal of less than 8.0% ([facility]) Inject 0.25 mg under the skin once [...] one hour before dental visit 10 Tablet 4 Active Metoprolol Tartrate 25 MG Oral [...] as of this encounter (statuses as of 06/30/2024) Active Problems Problem Noted Date Diagnosed Date Overweight (BMI 25.0-29.9) 03/11/2024 Type 2 diabetes mellitus wit h hemoglobin A1c goal of less than 8.0% 11/03/2023 B12 deficiency 01/02/2022 Schatzki's ring 11/26/2017 Nodule of left lung 11/03/2017 HIPOLITO (obstructive sleep apnea) 12/06/2015 Overview: CPAP 8-15 cwp HST 11/15/15: THOMAS 9.1 T&B Generalized osteoarthritis 05/31/2013 CAD (coronary artery disease), [place] coronary a rtery 04/20/2012 Dyslipidemia 08/30/2009 Overview: Per Lipid Taxonomy. HTN, goal below 140/90 08/20/2009 Gastroesophageal reflux disease without esophagi tis documented as of this encounter (statuses as of 06/30/2024) Resolved Problems Problem Noted Date Diagnosed Date [...] Overview: son FAM HX-BLOOD DISORD NEC aleks Coreybrand 11/05/2010 01/26/2017 Family history of melanoma 07/16/2009 [...] as of this encounter (statuses as of 06/30/2024) Immunizations Name Administration Dates Next Due COVID-19 mRNA, LNP-s, No Pre serve, 2-Dose Series ([employer]) 08/12/2021,11/07/2020,10/17/2020 PPD 11/29/2023,11/19/2023 Pneumococcal Conjugate Vacc, 13 [...] Seasonal Influenza, Quadriva lent Hd (Fluzone Hd) 06/21/2024,06/25/2022 Seasonal Influenza, Quadriva lent, No Preserve, IM [...] as of this encounter Plan of Treatment Pending Results Name Type Priority Associated Diagnoses Date /Time CULTURE, URINE, QUANTITATIVE Lab Routine Genitourinary symptoms 06/30/2024 4:30 PM EDT Health Maintenance Due Date Last Done Comments Diabetic Eye Exam 1953 Diabetic Foot Exam 1953 Adult Wellness Visit 12/24/2023 12/23/2022, 12/19/2021, 12/17/2020 Depression Screening 12/24/2023 12/23/2022 COVID-19 Vaccine ( season) 2024 08/12/2021, 11/07/2020, 10/17/2020 HbA1c 08/20/2024 2024, 10/16, 10/28/2023, Additional history exists Albumin/Creatinine Ratio 12/15/2024 12/16/2023, 12/14 DTap/Tdap Vaccines (2 - Td or Tdap) 01/04/2029 01/04/2019, 03/23/2008, 05/30/1997 DXA Scan 01/29/2029 01/29/2022, 05/16, 06/06/2014, Additional history exists Zoster Vaccines Completed 12/21/2018, 1005/2018, 07/07/2007 Influenza Vaccine (FLU shot) Completed 04/2024, 08/24/2023, 06/25/2022, Additional history exists HPV (Gardasil) Vaccine Aged Out No lo [...] as of this encounter Visit Diagnoses Diagnosis Genitourinary symptoms Other symptoms involving urinary system documented in this encounter Advance Directives Documents on File Type Date Recorded Patient Air Traffic Supervisor Expl anation Advance Directives and Living Will 09/11/2017 ADVANCE DIRECTIVE / LIVING WILL Advance Directives and Living Will 01/10/2008 ADVANCE DIRECTIVE / LIVING WILL LIVING WILL Power of Cyber Legal Advisor 01/10/2008 POWER OF A TTORNEY Care Teams Ocularist Relationship Specialty Start Date End Date Samm Ward DO [address] [place] [address] PCP - General Family Medicine 04/23/20 documented as of this encounter
--- OUTSIDE RECORDS SUMMARY | 2024-07-07 11:51 | External Medical Summary | Continuity of Care Document ---
Author Name Unknown Organization [id number] Address [address] [place] [id number] Care Team Providers Care Forward Air Controller/Air Officer Name Role Phone SylviaSamm Phyllis Primary Care Physician [phone] [id number]/20[facility] 06/[facility] [address] [place] [id number] [facility] [address] [place] [id number] Encounter Diagnosis Left knee DJD(Discharge Diagnosis) - 06/20/24 Discharge Disposition: Home or Self Care Attending Physician: LORRAINE Casillas, Kishor Ferguson Referring Physician: MD Bashir, Hernando Frye Allergies, Adverse Reactions, Alerts Substance Criticality Severity Reaction Reaction Severity Status penicillin Active doxepin itch Active traMADol hives Active Antihistamine hyper Active lisinopril unknown Active Evista Active meloxicam dizziness Active Medications aspirin Start: 11/13/16 1:26:00 PM EST, 81 mg =, PO, Daily Start Date: 11/13/16 Status: Ordered atorvastatin 40 mg oral tablet Start: 11/13/16 1:25:00 PM EST, 1 tab, PO, Daily Start Date: 11/13/16 Status: Ordered azithromycin Start: 10/26/23 10:59:00 AM EST, 1 hr prior to dental appt Start Date: 10/26/23 Status: Ordered clindamycin 150 mg oral capsule Start: 01/04/24 1:49:00 PM EDT, 4 cap, PO, As indicated, Disp# 12 cap, Refills: 3, one hour before dental and other procedures as directed, Pharmacy: [id number] Start Date: 01/04/24 Status: Ordered Hiprex 1 g oral tablet Start: 10/26/23 10:59:00 AM EST, 1 tab, PO, bid Start Date: 10/26/23 Status: Ordered losartan 25 mg oral tablet Start: 01/23/21 1:19:00 PM EDT, 1 tab, PO, Daily Start Date: 01/23/21 Status: Ordered Metamucil Start: 10/26/23 10:59:00 AM EST Start Date: 10/26/23 Status: Ordered multivitamin Start: 10/26/23 10:59:00 AM EST, 1 tab, PO, Daily Start Date: 10/26/23 Status: Ordered omeprazole 40 mg oral delayed release capsule Start: 02/28/19 10:43:00 AM EDT, 1 cap, PO, Daily Start Date: 02/28/19 Status: Ordered Ozempic (0.25 mg or 0.5 mg dose) 2 mg/3 mL subQ pen Start: 03/28/24 1:05:00 PM EDT, 0.5 mg, subQ, q7days, Disp# 3 mL, Supply Start Date: 03/28/24 Status: Ordered Swift [facility] Start: 10/26/23 10:59:00 AM EST Start Date: 10/26/23 Status: Ordered Tylenol Start: 09/22/19 1:24:00 PM EST Start Date: 09/22/19 Status: Ordered Mental Status 06/20/24 Barriers to Learning one year None evide nt Mandatory Health Literacy Documentation Yes Health Literacy Communication Barriers N ever Primary Language Nigerian Problem List Condition Confirmation Course Effective Dates Status H ealth Status Informant Right hip pain Confirmed Active Status post right knee replacement Confirmed Active Left lumbar radiculopathy Confirmed Active Degenerative joint disease (DJD) of hip Confirmed Active Bilateral primary osteoarthritis of knee Confirmed Active Lumbar stenosis Confirmed Active Diagnosis Diagnosis Type Effective Dates Health Status Cl inical Service Informant Left knee DJD Discharge Diagnosis 06/20/24 Procedures Procedure Date Related Diagnosis Body Site Status Appendectomy Completed Cardiac catheter Complete d Hysterectomy Completed Social History Social History Type Response Smoking Status Never smoked cigaret momo Sex Female Sex Representation Female (finding) Pre-OP H & P * LORRAINE Casillas Cory D: PERFORM, MODIFY, MODIFY, MODIFY, MODIFY Event Display: Pre-OP H & P Authored Date: PRE-OPERATIVE HISTORY AND PHYSICAL Name: LOLY ARMAS Patient Number: [id number] : 1935 Date of Service: 06/20/2024 PRE-OP Diagnosis: Left knee DJD Planned Procedure: Left knee total knee arthroplasty Chief Complaint: Left knee pain History of Present Illness (including history relevant to procedure): This 89-year-old female presents today with her son, for her preoperative history and physical. She is scheduled to undergo a left knee total knee arthroplasty on 07/06/[address] Camejo. She was previously scheduled for the same procedure on May 25, 2024, but had to cancel due to upper respiratory cold and pneumonia symptoms. The patient has a longstanding history of left knee pain. Symptoms have been ongoingfor years. Pain has become worse with time. She previously had a right total knee arthroplasty and has done well with it. She elects to proceed with the same on the left. Her left knee pain is affecting her ADLs. It is worse with weightbearing. No numbness or tingling. Preoperative imaging has beenobtained. Review Of Systems: A total of 10 systems were reviewed and are significant only for below stated conditions. Family history: History of malignant melanoma. Father age 70 with KS. Mother age 96 with CAD and dementia. Brother with type 2 diabetes. Social history: The patient is . Retired. Works at [employer] on Fridays. No tobacco use.No EtOH use. Past Medical History: Problems: Heart disease Hypertension Elevated lipids Obstructive sleep apnea Reflux Chronic pancreatitis Gastritis Hiatal hernia Migraine headaches Basal cell carcinoma Osteoarthritis History of diverticulosis History of C. difficile April 2015 Recurrent UTIs Lumbar stenosis Left lumbar radiculopathy Bilateral primary osteoarthritis of knee Degenerative joint disease (DJD) of hip Procedure History Procedure Procedure Date Comments Appendectomy Hysterectomy Right total knee arthroplasty Breast biopsy Right total hip replacement Cardiac catheterization November Allergies and Sensitivities: meloxicam(dizziness) lisinopril(unknown) traMADol(hives) doxepin(itch) Antihistamine(hyper) penicillin Evista Current Home Meds: (Last Updated 06/20 10:21) acetaminophen (Tylenol) aspirin 81 mg PO Daily atorvastatin (atorvastatin 40 mg oral tablet) 40 mg PO Daily azithromycin 1 hr prior to dental appt bifidobacterium-lactobacillus ([employer]) clindamycin (clindamycin 150 mg oral capsule) 600 mg PO As indicated one hour before dental and other procedures as directed losartan (losartan 25 mg oral tablet) 25 mg PO Daily methenamine (Hiprex 1 g oral tablet) 1 g PO bid multivitamin 1 tab PO Daily omeprazole (omeprazole 40 mg oral delayed release capsule) 40 mg PO Daily psyllium (Metamucil) semaglutide (Ozempic (0.25 mg or 0.5 mg dose) 2 mg/3 mL subQ pen) 0.5 mg subQ q7days No Vital Signs Data Available Initial Wt: No Data Available Physical Exam: (relevant to the procedure, including heart and lung evaluation General: Well-developed, well-nourished, elderly female, in no acute distress. Sitting in a chair. Alert and oriented. HEENT: Normocephalic, atraumatic. Eyes PERRLA, EOMI. Nares patent bilaterally with clear nasal drainage. Oropharynx with moist oral mucosa. Fair dentition. She is wearing glasses. Neck: No JVD. Cardiac: RRR. No MGR. Peripheral pulses are 2+. Lungs: Clear to auscultation bilaterally. No crackles, rhonchi, or wheezing. Good air movement. Abdomen: Mildly obese. Bowel sounds present x 4. Soft nontender. No organomegaly. Extremities: Left knee evaluation reveals a valgus deformity. No intra-articular effusion. She has focal pain with palpation over the medial and lateral joint lines. Worse pain laterally. Stable collateral ligaments. No palpable defect in the patellar tendon or quadriceps tendon. Strength is 5/5 for resisted flexion and extension. Left knee lacks about 2 to 3 degrees of terminal extension. Flexion to greater than 100 degrees. Crepitus is palpable with motion. Fair quad tone. Ambulating today with a slightly antalgic gait using her cane. Neuro: Gross sensation is intact across the lower extremities by soft touch. Skin: Warm dry with good turgor. No rashes. No ecchymosis or intra-articular effusion. No erythema. Studies of Lab Results (relevant to the procedure): Radiographic imaging previously obtained of theleft knee shows end-stage DJD with periarticular osteophytes, subchondral sclerosis, and joint space narrowing. ASSESSMENT: Left knee end-stage DJD Plan: Approximately 20 minutes was spent with the patient and her son, reviewing operative procedure, postoperative recovery, physical therapy requirements, and medication use. Postoperative prescriptions for Percocet and Eliquis will be provided upon discharge from the hospital. Anticipate discharge to the assisted facility for additional care and rehab. The patient requests [place]. PDMP was checked and there are no concerning findings. She has no respiratory symptoms at this time.She is currently asymptomatic of any COVID-19 or influenza symptoms. She already had her cardiac clearance in February and medical clearance for surgery in April. She already has a walker and cane. This dictation has been completed using [employer] text voice recognition software. Grammatical errors, omissions, insertions, and misspellings may be present due to the limitations of the software. Electronic Signature on File Electronically Reviewed/Signed by: Kishor Casillas PA-C Author Signature Dt/Tm:06/21/2024 01:34 PM Division of Sports Medicine Electronically Reviewed/Signed by: Hernando Camejo MD Cosigner Signature Dt/Tm: 06/21/2024 03:40 PM Pick Up Truck Driver for Clinical Affairs, [facility] [place] Professor in Orthopaedics Circle Cutting Saw Operator, [facility] CDS Patient Care team information Care Team Personnel Name: DO Ward Shane D Position: Referring DIRECT Member Role: Primary Care Provider Address: [address] [place] [address] [place] Care Team Related Persons Name: ZOIE COWAN
--- OUTSIDE RECORDS SUMMARY | 2024-07-07 11:51 | External Medical Summary | Summary of Care ---
Author Name Unknown Organization [facility] Address [address] [place] [address] Phone [phone] Care Team Providers Care Cissp Name Role Phone Samm Ward DO Primary Care Provider [phone] Encounter Details Date Type Department Care Team (Late st Contact Info) Description 06/30/2024 Orders Only Laboratory [facility] [address] [place] [address] Angelina Meléndez CRNP [address] [facility] [place] [address] Genitourinary symptoms* Allergies Active Allergy Reactions Criticality Noted Date [...] mouth at bedtime . Active Probiotic Product (Fotoshkola) CAPS Capsule Take by mouth 1 Capsule [...] hr prior to dentist appointment 3 Active OneTouch Verio w/Device Kit Check blood sugar twice daily E11.9 1 Kit 4 Active OneTouch Verio In Vitro Strip (Glucose Blood) Check blood sugar twice daily E11.9 100 Strip 11 4 Active Ondansetron HCl 4 MG Oral Tablet Take 1 Tablet by mouth every 6 hours as needed for Nausea. 30 Tablet 1 4 Active OneTouch Delica Lancets 30G Check blood sugar twice daily Dx E11.9 100 Each 5 4 Active Ozempic (0.25 or 0.5 MG/DOSE) 2 MG/3ML Solution Pen-injector (Semaglutide(0.25 or 0.5MG/DOS))Indications:Ty pe 2 diabetes mellitus with hemoglobin A1c goal of less than 8.0% ([facility]) Inject 0.25 mg under the skin once [...] Generalized osteoarthritis 05/31/2013 CAD (coronary artery disease), [place] coronary a rtery 04/20/2012 Dyslipidemia 08/30/2009 Overview: [...] mRNA, LNP-s, No Pre serve, 2-Dose Series ([employer]bi[employer]) 08/12/2021,11/07/2020,10/17/2020 PPD 11/29/2023,11/19/2023 Pneumococcal Conjugate Vacc, 13 [...] as of this encounter Plan of Treatment Scheduled Orders Name Type Priority Associated Diagnoses Orde r Schedule CULTURE, URINE, QUANTITATIVE Lab Routine Genitourinary symptoms Expected: 06/30/2024, Expires: 06/30/2025 Health Maintenance Due Date Last Done Comments [...] exists Zoster Vaccines Completed 12/21/2018, 05/2018, 07/07/2007 Influenza Vaccine (FLU shot) Completed 04/2024, [...] of this encounter Visit Diagnoses Diagnosis Genitourinary symptoms- Primary Other symptoms involving urinary system documented in this encounter Advance Directives Documents on File Type Date Recorded 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
[2024-07-07] MEDS: KETOROLAC TROMETHAMINE 15 MG/ML VIAL IV SCH (12:08)
--- NOTE | 2024-07-07 12:25 | XRay Report ---
XR knee LT 1 or 2V routine CLINICAL HISTORY: S/P L TKA TECHNIQUE: 2 views of the left knee were obtained. Comparison: Comparison is made to knee radiographs 05/09/2024 FINDINGS: Patient is status post total knee arthroplasty with expected postsurgical changes including soft tiss ue swelling and subcutaneous emphysema. No periarticular lucency or hardware fracture is seen. IMPRESSION: Expected postoperative appearance status post placement of total knee arthroplasty. ACT 112: Negative or not required by law. Electronically signed by: Kali Cabrera M.D. 07/07/2024 12:23 PM
[2024-07-07] MEDS: VANCOMYCIN HCL 1,000 MG in DEXTROSE 5% 250 ML IV ONE (13:28)
[2024-07-07] MEDS: ACETAMINOPHEN 500 MG TAB PO SCH (14:38)
[2024-07-07] MEDS: oxyCODONE HCL IR 5 MG TAB (IMMEDIATE RELEASE) PO PRN (16:00)
[2024-07-07] MEDS: ASCORBIC ACID 500 MG TAB PO SCH (17:29)
[2024-07-07] MEDS: FERROUS GLUCONATE 324 MG TAB PO SCH (17:30)
[2024-07-07] MEDS: DOCUSATE SODIUM 100 MG CAP PO SCH (20:03)
[2024-07-07] MEDS: ASPIRIN 81 MG ECTAB PO SCH (20:04)
[2024-07-07] MEDS: SENNA 8.6 MG TAB PO SCH (20:04)
[2024-07-07] MEDS: METHENAMINE HIPPURATE 1 GM TAB PO SCH (20:04)
[2024-07-07] MEDS: METOPROLOL TARTRATE 25 MG TAB PO SCH (20:04)
[2024-07-07] MEDS: ATORVASTATIN 20 MG TAB PO SCH (20:04)
[2024-07-07] MEDS: ONDANSETRON INJ 2 MG/ML 2 ML VIAL IV PRN (22:10)
[2024-07-08 06:22] LABS: Hematocrit (blood only) 29.8 % (37.0-47.0); Mean Corpuscular Hgb Conc 33.6 g/dL (32.0-36.0); Mean Corpuscular Volume 80.5 fL (80.0-100.0); Mean Platelet Volume 10.4 fL (9.4-12.4); Platelet Count 215 K/uL (130-400); RDW Standard Deviation 40.5 fL (36.4-46.3); White Blood Count 11.67 K/ul (4.8-10.8)
[2024-07-08 06:35] LABS: Calcium 8.4 mg/dl (8.6-10.3); Creatinine Clr Calc Pharmacy 52.2 ml/min; Potassium 4.4 mmol/L (3.5-5.1)
[2024-07-08] MEDS: APIXABAN 2.5 MG TAB PO SCH (07:41)
[2024-07-08] MEDS: dexAMETHasone 10 MG in SYRINGE 0 ML IV SCH (07:41)
[2024-07-08] MEDS: LOSARTAN POTASSIUM 25 MG TAB PO SCH (07:41)
[2024-07-08] MEDS: MULTIVITAMIN TAB PO SCH (07:41)
[2024-07-08] MEDS: PANTOprazole 40 MG TAB PO SCH (07:41)
--- NOTE | 2024-07-08 07:55 | Orthopedic Progress Note ---
Date of Service July 08, 2024 Assessment & Plan Admission and Anticipated Discharge Date Admission Date: July 07, 2024 Orthopedic Progress Note Postop day #1 status post left total knee replacement. Patient denies chest pain shortness of breath fever chills nausea vomiting or headache. Vital signs are stable she is afebrile. Neurovascular check femoral sciatic nerve is normal. Has good dorsi and pl antarflexion of her ankle and toes can do a straight leg raise. Wound dressing clean dry and intact. Calves nontender. A.m. labs are stable hematocrit is 29.8 electrolytes are reasonable. Assessment overall doing well continue with care pathway management placement pending. Discharge when bed available. Patient advised of status. Begin anticoagulation today.
[2024-07-08] MEDS: dexAMETHasone 4 MG TAB PO ONE (10:13)
--- NOTE | 2024-07-08 11:37 | Orthopedic Progress Note ---
Date of Service July 08, 2024 Assessment & Plan (1) Status post left knee replacement: Plan: Weightbearing as tolerated with walker assistance and immobilizer for first 48 hours May change dressing as needed PT/OT Pain control with p.o. medication DVT prophylaxis with Eliquis and OLYA stockings Ice with easy wrap Follow-up with [facility] orthopedics as scheduled With questions contact her clinic at [phone] Admission and Anticipated Discharge Date Admission Date: July 07, 2024 Subjective This 89-year-old female is day 1 status post left total knee arthroplasty. Patient is doing very well this morning. She states that her pain is well- controlled with the p.o. pain medication. She states that she saw Dr. Camejo earlier this morning. Patient states that she is going to a rehab facility for PT. She has met with case management and [facility] Currently she denies chest pain, shortness of breath, fever, chills, sweats, nausea, vomiting, diarrhea or numbness or tingling in her left lower extremity. Review of Systems Review of Systems: All systems reviewed & are unremarkable except as noted in Subjective Physical Exam Physical Exam: Left knee: Outer dressing was removed. Postoperative dressing was also removed and a new one was placed over the surgical incision site. There is no active bleeding. Mikaela were in place. Patient is able to perform an active straight leg raise test. She is able to actively dorsi and plantarflex her foot without issue. Calf was soft and supple. Her quad strength was 4 out of 5. She was neurovascularly intact in the left lower extremity. Results & Data Vital Signs (Past 12 Hours) Vital Signs Temp Pulse Resp BP Pulse Ox O2 Del Method 07/08/24 11:12 36.5 C 59 L 16 117/70 95 Room Air 07/08/24 07:29 37.3 C 68 16 117/70 97 Room Air 07/08/24 04:40 36.8 C 67 16 120/70 95 Room Air 07/08/24 00:19 37 C 62 16 125/73 94 Room Air Diagnostic Findings Laboratory Results WBC 11.67 K/ul (4.8-10.8) H 07/08/24 05:56 RBC 3.70 M/uL (4.20-5.40) L 07/08/24 05:56 Hgb 10.0 g/dl (12.0-16.0) L 07/08/24 05:56 Hct 29.8 % (37.0-47.0) L 07/08/24 05:56 MCV 80.5 fL (80.0-100.0) 07/08/24 05:56 MCH 27.0 pg (25.0-34.0) 07/08/24 05:56 MCHC 33.6 g/dL (32.0-36.0) 07/08/24 05:56 RDW Std Deviation 40.5 fL (36.4-46.3) 07/08/24 05:56 RDW Coeff of Marycarmen 14.0 % (11.5-14.5) 07/08/24 05:56 Plt Count 215 K/uL (130-400) 07/08/24 05:56 MPV 10.4 fL (9.4-12.4) 07/08/24 05:56 Sodium 130 mmol/L (136-145) L 07/08/24 05:56 Potassium 4.4 mmol/L (3.5-5.1) 07/08/24 05:56 Chloride 100 mmol/L (98-107) 07/08/24 05:56 Carbon Dioxide 22 mmol/L (21-32) 07/08/24 05:56 Anion Gap 8 (3-11) 07/08/24 05:56 BUN 16 mg/dl (6-23) 07/08/24 05:56 Creatinine 0.64 mg/dl (0.6-1.2) 07/08/24 05:56 Est Cr Clr Drug Dosing 52.2 ml/min 07/08/24 05:56 eGFR 84.42 07/08/24 05:56 BUN/Creatinine Ratio 25.0 (10-20) H 07/08/24 05:56 Glucose 171 mg/dl (70-99(Fasting)) H 07/08/24 05:56 POC Glucose 165 mg/dl (70-99) H 07/07/24 09:45 Calcium 8.4 mg/dl (8.6-10.3) L 07/08/24 05:56 Impressions Knee X-Ray 07/07/24 09:34 XR knee LT 1 or 2V routine CLINICAL HISTORY: S/P L TKA TECHNIQUE: 2 views of the left knee were obtained. Comparison: Comparison is made to knee radiographs 05/09/2024 FINDINGS: Patient is status post total knee arthroplasty with expected postsurgical changes including soft tissue swelling and subcutaneous emphysema. No periarticular lucency or hardware fracture is seen. IMPRESSION: Expected postoperative appearance status post placement of total knee arthroplasty. ACT 112: Negative or not required by law. Electronically signed by: Kali Cabrera M.D. 07/07/2024 12:23 PM
[2024-07-08] MEDS: ALUMINUM/MAGNESIUM SUSP 30 ML UDC PO PRN (12:02)
[2024-07-09 07:21] VITALS: BP 93/54; PULSE 60; TEMP 98.6; O2SAT 97
--- NOTE | 2024-07-09 08:01 | Orthopedic Progress Note ---
Date of Service July 09, 2024 Assessment & Plan Admission and Anticipated Discharge Date Admission Date: July 07, 2024 Orthopedic Progress Note patient reviewed virtually as I am out of town for other duties. She is stable for transfer. asked nursing to be judicious with pain medication.
--- NOTE | 2024-07-09 08:51 | Orthopedic Progress Note ---
Date of Service July 09, 2024 Assessment & Plan (1) Status post left knee replacement: Plan: Post op day #2. Patient overall doing well. The decreased range of motion in the knee today is expected postop day 2. Neurovascular intact. Continue range of motion exercises provided while in bed PT/OT Elevate, ice Knee immobilizer when ambulating with walker. Can be out of bed with leg propped up. Can use PRN medications to encourage bowel movement. Pain control, will keep light due to slight soft blood pressure. Keep dressing clean and dry, change as needed. Continue TEDs bilaterally and eliquis for DVT prophylaxis She is accepted to [facility] so will discharge today. She is comfortable with this. Follow up outpatient appointment in 2 weeks with [facility]. Admission and Anticipated Discharge Date Admission Date: July 07, 2024 Subjective This 89-year-old female is day 2 status post left total knee arthroplasty. Patient is doing well this morning. She noticed some decreased range of motion in the knee today compared to yesterday. Pain is overall well controlled. She has been performing range of motion exercises and was up with physical therapy. She denies any numbness or tingling in her toes and is able to move all her toes. No chest pain, shortness of breath, fever, chills, nausea, or vomiting. Hale s not had a bowel movement yet, no urinary retention. She is currently awaiting insurance approval to be transferred to [facility]. Physical Exam Constitutional: In no acute distress, resting comfortably in bed. Pleasant. Cardiovascular: Left PT pulse 2+ Musculoskeletal: Left lower extremity: Dressing is in place with Stuart stocking to the thigh. Ice pack in place. Trace to 1+ edema inferior to the dressing from mid lane to the ankle. Range of motion: -3 extension. Able to just raise heel off bed with knee in extension. Able to move all toes Strength 5+ with ankle plantarflexion, dorsiflexion, inversion, and eversion. Skin: Left toes are warm and well-perfused Neurologic: No sensory deficits to light touch in left lower extremity Results & Data Vital Signs (Past 12 Hours) Vital Signs Temp Pulse Resp BP Pulse Ox O2 Del Method 07/09/24 07:20 98.6 F 60 16 93/54 L 97 Room Air
== END 2024-07-09 11:25 ==
LOC: 3E 05:39 → ASU 05:39